=== PATIENT | female | born 1955 | race Caucasian/White ===

== ENCOUNTER 2020-02-10 00:25 | Emergency (ER) | payer OTHER, SELFPAY ==
--- NOTE | ~2020-02-10 | CT_ITS ---
EXAMINATION: CT abdomen pelvis w con DATE: 02/10/2020 01:59 INDICATION: Right flank pain. TECHNIQUE: Computed tomography (CT) of the abdomen and pelvis was performed with 100 mL Omnipaque 350 intravenous contrast. Automated exposure control and iterative reconstruction technique were employe d. The dose-length product was 840.59 mGy-cm. COMPARISON: CT abdomen and pelvis 01/15/2018 FINDINGS: The visualized portions of the lung bases demonstrate mild atelectasis. No pleural effusion . The heart size is normal. No pericardial effusion. The liver, gallbladder, spleen, pancreas, and ad renal glands are normal. There are cysts in the kidneys measuring up to 5 mm on the right. There are surgical changes in the stomach. There are changes of ventral hernia repair. The appendix is not visu alized. There is distended small bowel containing desiccated stool in left abdomen proximal and dista l to a bowel anastomosis. There is a moderate volume of stool in the colon. There are no pathological ly enlarged lymph nodes. There is no free intraperitoneal fluid. An intrathecal catheter is noted wit h subcutaneous pump in right lower quadrant. There is severe lumbar spondylosis. IMPRESSION: 1. Dilated small bowel in left abdomen, consistent with small bowel obstruction versus adynamic ileus . Reviewed, dictated and finalized at location A. IMPRESSION: 1. Dilated small bowel in left abdomen, consistent with small bowel obstruction versus adynamic ileus.
[2020-02-10 00:29] VITALS: BP 133/86; PULSE 86; RESP 18; TEMP 36.7; O2SAT 100
[2020-02-10 00:58] LABS: Basophils Absolute Auto 0.1 K/mm3 (0.0-0.1); Basophils Percent Auto 0.8 % (0.2-1.2); Eosinophils Absolute Auto 0.1 K/mm3 (0-0.3); Eosinophils Percent Auto 1.8 % (0-4.4); Hematocrit 38.5 % (37.0-47.0); Hemoglobin 12.5 g/dL (12.0-15.0); Immature Granulocyte Absolute 0.04 K/mm3 (0.00-0.031); Immature Granulocyte Percent A 0.5 % (0-0.5); Lymphocytes Percent Auto 39.3 % (18.3-44.2); Mean Corpuscular HGB Conc 32.5 g/dl (32-36); Mean Corpuscular Hemoglobin 31.5 pg (26-34); Mean Platelet Volume 9.3 fl (7.4-10.4); Monocytes Absolute Auto 0.6 K/mm3 (0.1-0.6); Monocytes Percent Auto 7.7 % (2.6-8.5); Neutrophils Absolute Auto 3.9 K/mm3 (1.3-6.7); Neutrophils Percent Auto 49.9 % (45.5-73.1); Platelet Count Result 247 k/mm3 (150-375); Red Blood Count 3.97 M/mm3 (4.2-5.4); Red Cell Distribution Width 13.4 % (11.5-14.5); White Blood Count 7.9 K/mm3 (4.5-10.0)
[2020-02-10 01:07] LABS: Add Urine Microscopic? YES; Appearance Urine Cloudy (Clear); Bilirubin Urine Negative (Negative); Blood Urine 2+ (Negative); Color Urine Yellow (Yellow); Glucose Urine UA Negative (Negative); Ketones Urine Negative (Negative); Leukocyte Esterase Ur 3+ LEU/UL (Negative); Nitrate Urine Positive (Negative); Protein Urine Negative (Negative); RBC Urine 21-50 /hpf (0-2); Specific Grav Ur 1.011 (1.001-1.035); Urobilinogen Urine Negative mg/dL (<2.0); WBC Clumps Urine Present /HPF; WBC Urine >75 /hpf
[2020-02-10 01:21] LABS: Alanine Aminotransferase 55 U/L (4-35); Albumin Level 4.5 g/dL (3.5-5.1); Alkaline Phosphatase 112 U/L (38-126); Aspartate Amino Transferase 50 U/L (14-36); Bilirubin,Total 0.2 mg/dL (0.2-1.3); Blood Urea Nitrogen 14 mg/dL (7-17); Carbon Dioxide 31 mmol/L (22-30); Chloride 97 mmol/L (98-107); Estimated CRCL calculation 95 ml/min; Estimated Glomerular Filt Rate > 60; Glucose 106 mg/dL (65-105); Lipase 36 U/L (23-300); Potassium 3.6 mmol/L (3.4-5.0); Sodium 137 mmol/L (137-145)
--- NOTE | 2020-02-10 01:26 | ED.ABDPAIN ---
HPI - Abdominal Pain General Chief Complaint: Abdominal Pain Stated Complaint: RUQ pain Time Seen by Provider: 02/10/20 00:35 History of Present Illness HPI narrative: Patient presents with 1 day of severe right upper quadrant right flank pain. She had vomiting at home. She has had no fever. She has not had pain like this before. She says she does not take is her kidney. She gives the pain is 7 out of 10. 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 She has not had any diarrhea. She has chronic constipation from her multiple narcotic pain medicines. She has failed back syndrome. MD elicited complaint: abdominal pain and flank pain Pertinent past history: constipation Onset (ago): day(s) Pain Consistency: constant Location: R flank Severity: severe Pain scale (0-10): 7 Quality: aching Radiation: R flank Exacerbating factors: other (Palpitation) Relieving factors: nothing Context: confirms other (None of these) Associated symptoms: nausea, vomiting and constipation Related Data Home Medications Medication Instructions Recorded Confirmed amitriptyline 100 mg tablet See Rx Instructions .ROUTE .COMPLEX 05/31/19 amitriptyline 100 mg tablet See Rx Instructions .ROUTE .COMPLEX 07/01/19 10/03/19 aspirin 81 mg chewable tablet 81 mg PO DAILY 07/01/19 10/03/19 dicyclomine 10 mg capsule See Rx Instructions .ROUTE .COMPLEX 07/01/19 10/03/19 ferrous sulfate 325 mg (65 mg See Rx Instructions .ROUTE .COMPLEX 07/01/19 10/03/19 iron) tablet levothyroxine 75 mcg tablet 75 mcg PO DAILY 07/01/19 10/03/19 melatonin 10 mg tablet See Rx Instructions .ROUTE 07/01/19 10/03/19 .COMPLEX tablet omeprazole 20 mg capsule,delayed See Rx Instructions .ROUTE .COMPLEX 07/01/19 10/03/19 release syringe with needle 3 mL 25 x 5/8 #1 each 07/01/19 10/03/19 nitrofurantoin 100 mg PO Q12H 07/04/19 10/03/19 monohydrate/macrocrystals 100 mg capsule Allergies Allergy/AdvReac Type Severity Reaction Status Date / Time prochlorperazine Allergy Severe Hyperactive--STATES Verified 02/10/20 00:46 CAUSES RESTLESSNESS, PANICKY FEELING Review of Systems Review of Systems: Narrative: CONSTITUTIONAL: Denies fever, chills, or sweats. EYES: Denies visual changes, redness, or discharge. ENT: Denies rhinorrhea, congestion, sore throat, or otalgia. CARDIOVASCULAR: Denies chest pain, palpitations, or edema. RESPIRATORY: Denies cough or dyspnea. GASTROINTESTINAL: She has abdominal pain, nausea, vomiting, but not diarrhea. GENITOURINARY: Denies dysuria or hematuria. SKIN: Denies rash or itching. MUSCULOSKELETAL: Denies back pain, joint pain, or myalgia. NEUROLOGIC: Denies headache, numbness, or weakness. PSYCHIATRIC: Denies anxiety or depression. : Intermittent vaginal bleeding All systems reviewed & are unremarkable except as noted in HPI and below PMFSH Past Medical History Medical History (Updated 02/10/20 @ 02:55 by Ester Gaona MD) Depression Failed back syndrome HLD (hyperlipidemia) Lymphedema UTI (urinary tract infection) Surgical History Surgical History (Updated 02/10/20 @ 03:02 by Ester Gaona MD) History of appendectomy History of gastric bypass Social History Social History Smoking status: Never smoker Alcohol intake: never Exam Narrative: Exam Narrative: GENERAL: Uncomfortable woman, in moderate distress. Chelosis, braces HEAD: Normocephalic, atraumatic. EYES: PERRLA and EOMI. ENT: Nares clear, no rhinorrhea or epistaxis. Mucous membranes moist. NECK: Supple. CHEST: Clear to auscultation. No respiratory distress. HEART: Regular rate and rhythm. No murmur heard. Normal peripheral pulses. ABDOMEN: Soft, nontender, nondistended, normal active bowel sounds. EXTREMITIES: Normal range of motion. Huge swollen legs. SKIN: Warm, dry, no rash. NEURO: No focal deficits. Alert and oriented x3. PSYCH:normal.
[2020-02-10] MEDS: MORPHINE SULFATE 4 MG/ML INJ IV PUSH (01:41)
[2020-02-10] MEDS: ONDANSETRON INJ 4 MG/2 ML VIAL IV PUSH ×2 (01:41→05:58)
[2020-02-10] MEDS: METOCLOPRAMIDE HCL INJ 10 MG/2 ML VIAL IV PUSH (02:22)
[2020-02-10 02:24] VITALS: BP 134/79; PULSE 80; RESP 15; O2SAT 97
--- NOTE | 2020-02-10 03:19 | PC.NURSE ---
RN attempted NG x2 using both Nares. Unsuccessful. PT tearful and asking if she needs to have the NG. RN informed her all the risks of a small bowel obstruction not being treated. ERP notified and talking to patient at this time.
--- NOTE | 2020-02-10 03:38 | PC.NURSE ---
Spoke w/ Renea for [facility] tri[facility] access. states pt has been accepted for transfer and will be in contact for patients bed.
--- NOTE | 2020-02-10 04:43 | PC.NURSE ---
called [facility] to transport patient. ETA [id number]
[2020-02-10 04:47] VITALS: BP 129/71; PULSE 86; RESP 20; TEMP 36.7; O2SAT 98
--- NOTE | 2020-02-10 04:55 | PC.NURSE ---
Pt has a bed assignment RM Number at [place] [id number]. Report at [phone]
[2020-02-10 06:30] VITALS: BP 153/91; PULSE 55; RESP 13; O2SAT 96
[2020-02-10 06:53] VITALS: BP 109/59; PULSE 74; RESP 15; O2SAT 99
--- NOTE | 2020-02-10 06:58 | PC.NURSE ---
called [facility] for ETA update. ETA atleast another hour.
--- NOTE | 2020-02-10 07:21 | PC.NURSE ---
This RN into pts room to introduce myself. Pt denies needing anything at this time. Informed pt that if she needs anything to call out.
== END 2020-02-10 07:53 | disposition short-term general hospital (02) ==
PROVIDERS: Emergency Provider Emergency Medicine; PCP Emergency Medicine
DX: N39.0 Urinary tract infection, site not specified (principal); K56.609 Unspecified intestinal obstruction, unspecified as to partial versus complete obstruction; Z98.84 Bariatric surgery status; Z79.82 Long term (current) use of aspirin; F32.9 Major depressive disorder, single episode, unspecified; E78.5 Hyperlipidemia, unspecified
CPT/HCPCS: 36415; 74177; 80053; 81001; 83690; 85025; 87077; 87086; 87088; 87186; 96365; 96375; 96376; 99285; J0131; J0696; J1170; J2270; J2405; J2765; Q9967

== ENCOUNTER 2020-02-18 16:53 | Emergency (ER) | payer OTHER, SELFPAY ==
[2020-02-18 16:55] VITALS: BP 132/73; PULSE 92; RESP 20; TEMP 37; O2SAT 97
[2020-02-18 17:07] VITALS: BP 106/89; PULSE 68; RESP 16; O2SAT 100
--- NOTE | 2020-02-18 17:47 | ED.GENADULT ---
HPI - General Adult General Chief complaint: Epistaxis Stated complaint: nosebleed Time Seen by Provider: 02/18/20 17:27 History of Present Illness HPI narrative: Patient presents with her for complications after a bowel obstruction last week. She came here to [facility] for her abdominal pain which turned out to be a bowel obstruction due to her gastric bypass surgery. There were multiple sites of obstruction and she was transferred to [facility]. She was treated surgically with lysis of adhesions. We could not pass an NG tube here and because nasal trauma with bleeding. She said they also had trouble passing a nasogastric tubes there but were able to get it in. She has had intermittent nosebleeds since. When she takes the Zofran for nausea, it causes a headache, which increases her blood pressure, which initiates the nosebleed. She cannot take Reglan because she is allergic to Compazine. Phenergan is in the same category. I told her I would find a nausea medicine for her. Her pain is tolerable at a 4 out of 10. She is only taking Tylenol at home because she is afraid of the constipation that the Percocets will cause. She has had only one bowel movement since her surgery. I recommended that she get the MiraLAX and take that 3 times a day until her stools are soft. Told her she could cut the Percocets in half or in quarters to get a little bit better pain management. She is so grateful that we were able to diagnose and manage the bowel obstruction. Onset (ago): week(s) Related Data Home Medications Medication Instructions Recorded Confirmed amitriptyline 100 mg tablet See Rx Instructions .ROUTE .COMPLEX 05/31/19 amitriptyline 100 mg tablet See Rx Instructions .ROUTE .COMPLEX 07/01/19 10/03/19 aspirin 81 mg chewable tablet 81 mg PO DAILY 07/01/19 10/03/19 dicyclomine 10 mg capsule See Rx Instructions .ROUTE .COMPLEX 07/01/19 10/03/19 ferrous sulfate 325 mg (65 mg See Rx Instructions .ROUTE .COMPLEX 07/01/19 10/03/19 iron) tablet levothyroxine 75 mcg tablet 75 mcg PO DAILY 07/01/19 10/03/19 melatonin 10 mg tablet See Rx Instructions .ROUTE 07/01/19 10/03/19 .COMPLEX tablet omeprazole 20 mg capsule,delayed See Rx Instructions .ROUTE .COMPLEX 07/01/19 10/03/19 release syringe with needle 3 mL 25 x 5/8 #1 each 07/01/19 10/03/19 nitrofurantoin 100 mg PO Q12H 07/04/19 10/03/19 monohydrate/macrocrystals 100 mg capsule Allergies Allergy/AdvReac Type Severity Reaction Status Date / Time prochlorperazine Allergy Severe Hyperactive--STATES Verified 02/10/20 00:46 CAUSES RESTLESSNESS, PANICKY FEELING Review of Systems Review of Systems: Narrative: CONSTITUTIONAL: Denies fever, chills, or sweats. EYES: Denies visual changes, redness, or discharge. ENT: Denies rhinorrhea, congestion, sore throat, or otalgia. She has had intermittent nosebleeds. CARDIOVASCULAR: Denies chest pain, palpitations, or edema. RESPIRATORY: Denies cough or dyspnea. GASTROINTESTINAL: She still has moderate abdominal pain, nausea, but not vomiting, or diarrhea. GENITOURINARY: Denies dysuria or hematuria. SKIN: Denies rash or itching. MUSCULOSKELETAL: Denies back pain, joint pain, or myalgia. NEUROLOGIC: Denies headache, numbness, or weakness. PSYCHIATRIC: Denies anxiety or depression. All systems reviewed & are unremarkable except as noted in HPI and below PMFSH Past Medical History Medical History (Updated 02/18/20 @ 17:51 by Ester Gaona MD) Depression Failed back syndrome HLD (hyperlipidemia) Lymphedema Small bowel obstruction UTI (urinary tract infection) Surgical History Surgical History History of appendectomy History of gastric bypass Social History Social History Smoking status: Never smoker Alcohol intake: never Exam Narrative: Exam Narrative: GENERAL: Well-appear
[2020-02-18] MEDS: MORPHINE SULFATE 10 MG/ML AMP 5 MG IM (17:48)
[2020-02-18] MEDS: hydrOXYzine HCL 25 MG TABLET PO (17:49)
[2020-02-18 17:55] VITALS: BP 106/84; PULSE 75; RESP 16; O2SAT 100
== END 2020-02-18 17:55 | disposition home or self-care (01) ==
PROVIDERS: Emergency Provider Emergency Medicine; PCP Emergency Medicine
DX: R04.0 Epistaxis (principal); R11.0 Nausea; R51 Headache; Z98.890 Other specified postprocedural states; F32.9 Major depressive disorder, single episode, unspecified; E78.5 Hyperlipidemia, unspecified; Z87.440 Personal history of urinary (tract) infections; Z98.84 Bariatric surgery status; Z79.82 Long term (current) use of aspirin
CPT/HCPCS: 96372; 99283; A9270; J2270

== ENCOUNTER 2020-06-06 10:43 | Outpatient (NON) | payer OTHER, SELFPAY ==
[2020-06-07 01:50] LABS: SARS-CoV-2 RNA PCR Positive
== END 2020-06-06 10:44 ==
PROVIDERS: PCP Emergency Medicine; Visit Provider Emergency Medicine
DX: U07.1 COVID-19 (principal)
CPT/HCPCS: 87635; C9803; U0003

== ENCOUNTER → 2020-12-01 16:16 | Outpatient (CLI) | payer OTHER, SELFPAY ==
--- NOTE | ~2020-12-01 | MM_ITS ---
EXAMINATION: MM screening ángel BI w lori HISTORY: Screening mammogram, family history of breast cancer in her sisters. TECHNIQUE: Craniocaudal and mediolateral oblique 3-D tomosynthesis images were obtained and synthetic 2-D images were generated. CAD analysis was submitted and interpreted. COMPARISON: 05/11/2019, 05/18/2018, 05/23/2017 BREAST PARENCHYMAL COMPOSITION: The breasts are heterogeneously dense, which may obscure small masses . FINDINGS: Scattered benign-appearing calcifications are present. There is no evidence of suspicious m ass, calcification, or architectural distortion to suggest malignancy in either breast. There has bee n no suspicious interval change. IMPRESSION: 1. No mammographic evidence of malignancy. 2. Recommend routine screening mammography in one year. BI-RADS Category 2: Benign finding(s). Reviewed, dictated and finalized at location A.
== END ==
PROVIDERS: PCP Emergency Medicine; Visit Provider Nurse Practitioner Obstetrics & Gynecology
DX: Z12.31 Encounter for screening mammogram for malignant neoplasm of breast (principal)
CPT/HCPCS: 77063; 77067

== ENCOUNTER → 2021-02-16 15:30 | Outpatient (CLI) | payer OTHER, SELFPAY ==
--- NOTE | ~2021-02-16 | MR_ITS ---
EXAMINATION: MR cervical spine wo con EXAM DATE: 02/16/2021 16:33 INDICATION: Cervical radiculopathy . TECHNIQUE: Multi-sequential, multiplanar MR images of the cervical spine were obtained without contra st. Axial T2, axial T2 MERGE sequence. Sagittal T1, T2, T2 fat saturation images also obtained. Com parison is made to prior examination from 03/16/2017. FINDINGS: There is fusion of the C5-6 vertebral bodies. Mild to moderate loss of the C4-5 disc heigh t and moderate at C6-7. There is 2 mm anterolisthesis C3 on C4 and C4 on C5. There is mild reversal o f the normal cervical lordosis which may be positional or spasm. The spinal cord signal intensity an d intrinsic morphology is normal. Cervicomedullary junction is normal in appearance. There are no rebecca picious marrow signal abnormalities. Paraspinal soft tissue is unremarkable. Level by level evaluation: C2-C3: Disc does not extend beyond the endplate margin. Uncovertebral joint arthropathy: None. Facet joint arthropathy: Mild to moderate left, mild right. Neural foraminal stenosis: No stenosis. Central canal stenosis: No stenosis. C3-C4: Disc does not extend beyond the endplate margin. Uncovertebral joint arthropathy: Mild bilateral. Facet joint arthropathy: Mild to moderate right, mild left. Neural foraminal stenosis: Mild right. Central canal stenosis: No stenosis. C4-C5: There is a mild diffuse disc bulge. Uncovertebral joint arthropathy: Mild bilateral. Facet joint arthropathy: Mild to moderate right, mild left. Neural foraminal stenosis: Mild right. Central canal stenosis: Minimal. C5-C6: Disc does not extend beyond the endplate margin. Uncovertebral joint arthropathy: None. Facet joint arthropathy: None. Neural foraminal stenosis: No stenosis. Central canal stenosis: No stenosis. C6-C7: This level is fused. Uncovertebral joint arthropathy: Mild bilateral. Facet joint arthropathy: Mild bilateral. Neural foraminal stenosis: No stenosis. Central canal stenosis: No stenosis. C7-T1: There is a minimal diffuse disc bulge. Uncovertebral joint arthropathy: Mild to moderate right, mild left. Facet joint arthropathy: Mild bilateral. Neural foraminal stenosis: Mild to moderate left, mild right. Central canal stenosis: Mild. IMPRESSION: 1. Mild to moderate cervical spondylosis, some progression compared to 2017. Reviewed, dictated and finalized at location B.
== END ==
PROVIDERS: PCP Emergency Medicine; Visit Provider Nurse Practitioner Family
DX: M47.23 Other spondylosis with radiculopathy, cervicothoracic region (principal); M48.03 Spinal stenosis, cervicothoracic region
CPT/HCPCS: 72141

== ENCOUNTER → 2021-07-30 09:52 | Outpatient (CLI) | payer OTHER, SELFPAY ==
--- NOTE | ~2021-07-30 | US_ITS ---
EXAMINATION: US abdomen limited DATE: 07/30/2021 10:21 INDICATION: Unspecified abdominal pain. TECHNIQUE: Multiple grayscale and Doppler ultrasound images of the abdomen were obtained. COMPARISON: CT abdomen and pelvis 02/10/2020 FINDINGS: The visualized portions of the head, body, and tail of the pancreas are normal. The liver i s normal without focal lesion. There is normal flow in main portal vein. The gallbladder is normal in size. No gallstones or gallbladder wall thickening. There is no sonographic Nguyen sign. The common duct is normal and measures 5 mm. IMPRESSION: 1. Normal right upper quadrant ultrasound. Reviewed, dictated and finalized at location A. 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
--- NOTE | ~2021-07-30 | XR_ITS ---
EXAMINATION: XR chest 2V DATE: 07/30/2021 10:21 INDICATION: Other chest pain. TECHNIQUE: Frontal and lateral views of the chest were obtained. COMPARISON: CT abdomen and pelvis 06/12/2020, chest 2 views 08/20/2015 FINDINGS: The chest demonstrates clear lungs without pneumonia, pleural effusion, or pneumothorax. Th e heart size is normal. There are changes of ventral hernia repair. IMPRESSION: 1. No acute cardiopulmonary disease. Reviewed, dictated and finalized at location A. 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
== END ==
PROVIDERS: PCP Emergency Medicine; Visit Provider Emergency Medicine
DX: R07.89 Other chest pain (principal); R10.9 Unspecified abdominal pain
CPT/HCPCS: 71046; 76705

== ENCOUNTER 2022-02-10 01:20 | Emergency (ER) | payer OTHER, SELFPAY ==
[2022-02-10] VITALS (70 sets, daily range): BP systolic 136–177; BP diastolic 55–92; PULSE 72–100; RESP 14–20; TEMP 36.6; O2SAT 85–100
--- NOTE | ~2022-02-10 | XR_ITS ---
EXAMINATION: XR abdomen NG/feed tube insert DATE: 02/10/2022 04:14 INDICATION: Nasogastric tube placement TECHNIQUE: A supine view of the abdomen and lower chest was obtained for evaluation of feeding tube placement. COMPARISON: CT dated 02/10/2022 FINDINGS: Nasogastric tube tip in the stomach. No dilated loops of bowel in the visualized abdomen. The pelvis is excluded from the [id number]-giya. Intrathecal pain pump catheter extends along the subcutaneous tis sues at the lateral right abdomen with distal tip projecting over the central canal of the lower thor acic spine. Lung bases are clear. Heart size is normal. IMPRESSION: 1. Nasogastric tube in the stomach. Reviewed, dictated and finalized at location A.
--- NOTE | ~2022-02-10 | XR_ITS ---
EXAMINATION: XR UGI water soluble w sbs DATE: 02/11/2022 15:15 INDICATION: Gastric bypass procedure. Small bowel obstruction. TECHNIQUE: Water-soluble contrast was administered through the patient's existing nasogastric tube. C onventional supine abdomen radiographs and fluoroscopic spot radiographs of the tuft is, stomach, and proximal small bowel were obtained. Additional overhead radiographs were obtained during the transit through the small bowel. Spot fluoroscopic images of the small bowel were obtained upon contrast re aching the cecum. Fluoroscopy exposure time was 1.9 minutes. A total of 30 fluoroscopic images and 8 overhead radiographs were obtained. COMPARISON: CT dated 02/10/2022 FINDINGS: Critical Care Nurse Specialist image demonstrates nasogastric tube with distal tip just below level of the diaphragm. Suture l yo in the epigastric region and distal aspects which on the left abdomen consistent with reported R oux-en-Y gastric bypass procedure. Additional postoperative change of prior ventral hernia mesh repai r. There is also a right intrathecal pain pump project over the right hemipelvis with catheter projec ting over the central canal at the upper lumbar and lower thoracic spine with distal tip at the level of the inferior endplate of T10. Initial fluoroscopic images following administration a small amount of water-soluble contrast demonst rated the tip of the nasogastric tube within the small residual gastric remnant. Some additional cont rast exited the proximal side-port which was located more proximally above the level of the diaphragm . To avoid potential for reflux and aspiration the table was tilted with the head of the bed elevated approximately 60 degrees and the contrast was administered with intermittent small boluses with fluo roscopic observation. There is a small sliding-type hiatal hernia. The mid to distal esophagus appear s patulous with abnormal contour in the region of the gastroesophageal junction. No significant stric ture or fixed obstruction. There is relatively rapid transit of contrast along the lateral limb of the gastric bypass. There is however leakage of contrast into the excluded portion of the stomach where it persisted without evide nt passage into the more distal duodenum. On the 15 minute image contrast 616 extending through a lar ge amount of small bowel throughout all 4 quadrants of the abdomen. There is an air-fluid level withi n a focally dilated segment of bowel at the site of the jejunojejunal anastomosis. No other dilated l oops of bowel are identified. Transit time from the stomach to proximal colon was between 60-90 minutes. Aside from expected focal dilation at the anastomosis the remainder of the small bowel demonstrates normal caliber and mucosal fold pattern. The region of the terminal ileum was obscured by multiple loops of contrast opacified b owel and the superimposed pain pump. There is still a moderate amount of stool scattered throughout t he colon. IMPRESSION: 1. Resolution of prior small bowel obstruction. 2. Postoperative change of prior Marco-en-Y gastric bypass procedure but with some passage of contrast into the excluded portion of the stomach. 3. Small sliding-type hiatal hernia suggested, patulous esophagus and abnormal contour at the interve vijay gastroesophageal junction. There does appear to be some asymmetric wall thickening at this locat ion on the prior CT and would recommend further evaluation with endoscopy to exclude malignancy. Reviewed, dictated and finalized at location A. IMPRESSION: 1. Resolution of prior small bowel obstruction. 2. Postoperative change of prior Marco-en-Y gastric bypass procedure but with so me passage of contrast into the excluded portion of the stomach. 3. Small sliding-type hiatal he
--- NOTE | ~2022-02-10 | CT_ITS ---
EXAMINATION: CT abdomen pelvis w con DATE: 02/10/2022 03:19 INDICATION: Abdominal pain, nausea and vomiting. TECHNIQUE: Computed tomography (CT) of the abdomen and pelvis was performed with 100 mL Omnipaque-300 intravenous contrast. Automated exposure control and iterative reconstruction technique were employe d. The dose-length product was 1397.73 mGy-cm. COMPARISON: None FINDINGS: Lung bases are clear. Heart size is normal. No pericardial or pleural effusion. Small sliding-type hi atal hernia. Small amount of fluid in the distal esophagus. Postoperative change of prior gastric byp ass procedure. The Marco limb is decompressed. There is prominent localized dilation of the small gaby l at the jejunojejunal anastomosis. There is a large amount of stool scattered throughout the colon e xtending to the cecum consistent with constipation. There are a few loops of mildly dilated small bow el in the right lower quadrant with associated pseudofeces proximal to a transition point to decompre ssed more distal small bowel which extends to the ileocecal valve. Findings would be consistent with an early or partial small bowel obstruction. Postoperative change of prior ventral hernia mesh repair . Mild intrahepatic biliary ductal dilation without dilation the normal caliber common bile duct. Cyst of a few tiny gallstones along the dependent wall of the normal gallbladder. Spleen, pancreas, bilate ral adrenal glands and kidneys are normal. Bladder is normal. The uterus is not identified and has rosibel rea been surgically resected. Bilateral adnexa are unremarkable. No abscess or free intraperitoneal gas or fluid. No pathologically enlarged abdominal or pelvic lymphadenopathy. Severe lumbar and moder ate lower thoracic spondylosis. Intrathecal pain pump reservoir in the subcutaneous right anterior pe lvic wall with catheter extending into the central canal by interspinous process approach at L2-L3 an d extending cephalad with distal tip at the level of T10. IMPRESSION: 1. Small bowel obstruction with transition point in the right lower quadrant which could be due to ad hesion. The focal dilation of the small bowel at the jejunojejunal anastomosis related to a gastric b ypass procedure results from a lnyn-zz-rxlo anastomosis as the more proximal Marco limb is decompresse d. 2. Large amount of stool throughout the entirety of the colon suggestive of constipation. 3. Small sliding-type hiatal hernia. 4. Multiple hepatic biliary ductal dilation with normal gallbladder and common bile duct but with sug gestion of a few tiny gallstones in the dependent gallbladder. Correlate with liver function tests. Reviewed, dictated and finalized at location A. IMPRESSION: 1. Small bowel obstruction with transition point in the right lower quadrant wh ich could be due to adhesion. The focal dilation of the small bowel at the jeju nojejunal anastomosis related to a gastric bypass procedure results from a side -to-side anastomosis as the more proximal Marco limb is decompressed. 2. Large amount of stool throughout the entirety of the colon suggestive of con stipation. 3. Small sliding-type hiatal hernia. 4. Multiple hepatic biliary ductal dilation with normal gallbladder and common bile duct but with suggestion of a few tiny gallstones in the dependent gallbla dder. Correlate with liver function tests.
--- NOTE | 2022-02-10 01:50 | ED.GENADULT ---
HPI - General Adult General Chief complaint: Nausea/Vomiting/Diarrhea <Crispin Mccray MD - Last Filed: 02/10/22 06:36> Stated complaint: n/v, mid back pain <Crispin Mccray MD - Last Filed: 02/10/22 06:36> Time Seen by Provider: 02/10/22 01:39 <Crispin Mccray MD - Last Filed: 02/10/22 06:36> History of Present Illness HPI narrative: Patient 66-year-old female who presents the emergency department with chief complaint of abdominal pain nausea and vomiting. Patient reports she has prior history of gastric bypass and also has had a bowel obstruction previously the patient states this evening she woke up from sleep with pain in the epigastric region radiating to her back patient states she had nausea and vomiting reports she has had a bowel movement and has passed gas since the symptoms started. Patient states it feels similar to whenever she had a bowel obstruction several years ago and required transfer to [place]. The patient also reports that she has a pain pump in her abdominal cavity that was last replaced in July of this year. <Crispin Mccray MD - Last Filed: 02/10/22 06:36> Related Data Home medications: Home Medications Medication Instructions Recorded Confirmed aspirin 81 mg chewable tablet 81 mg PO DAILY 07/01/19 12/03/21 (Aspirin Childrens) ferrous sulfate 325 mg (65 mg See Rx Instructions .Route .COMPLEX 07/01/19 12/03/21 iron) tablet amitriptyline 100 mg tablet mg 02/11/22 <Crispin Mccray MD - Last Filed: 02/10/22 06:36> Allergies/adverse reactions: Allergies Allergy/AdvReac Type Severity Reaction Status Date / Time prochlorperazine Allergy Severe Hyperactive--STATES Verified 02/10/22 01:38 CAUSES RESTLESSNESS, PANICKY FEELING <Crispin Mccray MD - Last Filed: 02/10/22 06:36> Review of Systems Review of Systems: A 10 system review of systems was completed on the patient and is negative except for what is stated in the HPI. Nursing and ancillary documentation was reviewed. <Crispin Mccray MD - Last Filed: 02/10/22 06:36> PMFSH Past Medical History Medical History: Medical History (Updated 02/10/22 @ 03:49 by Crispin Mccray MD) Depression Failed back syndrome HLD (hyperlipidemia) Lymphedema Small bowel obstruction UTI (urinary tract infection) <Crispin Mccray MD - Last Filed: 02/10/22 06:36> Surgical History Surgical History: Surgical History History of appendectomy History of gastric bypass <Crispin Mccray MD - Last Filed: 02/10/22 06:36> Family History Family History: Family History Mother Diabetes mellitus, Onset Age: 76 Hypertension, Onset Age: 76 Asthma, Onset Age: 76 Family history of cardiovascular disease, Onset Age: 76 Family history of arthritis, Onset Age: 76 Family history of malignant neoplasm, Onset Age: 76 Acute myocardial infarction Father Cerebrovascular accident Family history of arthritis, Onset Age: 84 <Crispin Mccray MD - Last Filed: 02/10/22 06:36> Social History Social History: Social History Smoking status: Never smoker Alcohol intake: never <Crispin Mccray MD - Last Filed: 02/10/22 06:36> Exam Narrative: GENERAL: Well-appearing, well-nourished, and in no acute distress. HEAD: Normocephalic, atraumatic. EYES: PERRLA and EOMI. ENT: Nares clear, no rhinorrhea or epistaxis. Mucous membranes moist. NECK: Supple. CHEST: Clear to auscultation. No respiratory distress. HEART: Regular rate and rhythm. No murmur heard. Normal peripheral pulses. ABDOMEN: Soft, mild tenderness to palpation in the epigastric region, palpable implantable device in the abdominal
[2022-02-10] MEDS: ONDANSETRON INJ 4 MG/2 ML VIAL IV PUSH ×2 (01:55→22:21)
[2022-02-10] MEDS: SODIUM CHLORIDE 0.9% IV 1,000 ML 999 ML IV CONT ×2 (01:55→05:35)
[2022-02-10] MEDS: MORPHINE SULFATE (*CRX) 4 MG/ML INJ IV PUSH ×2 (01:55→05:36)
[2022-02-10 02:00] LABS: Basophils Percent Auto 0.3 % (0.2-1.2); Eosinophils Absolute Auto 0.2 K/mm3 (0-0.3); Eosinophils Percent Auto 2.4 % (0-4.4); Hemoglobin 12.3 g/dL (12.0-15.0); Immature Granulocyte Absolute 0.06 K/mm3 (0.00-0.031); Immature Granulocyte Percent A 0.6 % (0-0.5); Lymphocytes Absolute Auto 2.24 K/mm3 (0.9-3.2); Lymphocytes Percent Auto 22.6 % (18.3-44.2); Mean Corpuscular HGB Conc 32.4 g/dl (32-36); Mean Corpuscular Hemoglobin 30.6 pg (26-34); Mean Corpuscular Volume 94.5 fl (80-100); Mean Platelet Volume 8.8 fl (7.4-10.4); Monocytes Absolute Auto 0.9 K/mm3 (0.1-0.6); Monocytes Percent Auto 9.3 % (2.6-8.5); Neutrophils Absolute Auto 6.4 K/mm3 (1.3-6.7); Neutrophils Percent Auto 64.8 % (45.5-73.1); Platelet Count Result 246 k/mm3 (150-375); Red Blood Count 4.02 M/mm3 (4.2-5.4); Red Cell Distribution Width 13.9 % (11.5-14.5); White Blood Count 9.9 K/mm3 (4.5-10.0)
[2022-02-10 02:04] LABS: Appearance Urine Clear (Clear); Bilirubin Urine Negative (Negative); Blood Urine 2+ (Negative); Color Urine Yellow (Yellow); Glucose Urine UA Negative (Negative); Ketones Urine Negative (Negative); Leukocyte Esterase Ur 2+ LEU/UL (Negative); Nitrate Urine Negative (Negative); Protein Urine Negative (Negative); Urobilinogen Urine 0.2 mg/dL (<2.0); pH Urine 6.5 (5.0-9.0)
[2022-02-10 02:06] LABS: Add Urine Microscopic? YES; Bacteria Urine Trace /hpf; Squamous Epithelial Cell Urine Few /hpf (Few)
[2022-02-10 02:52] LABS: Alanine Aminotransferase 33 U/L (6-35); Albumin Level 4.7 g/dL (3.5-5.1); Alkaline Phosphatase 128 U/L (38-126); Anion Gap 5 mmol/L (8-16); Aspartate Amino Transferase 35 U/L (14-36); Bilirubin,Total 0.3 mg/dL (0.2-1.3); Blood Urea Nitrogen 15 mg/dL (7-17); Calcium 9.1 mg/dL (8.4-10.2); Carbon Dioxide 33 mmol/L (22-30); Chloride 96 mmol/L (98-107); Estimated CRCL calculation 97 ml/min; Estimated Glomerular Filt Rate > 60; Glucose 118 mg/dL (65-110); Lipase 28 U/L (23-300); Potassium 3.9 mmol/L (3.4-5.0); Sodium 134 mmol/L (137-145)
[2022-02-10 04:47] LABS: SARS-CoV-2 RNA PCR Negative
--- NOTE | 2022-02-10 05:30 | PC.NURSE ---
ERP reviewed the X ray and states NG is in correct placement. NG hooked up to intermittent suction
--- NOTE | 2022-02-10 07:19 | PC.NURSE ---
Hand off received from MEGAN Florian. Updated plan of care. Awaiting bed from [place].
[2022-02-10] MEDS: SODIUM CHLORIDE 0.9% IV 1,000 ML 150 ML IV CONT (10:37)
[2022-02-10] MEDS: SODIUM CHLORIDE 0.9% IV 1,000 ML 150 ML (16:46)
[2022-02-10] MEDS: diazePAM INJ (*CRX) 10 MG/2 ML SYRINGE 2 MG IV PUSH (22:21)
[2022-02-10] MEDS: PANTOPRAZOLE SODIUM IV 40 MG VIAL IV PUSH (22:21)
--- NOTE | 2022-02-10 23:05 | PC.NURSE ---
Assumed care of pt from [facility]. Pt resting on bed at this time.
--- NOTE | 2022-02-10 23:50 | PC.NURSE ---
Pt c/o a headache. pt requesting medication, md notified.
[2022-02-10 23:58] LABS: Glucose Point of Care 114 mg/dl (65-105)
[2022-02-11] VITALS (7 sets, daily range): BP systolic 138–145; BP diastolic 75–87; PULSE 68–81; RESP 16–18; O2SAT 93–100
[2022-02-11] MEDS: fentaNYL CITRATE INJ (*CRX) 100 MCG/2 ML VIAL 50 MCG IV PUSH (00:01)
[2022-02-11] MEDS: DEXTROSE 10% 1,000 ML 50 ML IV CONT (00:13)
--- NOTE | 2022-02-11 02:15 | PC.NURSE ---
Pt complaining of some discomfort with urination. MD notified.
--- NOTE | 2022-02-11 02:16 | PC.NURSE ---
Pt still c/o a headache. made aware
--- NOTE | 2022-02-11 02:30 | PC.NURSE ---
[facility] called and asked for an update. Still has no bed at this time
[2022-02-11] MEDS: PHENAZOPYRIDINE HCL 100 MG TABLET 200 MG PO (02:37)
[2022-02-11] MEDS: HYDROmorphone HCL INJ (*CRX) 1 MG/ML SYR 0.5 MG IV PUSH (02:37)
--- NOTE | 2022-02-11 02:55 | PC.NURSE ---
Assuming care of pt.
--- NOTE | 2022-02-11 11:30 | PC.NURSE ---
[facility] Called for update and new patient vital signs at this time. [facility] reports there are no beds currently and that patient is still on a list.
[2022-02-11] MEDS: diphenhydrAMINE HCl INJ 50 MG/ML VIAL 25 MG IV PUSH (11:37)
[2022-02-11] MEDS: METOCLOPRAMIDE HCL INJ 10 MG/2 ML VIAL IV PUSH (11:38)
--- NOTE | 2022-02-11 16:00 | PC.NURSE ---
Patient's intermittent suction turned to off position at this time per EDP verbal order. PO challenge with clear liquids initiated at this time.
--- NOTE | 2022-02-11 23:29 | PC.NURSE ---
[facility] transfer centered called to get an update on the pt. Pt does not have a bed yet at [facility] but they are still looking for one for the pt.
[2022-02-12 00:01] VITALS: BP 148/87; O2SAT 93
[2022-02-12 08:29] VITALS: BP 172/96; O2SAT 100
[2022-02-12 11:12] VITALS: BP 137/84; PULSE 82; RESP 16; O2SAT 100
== END 2022-02-12 11:12 | disposition home or self-care (01) ==
PROVIDERS: Emergency Medicine; Emergency Provider General Practice; PCP Emergency Medicine
DX: K56.609 Unspecified intestinal obstruction, unspecified as to partial versus complete obstruction (principal); Z98.84 Bariatric surgery status; Z20.822 Contact with and (suspected) exposure to COVID-19; E78.5 Hyperlipidemia, unspecified; Z87.440 Personal history of urinary (tract) infections; K44.9 Diaphragmatic hernia without obstruction or gangrene
CPT/HCPCS: 36415; 74177; 74240; 74248; 80053; 81001; 82948; 83605; 83690; 85025; 96361; 96365; 96375; 96376; 99284; A9270; C9113; C9803; J0131; J1170; J1200; J2270; J2405; J2765; J3010; J3360; J7030; Q9967; U0003; U0005

== ENCOUNTER → 2022-03-17 13:15 | Outpatient (CLI) | payer OTHER, SELFPAY ==
--- NOTE | ~2022-03-17 | MM_ITS ---
EXAMINATION: MM screening ángel BI w lori HISTORY: Screening TECHNIQUE: Craniocaudal and mediolateral oblique 3-D tomosynthesis images were obtained and synthetic 2-D images were generated. CAD analysis was submitted and interpreted. COMPARISON: Comparison to multiple prior studies sequentially, with oldest reviewed study dated 04/24. BREAST PARENCHYMAL COMPOSITION: The breasts are heterogeneously dense, which may obscure small masses FINDINGS: There are benign-appearing breast calcifications, right greater than left. There is no evid ence of suspicious mass, calcification, or architectural distortion to suggest malignancy in either b reast. There has been no suspicious interval change. IMPRESSION: 1. No mammographic evidence of malignancy. 2. Recommend routine screening mammography in one year. BI-RADS Category 2: Benign finding(s). Reviewed, dictated and finalized at location A.
== END ==
PROVIDERS: PCP Emergency Medicine; Visit Provider Emergency Medicine
DX: Z12.31 Encounter for screening mammogram for malignant neoplasm of breast (principal)
CPT/HCPCS: 77063; 77067

== ENCOUNTER 2022-08-05 00:18 | Day surgery (SDC) | payer OTHER, SELFPAY ==
[2022-07-28 16:00] VITALS: BMI 35.9
--- NOTE | 2022-08-04 14:03 | WPDANESEPPF ---
Anes - Initial Pre Proc Eval Procedure: Operation Date: 08/05/22 11:30 Proposed Procedures p Esophagogastroduodenoscopy - Wilberto Auguste MD Date/Time: 08/04/22 14:03 Surgeon: Wilberto Auguste MD Pre Op Diagnosis: GERD Patient Data Age: 66 Gender: F Height: 1.7 m Weight: 104.25 kg Allergies Allergy/AdvReac Type Severity Reaction Status Date / Time prochlorperazine Allergy Severe Hyperactive--STATES Verified 08/05/22 10:21 CAUSES RESTLESSNESS, PANICKY FEELING Home Medications Medication Instructions Recorded Confirmed Type aspirin 81 mg chewable tablet 81 mg PO DAILY 07/01/19 07/28/22 History (Aspirin Childrens) ferrous sulfate 325 mg (65 mg See Rx Instructions .Route .COMPLEX 07/01/19 07/28/22 History iron) tablet syringe with needle 3 mL 25 x 5/8 #3 ea 07/06/20 07/21/22 Rx (BD Luer-Marlene Syringe) ondansetron 4 mg disintegrating 4 mg PO Q8H PRN nausea and 07/26/21 07/28/22 Rx tablet vomiting #21 tabs cholecalciferol (vitamin D3) 1,250 See Rx Instructions .Route 01/25/22 07/28/22 Rx mcg (50,000 unit) capsule .COMPLEX #12 caps sucralfate 1 gram tablet (Carafate) 1 g PO QID #120 tabs 03/15/22 07/28/22 Rx cyanocobalamin (vitamin B-12) See Rx Instructions .Route 03/29/22 07/28/22 Rx 1,000 mcg/mL injection solution .COMPLEX #3 mL fluticasone propionate 50 1 spray intranasal BID #16 grams 04/06/22 07/28/22 Rx mcg/actuation nasal spray,suspension (Flonase Allergy Relief) tolterodine 2 mg tablet See Rx Instructions .Route 06/29/22 07/28/22 Rx .COMPLEX #180 tabs Stool Softener 3 cap PO BID 07/28/22 07/28/22 History amitriptyline 100 mg tablet 200 mg PO HS 07/28/22 07/28/22 History baclofen 10 mg tablet 10 mg PO Q8H PRN Muscle Spasm 07/28/22 07/28/22 History dicyclomine 10 mg capsule 10 mg PO BID 07/28/22 07/28/22 History furosemide 20 mg tablet 20 mg PO BID 07/28/22 07/28/22 History losartan 25 mg tablet 25 mg PO DAILY 07/28/22 07/28/22 History fakxkpztcnma-xvfkxcmt-aczndgc-folic 1 tablet PO DAILY 07/28/22 07/28/22 History acid 400 mcg-vit K1 20 mcg tablet (One-A-Day Women's 50 Plus) naloxegol 25 mg tablet (Movantik) 25 mg PO DAILY 07/28/22 07/28/22 History nystatin 100,000 unit/gram topical 1 applic topical TID PRN Rash 07/28/22 07/28/22 History cream omeprazole 40 mg capsule,delayed 40 mg PO BID 07/28/22 07/28/22 History release simvastatin 40 mg tablet 40 mg PO HS 07/28/22 07/28/22 History venlafaxine 150 mg 300 mg PO DAILY 07/28/22 07/28/22 History capsule,extended release 24 hr morphine (PF) in 0.9 % sod chl 1,075.9 mcg dfe continuous sub-Q 08/05/22 08/05/22 History infusn (via wearable injectr) DAILY Patient hx anesthesia problems: none Family hx anesthesia problems: none Results Review: All pre-operative results and documents have been reviewed as part of the pre-operative evaluation. [facility] Past Medical History Medical History (Updated 08/04/22 @ 14:04 by Seb Salinas, ) Abnormal digestive system diagnostic imaging Depression Failed back syndrome HLD (hyperlipidemia) Hypertension IBS (irritable bowel syndrome) Lymphedema KAMRAN (obstructive sleep apnea) CPAP Small bowel obstruction UTI (urinary tract infection) Surgical History Surgical History (Updated 07/21/22 @ 12:54 by Stella Fraga, [employer]) History of appendectomy History of gastric bypass Family History Family History Mother Diabetes mellitus, Onset Age: 76 Hypertension, Onset Age: 76 Asthma, Onset Age: 76 Family history of cardiovascular disease, Onset Age: 76 Family history of arthritis, Onset Age: 76 Family history of malignant neoplasm, Onset Age: 76 Acute myocardial infarction Father Cerebrovascular accident Family history of arthritis, Onset Age: 84 Social History Social History Smoking status: Never smoke
[2022-08-05 10:12] VITALS: BP 134/71; PULSE 83; RESP 20; TEMP 36.3; O2SAT 99; BMI 36.5
--- NOTE | 2022-08-05 10:16 | PM.HPGS ---
History of Present Illness History of Present Illness Consent: Risks, benefits, and alternatives have been discussed and questions answered. Patient agrees to proceed with procedure. Chief complaint: GERD Narrative: More Lovett is a 66 year old female [facility] Past Medical History Medical History (Updated 08/04/22 @ 14:04 by Seb Salinas DO) Abnormal digestive system diagnostic imaging Depression Failed back syndrome HLD (hyperlipidemia) Hypertension IBS (irritable bowel syndrome) Lymphedema KAMRAN (obstructive sleep apnea) CPAP Small bowel obstruction UTI (urinary tract infection) Surgical History Surgical History (Updated 07/21/22 @ 12:54 by Stella Fraga, [employer]) History of appendectomy History of gastric bypass Family History Family History Mother Diabetes mellitus, Onset Age: 76 Hypertension, Onset Age: 76 Asthma, Onset Age: 76 Family history of cardiovascular disease, Onset Age: 76 Family history of arthritis, Onset Age: 76 Family history of malignant neoplasm, Onset Age: 76 Acute myocardial infarction Father Cerebrovascular accident Family history of arthritis, Onset Age: 84 Social History Social History Smoking status: Never smoker Alcohol intake: never Substance use: never Substance use type: does not use Living arrangements: with family Spiritual care concerns: No Meds Home Medications and Allergies Home Medications Medication Instructions Recorded Confirmed Type aspirin 81 mg chewable tablet 81 mg PO DAILY 07/01/19 07/28/22 History (Aspirin Childrens) ferrous sulfate 325 mg (65 mg See Rx Instructions .Route .COMPLEX 07/01/19 07/28/22 History iron) tablet syringe with needle 3 mL 25 x 5/8 #3 ea 07/06/20 07/21/22 Rx (BD Luer-Marlene Syringe) ondansetron 4 mg disintegrating 4 mg PO Q8H PRN nausea and 07/26/21 07/28/22 Rx tablet vomiting #21 tabs cholecalciferol (vitamin D3) 1,250 See Rx Instructions .Route 01/25/22 07/28/22 Rx mcg (50,000 unit) capsule .COMPLEX #12 caps sucralfate 1 gram tablet (Carafate) 1 g PO QID #120 tabs 03/15/22 07/28/22 Rx cyanocobalamin (vitamin B-12) See Rx Instructions .Route 03/29/22 07/28/22 Rx 1,000 mcg/mL injection solution .COMPLEX #3 mL fluticasone propionate 50 1 spray intranasal BID #16 grams 04/06/22 07/28/22 Rx mcg/actuation nasal spray,suspension (Flonase Allergy Relief) tolterodine 2 mg tablet See Rx Instructions .Route 06/29/22 07/28/22 Rx .COMPLEX #180 tabs Stool Softener 3 cap PO BID 07/28/22 07/28/22 History amitriptyline 100 mg tablet 200 mg PO HS 07/28/22 07/28/22 History baclofen 10 mg tablet 10 mg PO Q8H PRN Muscle Spasm 07/28/22 07/28/22 History dicyclomine 10 mg capsule 10 mg PO BID 07/28/22 07/28/22 History furosemide 20 mg tablet 20 mg PO BID 07/28/22 07/28/22 History losartan 25 mg tablet 25 mg PO DAILY 07/28/22 07/28/22 History rkcqwvfuiotb-nukyuezs-gnywbeq-folic 1 tablet PO DAILY 07/28/22 07/28/22 History acid 400 mcg-vit K1 20 mcg tablet (One-A-Day Women's 50 Plus) naloxegol 25 mg tablet (Movantik) 25 mg PO DAILY 07/28/22 07/28/22 History nystatin 100,000 unit/gram topical 1 applic topical TID PRN Rash 07/28/22 07/28/22 History cream omeprazole 40 mg capsule,delayed 40 mg PO BID 07/28/22 07/28/22 History release simvastatin 40 mg tablet 40 mg PO HS 07/28/22 07/28/22 History venlafaxine 150 mg 300 mg PO DAILY 07/28/22 07/28/22 History capsule,extended release 24 hr Allergies Allergy/AdvReac Type Severity Reaction Status Date / Time prochlorperazine Allergy Severe Hyperactive--STATES Verified 08/05/22 10:12 CAUSES RESTLESSNESS, PANICKY FEELING
[2022-08-05] MEDS: LACTATED RINGERS 1,000 ML 150 ML IV CONT (10:35)
[2022-08-05 10:56] VITALS: BP 115/63; PULSE 74; RESP 18; O2SAT 98
[2022-08-05 11:06] VITALS: BP 106/58; PULSE 68; RESP 20; O2SAT 98
[2022-08-05 11:16] VITALS: BP 143/75; PULSE 60; RESP 20; O2SAT 98
== END 2022-08-05 11:42 | disposition home or self-care (01) ==
PROVIDERS: PCP Emergency Medicine; Visit Provider Internal Medicine Gastroenterology
PROC: 0DJ08ZZ Inspection of Upper Intestinal Tract, Via Natural or Artificial Opening Endoscopic (ICD-10-PCS; CPT 43235; principal; 2022-08-05 11:30)
DX: K21.9 Gastro-esophageal reflux disease without esophagitis (principal); R93.3 Abnormal findings on diagnostic imaging of other parts of digestive tract; K31.89 Other diseases of stomach and duodenum; K22.10 Ulcer of esophagus without bleeding; E78.5 Hyperlipidemia, unspecified; G47.33 Obstructive sleep apnea (adult) (pediatric)
CPT/HCPCS: 43239; 87081; J2704; J7120

== ENCOUNTER 2022-08-21 05:23 | Observation (INO) | payer OTHER, SELFPAY ==
[2022-08-21] VITALS (8 sets, daily range): BP systolic 120–164; BP diastolic 55–82; PULSE 73–108; RESP 14–18; TEMP 36.7–37.1; O2SAT 94–100
--- NOTE | ~2022-08-21 | XR_ITS ---
EXAMINATION: XR abdomen/kub 1V DATE: 08/22/2022 11:05 INDICATION: Small bowel obstruction. TECHNIQUE: A supine view of the abdomen on 2 radiographs was obtained. COMPARISON: Small bowel series 02/11/2022, CT abdomen and pelvis 08/21/2022 FINDINGS: There are staple lines involving the stomach. There are changes of mesh ventral hernia repa ir. There is a moderate volume of stool in the colon. The colon is normal in caliber. There are dilat ed loops of small bowel. An intrathecal catheter is noted with pump. IMPRESSION: 1. Persistently dilated small bowel, consistent with small bowel obstruction. Reviewed, dictated and finalized at location A. MILL OPERATOR
--- NOTE | ~2022-08-21 | CT_ITS ---
EXAMINATION: CT abdomen pelvis w con DATE: 08/21/2022 07:54 INDICATION: Epigastric pain TECHNIQUE: Computed tomography (CT) of the abdomen and pelvis was performed with 100 cc Omnipaque 350 intravenous contrast. The dose-length product was 1366.21 mGy-cm. Automated exposure control and ite rative reconstruction technique were employed. COMPARISON: None. FINDINGS: There is bibasilar dependent atelectasis. Heart size normal. There is a hiatal hernia. No s ignificant pleural or pericardial effusion. There are surgical changes in the abdomen consistent with gastric bypass and ventral hernia repair. There are multiple dilated loops of small bowel with deep compressed colon, consistent with small bowel obstruction. No free air or free fluid. No significant vascular abnormality. No lymphadenopathy. The liver, spleen, pancreas, adrenal glands and left kidney are unremarkable. There is a subcentimete r hypodensity of the right kidney, most likely benign cysts. There are gallstones. There is severe enio mbar spondylosis. There is a spinal catheter overlying the lower thoracic spine within the canal. IMPRESSION: 1. Small bowel obstruction. 2: Cholelithiasis. Reviewed, dictated and finalized at location A. EATION ADVISER
[2022-08-21 06:31] LABS: Hematocrit 39.7 % (37.0-47.0); Hemoglobin 13.3 g/dL (12.0-15.0); Mean Corpuscular HGB Conc 33.5 g/dl (32-36); Mean Corpuscular Hemoglobin 30.6 pg (26-34); Mean Corpuscular Volume 91.5 fl (80-100); Mean Platelet Volume 8.9 fl (7.4-10.4); Platelet Count Result 241 k/mm3 (150-375); Red Blood Count 4.34 M/mm3 (4.2-5.4); Red Cell Distribution Width 13.3 % (11.5-14.5)
[2022-08-21 06:45] LABS: Chloride 97 mmol/L (98-107)
[2022-08-21 06:48] LABS: Alanine Aminotransferase 27 U/L (6-35); Albumin Level 4.4 g/dL (3.5-5.1); Alkaline Phosphatase 137 U/L (38-126); Anion Gap 9 mmol/L (8-16); Appearance Urine Slightly Cloudy (Clear); Aspartate Amino Transferase 32 U/L (14-36); Bilirubin Urine Negative (Negative); Bilirubin,Total 0.5 mg/dL (0.2-1.3); Blood Urea Nitrogen 9 mg/dL (7-17); Blood Urine 2+ (Negative); Carbon Dioxide 33 mmol/L (22-30); Color Urine Yellow (Yellow); Estimated CRCL calculation 117 ml/min; Estimated Glomerular Filt Rate > 60; Glucose 160 mg/dL (65-110); Glucose Urine UA Negative (Negative); Ketones Urine Trace mg/dL (Negative); Leukocyte Esterase Ur 1+ LEU/UL (Negative); Nitrate Urine Positive (Negative); Partial Thromboplastin Time 29.2 SECONDS (22.3-36.8); Potassium 3.2 mmol/L (3.4-5.0); Protein Urine 1+ mg/dL (Negative); Sodium 139 mmol/L (137-145); Urobilinogen Urine 0.2 mg/dL (<2.0)
[2022-08-21 06:54] LABS: Add Urine Microscopic? YES; Bacteria Urine 3+ /hpf; Mucus Urine Rare /lpf; RBC Urine >75 /hpf (0-2); Squamous Epithelial Cell Urine Occasional /hpf (Few); WBC Urine 31-50 /hpf
[2022-08-21 06:57] LABS: Band Neutrophils Percent 16 % (0-6); Monocytes Percent Manual 2 % (3-9); Neutrophils Percent Manual 80 % (46-73); Platelet Estimate Adequate (Adequate); Schistocytes None Seen (NORMAL); Total Cells Counted 100
--- NOTE | 2022-08-21 07:08 | ED.GENADULT ---
HPI - General Adult General Chief complaint: Abdominal Pain Stated complaint: N/V, abd pain Time Seen by Provider: 08/21/22 06:56 History of Present Illness HPI narrative: Patient is a 66-year-old female who presents ER with epigastric pain and nausea. Symptoms began early this morning around 4 AM. Began in the back and moves to the abdomen. No association with eating and drinking. Denies fevers or chills or sweats. No alleviating factors or aggravating factors. Patient does have a morphine pain pump implanted in her lower abdomen. She finds that the nausea is the most aggravating issue that she is experiencing. Denies urinary symptoms. Related Data Home Medications Medication Instructions Recorded Confirmed aspirin 81 mg chewable tablet 81 mg PO DAILY 07/01/19 08/21/22 (Aspirin Childrens) ferrous sulfate 325 mg (65 mg See Rx Instructions .Route .COMPLEX 07/01/19 08/21/22 iron) tablet Stool Softener 3 cap PO BID 07/28/22 08/21/22 amitriptyline 100 mg tablet 200 mg PO HS 07/28/22 08/21/22 baclofen 10 mg tablet 10 mg PO Q8H PRN Muscle Spasm 07/28/22 08/21/22 dicyclomine 10 mg capsule 10 mg PO BID 07/28/22 08/21/22 furosemide 20 mg tablet 20 mg PO BID 07/28/22 08/21/22 nkzdqmtoqqif-wcnvtrzw-ldsuksg-folic 1 tablet PO DAILY 07/28/22 08/21/22 acid 400 mcg-vit K1 20 mcg tablet (One-A-Day Women's 50 Plus) naloxegol 25 mg tablet (Movantik) 25 mg PO DAILY 07/28/22 08/21/22 nystatin 100,000 unit/gram topical 1 applic topical TID PRN Rash 07/28/22 08/21/22 cream omeprazole 40 mg capsule,delayed 40 mg PO BID 07/28/22 08/21/22 release simvastatin 40 mg tablet 40 mg PO HS 07/28/22 08/21/22 venlafaxine 150 mg 300 mg PO DAILY 07/28/22 08/21/22 capsule,extended release 24 hr morphine (PF) in 0.9 % sod chl 1,075.9 mcg dfe continuous sub-Q 08/05/22 08/21/22 infusn (via wearable injectr) DAILY fluticasone propionate 50 1 spray intranasal BID PRN 08/21/22 08/21/22 mcg/actuation nasal Congestion spray,suspension (Flonase Allergy Relief) tolterodine 2 mg tablet 2 mg PO BID 08/21/22 08/21/22 Allergies Allergy/AdvReac Type Severity Reaction Status Date / Time prochlorperazine Allergy Severe Hyperactive--STATES Verified 08/05/22 10:21 CAUSES RESTLESSNESS, PANICKY FEELING Review of Systems Review of Systems: All systems reviewed & are unremarkable except as noted in HPI and below Constitutional: Constitutional: Denies chills and Denies fever(s) ENT: Denies nasal congestion and Denies sore throat Cardiovascular: Cardiovascular: Denies chest pain, Denies rapid heart rate and Denies radiating jaw, neck or arm pain Respiratory: Respiratory: Denies cough and Denies dyspnea Gastrointestinal: Gastrointestinal: Reports abdominal pain, Denies constipation, Denies diarrhea, Reports nausea and Denies vomiting Genitourinary: Genitourinary: Denies hematuria, Denies nocturia, Denies dysuria and Denies flank pain PMFSH Past Medical History Medical History Abnormal digestive system diagnostic imaging Depression Failed back syndrome HLD (hyperlipidemia) Hypertension IBS (irritable bowel syndrome) Lymphedema KAMRAN (obstructive sleep apnea) CPAP Small bowel obstruction UTI (urinary tract infection) Surgical History Surgical History History of appendectomy History of gastric bypass Family History Family History Mother Family history of cardiovascular disease, Onset Age: 76 Diabetes mellitus, Onset Age: 76 Family history of malignant neoplasm, Onset Age: 76 Family history of arthritis, Onset Age: 76 Acute myocardial infarction Hypertension, Onset Age: 76 Asthma, Onset Age: 76 Father Family history of arthritis, Onset Age: 84 Cerebrovascular accident Chronic obstructive pulmonary disease Social History Social Hist
[2022-08-21] MEDS: ONDANSETRON INJ 4 MG/2 ML VIAL IV PUSH ×2 (07:32→11:39)
[2022-08-21 09:02] LABS: Influenza A QL RT-PCR Negative (Negative); Influenza B QL RT-PCR Negative (Negative); SARS-CoV-2 RNA PCR Negative
--- NOTE | 2022-08-21 11:06 | ADMGEN ---
This patient, More Lovett, was admitted to 3 Medical Room 349-0 @ 1100. Patient/family oriented to hospital policies and general routines including ID bracelet, bed and alarms, visiting hours, pain management, procedures, bathroom and other care routines, personal items, smoking policy, room service/diet, and visiting hours. Information on how to activate the Rapid Response Team has been discussed. Patient/Family are encouraged to report perceived risks to care and to ask questions if they do not understand what they are told or what they should do.
[2022-08-21] MEDS: SODIUM CHLORIDE 0.9% IV 1,000 ML 100 ML IV CONT (11:39)
--- NOTE | 2022-08-21 12:53 | PM.CNGS ---
Assessment and Plan Assessment and plan (1) Small bowel obstruction: Code(s): K56.609 - Unspecified intestinal obstruction, unspecified as to partial versus complete obstruction Status: Acute Assessment and Plan: Exam largely benign after analgesia, continue bowel rest for now, if exam worsens and/or develops nausea and vomiting will place NG for decompression, IV hydration (2) History of gastric bypass: Code(s): Z98.84 - Bariatric surgery status Status: Acute Assessment and Plan: reports surgery in the remote past, small bowel obstruction likely secondary to adhesions History of Present Illness Consult details Consult date: 08/21/22 Reason for consult: abdominal pain Requesting physician: Wilber Gama MD Narrative: The patient is a 66-year-old female with a history of previous gastric bypass presenting to the emergency department complaining of severe upper abdominal pain and nausea. The patient reports the pain started acutely 4:00 a.m. this morning and has progressively worsened. The patient reports that she had normal bowel function yesterday. The patient denies any fevers or chills. The patient not had emesis although has been very nauseous. Patient reports previous similar episodes that have resolved with bowel rest. Review of Systems Constitutional: Constitutional: Reports as per HPI, Reports anorexia, Denies chills, Reports fatigue, Denies fever(s), Reports lethargy, Denies malaise, Reports poor appetite, Reports weakness, Denies weight gain and Denies weight loss Eyes: Eyes: Reports no additional eye complaints ENT: Reports system reviewed and no additional complaints, except as documented Cardiovascular: Cardiovascular: Reports no additional cardiovascular complaints Respiratory: Respiratory: Reports no additional respiratory complaints Gastrointestinal: Gastrointestinal: Reports as per HPI, Reports abdominal pain, Reports bloating, Reports GI cramping and Reports nausea Genitourinary: Genitourinary: Reports no additional female genitourinary complaints Musculoskeletal: Musculoskeletal: Reports no additional musculoskeletal complaints Integumentary/Breasts: Skin/Breast: Reports system reviewed and no additional complaints, except as docu Neurologic: Reports system reviewed and no additional complaints, except as documented Psychiatric: Psychiatric: Reports no additional psychiatric complaints Endocrine: Endocrine: Reports no additional endocrine complaints Hematologic/Lymphatic: Hematologic/Lymphatic: Reports no additional hematologic/lymphatic complaints Allergic/Immunologic: Allergic/Immunologic: Reports no additional allergic/immunologic complaints [facility] Past Medical History Medical History Abnormal digestive system diagnostic imaging Depression Failed back syndrome HLD (hyperlipidemia) Hypertension IBS (irritable bowel syndrome) Lymphedema KAMRAN (obstructive sleep apnea) CPAP Small bowel obstruction UTI (urinary tract infection) Surgical History Surgical History History of appendectomy History of gastric bypass Family History Family History Mother Family history of cardiovascular disease, Onset Age: 76 Diabetes mellitus, Onset Age: 76 Family history of malignant neoplasm, Onset Age: 76 Family history of arthritis, Onset Age: 76 Acute myocardial infarction Hypertension, Onset Age: 76 Asthma, Onset Age: 76 Father Family history of arthritis, Onset Age: 84 Cerebrovascular accident Chronic obstructive pulmonary disease Social History Social History Smoking status: Never smoker Alcohol intake: never Substance use: never Substance use type: does not use Lack of Transportation: No Lack of Food: Never True Curr
--- NOTE | 2022-08-21 13:51 | PM.IMHP ---
H&P: HPI History of Present Illness Date/Time: 08/21/22 13:51 Chief Complaint: abdominal pain nausea vomiting Narrative: Patient is a 66-year-old female who presents ER with epigastric pain and nausea and vomiting started since this morning. She had a bowel movement earlier today. She has not had 1 since then. No flat us. Pain was severe. Denies any fever chills. Similar episode in the past. Has a morphine pain pump in her lower Abdominal wall. No urinary symptoms. CT abdomen reveal small-bowel obstruction. Admitted for further evaluation and management Review of Systems Review of Systems: - CONSTITUTIONAL: Denies weight loss, fever and chills. - HEENT: Denies changes in vision and hearing - RESPIRATORY: Denies SOB and cough. - CV: Denies palpitations and CP. - GI: reports abdominal pain, nausea, vomiting and denies diarrhea. - : Denies dysuria and urinary frequency. - MSK: Denies myalgia and joint pain. - SKIN: Denies rash and pruritus. - NEUROLOGICAL: Denies headache and syncope. - PSYCHIATRIC: Denies recent changes in mood. Denies anxiety and depression. [facility] Past Medical History Medical History Abnormal digestive system diagnostic imaging Depression Failed back syndrome HLD (hyperlipidemia) Hypertension IBS (irritable bowel syndrome) Lymphedema KAMRAN (obstructive sleep apnea) CPAP Small bowel obstruction UTI (urinary tract infection) Surgical History Surgical History History of appendectomy History of gastric bypass Family History Family History Mother Family history of cardiovascular disease, Onset Age: 76 Diabetes mellitus, Onset Age: 76 Family history of malignant neoplasm, Onset Age: 76 Family history of arthritis, Onset Age: 76 Acute myocardial infarction Hypertension, Onset Age: 76 Asthma, Onset Age: 76 Father Family history of arthritis, Onset Age: 84 Cerebrovascular accident Chronic obstructive pulmonary disease Social History Social History Smoking status: Never smoker Alcohol intake: never Substance use: never Substance use type: does not use Lack of Transportation: No Lack of Food: Never True Current Housing: I Have Housing Concerned About Future Housing: No Difficulty Paying Gas/Electric Bills: No Difficulty Paying for Meds: No Currently Unemployed: No Education: High School Diploma/GED Difficulty w/ Childcare or Family Care: No Living arrangements: with family Spiritual care concerns: No Meds Home Medications and Allergies Home Medications Medication Instructions Recorded Confirmed Type aspirin 81 mg chewable tablet 81 mg PO DAILY 07/01/19 08/21/22 History (Aspirin Childrens) ferrous sulfate 325 mg (65 mg See Rx Instructions .Route .COMPLEX 07/01/19 08/21/22 History iron) tablet ondansetron 4 mg disintegrating 4 mg PO Q8H PRN nausea and 07/26/21 08/21/22 Rx tablet vomiting #21 tabs cholecalciferol (vitamin D3) 1,250 See Rx Instructions .Route 01/25/22 08/21/22 Rx mcg (50,000 unit) capsule .COMPLEX #12 caps cyanocobalamin (vitamin B-12) See Rx Instructions .Route 03/29/22 08/21/22 Rx 1,000 mcg/mL injection solution .COMPLEX #3 mL Stool Softener 3 cap PO BID 07/28/22 08/21/22 History amitriptyline 100 mg tablet 200 mg PO HS 07/28/22 08/21/22 History baclofen 10 mg tablet 10 mg PO Q8H PRN Muscle Spasm 07/28/22 08/21/22 History dicyclomine 10 mg capsule 10 mg PO BID 07/28/22 08/21/22 History furosemide 20 mg tablet 20 mg PO BID 07/28/22 08/21/22 History lxlugacuvhfh-jgeexcdm-kowfybj-folic 1 tablet PO DAILY 07/28/22 08/21/22 History acid 400 mcg-vit K1 20 mcg tablet (One-A-Day Women's 50 Plus) naloxegol 25 mg tablet (Movantik) 25 mg PO DAILY 07/28/22 08/21/22 History nystati
[2022-08-21] MEDS: POTASSIUM CHLORIDE INJ 40 MEQ in SODIUM CHLORIDE 0.9% IV 500 ML 130 MEQ IVPB (14:43)
[2022-08-22] MEDS: SODIUM CHLORIDE 0.9% IV 1,000 ML 100 ML IV CONT ×2 (01:51→16:57)
[2022-08-22 05:41] LABS: Basophils Percent Auto 0.4 % (0.2-1.2); Eosinophils Absolute Auto 0.2 K/mm3 (0-0.3); Eosinophils Percent Auto 2.2 % (0-4.4); Hematocrit 36.6 % (37.0-47.0); Hemoglobin 11.7 g/dL (12.0-15.0); Immature Granulocyte Absolute 0.03 K/mm3 (0.00-0.031); Immature Granulocyte Percent A 0.4 % (0-0.5); Lymphocytes Absolute Auto 1.74 K/mm3 (0.9-3.2); Mean Corpuscular Hemoglobin 30.7 pg (26-34); Mean Corpuscular Volume 96.1 fl (80-100); Mean Platelet Volume 8.8 fl (7.4-10.4); Monocytes Absolute Auto 0.6 K/mm3 (0.1-0.6); Monocytes Percent Auto 9.3 % (2.6-8.5); Neutrophils Absolute Auto 4.1 K/mm3 (1.3-6.7); Neutrophils Percent Auto 61.7 % (45.5-73.1); Platelet Count Result 206 k/mm3 (150-375); Red Blood Count 3.81 M/mm3 (4.2-5.4); Red Cell Distribution Width 13.6 % (11.5-14.5); White Blood Count 6.7 K/mm3 (4.5-10.0)
[2022-08-22 05:50] LABS: Alanine Aminotransferase 22 U/L (6-35); Albumin Level 3.7 g/dL (3.5-5.1); Alkaline Phosphatase 102 U/L (38-126); Anion Gap 2 mmol/L (8-16); Aspartate Amino Transferase 27 U/L (14-36); Bilirubin,Total 0.5 mg/dL (0.2-1.3); Blood Urea Nitrogen 7 mg/dL (7-17); Calcium 8.2 mg/dL (8.4-10.2); Carbon Dioxide 30 mmol/L (22-30); Chloride 104 mmol/L (98-107); Estimated CRCL calculation 117 ml/min; Estimated Glomerular Filt Rate > 60; Glucose 96 mg/dL (65-110); Magnesium 2.3 mg/dL (1.6-2.3); Potassium 3.8 mmol/L (3.4-5.0); Sodium 136 mmol/L (137-145)
[2022-08-22 06:00] VITALS: BP 136/82; PULSE 70; RESP 16; TEMP 36.7; O2SAT 97
--- NOTE | 2022-08-22 11:15 | PM.IMPN ---
Progress Note: A&P Assessment and Plan (1) Small bowel obstruction: Code(s): K56.609 - Unspecified intestinal obstruction, unspecified as to partial versus complete obstruction Status: Acute Assessment and Plan: CT of the abdomen shows SBO KUB shows stool burden General surgery on board Diet advanced to clear liquids Suppository for large stool burden (2) History of gastric bypass: Code(s): Z98.84 - Bariatric surgery status Status: Acute Assessment and Plan: Probably the cause of the recurrent SBOs (3) Chronic back pain: Code(s): M54.9 - Dorsalgia, unspecified; G89.29 - Other chronic pain Status: Acute Assessment and Plan: Pain management per pain pump pain controlled (4) Major depressive disorder, recurrent, unspecified: Code(s): F33.9 - Major depressive disorder, recurrent, unspecified Status: Acute Assessment and Plan: Continue amitriptyline Mood appropriate (5) Central sleep apnea: Code(s): G47.31 - Primary central sleep apnea Status: Acute Assessment and Plan: Continue home therapy as indicated (6) HLD (hyperlipidemia): Qualifiers: Hyperlipidemia type: mixed hyperlipidemia Qualified Code(s): E78.2 - Mixed hyperlipidemia Code(s): E78.5 - Hyperlipidemia, unspecified Status: Acute Assessment and Plan: Continue home medications Lipid panel if indicated (7) Urinary tract infection: Code(s): N39.0 - Urinary tract infection, site not specified Status: Acute Assessment and Plan: Urine culture still pending Continue ceftriaxone for now Trend urine output Adjust therapy as indicated Time Spent With Patient Time: 58 minutes Collaborated with general surgery, reviewed and interpreted KUB, initiated bowel therapy Time with patient: Greater than 35 minutes Subjective Date/time seen: 08/22/22 1115 Interval history: 08/22/22 1115 Patient is doing ok. She stated that she is feeling a lot better. KUB shows persistent bowel obstruction however, it seems to be more related to constipation. Diet has been advanced to clears. Currently she denies any current problems. Urine is still pending. Suppository has been ordered. Continue current treatment for now. She did state that she is passing gas, she denies any pain, nausea, vomiting, diarrhea. She denies having a BM. 08/21/22? 13:51 Patient is a 66-year-old female who presents ER with epigastric pain and nausea and vomiting started since this morning.? She had a bowel movement earlier today.? She has not had 1 since then.? No flat us.? Pain was severe.? Denies any fever chills.? Similar episode in the past.? Has a morphine pain pump in her lower ? Abdominal wall.? No urinary symptoms.? CT abdomen reveal small-bowel obstruction.? Admitted for further evaluation and management Review of Systems Review of Systems: All systems reviewed & are unremarkable except as noted in HPI and below Exam Narrative: General: well-nourished, well-appearing 66-year-old female, sitting up in bed, comfortable, NARD Neuro: awake, alert and oriented x4, speech clear, no focal neuro deficits noted HEENMT: normocephalic, atraumatic, EOMI, sclerae anicteric, moist oral mucosa Respiratory: Clear to auscultation bilaterally without crackles, rhonchi or wheezes, nonlabored breathing Cardio: regular rate, regular rhythm with S1-S2 Abdomen: nondistended, normoactive bowel sounds, soft, nontender to palpation Extremities: no edema, erythema, or tenderness to palpation, DP pulses 2+ bilaterally Skin: no rashes or lesions, warm and dry Psych: appropriate mood and affect, judgment and insight intact Objective Data Vital Signs Vital Signs: Vital Signs - 24 hr 08/21/22 14:00 08/21/22 20:00 08/21/22 22:00 Temperature 98.7 F 98.0 F
--- NOTE | 2022-08-22 12:26 | PM.PNGS ---
Progress Note: A&P Assessment and Plan (1) Small bowel obstruction: Code(s): K56.609 - Unspecified intestinal obstruction, unspecified as to partial versus complete obstruction Status: Acute Assessment and Plan: exam improved, will start clears, seems constipated and agree c suppository Subjective Subjective Date/Time Seen: 08/22/22 12:26 feels better today, pain largely resolved, +flatus Review of Systems Review of Systems: All systems reviewed & are unremarkable except as noted in HPI and below Exam Const: General: cooperative, comfortable and no acute distress Resp: Auscultation: clear to auscultation bilaterally Cardio: Rate: regular rate Rhythm: regular rhythm GI: Inspection: normal to inspection and non-distended GI Palp: No abdominal tenderness, Yes Soft to palpation, No Tenderness to palpation present (GI), No Guarding due to palpation present (GI) and No Rigid due to palpation Objective Data Vital Signs Vital Signs: Vital Signs - 24 hr 08/21/22 14:00 08/21/22 20:00 08/21/22 22:00 Temperature 37.1 C 36.7 C Pulse Rate 73 73 77 Respiratory Rate 18 18 18 Blood Pressure 123/55 L 120/70 Pulse Oximetry 96 96 96 Oxygen Delivery Room Air 08/22/22 06:00 Temperature 36.7 C Pulse Rate 70 Respiratory Rate 16 Blood Pressure 136/82 Pulse Oximetry 97 Oxygen Delivery Intake/Output Intake/Output: Intake & Output 08/19/22 08/20/22 08/21/22 08/22/22 23:59 23:59 23:59 23:59 Intake Total 1100 250 Output Total 900 1500 Balance 200 -1250 Meds/Results Medications: Active Medications Generic Name Dose Route Start Last Admin Trade Name Freq PRN Reason Stop Dose Admin Sodium Chloride 1,000 mls @ 100 mls/hr 08/21/22 09:20 08/22/22 01:51 Normal Saline Iv IV CONT 100 mls/hr .Q10H KENDRA Administration Ceftriaxone Sodium/Dextrose 1 gm in 50 mls @ 100 mls/hr 08/22/22 09:00 08/22/22 10:11 Rocephin 1 Gm/D5w 50 Ml IVPB Infused Q24H KENDRA Infusion Morphine Sulfate 4 mg 08/21/22 09:16 Morphine Sulfate (*Crx) 4 Mg/Ml Inj IV PUSH Q2H PRN Pain Rated 7-10 Ondansetron HCl 4 mg 08/21/22 09:16 08/21/22 11:39 Ondansetron Inj 4 Mg/2 Ml Vial IV PUSH 4 mg Q4H PRN Administration Nausea Radiology Results: ITS Impressions Abdomen/Pelvis CT 08/21/22 08:06 IMPRESSION: 1. Small bowel obstruction. 2: Cholelithiasis. Abdomen X-Ray 08/22/22 11:08 IMPRESSION: 1. Persistently dilated small bowel, consistent with small bowel obstruction. Labs Labs: Laboratory Results - last 24 hr 08/22/22 08/22/22 05:20 05:20 WBC 6.7 RBC 3.81 L Hgb 11.7 L Hct 36.6 L MCV 96.1 D MCH 30.7 MCHC 32.0 RDW 13.6 Plt Count 206 MPV 8.8 Immature Gran % (Auto) 0.4 Neut % (Auto) 61.7 Lymph % (Auto) 26.0 [place] % (Auto) 9.3 H Eos % (Auto) 2.2 Baso % (Auto) 0.4 Lymph # (Auto) 1.74 [place] # (Auto) 0.6 Eos # (Auto) 0.2 Baso # (Auto) 0.0 Abs Immat Gran (auto) 0.03 Absolute Neuts (auto) 4.1 Absolute Nucleated RBC 0.0 Nucleated RBC % 0.0 Sodium 136 L Potassium 3.8 Chloride 104 Carbon Dioxide 30 Anion Gap 2 L BUN 7 Creatinine 0.50 L Estim Creat Clear Calc 117 Estimated GFR > 60 Glucose 96 Calcium 8.2 L Magnesium 2.3 Total Bilirubin 0.5 AST 27 ALT 22 Alkaline Phosphatase 102 Total Protein 7.0 Albumin 3.7
[2022-08-22] MEDS: BISACODYL 10 MG SUPPOSITORY RECTAL (12:49)
[2022-08-22 14:00] VITALS: BP 118/65; PULSE 90; RESP 18; TEMP 36.1; O2SAT 99
[2022-08-22 20:00] VITALS: PULSE 86; RESP 18; O2SAT 98
[2022-08-22 22:00] VITALS: BP 136/76; PULSE 86; RESP 18; TEMP 36.7; O2SAT 98
[2022-08-23] MEDS: SODIUM CHLORIDE 0.9% IV 1,000 ML 100 ML IV CONT (02:51)
[2022-08-23 05:50] LABS: Basophils Percent Auto 0.5 % (0.2-1.2); Eosinophils Absolute Auto 0.2 K/mm3 (0-0.3); Eosinophils Percent Auto 3.1 % (0-4.4); Hematocrit 36.9 % (37.0-47.0); Immature Granulocyte Absolute 0.03 K/mm3 (0.00-0.031); Immature Granulocyte Percent A 0.5 % (0-0.5); Lymphocytes Absolute Auto 1.99 K/mm3 (0.9-3.2); Lymphocytes Percent Auto 30.8 % (18.3-44.2); Mean Corpuscular HGB Conc 32.5 g/dl (32-36); Mean Corpuscular Hemoglobin 30.2 pg (26-34); Mean Corpuscular Volume 92.7 fl (80-100); Mean Platelet Volume 8.7 fl (7.4-10.4); Monocytes Absolute Auto 0.7 K/mm3 (0.1-0.6); Monocytes Percent Auto 10.8 % (2.6-8.5); Neutrophils Absolute Auto 3.5 K/mm3 (1.3-6.7); Neutrophils Percent Auto 54.3 % (45.5-73.1); Platelet Count Result 214 k/mm3 (150-375); Red Blood Count 3.98 M/mm3 (4.2-5.4); Red Cell Distribution Width 13.2 % (11.5-14.5); White Blood Count 6.5 K/mm3 (4.5-10.0)
[2022-08-23 06:00] VITALS: BP 153/80; PULSE 77; RESP 16; TEMP 36.7; O2SAT 100
[2022-08-23 06:03] LABS: Alanine Aminotransferase 24 U/L (6-35); Albumin Level 3.6 g/dL (3.5-5.1); Alkaline Phosphatase 98 U/L (38-126); Anion Gap 4 mmol/L (8-16); Aspartate Amino Transferase 29 U/L (14-36); Bilirubin,Total 0.4 mg/dL (0.2-1.3); Blood Urea Nitrogen 4 mg/dL (7-17); Calcium 8.5 mg/dL (8.4-10.2); Carbon Dioxide 28 mmol/L (22-30); Chloride 109 mmol/L (98-107); Estimated CRCL calculation 117 ml/min; Estimated Glomerular Filt Rate > 60; Glucose 96 mg/dL (65-110); Potassium 3.3 mmol/L (3.4-5.0); Sodium 141 mmol/L (137-145)
[2022-08-23] MEDS: POTASSIUM CHLORIDE 20 MEQ TABLET 40 MEQ PO (06:41)
[2022-08-23] MEDS: ACETAMINOPHEN 325 MG TABLET 650 MG PO (06:48)
[2022-08-23] MEDS: BACLOFEN 10 MG TABLET PO (06:48)
--- NOTE | 2022-08-23 07:30 | P.DS_ITS ---
DS: Admitting Diagnosis Discharge Date 08/23/22729 Admitting Diagnosis UTI, SBO, Fecal imapction DS: Discharge Diagnosis Discharge Diagnosis (1) Small bowel obstruction: Code(s): K56.609 - Unspecified intestinal obstruction, unspecified as to partial versus complete obstruction Status: Acute Assessment and Plan: * CT of the abdomen shows SBO * KUB shows stool burden * General surgery on board * Diet advanced to clear liquids * Suppository for large stool burden (2) History of gastric bypass: Code(s): Z98.84 - Bariatric surgery status Status: Acute Assessment and Plan: * Probably the cause of the recurrent SBOs (3) Chronic back pain: Code(s): M54.9 - Dorsalgia, unspecified; G89.29 - Other chronic pain Status: Acute Assessment and Plan: * Pain management per pain pump * pain controlled (4) Major depressive disorder, recurrent, unspecified: Code(s): F33.9 - Major depressive disorder, recurrent, unspecified Status: Acute Assessment and Plan: * Continue amitriptyline * Mood appropriate (5) Central sleep apnea: Code(s): G47.31 - Primary central sleep apnea Status: Acute Assessment and Plan: * Continue home therapy as indicated (6) HLD (hyperlipidemia): Qualifiers: Hyperlipidemia type: mixed hyperlipidemia Qualified Code(s): E78.2 - Mixed hyperlipidemia Code(s): E78.5 - Hyperlipidemia, unspecified Status: Acute Assessment and Plan: * Continue home medications * Lipid panel if indicated (7) Urinary tract infection: Code(s): N39.0 - Urinary tract infection, site not specified Status: Acute Assessment and Plan: * Urine culture grew Ecoli * Change ceftriaxone to cefdinir * Trend urine output * Adjust therapy as indicated (8) Fecal impaction: Code(s): K56.41 - Fecal impaction Status: Acute Assessment and Plan: * KUB indicates moderate stool * suppository given with some success * appears to be a chronic problem * continue home medications * most likely secondary to pain medications and iron * start patient on low-fiber diet DS: Summary Hospital Course Hospital Course: patient is 66-year-old female with past medical history of depression, chronic pain, iron deficiency anemia, constipation who presented to the ED with complaints of epigastric pain, nausea, vomiting. CT of the abdomen pelvis was performed and revealed a small-bowel obstruction. Patient was NPO and General surgery was consulted. KUB was performed and showed stool burden in line with a small-bowel obstruction however patient was not having any more nausea, vomiting, abdominal pain and felt great. Patient did have an infectious looking UA. Urine culture did grow E coli. Patient has been started on IV ceftriaxone which is converted to cefdinir. Patient is doing well and was hydrated with IV fluids. Currently patient is feeling great and would like to go home. Patient is able to tolerate a low-fiber diet. Educated patient about constipation which she is on a lot of constipation medications however educated her about possibly trying a low-fiber diet. Currently patient is stable for discharge for labs and vital signs. She denies any chest p
--- NOTE | 2022-08-23 07:30 | PM.DS ---
DS: Admitting Diagnosis Discharge Date 08/23/22729 Admitting Diagnosis UTI, SBO, Fecal imapction DS: Discharge Diagnosis Discharge Diagnosis (1) Small bowel obstruction: Code(s): K56.609 - Unspecified intestinal obstruction, unspecified as to partial versus complete obstruction Status: Acute Assessment and Plan: CT of the abdomen shows SBO KUB shows stool burden General surgery on board Diet advanced to clear liquids Suppository for large stool burden (2) History of gastric bypass: Code(s): Z98.84 - Bariatric surgery status Status: Acute Assessment and Plan: Probably the cause of the recurrent SBOs (3) Chronic back pain: Code(s): M54.9 - Dorsalgia, unspecified; G89.29 - Other chronic pain Status: Acute Assessment and Plan: Pain management per pain pump pain controlled (4) Major depressive disorder, recurrent, unspecified: Code(s): F33.9 - Major depressive disorder, recurrent, unspecified Status: Acute Assessment and Plan: Continue amitriptyline Mood appropriate (5) Central sleep apnea: Code(s): G47.31 - Primary central sleep apnea Status: Acute Assessment and Plan: Continue home therapy as indicated (6) HLD (hyperlipidemia): Qualifiers: Hyperlipidemia type: mixed hyperlipidemia Qualified Code(s): E78.2 - Mixed hyperlipidemia Code(s): E78.5 - Hyperlipidemia, unspecified Status: Acute Assessment and Plan: Continue home medications Lipid panel if indicated (7) Urinary tract infection: Code(s): N39.0 - Urinary tract infection, site not specified Status: Acute Assessment and Plan: Urine culture grew Ecoli Change ceftriaxone to cefdinir Trend urine output Adjust therapy as indicated (8) Fecal impaction: Code(s): K56.41 - Fecal impaction Status: Acute Assessment and Plan: KUB indicates moderate stool suppository given with some success appears to be a chronic problem continue home medications most likely secondary to pain medications and iron start patient on low-fiber diet DS: Summary Hospital Course Hospital Course: patient is 66-year-old female with past medical history of depression, chronic pain, iron deficiency anemia, constipation who presented to the ED with complaints of epigastric pain, nausea, vomiting. CT of the abdomen pelvis was performed and revealed a small-bowel obstruction. Patient was NPO and General surgery was consulted. KUB was performed and showed stool burden in line with a small-bowel obstruction however patient was not having any more nausea, vomiting, abdominal pain and felt great. Patient did have an infectious looking UA. Urine culture did grow E coli. Patient has been started on IV ceftriaxone which is converted to cefdinir. Patient is doing well and was hydrated with IV fluids. Currently patient is feeling great and would like to go home. Patient is able to tolerate a low-fiber diet. Educated patient about constipation which she is on a lot of constipation medications however educated her about possibly trying a low-fiber diet. Currently patient is stable for discharge for labs and vital signs. She denies any chest pain, shortness a breath, nausea, vomiting, diarrhea or constipation. Status at Discharge Functional status at discharge: independent ambulation Overall status at discharge: patient is progressing back to baseline Time Spent with Patient Time attestation: Total time spent providing and/or coordinating discharge services: 49 minutes Time spent: Greater than 30 minutes Specific discharge activities: Diagnostic testing, chart review, developing a treatment plan, education, care coordination documentation, physical exam, result review Exam Narrative: General: well-n
[2022-08-23] MEDS: FERROUS SULFATE 324 MG TABLET PO (08:52)
[2022-08-23] MEDS: ASPIRIN 81 MG CHEWABLE TABLET PO (08:52)
[2022-08-23] MEDS: LOSARTAN POTASSIUM 25 MG TABLET PO (08:52)
[2022-08-23] MEDS: TOLTERODINE TARTRATE 2 MG TABLET PO (08:52)
[2022-08-23] MEDS: VENLAFAXINE HCL XR 75 MG CAP.ER.24H 300 MG PO (08:53)
[2022-08-23] MEDS: FUROSEMIDE 20 MG TABLET PO (08:57)
--- NOTE | 2022-08-23 11:32 | PM.PNGS ---
Progress Note: A&P Assessment and Plan (1) Small intestine obstruction: Code(s): K56.609 - Unspecified intestinal obstruction, unspecified as to partial versus complete obstruction Status: Acute Assessment and Plan: better, exam benign, polly clears, +bowel fxn, will ADAT Subjective Subjective Date/Time Seen: 08/23/22 11:32 feels much better, no pain, wants to try solid food Review of Systems Review of Systems: All systems reviewed & are unremarkable except as noted in HPI and below Exam Const: General: cooperative, comfortable and no acute distress Resp: Auscultation: clear to auscultation bilaterally Cardio: Rate: regular rate Rhythm: regular rhythm GI: Inspection: normal to inspection and non-distended GI Palp: No abdominal tenderness, Yes Soft to palpation, No Tenderness to palpation present (GI), No Guarding due to palpation present (GI) and No Rigid due to palpation Objective Data Vital Signs Vital Signs: Vital Signs - 24 hr 08/22/22 14:00 08/22/22 22:00 08/22/22 20:00 Temperature 36.1 C L 36.7 C Pulse Rate 90 86 86 Respiratory Rate 18 18 18 Blood Pressure 118/65 136/76 Pulse Oximetry 99 98 98 Oxygen Delivery Room Air 08/23/22 06:00 Temperature 36.7 C Pulse Rate 77 Respiratory Rate 16 Blood Pressure 153/80 H Pulse Oximetry 100 Oxygen Delivery Intake/Output Intake/Output: Intake & Output 08/20/22 08/21/22 08/22/22 08/23/22 23:59 23:59 23:59 23:59 Intake Total 1100 1850 1360 Output Total 900 2500 1550 Balance 200 -650 -190 Meds/Results Medications: Active Medications Generic Name Dose Route Start Last Admin Trade Name Freq PRN Reason Stop Dose Admin Acetaminophen 650 mg 08/23/22 06:18 08/23/22 06:48 Acetaminophen 325 Mg Tablet PO 650 mg Q4H PRN Administration Mild Pain (1-3) or Fever Amitriptyline HCl 200 mg 08/23/22 21:00 Amitriptyline Hcl 25 Mg Tablet PO HS KENDRA Aspirin 81 mg 08/23/22 09:00 08/23/22 08:52 Aspirin 81 Mg Chewable Tablet PO 81 mg DAILY KENDRA Administration Baclofen 10 mg 08/23/22 06:15 08/23/22 06:48 Baclofen 10 Mg Tablet PO 10 mg Q8H PRN Administration Muscle Spasm Ferrous Sulfate 324 mg 08/23/22 08:00 08/23/22 08:52 Ferrous Sulfate 324 Mg Tablet PO 324 mg BIDWM KENDRA Administration Fluticasone Propionate 1 spray 08/23/22 06:15 Fluticasone Propionate 0.05% Na Spr 16 Gm Btl (*Bkc) NASAL BID PRN Congestion Furosemide 20 mg 08/23/22 09:00 08/23/22 08:57 Furosemide 20 Mg Tablet PO 20 mg BID KENDRA Administration Sodium Chloride 1,000 mls @ 100 mls/hr 08/21/22 09:20 08/23/22 02:51 Normal Saline Iv IV CONT 100 mls/hr .Q10H KENDRA Administration Ceftriaxone Sodium/Dextrose 1 gm in 50 mls @ 100 mls/hr 08/22/22 09:00 08/23/22 09:57 Rocephin 1 Gm/D5w 50 Ml IVPB 100 mls/hr Q24H KENDRA Administration Losartan Potassium 25 mg 08/23/22 09:00 08/23/22 08:52 Losartan Potassium 25 Mg Tablet PO 25 mg DAILY [facility] Administration Miconazole Nitrate 1 applic 08/23/22 09:00 Miconazole Nitrate 2% Cream 30 Gm Tube TOPICAL BID PRN Rash Morphine Sulfate 4 mg 08/21/22 09:16 Morphine Sulfate (*Crx) 4 Mg/Ml Inj IV PUSH Q2H PRN Pain Rated 7-10 Ondansetron HCl 4 mg 08/21/22 09:16 08/21/22 11:39 Ondansetron Inj 4 Mg/2 Ml Vial IV PUSH 4 mg Q4H PRN Administration Nausea Simvastatin 40 mg 08/23/22 21:00 Simvastatin 20 Mg Tablet PO HS [facility] Tolterodine Tartrate 2 mg 08/23/22 09:00 08/23/22 08:52 Tolterodine Tartrate 2 Mg Tablet PO 2 mg BID [facility] Administration Venlafaxine HCl 300 mg 08/23/22 09:00 08/23/22 08:53 Venlafaxine Hcl Xr 75 Mg Cap.Er.24h PO 300 mg DAILY KENDRA Administration Radiology Results: ITS Impressions Abdomen/Pelvis CT 08/21/22 08:06 IMPRESSION: 1. Small bowel obstruction. 2: Cholelithiasis. Abdomen X-Ray 08/22/22 11:08 IMPRESSION:
[2022-08-23 14:00] VITALS: BP 119/61; PULSE 89; RESP 20; TEMP 36.5; O2SAT 99
== END 2022-08-23 15:33 | disposition home or self-care (01) ==
LOC: ANHED 06:56 → ANH3MED 10:30
PROVIDERS: Emergency Medicine; Nurse Practitioner; Admitting Provider Internal Medicine; Emergency Provider Emergency Medicine; PCP Emergency Medicine; Visit Provider Internal Medicine
DX: K56.609 Unspecified intestinal obstruction, unspecified as to partial versus complete obstruction (principal); Z98.84 Bariatric surgery status; K80.20 Calculus of gallbladder without cholecystitis without obstruction; M96.1 Postlaminectomy syndrome, not elsewhere classified; K56.41 Fecal impaction; R10.13 Epigastric pain; R11.0 Nausea; F33.9 Major depressive disorder, recurrent, unspecified; I10 Essential (primary) hypertension; E78.5 Hyperlipidemia, unspecified; Z20.822 Contact with and (suspected) exposure to COVID-19; K58.9 Irritable bowel syndrome, unspecified; I89.0 Lymphedema, not elsewhere classified; N39.0 Urinary tract infection, site not specified; B96.20 Unspecified Escherichia coli [E. coli] as the cause of diseases classified elsewhere; D72.829 Elevated white blood cell count, unspecified; G47.31 Primary central sleep apnea; Z99.89 Dependence on other enabling machines and devices; Z79.82 Long term (current) use of aspirin; Z79.51 Long term (current) use of inhaled steroids; Z79.899 Other long term (current) drug therapy; Z82.49 Family history of ischemic heart disease and other diseases of the circulatory system
CPT/HCPCS: 36415; 74018; 74177; 80053; 81001; 83735; 85025; 85730; 87077; 87086; 87186; 87636; 96361; 96365; 96367; 96375; 96376; 99285; A9270; G0378; J0131; J0696; J2405; J3480; J7030; J7040; Q9967

== ENCOUNTER → 2022-10-27 13:30 | Outpatient (CLI) | payer OTHER, SELFPAY ==
--- NOTE | ~2022-10-27 | XR_ITS ---
XR shoulder RT min 2V DATE: 10/27/2022 13:59 INDICATION: Right shoulder pain TECHNIQUE: 5 views COMPARISON: November 04, 2010 right shoulder FINDINGS: There is severe right glenohumeral osteoarthritis with prominent humeral head spurring, sev ere joint space narrowing No fracture or dislocation, periosteal reaction or bone destruction or abnormal soft tissue calcifica tion.. IMPRESSION: Severe right glenohumeral osteoarthritis Reviewed, dictated and finalized at location A.
== END ==
PROVIDERS: PCP Emergency Medicine; Visit Provider Nurse Practitioner Family
DX: M19.011 Primary osteoarthritis, right shoulder (principal); M25.511 Pain in right shoulder
CPT/HCPCS: 73030

== ENCOUNTER → 2022-10-31 15:34 | Outpatient (CLI) | payer OTHER, SELFPAY ==
--- NOTE | ~2022-10-31 | MR_ITS ---
EXAMINATION: MR cervical spine wo con DATE: 10/31/2022 16:36 INDICATION: Cervical radiculopathy. TECHNIQUE: Magnetic resonance imaging (MRI) of the cervical spine was performed without intravenous c ontrast. COMPARISON: Cervical spine MRI 02/16/2021 FINDINGS: There is kyphosis of cervical spine. There is mild chronic anterior wedging of C4 vertebral body. There is 2 mm anterolisthesis of C3 on C4. There is mildly decreased disc height at C3-C4, mod erately decreased disc height at C4-C5, and severely decreased disc height at C6-C7 with endplate rem odeling. There is interbody fusion at C5-C6. The spinal cord signal intensity is normal. The followin g disc levels are specifically discussed: C2-C3: The disc does not extend beyond the endplate margin. There is no uncovertebral joint osteoarth ritis. There is severe left facet joint osteoarthritis. There is no neural foraminal stenosis. There is no central canal stenosis. C3-C4: The disc does not extend beyond the endplate margin. There is mild right uncovertebral joint o steoarthritis. There is severe right and moderate left facet joint osteoarthritis. There is mild righ t neural foraminal stenosis. There is no central canal stenosis. C4-C5: There is a central protrusion. There is moderate bilateral uncovertebral joint osteoarthritis. There is severe right and moderate left facet joint osteoarthritis. There is mild bilateral neural f oraminal stenosis. There is mild central canal stenosis. C5-C6: There is no uncovertebral joint hypertrophy. There is no facet joint osteoarthritis. There is no neural foraminal stenosis. There is no central canal stenosis. C6-C7: The disc is bulging. There is severe bilateral uncovertebral joint osteoarthritis. There is mi ld bilateral facet joint osteoarthritis. There is mild bilateral neural foraminal stenosis. There is no central canal stenosis. C7-T1: The disc does not extend beyond the endplate margin. There is no uncovertebral joint osteoarth ritis. There is severe bilateral facet joint osteoarthritis. There is mild bilateral neural foraminal stenosis. There is a perineural cyst in left neural foramen. There is no central canal stenosis. IMPRESSION: 1. Severe cervical spondylosis, stable from 02/16/2021. 2. Anterior fusion at C5-C6. Reviewed, dictated and finalized at location A.
== END ==
PROVIDERS: PCP Emergency Medicine; Visit Provider Nurse Practitioner Family
DX: M47.22 Other spondylosis with radiculopathy, cervical region (principal); M25.511 Pain in right shoulder
CPT/HCPCS: 72141

== ENCOUNTER 2022-12-12 10:11 | Inpatient (IN) | payer OTHER, SELFPAY ==
[2022-12-12] VITALS (24 sets, daily range): BP systolic 125–160; BP diastolic 53–84; PULSE 80–98; RESP 13–27; TEMP 36.2–36.7; O2SAT 93–100; BMI 37.8
--- NOTE | ~2022-12-12 | XR_ITS ---
EXAMINATION: XR abdomen obstructive series DATE: 12/13/2022 08:52 INDICATION: Small bowel obstruction TECHNIQUE: Frontal supine and upright views of the abdomen were obtained. COMPARISON: 12/12/2022 FINDINGS: Small amount of gas scattered throughout multiple loops of nondilated bowel. No dilated loops of gas- filled bowel identified. No free intraperitoneal gas. Nasogastric tube distal tip at the level of the thoracic outlet near a suture line related to a prior partial gastrectomy and gastric bypass procedu re. There is a small sliding-type hiatal hernia evident on the prior CT with proximal side-port of th e nasogastric tube likely at the level of the gastroesophageal junction. Postoperative change of prior ventral hernia mesh repair. Intrathecal pain pump projects of the right hemipelvis with catheter extending cephalad projecting over the central canal the lower thoracic spi ne with distal tip at the level of the inferior endplate of T10. Visualized lung bases are clear. Hea rt size is normal. IMPRESSION: 1. No free intraperitoneal gas or dilated gas-filled loops of bowel to suggest obstruction. 2. Small sliding-type hiatal hernia with nasogastric tube within the intrathoracic portion of the sto mach and distal tip at the level of the thoracic outlet. Reviewed, dictated and finalized at location A. IMPRESSION: 1. No free intraperitoneal gas or dilated gas-filled loops of bowel to suggest obstruction. 2. Small sliding-type hiatal hernia with nasogastric tube within the intrathora cic portion of the stomach and distal tip at the level of the thoracic outlet.
--- NOTE | ~2022-12-12 | CT_ITS ---
EXAMINATION: CT abdomen pelvis w con DATE: 12/12/2022 11:19 INDICATION: Nausea and vomiting. History of small bowel obstruction. Epigastric and right upper quadr ant pain. TECHNIQUE: Computed tomography (CT) of the abdomen and pelvis was performed with 100 cc Omnipaque 350 intravenous contrast. The dose-length product was 1399.92 mGy-cm. Automated exposure control and ite rative reconstruction technique were employed. COMPARISON: CT dated 08/21/2022 FINDINGS: There are changes of gastric bypass surgery and ventral abdominal wall hernia repair. There are dilated small bowel loops with decompressed distal small bowel and colon, compatible with obstru ction. No definite transition site is delayed identified. No free air or free fluid. There is a small sliding hiatal hernia with fluid in the distal esophagus, consistent with reflux. Severe lumbar spon dylosis. The gallbladder contains stones. The liver, spleen, pancreas, adrenal glands and left kidney are unre markable. There is a subcentimeter hypodensity of the right kidney, too small to characterize, althou gh likely benign. IMPRESSION: 1. Small bowel obstruction. Reviewed, dictated and finalized at location B. IMPRESSION: 1. Small bowel obstruction.
--- NOTE | ~2022-12-12 | XR_ITS ---
XR abdomen NG/feed tube insert INDICATION: Evaluate NG tube position. TECHNIQUE: Limited KUB perform for evaluating NG tube . COMPARISON: 08/22/2022 FINDINGS: NG tube coiled in what appears to be a hiatal hernia with the tip near the level of the sridevi phragm. Visualized bowel gas pattern is unremarkable. IMPRESSION: 1: NG tube coiled in a small hiatal hernia with the tip near the diaphragm. Reviewed, dictated and finalized at location B.
--- NOTE | ~2022-12-12 | XR_ITS ---
EXAMINATION: XR abdomen NG/feed tube rechec DATE: 12/12/2022 14:11 INDICATION: Nasogastric tube adjustment. TECHNIQUE: A single view of the abdomen was obtained. COMPARISON: CT abdomen pelvis 12/12/2022, abdomen radiograph at 12:36 PM FINDINGS: The lower abdomen and right lateral aspect of the abdomen are excluded. There are surgical clips from gastric bypass procedure and ventral hernia repair. The nasogastric tube tip is in the gas tric pouch at the level of the diaphragm. There is buckling of the tube in the lower chest. IMPRESSION: 1. Nasogastric tube in the gastric pouch of the gastric bypass procedure at the level of the diaphrag m. Buckling of the tube in the lower chest. Reviewed, dictated and finalized at location A. IMPRESSION: 1. Nasogastric tube in the gastric pouch of the gastric bypass procedure at the level of the diaphragm. Buckling of the tube in the lower chest.
--- NOTE | 2022-12-12 10:38 | ED.ABDPAIN ---
HPI - Abdominal Pain General Chief Complaint: Abdominal Pain <LILY Card Last Filed: 12/12/22 13:55> Stated Complaint: abd pain, n/v <LILY Card Last Filed: 12/12/22 13:55> Time Seen by Provider: 12/12/22 10:18 <LILY Card Last Filed: 12/12/22 13:55> Source: patient <LILY Card Last Filed: 12/12/22 13:55> Mode of arrival: ambulatory <LILY Card Last Filed: 12/12/22 13:55> Limitations: no limitations <LILY Card Last Filed: 12/12/22 13:55> History of Present Illness HPI narrative: Patient is a 66 y/o female who presents to the ED with c/o epigastric abdominal pain. Patient reports she developed pain last night, which has been constant and persistent since then. Pain radiates through to back. She also developed nausea and vomiting last night, unable to keep noted food or drink. She tried taking Reglan last night, but was unable to keep this down either. Patient reports history of similar pain related to a small bowel obstruction. She has had normal bowel movements yesterday and today. No diarrhea, melena, rectal bleeding. No fevers. No abdominal bloating. No urinary symptoms. Denies chest pain or difficulty breathing. <LILY Card Last Filed: 12/12/22 13:55> Related Data Home Medications: Home Medications Medication Instructions Recorded Confirmed aspirin 81 mg chewable tablet 81 mg PO HS 07/01/19 12/12/22 (Aspirin Childrens) ferrous sulfate 325 mg (65 mg See Rx Instructions .Route .COMPLEX 07/01/19 12/12/22 iron) tablet Stool Softener 3 cap PO BID 07/28/22 12/12/22 amitriptyline 100 mg tablet 200 mg PO HS 07/28/22 12/12/22 dicyclomine 10 mg capsule 10 mg PO BID 07/28/22 12/12/22 furosemide 20 mg tablet 20 mg PO BID 07/28/22 12/12/22 utnjaiijrivn-iwxkvfqo-rmgfcfi-folic 1 tablet PO DAILY 07/28/22 12/12/22 acid 400 mcg-vit K1 20 mcg tablet (One-A-Day Women's 50 Plus) omeprazole 40 mg capsule,delayed 40 mg PO BID 07/28/22 12/12/22 release simvastatin 40 mg tablet 40 mg PO HS 07/28/22 12/12/22 morphine (PF) in 0.9 % sod chl 1,075.9 mcg dfe continuous sub-Q 08/05/22 12/12/22 infusn (via wearable injectr) DAILY tolterodine 2 mg tablet 2 mg PO BID 08/21/22 12/12/22 polyethylene glycol 3350 17 17 g PO QHS 11/09/22 12/12/22 gram/dose oral powder (Miralax) baclofen 10 mg tablet 10 mg PO Q4H PRN Spasms 12/12/22 12/12/22 cholecalciferol (vitamin D3) 1,250 50,000 unit PO WEEKLY 12/12/22 12/12/22 mcg (50,000 unit) capsule losartan 25 mg tablet 25 mg PO DAILY 12/12/22 12/12/22 <LILY Card Last Filed: 12/12/22 13:55> Allergies/Adverse Reactions: Allergies Allergy/AdvReac Type Severity Reaction Status Date / Time prochlorperazine Allergy Severe Hyperactive--STATES Verified 12/12/22 14:54 CAUSES RESTLESSNESS, PANICKY FEELING <LILY Card Last Filed: 12/12/22 13:55> Review of Systems Review of Systems: CONSTITUTIONAL: Denies fever, chills, or sweats. CARDIOVASCULAR: Denies chest pain. RESPIRATORY: Denies dyspnea. GASTROINTESTINAL: See HPI. GENITOURINARY: Denies dysuria or hematuria. SKIN: Denies rash or itching. MUSCULOSKELETAL: See HPI. <LILY Card Last Filed: 12/12/22 13:55> All systems reviewed & are unremarkable except as noted in HPI and below <LILY Card Last Filed: 12/12/22 13:55> [facility] Past Medical History Medical History: Medical History Anemia Anxiety Degenerative disc disease Depression Failed back syndrome Gastroesophageal reflux disease Hyperlipidemia Hypertension Hypothyroidism Iron deficiency anemia Irritable bowel syndrome Lymphedema Obstructive sleep apnea on CPAP Presence of implanted infusion pump Small bowel obstruction <Bethanie Sol
[2022-12-12] MEDS: MORPHINE SULFATE (*CRX) 4 MG/ML INJ IV PUSH ×2 (10:46→12:04)
[2022-12-12] MEDS: PANTOPRAZOLE SODIUM IV 40 MG VIAL IV PUSH (10:46)
[2022-12-12] MEDS: SODIUM CHLORIDE 0.9% IV 1,000 ML 999 ML IV CONT ×2 (10:46→12:04)
[2022-12-12] MEDS: ONDANSETRON INJ 4 MG/2 ML VIAL IV PUSH (10:47)
[2022-12-12 10:49] LABS: Basophils Percent Auto 0.1 % (0.2-1.2); Eosinophils Percent Auto 0.3 % (0-4.4); Hematocrit 39.6 % (37.0-47.0); Hemoglobin 13.3 g/dL (12.0-15.0); Immature Granulocyte Absolute 0.08 K/mm3 (0.00-0.031); Immature Granulocyte Percent A 0.6 % (0-0.5); Lymphocytes Absolute Auto 1.24 K/mm3 (0.9-3.2); Mean Corpuscular HGB Conc 33.6 g/dl (32-36); Mean Corpuscular Hemoglobin 30.6 pg (26-34); Mean Platelet Volume 9.3 fl (7.4-10.4); Monocytes Absolute Auto 0.4 K/mm3 (0.1-0.6); Monocytes Percent Auto 2.7 % (2.6-8.5); Neutrophils Percent Auto 87.3 % (45.5-73.1); Platelet Count Result 266 k/mm3 (150-375); Red Blood Count 4.35 M/mm3 (4.2-5.4); Red Cell Distribution Width 13.3 % (11.5-14.5); White Blood Count 13.7 K/mm3 (4.5-10.0)
--- NOTE | 2022-12-12 10:52 | ECG_ITS ---
Measurements Intervals [place] Rate: 91 P: 56 OK: 191 QRS: -7 QRSD: 115 T: 31 QT: 318 QTc: 392 Interpretive Statements SINUS RHYTHM LEFT ATRIAL ENLARGEMENT DELAYED PRECORDIAL R/S TRANSITION LEFT VENTRICULAR HYPERTROPHY WITH ST-T CHANGES BORDERLINE T WAVE ABNORMALITY- INFERIOR LEADS BORDERLINE ECG NO PREVIOUS ECG AVAILABLE FOR COMPARISON Electronically Signed On 12-12-2022 11:34:23 CDT by Ralph Sharpe D.O.
[2022-12-12 10:58] LABS: Appearance Urine Clear (Clear); Bilirubin Urine Negative (Negative); Blood Urine Trace (Negative); Color Urine Yellow (Yellow); Glucose Urine UA Negative (Negative); Ketones Urine Negative (Negative); Leukocyte Esterase Ur 2+ LEU/UL (Negative); Need Manual Microscopic Need Manual; Nitrate Urine Negative (Negative); Non Pathogenic Casts 0-2; Protein Urine Negative (Negative); WBC Urine 0-5 /hpf
[2022-12-12 10:59] LABS: Alanine Aminotransferase 36 U/L (6-35); Albumin Level 4.7 g/dL (3.5-5.1); Alkaline Phosphatase 148 U/L (38-126); Anion Gap 9 mmol/L (8-16); Aspartate Amino Transferase 39 U/L (14-36); Bilirubin,Total 0.6 mg/dL (0.2-1.3); Blood Urea Nitrogen 16 mg/dL (7-17); Calcium 9.6 mg/dL (8.4-10.2); Carbon Dioxide 32 mmol/L (22-30); Chloride 94 mmol/L (98-107); Estimated CRCL calculation 104 ml/min; Estimated Glomerular Filt Rate > 60; Glucose 162 mg/dL (65-110); Lipase 39 U/L (23-300); Potassium 3.2 mmol/L (3.4-5.0); Sodium 135 mmol/L (137-145)
[2022-12-12 11:01] LABS: Add Urine Microscopic? YES
[2022-12-12 11:10] LABS: RBC Urine 0-2 /hpf (0-2)
[2022-12-12 11:11] LABS: Bacteria Urine 1+ /hpf; Squamous Epithelial Cell Urine Rare /hpf (Few)
[2022-12-12 11:53] LABS: Troponin I < 0.012 ng/mL (0.000-0.034)
[2022-12-12] MEDS: KCL 20 MEQ/SW 100 ML 100 ML 50 MEQ IVPB (12:04)
[2022-12-12 13:10] LABS: Lactic Acid Reflex 0.6 mmol/L (0.7-2.0)
--- NOTE | 2022-12-12 14:35 | PM.IMHP ---
H&P: HPI History of Present Illness Date/Time: 12/12/22 15:15 Chief Complaint: Abdominal pain. Narrative: This is a 66-year-old female with history of multiple abdominal surgeries and small bowel obstructions, chronic pain syndrome, anemia, hypertension, hyperlipidemia, GERD, and depression who presented to the emergency department via private vehicle from home for evaluation of abdominal pain. Last evening she reports a gradual onset of nausea, abdominal distension, and cramping several hours after eating dinner. She vomited a majority of the night, initially food particles but then eventually just stomach acid. She had metoclopramide at home which she did take but was unable to hold that down unfortunately. She had a small, pencil like stool this morning but she has not passed any more stool or flatus since that time. The symptoms are similar to prior bowel obstructions. She denies fever, chills, sweats, chest pain, shortness a breath, hematemesis, melena, and hematochezia. CT showed a small-bowel obstruction, NG tube has been inserted, and she has been admitted to the floor for closer monitoring and surgery consultation. Review of Systems Review of Systems: Twelve systems were reviewed and are negative except for as per HPI. FORMERLY [facility], [facility] Past Medical History Medical History (Updated 12/12/22 @ 22:28 by Caterina Vargas PA-C) Anemia Anxiety Degenerative disc disease Depression Failed back syndrome Gastroesophageal reflux disease Hyperlipidemia Hypertension Iron deficiency anemia Irritable bowel syndrome Lymphedema Obstructive sleep apnea on CPAP Presence of implanted infusion pump Small bowel obstruction Surgical History Surgical History History of abdominoplasty History of ankle surgery History of appendectomy (1995) History of arthroscopy of both knees History of arthroscopy of right shoulder History of bilateral cataract extraction History of bladder repair surgery (06/2016) Cystoscopy with mid urethral sling. History of cervical discectomy (2004) History of exploratory laparotomy adhesiolysis for small bowel obstruction 2020 History of gastric bypass (1999) History of hysterectomy (1995) History of lumbar surgery History of stapedectomy History of stress incontinence procedure using tension free vaginal tape (06/2007) History of tubal ligation (1982) History of vein stripping History of ventral hernia repair (01/2007) Laparoscopic repair of lower abdominal wall rectus diastasis with Composix EX mesh. Family History Family History Mother Family history of cardiovascular disease, Onset Age: 76 Diabetes mellitus, Onset Age: 76 Family history of malignant neoplasm, Onset Age: 76 Family history of arthritis, Onset Age: 76 Acute myocardial infarction Hypertension, Onset Age: 76 Asthma, Onset Age: 76 Father Family history of arthritis, Onset Age: 84 Cerebrovascular accident Chronic obstructive pulmonary disease Social History Social History Social History: Surrogate medical decision maker: Kamaljit Lovett, spouse. Code status: Full code. Smoking status: Never smoker Alcohol intake: never Substance use: never Substance use type: does not use Lack of Transportation: No Lack of Food: Never True Current Housing: I Have Housing Concerned About Future Housing: No Difficulty Paying Gas/Electric Bills: No Difficulty Paying for Meds: No Currently Unemployed: No Education: Associate Degree Difficulty w/ Childcare or Family Care: No Additional living arrangements comments: Lives with spouse in [place]. Additional occupation/education comments: Disabled. Spiritual care concerns: No Meds Home Medications and Allergies Home Medications Medication Instructions Recorded Confirmed Type aspi
--- NOTE | 2022-12-12 14:39 | ADMGEN ---
This patient, More Lovett, was admitted to Medical Room 252-01. Patient/family oriented to hospital policies and general routines including ID bracelet, bed and alarms, visiting hours, pain management, procedures, bathroom and other care routines, personal items, smoking policy, room service/diet, and visiting hours. Information on how to activate the Rapid Response Team has been discussed. Patient/Family are encouraged to report perceived risks to care and to ask questions if they do not understand what they are told or what they should do.
--- NOTE | 2022-12-12 14:44 | PM.CNGS ---
Assessment and Plan Assessment and plan (1) Small bowel obstruction: Code(s): K56.609 - Unspecified intestinal obstruction, unspecified as to partial versus complete obstruction Status: Acute Assessment and Plan: CT reviewed and discussed in detail with the patient. There is evidence of a small-bowel obstruction. She has a history of multiple small-bowel obstructions with one requiring surgery in 2019. She has an extensive history of abdominal surgeries and this is likely related to intra-abdominal adhesions. No peritoneal signs on exam. We would recommend to continue conservative management with bowel rest, NG tube decompression, IV fluids, and analgesics as needed. Will get an obstructive series tomorrow morning. Consider water-soluble small bowel follow-through to further evaluate if no improvement with conservative treatment. (2) History of gastric bypass: Onset Date: 1999 Code(s): Z98.84 - Bariatric surgery status Status: Acute Assessment and Plan: Remote history of gastric bypass. (3) H/O ventral hernia repair: Code(s): Z98.890 - Other specified postprocedural states; Z87.19 - Personal history of other diseases of the digestive system Status: Acute (4) Presence of implanted infusion pump: Code(s): Z95.828 - Presence of other vascular implants and grafts Status: Chronic Assessment and Plan: RLQ pain pump for chronic back pain Plan I have discussed the patient's case and plan of care with Dr. Gaytan. Thank you for allowing us to see the patient in consultation and we will continue to follow along with you. History of Present Illness Consult details Consult date: 12/12/22 Reason for consult: other (Small bowel obstruction) Requesting physician: Bethanie White PA-C Narrative: This is a 66-year-old woman with a history of multiple abdominal surgeries and previous small-bowel obstructions, who presented to the emergency department today with complaints of abdominal pain and vomiting. She reports a history of at least 3 previous small-bowel obstructions with the most recent being in July of 2022. They have all been treated conservatively other than 1 episode in 2019 when she underwent an exploratory laparotomy with adhesiolysis at [place]. She reports having an onset of central abdominal pain yesterday. This progressively worsened and began to feel like her previous bowel obstructions. She developed nausea with multiple episodes of vomiting. She then presented to the ER today for further evaluation. CT scan of abdomen and pelvis showed a small bowel obstruction with no definitive transition point identified. NG tube was placed in the ER. The patient is admitted to the hospitalist service. Our service is consulted for the small-bowel obstruction. She is seen in the ER. She denies flatus today, but did have a small thin bowel movement early this morning. She reports also having a normal size bowel movement yesterday. She reports associated bloating and has not had any vomiting since being in the ER. She does have a pain pump in the RLQ of her abdomen for chronic back pain. Review of Systems Review of Systems: All systems reviewed & are unremarkable except as noted in HPI and below Constitutional: Constitutional: Reports no additional constitutional complaints, Denies chills, Denies fatigue and Denies fever(s) Eyes: Eyes: Reports no additional eye complaints ENT: Reports system reviewed and no additional complaints, except as documented and Denies dizziness Cardiovascular: Cardiovascular: Reports no additional cardiovascular complaints, Denies chest pain and Denies leg edema Respiratory: Respiratory: Reports no additional respiratory complaints, Denies cough and Denies dyspnea Gastrointestinal: Gastrointestinal: Reports as per HPI, Reports no additional gastrointestinal complaints, Reports abdominal pain, Reports bloating, Denies change in stool c
[2022-12-13 03:06] VITALS: BP 146/68; PULSE 84; RESP 20; TEMP 36.5; O2SAT 92
[2022-12-13 05:46] LABS: Hematocrit 35.7 % (37.0-47.0); Hemoglobin 11.7 g/dL (12.0-15.0); Mean Corpuscular HGB Conc 32.8 g/dl (32-36); Mean Corpuscular Hemoglobin 30.8 pg (26-34); Mean Corpuscular Volume 93.9 fl (80-100); Mean Platelet Volume 8.6 fl (7.4-10.4); Platelet Count Result 210 k/mm3 (150-375); Red Cell Distribution Width 13.4 % (11.5-14.5); White Blood Count 7.5 K/mm3 (4.5-10.0)
[2022-12-13 06:27] LABS: Anion Gap 3 mmol/L (8-16); Blood Urea Nitrogen 11 mg/dL (7-17); Carbon Dioxide 30 mmol/L (22-30); Chloride 104 mmol/L (98-107); Estimated CRCL calculation 122 ml/min; Estimated Glomerular Filt Rate > 60; Glucose 107 mg/dL (65-110); Magnesium 2.5 mg/dL (1.6-2.3); Potassium 4.1 mmol/L (3.4-5.0); Sodium 137 mmol/L (137-145)
--- NOTE | 2022-12-13 08:04 | PM.IMPN ---
Progress Note: A&P Assessment and Plan (1) Small bowel obstruction: Code(s): K56.609 - Unspecified intestinal obstruction, unspecified as to partial versus complete obstruction Status: Acute Assessment and Plan: She has had multiple abdominal surgeries and history of small-bowel obstructions, 1 requiring surgery in 2020 at [place] for which it sounds like she underwent extensive adhesiolysis. General surgery consulted and appreciate recommendations. Continue conservative management- bowel rest, IV fluids, NG tube decompression. Analgesics available as needed. Clamping trial 12/13 per surgery. (2) Electrolyte abnormality: Code(s): E87.8 - Other disorders of electrolyte and fluid balance, not elsewhere classified Status: Acute Assessment and Plan: Sodium and potassium mildly low. Continue IV fluids and saline lock if able to take PO. Gentle hydration given history of diastolic dysfunction. 12/13 Sodium 137 and Potassium 4.1- resolved. (3) Asymptomatic bacteriuria: Code(s): R82.71 - Bacteriuria Status: Acute Assessment and Plan: UA with 2+ leukocytes and 1+ bacteria. Urine culture pending. Patient afebrile, without leukocytosis and no c/o dysuria, urgency, hesitancy, hematuria, suprapubic or CVA tenderness on exam. Hold antibiotics (4) Hypertension: Qualifiers: Hypertension type: primary hypertension Qualified Code(s): I10 - Essential (primary) hypertension Code(s): I10 - Essential (primary) hypertension Status: Chronic Assessment and Plan: Blood pressures were reviewed. BP 125/53-145/70. PRN IV hydralazine. Resume home medications when able to take PO. Stable. (5) Obstructive sleep apnea on CPAP: Code(s): G47.33 - Obstructive sleep apnea (adult) (pediatric); Z99.89 - Dependence on other enabling machines and devices Status: Chronic Assessment and Plan: Compliant with CPAP. continue autotitrate CPAP while inpatient. Plan CODE STATUS: FULL CODE Discharge disposition: from home. No discharge needs identified at this time. Diet: NPO. Time Spent With Patient Time with patient: 15 - 25 minutes Subjective Date/time seen: 12/13/22 08:04 Interval history: Patient found lying in bed with family at bedside. She reports her abdomen is less distended. She is passing gas and had 1 bowel movement today. NG tube clamping trial today per surgery. Review of Systems Review of Systems: All systems reviewed & are unremarkable except as noted in HPI and below Exam Narrative: General: Non-toxic appearing female lying in bed in no distress. HEENT: Normocephalic. PERRL, EOMI. NG tube in the right naris clamped. Mucous membranes moist. Neck: Supple. Respiratory: Lungs are clear to auscultation bilaterally. RR regular and unlabored. Speaking in full sentences. Cardiovascular: Regular rate and rhythm with S1-S2. No murmurs. Gastrointestinal: Abdomen soft, nontender to palpation, round. Multiple abdominal scars noted. Pain pump in the right lower quadrant without pain, erythema or edema. No guarding or rebound tenderness. No suprapubic tenderness. Skin: Warm and dry. Superficial varicosities of the lower extremities. Extremities: No cyanosis or clubbing. She has chronic bilateral lower extremity lymphedema. Radial and dorsalis pedis pulses +2 bilaterally. Neurological: Alert and oriented x3. Cranial nerves 2-12 are grossly intact. No gross focal deficits to casual conversation. Psychiatric: Pleasant and cooperative with normal mood and affect. Objective Data Vital Signs Vital Signs: Vital Signs - 24 hr 12/12/22 10:12 12/12/22 12:07 12/12/22 10:27 Temperature 97.1 F L Pulse Rate 95 97 Respiratory Rate 18 16 Blood Pressure 150/74 H 152/71 H Pulse Oximetry 96 96 95 Oxygen Delivery Room Air 12/12/22 10:31 12/12/22 10:48 12/12/22 11:00 Temper
[2022-12-13 08:36] LABS: Alanine Aminotransferase 30 U/L (6-35); Albumin Level 3.9 g/dL (3.5-5.1); Alkaline Phosphatase 112 U/L (38-126); Aspartate Amino Transferase 35 U/L (14-36); Bilirubin,Total 0.6 mg/dL (0.2-1.3)
[2022-12-13] MEDS: LACTATED RINGERS 1,000 ML 65 ML IV CONT (09:06)
--- NOTE | 2022-12-13 11:42 | PM.PNGS ---
Progress Note: A&P Assessment and Plan (1) Small bowel obstruction: Code(s): K56.609 - Unspecified intestinal obstruction, unspecified as to partial versus complete obstruction Status: Acute Assessment and Plan: Clinically improving, abdominal exam benign. Obstructive series this am with a normal bowel gas pattern. Will clamp NG tube and may remove if she tolerates a clamping trial. Add dulcolax supp. (2) History of gastric bypass: Onset Date: 1999 Code(s): Z98.84 - Bariatric surgery status Status: Acute (3) Presence of implanted infusion pump: Code(s): Z95.828 - Presence of other vascular implants and grafts Status: Chronic Plan I have discussed the patient's case and plan of care with Dr. Gaytan. Subjective Subjective Date/Time Seen: 12/13/22 09:42 Patient reports: no new complaints, feels better, pain is less, no flatus and no bowel movement Interval history: Patient feeling much better today. Denies any nausea or abdominal pain. Minimal out of her NG. Feeling less bloated. Still no flatus or BM. Only compliant is a headache from the NG tube. Exam Const: General: comfortable and no acute distress Orientation/consciousness: patient oriented x3 GI: Inspection: other (mildly distended, much softer) GI Palp: Yes Soft to palpation, No Tenderness to palpation present (GI), No Guarding due to palpation present (GI) and No Rebound tenderness present Percussion: Yes normal to percussion Auscultation: normal bowel sounds Objective Data Vital Signs Vital Signs: Vital Signs - 24 hr 12/12/22 12:07 12/12/22 11:45 12/12/22 12:01 Temperature Pulse Rate 97 96 Respiratory Rate 16 15 Blood Pressure 152/71 H Pulse Oximetry 96 94 Oxygen Delivery 12/12/22 12:02 12/12/22 12:23 12/12/22 12:39 Temperature Pulse Rate 97 96 96 Respiratory Rate 18 18 15 Blood Pressure 152/71 H Pulse Oximetry 95 94 Oxygen Delivery 12/12/22 12:45 12/12/22 13:00 12/12/22 13:01 Temperature Pulse Rate 98 97 97 Respiratory Rate 22 H 24 H 27 H Blood Pressure 160/82 H Pulse Oximetry 94 Oxygen Delivery 12/12/22 13:02 12/12/22 13:15 12/12/22 13:40 Temperature Pulse Rate 97 98 Respiratory Rate 18 20 Blood Pressure Pulse Oximetry 93 95 Oxygen Delivery 12/12/22 13:45 12/12/22 14:00 12/12/22 14:30 Temperature Pulse Rate 97 96 97 Respiratory Rate 13 18 14 Blood Pressure 150/84 H 156/84 H Pulse Oximetry 100 99 Oxygen Delivery 12/12/22 14:58 12/12/22 21:25 12/12/22 20:00 Temperature 98.0 F 97.9 F Pulse Rate 97 80 Respiratory Rate 18 20 Blood Pressure 144/84 H 125/53 L Pulse Oximetry 96 96 Oxygen Delivery Room Air 12/13/22 03:06 12/13/22 08:00 Temperature 97.7 F Pulse Rate 84 Respiratory Rate 20 Blood Pressure 146/68 H Pulse Oximetry 92 Oxygen Delivery Room Air Intake/Output Intake/Output: Intake & Output 12/10/22 12/11/22 12/12/22 12/13/22 23:59 23:59 23:59 23:59 Intake Total 2300 100 Output Total 250 100 Balance 2050 0 Meds/Results Medications: Active Medications Generic Name Dose Route Start Last Admin Trade Name Freq PRN Reason Stop Dose Admin Fluticasone Propionate 1 spray 12/12/22 22:28 Fluticasone Propionate 0.05% Na Spr 16 Gm Btl (*Bkc) NASAL BID PRN allergy symptoms Hydralazine HCl 10 mg 12/13/22 07:56 Hydralazine Hcl 20 Mg/Ml Vial IV PUSH Q6HR PRN Blood Pressure - High Acetaminophen 1,000 mg in 100 mls @ 400 mls/hr 12/12/22 22:16 12/13/22 05:30 Ofirmev 1,000 Mg Ivpb IVPB 12/13/22 22:15 Infused Q6H PRN Infusion Pain or Fever Lactated Ringer's 1,000 mls @ 65 mls/hr 12/13/22 08:00 12/13/22 09:06 Lr - Lactated Ringers Iv IV CONT 65 mls/hr .[id number] KENDRA Administration Radiology Results: ITS Impressions Abdomen/Pelvis CT 12/12/22 11:29 IMPRESSION: 1. Small bowel obstruction. Abdomen X-Ray
[2022-12-13] MEDS: BISACODYL 10 MG SUPPOSITORY RECTAL (12:11)
[2022-12-13 14:02] VITALS: BP 145/70; PULSE 91; RESP 18; TEMP 36.4; O2SAT 99
[2022-12-13 20:44] VITALS: BP 127/72; PULSE 76; RESP 16; TEMP 37; O2SAT 98
[2022-12-14 05:08] VITALS: BP 147/71; PULSE 80; RESP 18; TEMP 36.7; O2SAT 97
[2022-12-14 05:54] LABS: Basophils Percent Auto 0.4 % (0.2-1.2); Eosinophils Absolute Auto 0.2 K/mm3 (0-0.3); Eosinophils Percent Auto 3.4 % (0-4.4); Hematocrit 37.9 % (37.0-47.0); Hemoglobin 12.1 g/dL (12.0-15.0); Immature Granulocyte Absolute 0.03 K/mm3 (0.00-0.031); Immature Granulocyte Percent A 0.4 % (0-0.5); Lymphocytes Absolute Auto 1.99 K/mm3 (0.9-3.2); Lymphocytes Percent Auto 28.4 % (18.3-44.2); Mean Corpuscular HGB Conc 31.9 g/dl (32-36); Mean Corpuscular Hemoglobin 30.3 pg (26-34); Mean Corpuscular Volume 94.8 fl (80-100); Mean Platelet Volume 8.7 fl (7.4-10.4); Monocytes Absolute Auto 0.6 K/mm3 (0.1-0.6); Monocytes Percent Auto 9.1 % (2.6-8.5); Neutrophils Absolute Auto 4.1 K/mm3 (1.3-6.7); Neutrophils Percent Auto 58.3 % (45.5-73.1); Platelet Count Result 234 k/mm3 (150-375); Red Cell Distribution Width 13.3 % (11.5-14.5)
[2022-12-14] MEDS: LACTATED RINGERS 1,000 ML 65 ML IV CONT (06:08)
[2022-12-14 06:17] LABS: Alanine Aminotransferase 31 U/L (6-35); Albumin Level 4.4 g/dL (3.5-5.1); Alkaline Phosphatase 108 U/L (38-126); Anion Gap 6 mmol/L (8-16); Aspartate Amino Transferase 35 U/L (14-36); Bilirubin,Total 0.6 mg/dL (0.2-1.3); Blood Urea Nitrogen 6 mg/dL (7-17); Calcium 8.8 mg/dL (8.4-10.2); Carbon Dioxide 31 mmol/L (22-30); Chloride 101 mmol/L (98-107); Estimated CRCL calculation 121 ml/min; Estimated Glomerular Filt Rate > 60; Glucose 107 mg/dL (65-110); Magnesium 2.2 mg/dL (1.6-2.3); Potassium 3.3 mmol/L (3.4-5.0); Sodium 138 mmol/L (137-145)
[2022-12-14] MEDS: VENLAFAXINE HCL XR 75 MG CAP.ER.24H 300 MG PO (08:50)
[2022-12-14] MEDS: POTASSIUM CHLORIDE 20 MEQ TABLET PO (08:50)
[2022-12-14] MEDS: LOSARTAN POTASSIUM 25 MG TABLET PO (08:50)
[2022-12-14] MEDS: FUROSEMIDE 20 MG TABLET PO (08:50)
--- NOTE | 2022-12-14 09:42 | PM.PNGS ---
Progress Note: A&P Assessment and Plan (1) Small bowel obstruction: Code(s): K56.609 - Unspecified intestinal obstruction, unspecified as to partial versus complete obstruction Status: Acute Assessment and Plan: resolved, exam benign, +bowel fxn, polly diet, ok to dc home from surgical standpoint Subjective Subjective Date/Time Seen: 12/14/22 09:42 Interval history: feels good, multiple bowel movts, polly diet Review of Systems Review of Systems: All systems reviewed & are unremarkable except as noted in HPI and below Exam Const: General: cooperative, comfortable and no acute distress Resp: Auscultation: clear to auscultation bilaterally Cardio: Rate: regular rate Rhythm: regular rhythm GI: Inspection: normal to inspection and non-distended GI Palp: No abdominal tenderness, Yes Soft to palpation, No Tenderness to palpation present (GI) and No Guarding due to palpation present (GI) Objective Data Vital Signs Vital Signs: Vital Signs - 24 hr 12/13/22 14:02 12/13/22 20:44 12/13/22 20:00 Temperature 36.4 C L 37.0 C Pulse Rate 91 76 Respiratory Rate 18 16 Blood Pressure 145/70 H 127/72 Pulse Oximetry 99 98 Oxygen Delivery Room Air 12/14/22 05:08 Temperature 36.7 C Pulse Rate 80 Respiratory Rate 18 Blood Pressure 147/71 H Pulse Oximetry 97 Oxygen Delivery Intake/Output Intake/Output: Intake & Output 12/11/22 12/12/22 12/13/22 12/14/22 23:59 23:59 23:59 23:59 Intake Total 2300 1600 1300 Output Total 250 100 Balance 2050 1500 1300 Meds/Results Medications: Active Medications Generic Name Dose Route Start Last Admin Trade Name Freq PRN Reason Stop Dose Admin Aspirin 81 mg 12/14/22 21:00 Aspirin 81 Mg Chewable Tablet PO HS KENDRA Fluticasone Propionate 1 spray 12/12/22 22:28 Fluticasone Propionate 0.05% Na Spr 16 Gm Btl (*Bkc) NASAL BID PRN allergy symptoms Furosemide 20 mg 12/14/22 09:00 12/14/22 08:50 Furosemide 20 Mg Tablet PO 20 mg DAILY KENDRA Administration Hydralazine HCl 10 mg 12/13/22 07:56 Hydralazine Hcl 20 Mg/Ml Vial IV PUSH Q6HR PRN Blood Pressure - High Lactated Ringer's 1,000 mls @ 65 mls/hr 12/13/22 08:00 12/14/22 06:08 Lr - Lactated Ringers Iv IV CONT 65 mls/hr .[id number] KENDRA Administration Losartan Potassium 25 mg 12/14/22 09:00 12/14/22 08:50 Losartan Potassium 25 Mg Tablet PO 25 mg DAILY KENDRA Administration Simvastatin 40 mg 12/14/22 21:00 Simvastatin 20 Mg Tablet PO HS KENDRA Venlafaxine HCl 300 mg 12/14/22 09:00 12/14/22 08:50 Venlafaxine Hcl Xr 75 Mg Cap.Er.24h PO 300 mg DAILY KENDRA Administration Radiology Results: ITS Impressions Abdomen/Pelvis CT 12/12/22 11:29 IMPRESSION: 1. Small bowel obstruction. Abdomen X-Ray 12/13/22 09:18 IMPRESSION: 1. No free intraperitoneal gas or dilated gas-filled loops of bowel to suggest obstruction. 2. Small sliding-type hiatal hernia with nasogastric tube within the intrathoracic portion of the stomach and distal tip at the level of the thoracic outlet. Labs Labs: Laboratory Results - last 24 hr 12/14/22 05:34 WBC 7.0 RBC 4.00 L Hgb 12.1 Hct 37.9 MCV 94.8 MCH 30.3 MCHC 31.9 L RDW 13.3 Plt Count 234 MPV 8.7 Immature Gran % (Auto) 0.4 Neut % (Auto) 58.3 Lymph % (Auto) 28.4 [place] % (Auto) 9.1 H Eos % (Auto) 3.4 Baso % (Auto) 0.4 Lymph # (Auto) 1.99 [place] # (Auto) 0.6 Eos # (Auto) 0.2 Baso # (Auto) 0.0 Abs Immat Gran (auto) 0.03 Absolute Neuts (auto) 4.1 Absolute Nucleated RBC 0.0 Nucleated RBC % 0.0 Sodium 138 Potassium 3.3 L Chloride 101 Carbon Dioxide 31 H Anion Gap 6 L BUN 6 L D Creatinine 0.50 L Estim Creat Clear Calc 121 Estimated GFR > 60 Glucose 107 Calcium 8.8 Magnesium 2.2 Total Bilirubin 0.6 AST 35 ALT 31 Alkaline Phosphatase 108 Total Protein 8.0 Albumin 4.4
--- NOTE | 2022-12-14 11:57 | PM.DS ---
DS: Admitting Diagnosis Discharge Date 12/14/2022 Admitting Diagnosis SBO DS: Discharge Diagnosis Discharge Diagnosis (1) Small bowel obstruction: Code(s): K56.609 - Unspecified intestinal obstruction, unspecified as to partial versus complete obstruction Status: Acute Assessment and Plan: She has had multiple abdominal surgeries and history of small-bowel obstructions, 1 requiring surgery in 2019 at [facility] for which it sounds like she underwent extensive adhesiolysis. patient was seen in consultation by General surgery during admission. NG tube was placed and conservative management provided including bowel rest and IV fluids. KUB showed resolution of obstruction, NG tube was removed and patient has been able to tolerate regular diet (2) Electrolyte abnormality: Code(s): E87.8 - Other disorders of electrolyte and fluid balance, not elsewhere classified Status: Acute Assessment and Plan: Sodium and potassium mildly low. Patient was rehydrated with IV fluids. Sodium levels normalized. Potassium slightly low likely did NPO diet and was supplemented. Anticipate resolution at the patient is tolerating regular diet (3) Asymptomatic bacteriuria: Code(s): R82.71 - Bacteriuria Status: Acute Assessment and Plan: UA with 2+ leukocytes and 1+ bacteria. Patient afebrile, without leukocytosis, asymptomatic. Urine culture negative. No indication for treatment with antibiotics (4) Hypertension: Qualifiers: Hypertension type: primary hypertension Qualified Code(s): I10 - Essential (primary) hypertension Code(s): I10 - Essential (primary) hypertension Status: Chronic Assessment and Plan: Blood pressures remained stable. Antihypertensives were held while NPO and have been resumed (5) Obstructive sleep apnea on CPAP: Code(s): G47.33 - Obstructive sleep apnea (adult) (pediatric); Z99.89 - Dependence on other enabling machines and devices Status: Chronic Assessment and Plan: Compliant with CPAP DS: Summary Hospital Course Hospital Course: Date of admission: 12/12/2022 Date of discharge: 12/14/2022 More Lovett is a 66 year old female with a history of anemia, hypertension, KAMRAN on CPAP, chronic pain with implanted pain pump, multiple abdominal surgeries, and small-bowel obstruction who presented to the emergency department on 12/12/2022 with complaints of abdominal pain ongoing for 1 day with associated nausea and vomiting. On presentation to the ED, her vital signs were stable, she was afebrile, WBC 13.7, potassium 3.2, additional laboratory workup unremarkable, CT of the abdomen/pelvis showed small bowel obstruction. NG tube was placed and patient was admitted to the hospitalist service for further evaluation management was seen in consultation by General surgery. Obstruction resolved with conservative management. Patient has been able to tolerate a regular diet which she will continue. Patient was feeling improved, back to baseline state of health and was determined to no longer require inpatient care. She was discharged in hemodynamically stable condition on 12/14/22. Time Spent with Patient Time attestation: Total time spent providing and/or coordinating discharge services: 40 minute Time spent: Greater than 30 minutes Exam Narrative: General: A well-nourished, well-appearing 66-year-old female, sitting up in bed, comfortable, NARD Neuro: awake, alert and oriented x4, speech clear, no focal neuro deficits noted HEENMT: normocephalic, atraumatic, EOMI, sclerae anicteric Respiratory: clear to auscultation bilaterally, nonlabored breathing Cardio: regular rate, regular rhythm with S1-S2 Abdomen: nondistended, normoactive bowel sounds, soft, nontender to palpation Extremities: no edema, erythema, or tenderness to palpation Skin: no rashes or lesions, warm and dry Psych: appropriate mood and aff
== END 2022-12-14 12:50 | disposition home or self-care (01) | DRG 390 ==
LOC: ANHED 13:53 → ANH2MED 14:28
PROVIDERS: Emergency Medicine; Nurse Practitioner Family; Admitting Provider Student in an Organized Health Care Education/Training Program; Emergency Provider Physician Assistant; PCP Emergency Medicine; Visit Provider Physician Assistant
DX: K56.609 Unspecified intestinal obstruction, unspecified as to partial versus complete obstruction (principal); I10 Essential (primary) hypertension; E87.6 Hypokalemia; E78.5 Hyperlipidemia, unspecified; E03.9 Hypothyroidism, unspecified; D50.9 Iron deficiency anemia, unspecified; I89.0 Lymphedema, not elsewhere classified; K58.9 Irritable bowel syndrome, unspecified; K21.9 Gastro-esophageal reflux disease without esophagitis; R82.71 Bacteriuria; G47.33 Obstructive sleep apnea (adult) (pediatric); G89.4 Chronic pain syndrome; F32.A Depression, unspecified; F41.9 Anxiety disorder, unspecified; Z96.89 Presence of other specified functional implants; Z79.82 Long term (current) use of aspirin; Z98.84 Bariatric surgery status
CPT/HCPCS: 36415; 74019; 74177; 80048; 80053; 80076; 81001; 83605; 83690; 83735; 84484; 85025; 85027; 87086; 87088; 93005; 96361; 96365; 96366; 96375; 96376; 99285; A9270; C9113; G0378; J0131; J2270; J2405; J3480; J7030; J7120; Q9967

== ENCOUNTER 2023-04-18 23:44 | Emergency (ER) | payer OTHER, SELFPAY ==
--- NOTE | ~2023-04-18 | XR_ITS ---
EXAMINATION: XR chest 1V portable DATE: 04/19/2023 03:24 INDICATION: Fever. TECHNIQUE: A single frontal view of the chest was obtained. COMPARISON: Chest 2 views 07/30/2021 FINDINGS: There is no pneumonia, pleural effusion, or pneumothorax. The heart size is normal. IMPRESSION: 1. No acute cardiopulmonary disease. Reviewed, dictated and finalized at location E.
[2023-04-18 23:50] VITALS: BP 157/83; PULSE 110; RESP 26; TEMP 36.8; O2SAT 98
[2023-04-19 02:02] LABS: Basophils Percent Auto 0.4 % (0.2-1.2); Eosinophils Percent Auto 0.1 % (0-4.4); Hematocrit 40.1 % (37.0-47.0); Hemoglobin 13.4 g/dL (12.0-15.0); Immature Granulocyte Absolute 0.03 K/mm3 (0.00-0.031); Immature Granulocyte Percent A 0.4 % (0-0.5); Lymphocytes Absolute Auto 1.19 K/mm3 (0.9-3.2); Lymphocytes Percent Auto 16.3 % (18.3-44.2); Mean Corpuscular HGB Conc 33.4 g/dl (32-36); Mean Corpuscular Hemoglobin 30.8 pg (26-34); Mean Corpuscular Volume 92.2 fl (80-100); Mean Platelet Volume 9.8 fl (7.4-10.4); Monocytes Absolute Auto 0.5 K/mm3 (0.1-0.6); Monocytes Percent Auto 7.4 % (2.6-8.5); Neutrophils Absolute Auto 5.5 K/mm3 (1.3-6.7); Neutrophils Percent Auto 75.4 % (45.5-73.1); Platelet Count Result 282 k/mm3 (150-375); Red Blood Count 4.35 M/mm3 (4.2-5.4); Red Cell Distribution Width 13.4 % (11.5-14.5); White Blood Count 7.3 K/mm3 (4.5-10.0)
[2023-04-19 02:11] LABS: Alanine Aminotransferase 25 U/L (6-35); Albumin Level 4.7 g/dL (3.5-5.1); Alkaline Phosphatase 117 U/L (38-126); Anion Gap 10 mmol/L (8-16); Aspartate Amino Transferase 40 U/L (14-36); Bilirubin,Total 0.7 mg/dL (0.2-1.3); Blood Urea Nitrogen 7 mg/dL (7-17); Calcium 9.3 mg/dL (8.4-10.2); Carbon Dioxide 25 mmol/L (22-30); Chloride 108 mmol/L (98-107); Creatine Kinase 77 U/L (30-135); Estimated CRCL calculation 114 ml/min; Estimated Glomerular Filt Rate > 60; Glucose 135 mg/dL (65-110); Potassium 3.4 mmol/L (3.4-5.0); Sodium 143 mmol/L (137-145)
[2023-04-19] MEDS: LORazepam INJ (*CRX) 2 MG/ML VIAL 1 MG IV PUSH ×2 (03:10→03:52)
[2023-04-19] MEDS: SODIUM CHLORIDE 0.9% IV 1,000 ML 999 ML IV CONT (03:10)
[2023-04-19] MEDS: ACETAMINOPHEN 500 MG TABLET 1000 MG PO (03:10)
[2023-04-19 03:44] LABS: Appearance Urine Turbid (Clear); Bacteria Urine 4+ /hpf; Bilirubin Urine Negative (Negative); Blood Urine 2+ (Negative); Color Urine Dark Yellow (Yellow); Glucose Urine UA Negative (Negative); Ketones Urine 1+ mg/dL (Negative); Leukocyte Esterase Ur 3+ LEU/UL (Negative); Mucus Urine Present /lpf; Nitrate Urine Negative (Negative); Protein Urine 2+ mg/dL (Negative); RBC Urine 51-100 /hpf (0-2); Specific Grav Ur 1.024 (1.001-1.035); Squamous Epithelial Cell Urine Many /hpf (Few); WBC Clumps Urine Present /HPF; WBC Urine >100 /hpf
[2023-04-19 04:05] LABS: Add Urine Microscopic? YES
[2023-04-19 04:09] LABS: Influenza A QL RT-PCR Negative (Negative); Influenza B QL RT-PCR Negative (Negative); SARS-CoV-2 RNA PCR Negative (Negative)
[2023-04-19] MEDS: MORPHINE SULFATE (*CRX) 4 MG/ML INJ IV PUSH (04:14)
[2023-04-19] MEDS: diphenhydrAMINE HCl INJ 50 MG/ML VIAL 25 MG IV PUSH (04:14)
[2023-04-19 04:35] VITALS: BP 136/100; PULSE 96; RESP 19; O2SAT 100
--- NOTE | 2023-04-19 05:03 | ED.GENADULT ---
HPI - General Adult General Chief complaint: Extremity Problem,Nontraumatic Stated complaint: Strange smell, leg spasms Time Seen by Provider: 04/19/23 02:48 History of Present Illness HPI narrative: Patient 67-year-old female who presents the emergency department with chief complaint of legs keep moving. Patient reports that earlier today she noticed that she had a fever of 102 patient states that she has felt bad all day and just not felt her usual self. Patient reports that she has no abdominal pain but reports that her legs continuously move the patient does have prior history of restless leg and reports that they recently changed her medications. Related Data Home Medications Medication Instructions Recorded Confirmed aspirin 81 mg chewable tablet 81 mg PO HS 07/01/19 03/29/23 (Aspirin Childrens) ferrous sulfate 325 mg (65 mg See Rx Instructions .Route .COMPLEX 07/01/19 03/29/23 iron) tablet dicyclomine 10 mg capsule 10 mg PO BID 07/28/22 03/29/23 fthmmtddpekw-kqrcvmzz-hycqjfd-folic 1 tablet PO DAILY 07/28/22 03/29/23 acid 400 mcg-vit K1 20 mcg tablet (One-A-Day Women's 50 Plus) polyethylene glycol 3350 17 17 g PO QHS 11/09/22 03/29/23 gram/dose oral powder (Miralax) cholecalciferol (vitamin D3) 1,250 50,000 unit PO WEEKLY 12/12/22 03/29/23 mcg (50,000 unit) capsule bupivacaine 132 mg/mL 660 mg intra-subacromial space ONCE 03/29/23 03/29/23 intra-subacromial injection solution sucralfate 1 gram tablet PO 03/29/23 03/29/23 Allergies Allergy/AdvReac Type Severity Reaction Status Date / Time prochlorperazine Allergy Severe Hyperactive--STATES Verified 04/19/23 04:38 CAUSES RESTLESSNESS, PANICKY FEELING Review of Systems Review of Systems: A 10 system review of systems was completed on the patient and is negative except for what is stated in the HPI. Nursing and ancillary documentation was reviewed. [facility] Past Medical History Medical History Anemia Anxiety Arthritis of right glenohumeral joint Degenerative disc disease Depression Failed back syndrome Gastroesophageal reflux disease Hyperlipidemia Hypertension Iron deficiency anemia Irritable bowel syndrome Lymphedema Obstructive sleep apnea on CPAP Presence of implanted infusion pump Small bowel obstruction Surgical History Surgical History History of abdominoplasty History of ankle surgery History of appendectomy (1995) History of arthroscopy of both knees History of arthroscopy of right shoulder Eliezer - SLAP repair History of bilateral cataract extraction History of bladder repair surgery (06/2016) Cystoscopy with mid urethral sling. History of cervical discectomy (2004) History of exploratory laparotomy adhesiolysis for small bowel obstruction 2020 History of gastric bypass (1999) History of hysterectomy (1995) History of lumbar surgery History of stapedectomy History of stress incontinence procedure using tension free vaginal tape (06/2007) History of tubal ligation (1982) History of vein stripping History of ventral hernia repair (01/2007) Laparoscopic repair of lower abdominal wall rectus diastasis with Composix EX mesh. Family History Family History Mother Family history of cardiovascular disease, Onset Age: 76 Diabetes mellitus, Onset Age: 76 Family history of malignant neoplasm, Onset Age: 76 Family history of arthritis, Onset Age: 76 Acute myocardial infarction Hypertension, Onset Age: 76 Asthma, Onset Age: 78 Father Family history of arthritis, Onset Age: 84 Cerebrovascular accident Chronic obstructive pulmonary disease Social History Social History Social History: Surrogate medical decision maker: Kamaljit Lovett, spouse
[2023-04-19] MEDS: diazePAM INJ (*CRX) 10 MG/2 ML SYRINGE 5 MG IV PUSH (05:43)
[2023-04-19] MEDS: rOPINIRole HCL 1 MG TABLET 2 MG PO (06:40)
[2023-04-19 06:52] VITALS: BP 122/77; PULSE 72; RESP 16; O2SAT 98
== END 2023-04-19 06:53 | disposition home or self-care (01) ==
PROVIDERS: Physician Assistant; Emergency Provider Emergency Medicine; PCP Emergency Medicine
DX: G25.81 Restless legs syndrome (principal); N39.0 Urinary tract infection, site not specified; Z20.822 Contact with and (suspected) exposure to COVID-19; E78.5 Hyperlipidemia, unspecified; I10 Essential (primary) hypertension; I89.0 Lymphedema, not elsewhere classified; D50.9 Iron deficiency anemia, unspecified; K58.9 Irritable bowel syndrome, unspecified; K21.9 Gastro-esophageal reflux disease without esophagitis; G47.33 Obstructive sleep apnea (adult) (pediatric); Z98.42 Cataract extraction status, left eye; Z98.41 Cataract extraction status, right eye; Z98.84 Bariatric surgery status; Z90.710 Acquired absence of both cervix and uterus; Z79.82 Long term (current) use of aspirin
CPT/HCPCS: 36415; 71045; 80053; 81001; 82550; 83735; 85025; 87077; 87086; 87186; 87636; 96361; 96365; 96375; 96376; 99284; A9270; J0696; J1200; J2060; J2270; J3360; J7030

== ENCOUNTER → 2023-04-27 11:31 | Outpatient (CLI) | payer OTHER, SELFPAY ==
--- NOTE | ~2023-04-27 | CT_ITS ---
EXAMINATION: CT shoulder RT wo con DATE: 04/27/2023 11:52 INDICATION: Primary osteoarthritis of right shoulder. Preop. TECHNIQUE: Computed tomography (CT) of the right shoulder was performed without intravenous contrast. Automated exposure control and iterative reconstruction technique were employed. The dose-length pro duct was 380.77 mGy-cm. COMPARISON: None FINDINGS: Bone alignment is normal. No fracture. There is severe osteoarthritis of acromioclavicular joint. There is advanced glenohumeral joint osteoarthritis including bone volume loss of the glenoid. There is a loose body in the glenohumeral joint posteriorly. There is asymmetric fatty atrophy of th e rotator cuff muscle bellies. IMPRESSION: 1. Advanced glenohumeral joint osteoarthritis with loose body. 2. Severe acromioclavicular joint osteoarthritis. Reviewed, dictated and finalized at location E.
== END ==
PROVIDERS: PCP Emergency Medicine; Referring Provider Nurse Practitioner Family
DX: M19.011 Primary osteoarthritis, right shoulder (principal)
CPT/HCPCS: 73200

== ENCOUNTER 2023-11-10 16:05 | Outpatient (CLI) | payer OTHER, SELFPAY ==
--- NOTE | ~2023-11-10 | MM_ITS ---
EXAMINATION: MM screening ángel BI w lori HISTORY: Screening mammogram TECHNIQUE: Craniocaudal and mediolateral oblique 3-D tomosynthesis images were obtained and synthetic 2-D images were generated. CAD analysis was submitted and interpreted. COMPARISON: 03/17/2022, 12/01/2020 bilateral screening mammogram examinations is BREAST PARENCHYMAL COMPOSITION: The breasts are heterogeneously dense, which may obscure small masses . FINDINGS: Multiple scattered bilateral benign calcifications are again noted. There is no evidence of suspicious mass, calcification, or architectural distortion to suggest malignancy in either breast. There has been no suspicious interval change. IMPRESSION: 1. Benign calcifications. No mammographic evidence of malignancy. 2. Recommend routine screening mammography in one year. BI-RADS Category 2: Benign finding(s). Reviewed, dictated and finalized at location A.
== END 2023-11-10 16:06 ==
LOC: MICIMG 16:05
PROVIDERS: PCP Emergency Medicine; Visit Provider Emergency Medicine
DX: Z12.31 Encounter for screening mammogram for malignant neoplasm of breast (principal); R92.8 Other abnormal and inconclusive findings on diagnostic imaging of breast
CPT/HCPCS: 77063; 77067

== ENCOUNTER 2024-05-07 09:56 | Outpatient (CLI) | payer OTHER, SELFPAY ==
[2024-05-14 11:48] VITALS: BMI 33.3
--- NOTE | 2024-05-14 11:48 | WPDSLEEPSTUD ---
Sleep Study Date of Study: 05/07/24 Ordering Provider: Milena Bustos MD Interpreting Physician: Radha Giles DO Sleep Study Type: Split Polysomnogram Height: 1.65 m Weight: 90.718 kg Body Mass Index: 33.3 Neck Circumference (inches): 14 [place]: 2 Reason for Sleep Study Difficulty falling asleep and maintaining sleep. Previously diagnosed with KAMRAN and is on CPAP. Sleep History The patient is a 68-year-old female with previously diagnosed sleep apnea on CPAP that had a sleep study ordered by her facility manager due to worsening sleep. The patient denies awakening from sleep short of breath. She denies awakening at night with heartburn, belching or cough. She rarely snores and is occasionally loud enough that others complain. She frequently has trouble sleeping when she has a cold. She denies waking up gasping for air throughout the night. She occasionally has breathing problems at night observed by herself or others. She frequently sweats excessively at night. She denies having heart palpitations or irregular heartbeats during the night. She occasionally falls asleep during the day but never while driving. She denies sleep paralysis, cataplexy and hypnagogic / hypnopompic hallucinations. She denies having trouble at school or work due to sleepiness. She denies feeling afraid of going to sleep. She rarely has nightmares. She occasionally remembers her dreams. She constantly has thoughts racing through her mind. She occasionally feels sad or depressed. She constantly has anxiety. She frequently has muscular tension. She constantly notices parts of her body jerk. She denies kicking during the night. She rarely has crawling and aching feelings in her legs but occasionally has leg pain during the night. She rarely grinds her teeth during sleep and never awakens with morning jaw pain. She is rarely bothered by pain during the day and rarely awakened by pain during the night. She frequently wakes up feeling stiff in the morning. She frequently wakes up with sore or achy muscles. She constantly wakes up with pain in the neck, spine or other joints. She goes to bed at midnight on weekdays and between midnight to 1:00 a.m. on the weekends. It takes her at least 1 hour to fall asleep. She wakes up twice at most during the night for unknown reasons and she is unable to fall back asleep if that happens. She wakes up at 3:00 a.m. on both weekdays and weekends. She typically gets 4 hours of sleep per night. She currently lives with her . She denies consuming any caffeinated beverages within 2 hours of bedtime. She denies engaging in physical exercise before bedtime. She will watch television before falling asleep. She will take naps in the early afternoon but they are not refreshing. She has 1 glass of a caffeinated beverage before 1:00 p.m.. She denies tobacco, alcohol and recreational drug use. [facility] Past Medical History Medical History Acute UTI Anemia Anxiety Arthritis of right glenohumeral joint Breast calcification, left Chronic pain syndrome Chronic right-sided low back pain without sciatica Constipation, chronic Cough Degenerative disc disease Depression Diastolic dysfunction Dyslipidemia Edema Epigastric abdominal pain Failed back syndrome Gastro-esophageal reflux disease without esophagitis Gastroesophageal reflux disease Hereditary and idiopathic neuropathy, unspecified Hypercholesterolemia Hyperlipidemia Hypersomnia Hypertension Hypotension, chronic Hypotensive episode Hypothyroidism (acquired) Incontinence in female Iron deficiency anemia Irritable bowel syndrome Jerking gait Large breasts Left breast lump Left lower quadrant pain Left upper quadrant pain Lymphedema Major depressive disorder, single episode, unspecified Microcytic anemia Obstructive sleep apnea Obstructive sleep apnea on CPAP Other chronic pain Past pointing P
== END 2024-05-08 07:45 | disposition home or self-care (01) ==
PROVIDERS: PCP Emergency Medicine; Visit Provider Internal Medicine Critical Care Medicine
DX: G47.39 Other sleep apnea (principal)
CPT/HCPCS: 95811

== ENCOUNTER 2024-06-17 12:43 | Outpatient (CLI) | payer OTHER, SELFPAY ==
--- NOTE | 2024-06-17 12:46 | ECHO_ITS ---
Patient Info Name: More Lovett Age: 68 years : 1955 Gender: Female Ht: 67 in Wt: 201 lbs BSA: 2.11 m2 HR: 88 bpm BP: 146 / 91 mmHg Heart Rhythm: Sinus Rhythm Technical Quality: Good Exam Date: 06/17/2024 1:02 PM Exam Location: Echo Lab Patient Status: Outpatient Admit Date: 06/17/2024 Staff Ordering Physician: Milena Bustos MD Seismic Survey Assistant: Concetta Blount RDCS Attending Provider: Milena Bustos MD Referring Physician: Juli SEAMAN; Exam Type: CA echo doppler color flow Study Info Indications R06.09 - Other forms of dyspnea Complete two-dimensional, color flow and Doppler transthoracic echocardiogram is performed. Strain analysis performed. Summary 1. Complete two-dimensional, color flow and Doppler transthoracic echocardiogram is performed. 2. Left ventricular chamber dimension is normal. 3. Left ventricular systolic function is normal, estimated at 60-65%. 4. The left ventricular diastolic function is grade II diastolic dysfunction. 5. E/e' 9 is minimally elevated. 6. Global longitudinal strain is normal at -19.3%. 7. Left atrial chamber dimension is mildly enlarged. 8. There is mild mitral valve regurgitation. 9. There is mild tricuspid valve regurgitation. 10. No pulmonary hypertension, estimated pulmonary arterial systolic pressure is 30 mmHg. Left Ventricle E/e' 9 is minimally elevated. Global longitudinal strain is normal at -19.3%. Left ventricular chamber dimension is normal. Left ventricular systolic function is normal, estimated at 60-65%. The left ventricular diastolic function is grade II diastolic dysfunction. Right Ventricle Right ventricular systolic function is normal and with normal TAPSE 2.2 cm. Right ventricular chamber dimension is normal. Left Atria Left atrial chamber dimension is mildly enlarged. Right Atria Right atrial chamber dimension is normal. Aortic Valve The aortic valve is trileaflet. There is no aortic valve stenosis. There is no aortic valve regurgitation. Pulmonic Valve There is no pulmonic regurgitation. Mitral Valve There is no mitral valve stenosis. There is mild mitral valve regurgitation. Tricuspid Valve There is mild tricuspid valve regurgitation. No pulmonary hypertension, estimated pulmonary arterial systolic pressure is 30 mmHg. Pericardium/Pleural There is no pericardial effusion. Inferior Vena Cava Normal inferior vena cava with >50% collapse upon inspiration consistent with normal right atrial pressure, 5 mmHg. Aorta The aortic root size at the sinus of Valsalva is normal. Left Ventricular Outflow Tract Name Value Normal LVOT 2D LVOT Diameter 2.0 cm LVOT Doppler LVOT Peak Gradient 6 mmHg LVOT Mean Gradient 3 mmHg LVOT VTI 25 cm LVOT VTI/AV VTI Ratio 0.8 LVOT Stroke Volume 78 ml LVOT CO 5.6 l/min LVOT CI 2.6 l/min/m2 Pulmonic Valve Name Value Normal RVOT Doppler RVOT Peak Gradient 2 mmHg PV Doppler PV Peak Gradient 5 mmHg Mitral Valve Name Value Normal MV Doppler MV Decel Meigs 404 cm/s2 MV PHT 68 ms MV Area (PHT) 3.2 cm2 4.0-5.0 MV Diastolic Function MV E Peak Velocity 94 cm/s MV A Peak Velocity 93 cm/s MV E/A 1.0 MV Decel Time 233 ms MV Annular TDI MV E/e' (Septal) 10.3 <=8.0 MV E/e' (Lateral) 8.2 <=8.0 MV E/e' (Average) 9.3 Tricuspid Valve Name Value Normal TV Regurgitation Doppler TR Peak Velocity 248 cm/s TR Peak Gradient 21 mmHg Estimated PAP/RSVP RA Pressure 5 mmHg <=5 PA Systolic Pressure 30 mmHg <36 RV Systolic Pressure 30 mmHg <36 Aorta Name Value Normal Ascending Aorta Ao Root Diameter (MM) 2.2 cm Ao Root Diam Index (MM) 1.0 cm/m2 Aortic Valve Name Value Normal AV Doppler AV Peak Velocity 139 cm/s AV Peak Gradient 8 mmHg AV Mean Gradient 4 mmHg AV VTI 30 cm AV Area (Cont Eq VTI) 2.6 cm2 >=3.0 AV Area (Cont Eq Justin) 2.7 cm2 AV Regurgitation 2D LVOT Area 3.1 cm2 Ventricles Name Value Normal LV Dimensions 2D/MM IVS Diastolic Thickness (2D) 1.0 cm 0.6-1.0 LVID Diastole (2D) 4.8 cm 3.8-5.2 LVIW Diastolic Thickness (2D) 0.9 cm 0.6-0.9 LVID Systole (2D) 2.8 cm 2.2-3.5 LVOT Diameter 2.0 cm LV Mass (2D Cubed) 155.55 g 67.00-162.00 LV Mass Index (2D Cubed) 74 g/m2 43-95 Relative Wall Thickness (2D) 0.37 LV Fractional Shortening/Ejection Fraction 2D/MM LV Fractional Shortening (2D) 42 % 27-45 LV EF (2D Teicholz) 73 % 54-74 LV Diastolic Volume (4C MOD) 72 ml LV EF (4C MOD) 60 % LV Diastolic Volume (2C MOD) 74 ml LV EF (2C MOD) 64 % LV Diastolic Volume (BP MOD) 74 ml 46-106 LV Diastolic Volume Index (BP MOD) 35 ml/m2 29-61 LV Systolic Volume (BP MOD) 27 ml 14-42 LV Systolic Volume Index (BP MOD) 13 ml/m2 8-24 LV EF (BP MOD) 63 % 54-74 LV Diastolic Length (4C) 7.9 cm LV Systolic Length (4C) 6.4 cm LV Stroke Volume (4C MOD) 43 ml Atria Name Value Normal LA Dimensions LA Dimension (MM) 3.7 cm 2.7-3.8 LA Volume (4C A-L) 58 ml LA Volume (BP A-L) 54 ml RA Dimensions RA Area (4C) 15.2 cm2 <=18.0 EchoPAC Name Value Normal MARIA TERESA AA peak sys SL (AWMA) 23.8 % AAS peak sys SL (AWMA) 19.8 % AI peak sys SL (AWMA) 27.1 % AL peak sys SL (AWMA) 14.8 % AP peak sys SL (AWMA) 15.5 % peak sys SL (AWMA) 25.7 % AVC (AWMA) 404 ms BA peak sys SL (AWMA) 22.9 % BAS peak sys SL (AWMA) 15.3 % BI peak sys SL (AWMA) 18.6 % BL peak sys SL (AWMA) 21.6 % BP peak sys SL (AWMA) 13.7 % BS peak sys SL (AWMA) 11.1 % G peak SL(A2C) (AWMA) 22.1 % G peak SL(A4C) (AWMA) 19.0 % G peak SL(APLAX) (AWMA) 16.8 % G peak SL(Avg) (AWMA) 19.3 % MA peak sys SL (AWMA) 18.8 % MAS peak sys SL (AWMA) 19.7 % AK peak sys SL (AWMA) 20.3 % ML peak sys SL (AWMA) 20.7 % MP peak sys SL (AWMA) 20.8 % MS peak sys SL ([facility]) 18.3 % Report Signatures
== END 2024-06-17 12:44 | disposition home or self-care (01) ==
PROVIDERS: PCP Emergency Medicine; Visit Provider Internal Medicine Critical Care Medicine
DX: I08.1 Rheumatic disorders of both mitral and tricuspid valves (principal); R06.09 Other forms of dyspnea; R60.0 Localized edema; G47.31 Primary central sleep apnea
CPT/HCPCS: 93306

== ENCOUNTER 2024-08-21 10:16 | Outpatient (CLI) | payer OTHER, SELFPAY ==
--- NOTE | ~2024-08-21 | MR_ITS ---
EXAMINATION: MR cervical spine wo/w con DATE: 08/21/2024 11:33 INDICATION: Neck pain. TECHNIQUE: Magnetic resonance imaging (MRI) of the cervical spine was performed without and with 18 m L MultiHance intravenous contrast. COMPARISON: Cervical spine MRI 10/31/2022 FINDINGS: There is kyphosis of cervical spine. There is 2 mm anterolisthesis of C3 on C4. There is mi ld chronic anterior wedging of C7 vertebral body. There is mildly decreased disc height at C3-C4 and moderately decreased disc height at C4-C5. There is severely decreased disc height at C5-C6 with inte rbody fusion. There is severely decreased disc height at C6-C7. The spinal cord signal intensity is n ormal. The following disc levels are specifically discussed: C2-C3: The disc does not extend beyond the endplate margin. There is no uncovertebral joint osteoarth ritis. There is mild right facet joint osteoarthritis. There is ankylosis of left facet joint with mo derate hypertrophy. There is mild left neural foraminal stenosis. There is no central canal stenosis. C3-C4: The disc does not extend beyond the endplate margin. There is mild bilateral uncovertebral cori nt osteoarthritis. There is severe bilateral facet joint osteoarthritis. There is no neural foraminal stenosis. There is no central canal stenosis. C4-C5: The disc is bulging. There is moderate bilateral uncovertebral joint osteoarthritis. There is severe right and mild left facet joint osteoarthritis. There is mild bilateral neural foraminal steno sis. There is mild central canal stenosis. C5-C6: There is moderate bilateral uncovertebral joint hypertrophy. There is no facet joint osteoarth ritis. There is no neural foraminal stenosis. There is no central canal stenosis. C6-C7: The disc is bulging. Severe bilateral There is severe bilateral uncovertebral joint osteoarthr itis. There is mild bilateral facet joint osteoarthritis. There is mild neural foraminal stenosis. Th ere is no central canal stenosis. C7-T1: The disc does not extend beyond the endplate margin. There is severe bilateral uncovertebral j oint osteoarthritis. There is mild bilateral facet joint osteoarthritis. There is no neural foraminal stenosis. There is no central canal stenosis. IMPRESSION: 1. Severe cervical spondylosis, stable from 10/31/2022. 2. Anterior fusion at C5-C6. Reviewed, dictated and finalized at location A. [facility]
== END 2024-08-21 10:17 | disposition home or self-care (01) ==
LOC: MICIMG 10:17
PROVIDERS: PCP Emergency Medicine; Visit Provider Nurse Practitioner Family
DX: M47.812 Spondylosis without myelopathy or radiculopathy, cervical region (principal); Z98.1 Arthrodesis status
CPT/HCPCS: 72156; A9577

== ENCOUNTER 2024-11-25 12:44 | Outpatient (CLI) | payer OTHER, SELFPAY ==
--- NOTE | 2024-11-25 13:00 | ECG_ITS ---
Test Date: 2024-11-25 13:15:14 Measurements Intervals [place] Rate: 73 P: 38 DE: 153 QRS: -8 QRSD: 100 T: 15 QT: 368 QTc: 406 Interpretive Statements SINUS RHYTHM MODERATE VOLTAGE CRITERIA FOR LVH, CONSIDER NORMAL VARIANT [MEETS CRITERIA IN ONE OF: R(aVL), S(V1), R(V5), R(V5/V6)+S(V1)] POOR R-WAVE PROGRESSION, CANNOT EXCLUDE PREVIOUS ANTERIOR INFARCTION ABNORMAL ECG No previous ECG available for comparison Electronically Signed On 11-25-2024 15:48:30 CDT by Kenneth Gabriel M.D.
--- OUTSIDE RECORDS SUMMARY | 2024-11-25 13:13 | XMS_ITS | Encounter Summary ---
Author Organization [facility] Address [address] [place] [address] Care Team Providers Care Criminal Investigator Name Role Phone Unavailable Primary Care Provider Unavailabl e Encounter Details Date Type Department Care Team (Late st Contact Info) Description 04/26/2021 Lab Requisition 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 Derm[facility] Lab Received: 04/26/2021 06:28 AM Pathologist: Varsha Reid MD Specimens: A) - Skin, right lower leg B) - Skin, left helix 12:44 PM CDT DERMATOPATHOLOGY LABORATORY Final Diagnosis Specimen A. SKIN, right lower leg: BASAL CELL CARCINOMA, NODULAR TYPE (C44.712) Specimen B. 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 Path # [id number]. B: BCCA vs SCCA vs other. Path # [id number]. 12:44 PM CDT DERMATOPATHOLOGY LABORATORY Gross Description Specimen A: Received is one formalin filled container labeled with the patient's name and designated right lower leg. The specimen consists of a shave biopsy measuring [id number]. Jar 0. Specimen B: Received is one formalin filled container labeled with the patient's name and designated left helix. The specimen consists of a shave biopsy measuring [id number]. Jar 0. 12:44 PM CDT DERMATOPATHOLOGY LABORATORY Microscopic Description Specimen A. SKIN, right lower leg: Within the dermis there are aggregates of basaloid cells with a high nuclear to cytoplasmic ratio and peripheral palisading. Specimen B. SKIN, left helix: There is epidermal hyperplasia overlying dilated blood vessels and fibroplasia. 12:44 PM CDT DERMATOPATHOLOGY LABORATORY Disclaimer An external and internal positive and negative controls are appropriate for the histochemical, immunohistochemical and immunofluorescence stain(s) in this case (if any), except where stated explicitly. The performance characteristics of the stain(s) cited in this report were developed and its performance characteristic determined by the Dermatopathology Laboratory at [facility], directed by Dr. Mariluz Shea. These tests need not be, and therefore are not, approved by the [place] Food and Drug Administration. The tests are used for clinical purposes. Billing Codes Specimen Charges Stain Charges 12785 85683 1 1 12:44 PM CDT DERMATOPATHOLOGY LABORATORY Embedded Images 12:44 PM CDT DERMATOPATHOLOGY LABORATORY Pathology/Cytology TISSUE SPECIMEN FROM SKIN / Unknown 04/22/2021 3:33 AM CDT 04/26/2021 6:28 AM CDT Miscellaneous samples (specimen) TISSUE SPECIMEN FROM SKIN / Unknown 04/22/2021 3:33 AM CDT 04/26/2021 6:28 AM CDT Luis M De La Paz MD LAB - PATHOLOGY/CYTOLOGY ORDER SAMI Final Result DERMATOPATHOLOGY LABORATORY [facility] - Department of Dermatology [facility] Medicine [address] [place] [address], [address] [phone] documented in this encounter Visit Diagnoses Not on filedocumented in this encounter
--- OUTSIDE RECORDS SUMMARY | 2024-11-25 13:13 | XMS_ITS | Encounter Summary ---
Author Organization [facility] Address [address] [place] [address] Care Team Providers Care Human Performance Technologist Name Role Phone Unavailable Primary Care Provider Unavailabl e Encounter Details Date Type Department Care Team (Late st Contact Info) Description 04/25/2023 Lab Requisition [facility] - DermPath Lab [address] [place] [id number] Luis M De La Paz MD [address] [address] Social History Tobacco Use Types Packs/Day Years Used Date Smoking Tobacco: Never Assessed Comments Unknown Sex and Gender Information Value Date Recorded Sex Assigned at Not on file 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 Gender Identity Not on file Sexual Orientation Not on file documented as of this encounter Plan of Treatment Not on file documented as of this encounter Procedures Procedure Name Priority Date/Time Associated Diagnosis Comments DERMATOPATHOLOGY Routine 04/24/2023 12:0 0 AM CDT documented in this encounter Results * DERMATOPATHOLOGY (04/24/2023 12:00 AM CDT) Case Report Dermatopathology Report Case: [id number] Authorizing Provider: Luis M De La Paz MD Collected: 04/24/2023 12:00 AM Ordering Location: [facility] DermPath Lab Received: 04/26/2023 06:15 AM Pathologist: Lea Shea MD Specimen: Skin, right bicep 10:33 AM CDT DERMATOPATHOLOGY LABORATORY Final Diagnosis Specimen A. SKIN, right bicep: BASAL CELL CARCINOMA, SUPERFICIAL MULTIFOCAL (C44.612) 10:33 AM CDT DERMATOPATHOLOGY LABORATORY Clinical History BCC vs SCC vs AK Path# [id number] 10:33 AM CDT DERMATOPATHOLOGY LABORATORY Gross Description Specimen A: Received is one formalin filled container labeled with the patient's name and designated right bicep. The specimen consists of a shave biopsy measuring 7x5x1 mm. Jar 0. 10:33 AM T DERMATOPATHOLOGY LABORATORY Microscopic Description Specimen A. SKIN, right bicep: Attached to the undersurface of the epidermis, there are small aggregates of basaloid cells with a high nuclear to cytoplasmic ratio and peripheral palisading. 10:33 AM CDT DERMATOPATHOLOGY LABORATORY Disclaimer An external and internal positive and negative controls are appropriate for the histochemical, immunohistochemical and immunofluorescence stain(s) in this case (if any), except where stated explicitly. The performance characteristics of the stain(s) cited in this report were developed and its performance characteristic determined by the Dermatopathology Laboratory at [facility], directed by Dr. Mariluz Shea. These tests need not be, and therefore are not, approved by the [place] Food and Drug Administration. The tests are used for clinical purposes. Billing Codes Specimen Charges Stain Charges 28669 1 10:33 AM CDT DERMATOPATHOLOGY LABORATORY Embedded Images 10:33 AM CDT DERMATOPATHOLOGY LABORATORY Pathology/Cytolog y TISSUE SPECIMEN FROM SKIN / Unknown 04/24/2023 04/26/2023 6:15 AM CDT us Luis M De La Paz MD LAB - PATHOLOGY/CYTOLOGY ORDER SAMI Final Result DERMATOPATHOLOGY LABORATORY [facility] - Department of Dermatology [address], [address] [phone] documented in this encounter Visit Diagnoses Not on filedocumented in this encounter
--- OUTSIDE RECORDS SUMMARY | 2024-11-25 13:13 | XMS_ITS | Clinical Summary ---
Author Organization [facility] Address [address] [place] [address] Care Team Providers Care Coater Operator Name Role Phone Unavailable Primary Care Provider Unavailabl e Social History Tobacco Use Types Packs/Day Years Used Date Smoking Tobacco: Never Assessed Comments Unknown Sex and Gender Information Value Date Recorded Sex Assigned at Not on file Legal Sex Female 4:40 PM CDT Gender Identity Not on file Sexual Orientation Not on file Plan of Treatment Health Maintenance Due Date Last Done Comments Colorectal Cancer Screening Colonoscopy (10 Years) 1955 Hepatitis C 12/27/1975 DTaP, Tdap and Td Vaccines ( 1 - Tdap) 1976 Mammogram Screening 1997 Pneumococcal Vaccine: 50+ Ye ars (1 of 1 - PCV) 12/27/2007 Zoster Vaccines (1 of 2) 12/27/2007 Dexa Scan (General) 2022 COVID-19 Vaccine ( - 2023-2 5 season) 2024 RSV Immunization or 60+ Years (1 - 1-dose 75+ series) 2032 Meningococcal B Vaccine Aged Out No l onger eligible based on patient's age to complete this topic Meningococcal Vaccine Aged Out No viet new eligible based on patient's age to complete this topic RSV Immunizations Under 20 Months Aged Out No longer eligible based on patient's age to complete this topic
--- OUTSIDE RECORDS SUMMARY | 2024-11-25 13:13 | XMS_ITS | Continuity of Care Document ---
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 Phone Pito Maya MD Unavailable Unavailable Allergies, Adverse Reactions, Alerts Substance Reaction Status Criticality PROCHLORPERAZINE MALEATE Active No Information PROCHLORPERAZINE EDISYLATE Active N o Information prochlorperazine Active No Informat ion Medications Medication Instructions Dosage Effective Dates (start - stop) Status Comments simvastatin 40 mg tablet - Activ e ropinirole 2 mg tablet - Active aspirin 81 mg tablet,delayed release - Active cyanocobalamin (vit B-12) 1,000 mcg/mL injection solution - Active venlafaxine ER 150 mg capsule,extended release 24 hr - Active Vitamin D3 125 mcg (5,000 unit) tablet - Active baclofen 10 mg tablet - Active sucralfate 1 gram tablet - Activ e losartan 25 mg tablet - Active omeprazole 20 mg capsule,delayed release - Active tolterodine 2 mg tablet - Active morphine 30 mg/30 mL (1 mg/mL) intravenous 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 - Active Women's One Daily 18 mg iron-400 mcg-500 mg Ca tablet - Active Stool Softener 50 mg capsule - Active Movantik 25 mg tablet - Active magnesium 200 mg tablet - Active Lasix 20 mg tablet - Active Procedures Procedure Date X-ray exam shoulder complete, minimum 2 views BMI Documented Above Normal Limit F/U Pl an Doc Office/outpatient visit,est, mod 2023 Office/outpatient visit,est, low 2023 Global/Postop followup visit X-ray exam shoulder complete, minimum 2 views Global/Postop followup visit Advance Directives Directive Yes / No Effective Date File Name No Information Encounters Encounter Description Practice Location Reason(s) For Visit Diagnoses Date Provider Providers Copied on Encounter Office/outpat ient visit,est, [facility], [address] [address], [place], [place], [id number], tel:[phone] [facility] right shoulder (chief complaint) Presence of right artificial shoulder joint Francesco Sheldon. [address] [facility] [address], [place], [place], [id number] , [place]. tel: [phone] Referring Provider: Pito Campbell, [address] [place] [address], [place], [address] . tel:[phone] Office/outpat ient visit,est, low [facility], [address] [address], [place], [place], [id number], [place] tel:[phone] [facility] Rt Shoulder (chief complaint) Presence of right artificial shoulder joint Francesco Sheldon. [address] [place] [address], [place], [place], [id number] , [place]. tel:[phone] Referring Provider: Pito Campbell, [address] [address], [place], [address] . tel:[phone] [facility], [address] [place] [address], [place], [place], [id number], [place] tel:[phone] [facility] Rt shoulder (chief complaint) Presence of right artificial shoulder joint Francesco Sheldon. [address] [place] [address], [id number] , [place]. tel:[phone] Referring Provider: Pito Campbell, [address] [address], [place], [address] . tel:[phone] [facility], [address] [place] [address] [place], [address] [place] [address], tel:[phone] [facility] Right shoulder (chief complaint) Presence of right artificial shoulder joint Francesco Pito. [address] [facility], [place], [place], [address] [place] [address] , . tel:[phone] Referring Provider: Pito Campbell, [address] [facility] [address] [facility], [place], [place], [address] [place] [address] . tel:[phone] [facility], [address], [place], [place], [address] [place] [address], tel:[phone] [facility] Rt. Shoulder Pain (chief complaint) Primary osteoarthrit is, right shoulder Francesco Sheldon. [address] [facility] [address], [place], [place], [address] [place] [address] , . tel:[phone] Referring Provider: Pito Campbell, [address] [facility] [address] [facility], [place], [place], [address] [place] [address] . tel:[phone] Family History Family Member Type Diagnosis Age At Onset Sister Problem (finding) Diabetes Sister Problem (finding) Depression Father Problem (finding) Depression Father Problem (finding) Heart Disease Father Problem (finding) Stroke Mother Problem (finding) Depression Father Problem (finding) Osteoarthritis Father Problem (finding) Hypertension Mother Problem (finding) Hypertension Mother Problem (finding) Cancer, unknown Mother Problem (finding) Heart Disease Mother Problem (finding) Diabetes Immunizations Vaccine Date Status Comments influenza, injectable, quadr ivalent, (3 years or older) administered Source: Other Provid er influenza, injectable, quadr ivalent, (3 years or older) administered Source: Other Provid er Payers Payer name Insurance type Covered constitution party ID Maral talbot(s) [facility] [id number] Social History Type Description Quantity Date Captured Comments Alcohol Use Details Unknown Caffeine Use Details Unknown Tobacco Use Status Current non-smoker Smoking Status Never smoker Non-Smoking Tobacco Use Details : No Details Available : No Details Available Sex Female Vital Signs Date / Time: Height Weight BMI Pulse Rate Blood Pressure Temperature Respiratory Rate Body Surface Area Head Circumference Head Circ. Percentile Wt./Chris. Percentile BMI percentile Pulse Ox Inhaled Ox 1:59 PM 67.00 in 97.069 kg (214.00 lbs) 33.5 2 kg/m kber (2) Chief Complaint And Reason For Visit From encounter dated '05/15/2024 14:00'. right shoulder (chief complaint). Description: More comes in the office today for her right shoulder. Reason For Referral Reason For Referral No Information Plan Of Treatment Date Type Action Status Referral Ordered: X-ray exam shoulder complete, minimum 2 views RT ordered Referral Ordered: CT scan Upper Extrem W/o Contrast RT shoulder ordered History Of Present Illness Encounter Date Complaint History Of Prese nt Illness right shoulder More comes in the office today for her right shoulder. Rt Shoulder Pt comes in toda y for follow up of her Rt shoulder TSA. Rt shoulder Pt comes in toda y for follow up Rt reverse total shoulder Right shoulder Patient comes in today for follow up of her right reverse total shoulder arthroplasty Rt. Shoulder Pain Patient comes in today for right shoulder pain Functional Status Date Functional Assessmen t No Information Instructions Date Instruction Additional Infor mation No Information Assessments Type Assessment Date assessment Presence of right artificial tonny ulder joint Patient Care Teams Name Effective Dates (start - stop) Status Members No Information
--- OUTSIDE RECORDS SUMMARY | 2024-11-25 13:13 | XMS_ITS | Clinical Summary ---
Author Organization 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,non-owned Affiliates and Associated Physician Practices is amultiple site organization consisting of ambulatory clinics and hospital sitesin [place], [place], [place] and [place]. This disclosure is being madepursuant to the Care Everywhere program and may not contain all information available regarding this patient. 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 Gender Identity Not on file Sexual Orientation Not on file Plan of Treatment Health Maintenance Due Date Last Done Comments BONE DENSITY TESTING 1957 COLOGUARD (AGES 45-75) - COL ON CA SCREENING 1957 COLON MONITORING 1957 COLONOSCOPY - COLON CA SCREENING 1957 CT COLONOGRAPHY - COLON CA SCREENING 1957 Colorectal Cancer Screening 1957 FIT - COLON CA SCREENING 1957 FLEX SIG - COLON CA SCREENING 1957 LIPID TESTING 1957 MAMMOGRAM 1957 MEDICARE AWV 12 MONTHS 1957 HEPATITIS C SCREENING 12/22/1975 DTAP/TDAP/TD VACCINES (1 - Tdap) 1976 PNEUMOCOCCAL VACCINE 50+ (1 of 1 - PCV) 12/27/2007 ZOSTER VACCINE (1 of 2) 12/27/2007 COVID-19 VACCINE ( - 2023-2 5 season) 2024 DEPRESSION SCREENING 07/24/2024 INFLUENZA VACCINE (Season Ended) 2025 Respiratory Syncytial Virus (RSV) Vaccine Pt: or over 60 yrs (1 - 1-dose 75+ series) 2032 HEPATITIS B VACCINE Aged Out No longe r eligible based on patient's age to complete this topic HIB VACCINE Aged Out No longer eligi ble based on patient's age to complete this topic HPV VACCINE Aged Out No longer eligi ble based on patient's age to complete this topic MENINGOCOCCAL (Group B) VACC INE SHARED DECISION-MAKING Aged Out No longer eligibl e based on patient's age to complete this topic MENINGOCOCCAL GROUPS A/C/Y/W VACCINE Aged Out No longer eligible b ased on patient's age to complete this topic Insurance MEDICARE [facility] MEDICARE
--- OUTSIDE RECORDS SUMMARY | 2024-11-25 13:14 | XMS_ITS | Data Portability ---
Author Organization [facility] [place] Address [address] [place] [place] [address] Assessment Encounter Date Assessment Date Assessment LastModified by Organization Details LastModified Time 10/16/2020 10/16/2020 Annual gynecological exam performed. Patient will come back in a year unless there are new symptoms. Not available 09/02/2020 15:31:16 Plan of Treatment Reminders Order Date Submit Date Provider Last Modified By Organization Details Last Modified Time Details Appointments None recorded. Lab None recorded. Referral None recorded. Procedures None recorded. Surgeries None recorded. Imaging US, pelvis [address], [address], [address], [place], [address], 14:45:19 US, transvagina l 2020 021 [facility], [address], [address], [place], [address], 16:30:48 MAMMO, screening, bilateral 2020 021 [facility], [address], [address], [place], [address], 10:18:43 US, pelvis, complete 2020 021 [facility], [address], [place], [address], 05:01:15 Medication Orders None recorded. Patient TargetsNo targets recorded. Patient InstructionsNo instructions recorded. Reason for Referral None Reported. Results Created Date Observation Date Name Description Value Unit Range Abnormal Flag Note LastModifiedBy Organization Detail LastModifiedTime 11/13/1911/19/2020 US, pelvi s No observ [facility]ion [facility] ed[facility] [place] [address], [place], [address], 11/19/2020 17:03:08 11/13/1911/19/2020 US, trans vagin al No observ ation record ed. [facility] [place] [address], [place], [address], 11/19/2020 16:30:48 11/13/19 US, pelvi s No observ ation record ed. minnie Chapa [address], [place], [address], 11/12/2020 17:48:27 12/03/1912/01/2020 MAMMO , scree vijay, bilat eral No observ ation record ed. [facility] [address], [place], [address], 12/08/2020 19:42:27 Result Notes None recorded. Problems Name Problem SNOMED Code Status Onset Date Resolution Date Notes Provider Name and Address Organization Details Recorded Time Screenin g for malignan t neoplasm of cervix Completed 201010/15/2020 Screenin g for malignan t neoplasm s of the cervix;R ecorded Elsewher e: No Locat ion: [facility] S ource: EHR [employer] fahad: N Practi ce ID: 0001 Presley lable Time: 11:15:00 AM Chica gamboa [facility] 17:43:52 Screenin g for malignan t neoplasm of rectum Completed 201810/15/2020 Encounte r for screenin g for malignan t neoplasm of rectum;R ecorded Elsewher e: No [facility] fahad: N Practi ce ID: 0001 Presley lable Time: 10:30:00 AM Chica gamboa [facility] 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 fahad: N Practi ce ID: 0001 Presley lable Time: 01:15:00 PM Chica gamboa [facility] 17:43:56 Speciali zed medical examinat ion Completed 201210/15/2020 Gynecolo gical Examinat ion;Jerardo rded Elsewher e: No Locat ion: [facility] S ource: [facility] fahad: N Practi ce ID: 0001 Presley lable Time: 01:30:00 PM Chica gamboa [facility] 17:44:01 Evaluati on finding [id number] Completed 201610/15/2020 Oth abn and inconclu sive findings on dx imaging of breast;R ecorded Elsewher e: No Locat ion: [facility] S ource: [employer] fahad: N Practi ce ID: 0001 Presley lable Time: 03:07:54 PM Chica gamboa [facility] 17:43:44 Urinary tract infectio us disease [id number] Completed 201810/15/2020 UTI;Jerardo rded Elsewher e: No Locat ion: [facility] S ource: [facility] fahad: N Practi ce ID: 0001 Presley lable Time: 10:30:00 AM Chica gamboa [facility] 17:44:[address] Concept Completed 201510/15/2020 Encntr for general adult medical exam w/o abnormal findings ;Recorde d Elsewher e: No Locat ion: [facility] gabby [facility] S ource: EHR [employer] fahad: N Practi ce ID: 0001 Presley lable Time: 03:00:00 PM Chica Thuan gamboa, [facility] 17:43:58 Evaluati on finding Completed 201910/15/2020 Hematuri a, unspecif ied;Jerardo rded Elsewher e: No Locat ion: [facility] S ource: [employer] fahad: N Practi ce ID: 0001 Presley lable Time: 01:15:00 PM Chica gamboa, [facility] 17:43:45 Gastroes ophageal reflux disease [id number] Completed 201010/15/2020 GERD;Rec orded Elsewher e: No [facility] S ource: [employer] fahad: Y Practi ce ID: 0001 Presley lable Time: 01:07:04 PM Chica Thuan gamboa, [facility] 17:43:46 Varicose veins of lower extremit y [id number] Completed 201010/15/2020 Varicose Veins, Lower Extremit y;Record ed Elsewher e: No Locat ion: [facility] S ource: E[employer] fahad: Y Practi ce ID: 0001 Presley lable Time: 01:07:04 PM Chica gamboa, [facility] 17:44:03 Microsco pic hematuri a [id number] Completed 201510/15/2020 Other microsco pic hematuri a;Record ed Elsewher e: No Locat ion: [facility] S ource: [employer] fahad: N Practi ce ID: 0001 Presley lable Time: 03:00:00 PM Chica gamboa [facility] 17:43:49 Menopaus al symptom [id number] Completed 201010/15/2020 Menopaus al or female climacte hebert states;R ecorded Elsewher e: No Locat ion: [facility] S ource: EHR [employer] fahad: N Practi ce ID: 0001 Presley lable Time: 11:15:00 AM Chica gamboa [facility] 17:43:[address] Concept Completed 201810/15/2020 Encounte r for general adult medical exam w abnormal findings ;Practic e ID: 0001 Chica gamboa [facility] 17:43:50 Problem Notes None recorded. Procedures Surgical History Date Name Laterality Status Provider Name and Address Organization Details Recorded Time 10/16/19 21 Date of Last Pap Smear completed Chica Doran [facility] 10/15/2020 17:45:59 procedure on back completed [facility] 09/02/2020 15:36:01 procedure on ear completed [facility] 09/02/2020 15:36:08 procedure on knee completed [facility] 09/02/2020 15:36:14 Colonoscopy [facility] 09/02/2020 15:36:25 lumpectomy of breast completed [facility] 09/02/2020 15:36:31 Unlisted procedure shoulder completed [facility] 09/02/2020 15:36:44 Total Hysterectomy completed [facility] 09/02/2020 15:36:55 Dilation and Curettage completed [facility] 09/02/2020 15:37:02 Appendectomy completed Adriane Brownlee [facility] 09/02/2020 15:37:08 Gastric Bypass completed Adriane [facility] 09/02/2020 15:37:17 repair of stress incontinence by suprapubic sling completed Adriane Brownlee [facility] 09/02/2020 15:37:28 Imaging Results Imaging Date Name Status LastModified by Organization Details LastModified Time 11/19/2020 US, pelvis completed minnie Nathan [address], [place], [address], 11/19/2020 17:03:08 11/19/2020 US, transvaginal completed minnie pierre [address], [place], [address], 11/19/2020 16:30:48 11/12/2020 US, pelvis completed minnie Sammi [address], [place], [address], 11/12/2020 17:48:27 12/01/2020 MAMMO, screening, bilateral completed minnie [facility] [address], [place], [address], 12/08/2020 19:42:27 Procedure Notes None recorded. Medical Equipment None Reported. Allergies Allergen ID Allergen Name Allergen Category Reaction Reaction Severity Criticality Documentation Date Start Date Code Code System Note Provider Name and Address Organization Details Recorded Time 77376 prochlorp erazine medicatio n Not available Not available Not available 07/10/2020 8704 RxNorm Chica gamboa [facility] 17:45:16 Medications Name Sig Start Date Stop Date Status Note LastModified by Organization Details LastModified Time multivita min tablet take 1 tablet by oral route every day with food 08/27 completed Prescrib ed Elsewher e: No Locat ion: [facility] odify By: luke burnsunter DateTime : 08/01/19 19 10:30:00 AM Not Available Not Available Not Available Flomax 0.4 mg capsule take 1 capsule by oral route every day 1/2 hour followin g the same meal each day 01/06 completed Prescrib ed Elsewher e: Yes Loca tion: [facility] odify By: matt Pierre ncounter DateTime : 04/13/20 11 11:15:00 AM Not Available Not Available Not Available Estrace 2 mg tablet take 1 tablet (2MG) by oral route every day 06/17 completed Prescrib ed Elsewher e: No Locat ion: [facility] odify By: jd Hodge nter DateTime : 07/02/20 12 09:58:43 AM Not Available Not Available Not Available atorvasta tin 10 mg tablet take 1 tablet by oral route every day 10/16 completed Prescrib ed Elsewher e: Yes Loca tion: [facility] odify By: luke Pierre ncounter DateTime : 08/01/19 19 10:30:00 AM Not Available Not Available Not Available amitripty line 50 mg tablet take 1 tablet by oral route every day at bedtime active Prescrib ed Elsewher e: Yes Loca tion: [facility] odify By: luke Pierre ncounter DateTime : 08/01/19 19 10:30:00 AM Not Available Not Available Not Available Nexium 20 mg capsule,d elayed release take 1 capsule by oral route every day 08/01 completed Prescrib ed Elsewher e: Yes Loca tion: [facility] odify By: luke Pierre ncounter DateTime : 04/13/20 11 11:15:00 AM Not Available Not Available Not Available venlafaxi ne 100 mg tablet take 1 tablet by oral route 2 times every day with food 11/12 completed Prescrib ed Elsewher e: Yes Loca tion: [facility] odify By: luke Pierre ncounter DateTime : 08/01/19 19 10:30:00 AM Not Available Not Available Not Available chlordiaz epoxide 5 mg capsule take 1 capsule (5MG) by ORAL route 3 times every day 04/13 completed Prescrib ed Elsewher e: No Locat ion: [facility] odify By: tash hernandez DateTime : 02/27/20 11 01:07:04 PM Not Available Not Available Not Available Metrogel Vaginal 0.75 % (37.5 mg/5 gram) insert 1 applicat orful (37.5MG) by vaginal route every day at bedtime 08/01 completed Prescrib ed Elsewher e: No Locat ion: [facility] odify By: luke hernandez DateTime : 06/17/20 13 01:30:00 PM Not Available Not Available Not Available omeprazol e 10 mg capsule,d elayed release take 2 capsule by oral route every day before a meal active Prescrib ed Elsewher e: Yes Loca tion: [facility] odify By: luke hernandez DateTime : 08/01/19 19 10:30:00 AM Not Available Not Available Not Available temazepam 15 mg capsule Take 1 capsule every day by oral route. active Not Available Not Available No t Available furosemid e 80 mg tablet take 1 tablet by oral route every day 10/16 completed Prescrib ed Elsewher e: Yes Loca tion: [facility] odify By: luke hernandez DateTime : 08/01/19 19 10:30:00 AM Not Available Not Available Not Available dicyclomi ne 20 mg tablet take 1 tablet by oral route 4 times every day active Prescrib ed Elsewher e: Yes Loca tion: [facility] odify By: luke hernandez DateTime : 08/01/19 19 10:30:00 AM Not Available Not Available Not Available Synthroid 25 mcg tablet take 1 tablet by oral route every day 04/13 completed Prescrib ed Elsewher e: No Locat ion: [facility] odify By: tash hernandez DateTime : 02/18/20 16 08:56:31 AM Not Available Not Available Not Available diazepam 2 mg tablet take 1 tablet by ORAL route 3 times every day 08/01 completed Prescrib ed Elsewher e: Yes Loca tion: [facility] odify By: luke hernandez DateTime : 02/27/20 11 01:07:04 PM Not Available Not Available Not Available Cipro 500 mg tablet take 1 tablet (500MG) by oral route every 12 hours 08/01 completed Prescrib ed Elsewher e: No Locat ion: [facility] odify By: luke hernandez DateTime : 06/17/20 13 01:30:00 PM Not Available Not Available Not Available Synthroid 75 mcg tablet take 1 tablet by oral route every day 12/19 completed Prescrib ed Elsewher e: No Locat ion: [facility] odify By: wanda mendoza DateTime : 11/07/19 19 01:54:54 PM Not Available Not Available Not Available Synthroid 50 mcg tablet take 1 tablet by oral route every day 08/01 completed Prescrib ed Elsewher e: No [facility] odify By: luke hernandez DateTime : 04/13/20 16 04:46:25 PM Not Available Not Available Not Available Baby Aspirin 81 mg chewable tablet chew 1 tablet (81MG) by ORAL route every day 2010 active Prescrib ed Elsewher e: No [facility] odify By: minnie hernandez DateTime : 02/27/20 11 01:07:04 PM Not Available Not Available Not Available zolpidem 5 mg tablet take 2 tablet by oral route every day at bedtime 10/16 completed Prescrib ed Elsewher e: Yes Loca tion: [facility] odify By: luke hernandez DateTime : 08/01/19 19 10:30:00 AM Not Available Not Available Not Available furosemid e 20 mg tablet Take 1 tablet every day by oral route. active Not Available Not Available No t Available OxyContin 10 mg tablet,ex tended release take 1 tablet by ORAL route every 12 hours 06/17 completed Prescrib ed Elsewher e: Yes Loca tion: [facility] odify By: elidia mendoza DateTime : 02/27/20 11 01:07:04 PM Not Available Not Available Not Available Vitamin D2 1,250 mcg (50,000 unit) capsule take 1 capsule by oral route every week 08/01 completed Prescrib ed Elsewher e: No Locat ion: [facility] odify By: luke hernandez DateTime : 02/16/20 16 02:30:57 PM Not Available Not Available Not Available Zocor 5 mg tablet take 1 tablet by oral route every day in the evening 08/01 completed Prescrib ed Elsewher e: Yes Loca tion: [facility] odify By: luke burnsuntmaria eugenia DateTime : 04/13/20 11 11:15:00 AM Not Available Not Available Not Available Estrace 1 mg tablet take 1 tablet (1MG) by oral route every day 06/17 completed Prescrib ed Elsewher e: No Locat ion: [facility] odify By: jd Hodge ntmaria eugenia DateTime : 04/13/20 11 11:15:00 AM Not Available Not Available Not Available metoclopr amide 10 mg tablet take 1 tablet by oral route 4 times every day 30 minutes before meals and at bedtime active Prescrib ed Elsewher e: Yes Loca tion: [facility] odify By: luke hernandez DateTime : 08/01/19 19 10:30:00 AM Not Available Not Available Not Available Bactrim DS 800 mg-160 mg tablet take 1 tablet by oral route every 12 hours 08/27 completed Prescrib ed Elsewher e: No Locat ion: [facility] odify By: luke hernandez DateTime : 08/01/19 19 10:30:00 AM Not Available Not Available Not Available Stool Softener 50 mg capsule take 1 capsule by oral route every day at bedtime as needed active Prescrib ed Elsewher e: Yes Loca tion: [facility] odify By: luke hernandez DateTime : 08/01/19 10:30:00 AM Not Available Not Available Not Available Lexapro 5 mg tablet take 1 tablet by ORAL route every day 08/01 completed Prescrib ed Elsewher e: Yes Loca tion: [facility] odify By: luke burnsuntmaria eugenia DateTime : 02/27/20 11 01:07:04 PM Not Available Not Available Not Available fentanyl 12 mcg/hr transderm al patch apply 1 patch by Transder mal route every 72 hours 04/13 completed Prescrib ed Elsewher e: Yes Loca tion: [facility] odify By: tash hernandez DateTime : 02/27/20 11 01:07:04 PM Not Available Not Available Not Available melatonin active Not Available Not Nae ilable Not Available ferrous sulfate active Not Available Not Available Not Available simvastat in active Not Available Not Available Not Available trazodone 11/12 completed Not Available Not Available Not Available Vitamin D3 active Not Available Not Available Not Available fentanyl- bupivacai ne-NaCl (PF) 2mcg/mL-0 .0625 % injection pump reservr 11/12 completed Prescrib ed Elsewher e: Yes Loca tion: [facility] odify By: luke hernandez DateTime : 08/01/19 10:30:00 AM Not Available Not Available Not Available GlycoTrol 500 mcg-400 mcg-10 mg-400 mg capsule 08/01 completed Prescrib ed Elsewher e: Yes Loca tion: [facility] odify By: luke hernandez DateTime : 02/27/20 11 01:07:04 PM Not Available Not Available Not Available Ryzolt 100 mg tablet,ex tended release take 2 tablet by ORAL route every day 08/01 completed Prescrib ed Elsewher e: Yes Loca tion: [facility] odify By: luke hernandez DateTime : 02/27/20 11 01:07:04 PM Not Available Not Available Not Available High Potency Iron 27 mg iron tablet 10/16 completed Prescrib ed Elsewher e: Yes Loca tion: [facility] odify By: luke Pierre ncounter DateTime : 08/01/19 10:30:00 AM Not Available Not Available Not Available baclofen 5 mg tablet take 1 tablet by oral route 3 times every day active Prescrib ed Elsew e: Yes Loca tion: [facility] odify By: luke Pierre ncounter DateTime : 08/01/19 10:30:00 AM Not Available Not Available Not Available Vitals Date Recorded Body height Body mass index (BMI) Body weight Systolic blood pressure Diastolic blood pressure Provider Name and Address Organization Details Last Updated DateTime 10/16/2020 162.56 cm 34.2 kg/m2 90028.88 g 117 mm[Hg] 76 mm[Hg] Chica Thuan [facility] 15:45:17 Date Recorded Body height Body mass index (BMI) Body weight Systolic blood pressure Diastolic blood pressure Provider Name and Address Organization Details Last Updated DateTime 11/12/2020 162.56 cm 34.5 kg/m2 30118.07 g 115 mm[Hg] 76 mm[Hg] Jaymiegissell Cowanuma [facility] 13:07:56 Social History None recorded. Functional Status None recorded. Mental Status None recorded. Family History Relationship Description Onset Age of this Age Resolved Age Notes LastModified by Organization Details LastModified Time Unspecified Relation Diabetes mellitus [email or web address] Not available 2020 15:34:37 Father Diabetes mellitus [email or web address] Not available 2020 15:34:37 Father Hypertensive disorder [email or web address] Not available 2020 15:34:57 Father Acute stroke Not availa ble 09/02/2020 15:35:08 Father Heart disease [email or web address] Not available 2020 15:35:25 Mother Diabetes mellitus [email or web address] Not available 2020 15:34:37 Mother Hypertensive disorder [email or web address] Not available 2020 15:34:57 Mother Heart disease [email or web address] Not available 2020 15:35:25 Mother Asthma [email or web address] Not available 15:35:33 Mother Pulmonary embolism [email or web address] Not available 2020 15:35:42 Mother Malignant neoplasm of lung [email or web address] Not available 2020 15:35:50 Sister Diabetes mellitus [email or web address] Not available 2020 15:34:37 Medical History No medical history recorded. Gynecological History Statement/Question Response Date of Last Mammogram Date of LMP On BCP's at Conception? N STIs/STDs N Date of Last Pap Smear 10/15/2020 Sexual Problems? N Current Control Method Menopause LMP Definite Obstetrics History GPAL:G 2 P 2 0 0 2 Type Value Full Term 2 Living 2 Total 2 Past Encounters Encounter ID Performer Location Encounter Start Date Encounter Closed Date Diagnosis/Indication Diagnosis SNOMED-CT Code Diagnosis ICD10 Code Diagnosis Note [id number] Mamie Topete [facility] [address] [address] 10/16/2020 15:32:41 10/16/2020 16:26:22 Gynecologic examination 62695775 Z01.419 Take Calcium with Vitamin D 12-1500mg daily. Do monthly self breast exams. It is advised to get annual flu shot in the fall and she could obtain at [facility] or [facility] clinic. If you haven't received the Tdap vaccine in the last 10 years you should obtain one as well. Have mammogram yearly, bone density every 2-3 years and colonoscop y every 5-10 years depending on findings and history. Engage in daily exercise of low impact aerobic exercise 45-60 minutes 4-5 times weekly. Avoid tobacco and illicit drugs as well as using moderation with alcohol intake less than 1-2 8 oz beverages daily. This lifestyle behavior pattern will lead to less health conditions and longer life span. If BMI greater than 25 weight watchers or dietary consult advised. Questions have been answered. Patient appears to understand instructio ns, but if you have any further questions call or respond to this email Pap/hpv-no t sent [facility] ip status-mar ried >40yrs Pap/hpv Hx-wnl (2019 pap/hpv wnl) Dexa-PCP manged Colonoscop y-PCP managed Mammogram- Ordered due next month PCP Last Visit-Jr babcock in the y ear. Postmenopa usal bleeding [id number] N95.0 Had emergency surgery for twisted bowel early in the year. When in hospital she had a significan t amt of blood after catheter was put in. Was told it was not from her bladder or catheter itself & that she should be checked out by her LEASING AGENT. She is stilling have pink to bright red spotting on panty liner randomly. Some vaginal pain especially after sitting for a period of time. On exam could ayad babcock feel wires likely related to a bladder/pr olapse surgery?? she had over 10yrs; she is atrophic but unable to see any significan t areas that would cause that much bleeding. For now, we agreed to update TVUS; (partial hyst for endometrio sis); then, if we think it's more related to bladder surgery etc will refer to UROGYN TEAM Oral babcock. She agrees. Will schedule. Screening mammography [id number] Z12.31 [id number] Waylon Osman MD [place] [address] [address] 11/12/2020 12:24:36 11/12/2020 13:13:12 Postmenopausal bleeding 89916535 N95.0 [id number] Mamie Topete [facility] [address] [address] 11/12/2020 12:24:59 11/12/2020 13:40:21 Postmenopausal bleeding 71320974 N95.0 TVUS reviewed today. No likely causes of PMB found on US; or her recent exam except question if bladder/va ginal mesh that was prominentchristopher y felt could be irritating her skin in this area and causing the infrequent , random pink streaks she finds on her candice-pad for incontinen ce on occasion. 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 She agrees. Understand s the importance of having these other issues evaluated and will call to schedule her yearly urogyn appt/pcp appt earlier than her next appts. No further questions. Time spent in visit is a total of 15 mins with at least 50% of visit consisting of counseling and review of plan of care. Additional precaution aubrey measures were taken to minimize potential exposure to the Covid-19 virus during this patient s visit, including available hand it programmer upon arrive, temperatur e check and being asked a series of screening questions. All staff wore face coverings during this encounter, as well as provided additional cleaning and sanitizing of all surfaces, including counter-to ps, pens, chairs, door handles, light switches, etc, prior to and following the patient s visit. Health Concerns Section Related Observation LastModified by Organization Detai ls LastModified Time None Recorded Concern Status LastModified by Organization Details LastModified Time None Recorded Advance Directives Directive None Recorded Payers Encounter Date Sequence Insurance Name Policy Number Policy Fuchs Covered Member ID Fuchs Member ID Guarantor Name 10/16/2020 1 [employer] [facility] (MEDICARE REPLACEMENT HMO) [id number] More Lovett [id number] More Lovett 11/12/2020 1 [employer] [place] [employer] [facility] (MEDICARE REPLACEMENT HMO) [id number] More Lovett [id number] More Lovett 11/12/2020 1 [employer] [place] [employer] [facility] (MEDICARE REPLACEMENT HMO) [id number] More Lovett [id number] More Lovett Notes Date Note Type Note Provider Name and Address Organization Details Recorded Time 10/16/2020 text/html 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 Post-MenopausalRe ported bypatient.Menopau sanchez Symptoms:no menopausal symptoms; normal vaginal lubrication Vaginal Bleeding:post menopausal bleeding Urinary Symptoms:no hematuria; no incontinence; no nocturia; no urinary frequency Vulva:no genital lesion; no vulvar atrophy Vagina:normal vaginal discharge; no vaginal atrophy Breast:no breast lump; no nipple discharge; no breast pain Sexual Complaints:no sexual complaints Psychological Symptoms:no depression; no anxiety Preventive Measures:encourag e regular mammograms starting age 40; encourage self breast examination; encourage regular exercise; encourage no tobacco use; needs to schedule mammogram; history of recent colonoscopy GEN Man- [address], [place], [address], [facility] 10/16/2020 16:23:57 11/12/2020 text/html Here for [facility] Follow up for ???PMB???. JOHNNY Man [address], [place], [address], [place] [facility] 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 Status 09/02/19 21 1 CLOSED Fetus Data First Name Last Name Admitted to NICU Weight (g) Sex Living Outcome Pediatric Complications Fetus ID Race Codes Race Delivery Type Full Term 7823 Vaginal Delivery Isra Calculation Initial Isra Date Initial Exam Date Initial Exam Provider Initial Ultrasound Date Last Menstrual Period Date Ultra Sound Weeks Gestation 0 Eighteen To Twenty Week Isra Update Ultra Sound Date Fundal Height At Umbil Quickening Date Ultra Sound Latest Weeks Gestation Final Isra Confirmed By Final Isra Confirmed Date Final Isra Date Ultra Sound Latest Days Gestation 0 0 Menstrual History Last Menstrual Date Menses Monthly On Bcp Conception Prior Menses Frequency Hcg Plus Date Menarche Onset Age Delivery Information Delivery Date Delivery Type Labor Anesthesia Weeks Gestation Incision Type Labor Labor Length Hrs Delivered By Post Complications Tubal Sterilization Discharge Date Comments 7 Discharge Information Feeding Method Contraceptive Method Maternal HG B and HCT Levels Ob Episode Information Episode Created Date Number of Fetuses Patient Bloodtype Patient rh Status Prepregnancy Weight lbs Domestic Partner Domestic Partner Phone Father Name Senior Javascript Developer Status 09/02/19 21 1 CLOSED Fetus Data First Name Last Name Admitted to NICU Weight (g) Sex Living Outcome Pediatric Complications Fetus ID Race Codes Race Delivery Type Full Term 7822 Vaginal Delivery Isra Calculation Initial Isra Date Initial Exam Date Initial Exam Provider Initial Ultrasound Date Last Menstrual Period Date Ultra Sound Weeks Gestation 0 Eighteen To Twenty Week Isra Update Ultra Sound Date Fundal Height At Umbil Quickening Date Ultra Sound Latest Weeks Gestation Final Isra Confirmed By Final Isra Confirmed Date Final Isra Date Ultra Sound Latest Days Gestation 0 0 Menstrual History Last Menstrual Date Menses Monthly On Bcp Conception Prior Menses Frequency Hcg Plus Date Menarche Onset Age Delivery Information Delivery Date Delivery Type Labor Anesthesia Weeks Gestation Incision Type Labor Labor Length Hrs Delivered By Post Complications Tubal Sterilization Discharge Date Comments 9 Discharge Information Feeding Method Contraceptive Method Maternal HG B and HCT Levels
--- OUTSIDE RECORDS SUMMARY | 2024-11-25 13:14 | XMS_ITS | Referral Summary ---
Author Organization [facility] [address] Address [address] [place] [address] Care Team Providers Care Gas Station Service Attendant Name Role Phone Unknown, Notinfile Primary Care Provider Unavail able Kenneth Camara MD Unavailable Pito Maya MD Unavailable Allergies Active Allergy Reactions Criticality Noted Date Comments Prochlorperazine Anxiety,Other (See comments) Low 0 10/20/2017 Medications ferrous sulfate 325 mg (65 mg of elemental iron) tabletIndicati ons:Iron Deficiency Anemia Take 1 tablet (325 mg total) by mouth 2 (two) times a day Activ e multivitamin tabletIndicati ons:Vitamin Deficiency Prevention,sto p 5 days surgery Take 1 tablet by mouth daily Active venlafaxine 150 mg tablet extended release 24hr 24 hr tabletIndicati ons:Anxiety with Depression Take 2 tablets (300 mg total) by mouth 2 (two) times a day Activ e docusate sodium (COLACE) 100 mg capsuleIndicat ions:constipat ion Take 3 capsules (300 mg total) by mouth 2 (two) times a day Active cyanocobalamin , vitamin B-12, 1,000 mcg/mL kitIndications :Prevention of Vitamin B12 Deficiency Inject 1,000 mcg as directed every 30 (thirty) days Active cholecalcifero l (VITAMIN D-3) 48629 unit capsuleIndicat ions:Vitamin D Deficiency Take 1 capsule (50,000 Units total) by mouth once a week On Monday Active pump set miscIndication s:chronic pain 1 Bag continuously Intrathecal pump-Fentanyl 225 mcg/ml, 42.06 mcg/day1.75 mcg/hr Bupivacaine 4.5 mg/ml 0.8412 mg/day 0.035/mg/hr Morphine 4.5 mg/ml 0.8412 mg/ml , 0.035 mg/hr .reserve 20 ml Bolus Maxium 1.21 mcg allowed 4 per Active simvastatin (ZOCOR) 40 mg tablet Take 1 tablet (40 mg total) by mouth nightly 01/22/20 20 Active dicyclomine (BENTYL) 10 mg capsule Take 1 capsule (10 mg total) by mouth 2 (two) times a day 07/19/20 21 Active omeprazole (PriLOSEC) 20 mg capsule Take 2 capsules (40 mg total) by mouth 2 (two) times a day 08/19/19 22 Active furosemide (LASIX) 20 mg tablet Take 1 tablet (20 mg total) by mouth daily Active metoclopramide (REGLAN) 10 mg tablet Take 1 tablet (10 mg total) by mouth as needed Active rOPINIRole (REQUIP) 2 mg tablet Take 1 tablet (2 mg total) by mouth 3 (three) times a day Activ e sucralfate (CARAFATE) 1 gram tablet Take 1 tablet (1 g total) by mouth 4 (four) times a day Active tolterodine (DETROL) 2 mg tablet Take 1 tablet (2 mg total) by mouth 2 (two) times a day Active losartan (COZAAR) 25 mg tablet Take 1 tablet (25 mg total) by mouth daily Active naloxegoL (MOVANTIK) 25 mg tablet Take 1 tablet (25 mg total) by mouth daily Active magnesium gluconate 200 mg tabletIndicati ons:hypomagnes emia Take 2 tablets (400 mg total) by mouth nightly Active UNABLE TO FIND Take 1 each by mouth daily Med Name: Prevagen Active oxyCODONE-acet aminophen (PERCOCET) 5-325 mg per tabletIndicati ons:Pain Take 1-2 tablets every 4 hours as needed for pain 40 tablet 05/16/20 23 Active Additional Information Patient not taking.Reported on 02/29/2024 aspirin 81 mg enteric coated tabletIndicati ons:Deep Vein Thrombosis Prevention Take 1 tablet (81 mg total) by mouth 2 (two) times a day After need for blood clot prevention complete per Dr. Maya, return to your normal dose of 81 mg daily. 10/25/20 23 Active baclofen (LIORESAL) 10 mg tablet Take 1 tablet (10 mg total) by mouth every 8 (eight) hours as needed 06/14/20 Active diazePAM (VALIUM) 2 mg tablet Take 1 tablet (2 mg total) by mouth 2 (two) times a day 06/08/20 Active morphine 1 mg/mL Active Mitigo, PF, 25 mg/mL injection 0 06/07/20 23 Active temazepam (RESTORIL) 15 mg capsule Active omeprazole (PriLOSEC) 40 mg capsule Take 1 capsule (40 mg total) by mouth 2 (two) times a day 07/03/20 Active rOPINIRole (REQUIP) 1 mg tablet Take 1 tablet (1 mg total) by mouth 2 (two) times a day 06/17/20 Active mv,Ca,min-foli c acid-vit K1 (Women's 50 Plus Advanced) 400-20 mcg tablet Active eszopiclone (LUNESTA) 2 mg tablet Take 1 tablet (2 mg total) by mouth nightly at bedtime 01/03/20 24 Active eszopiclone (LUNESTA) 1 mg tablet Take 1 tablet (1 mg total) by mouth nightly at bedtime 12/21/19 24 Active BD Luer-Marlene Syringe 3 mL 25 x 5/8 syringe INJECT 1 MILLILITER OF B12 MONTHLY 11/20/19 24 Active cyanocobalamin (Vitamin B-12) 1,000 mcg/mL injection INJECT 1ML INTRAMUSCULARLY ONCE A MONTH 01/26/20 24 Active gabapentin (NEURONTIN) 300 mg capsuleIndicat ions:Restless legs syndrome Take 1 capsule (300 mg total) by mouth every morning AND 2 capsules (600 mg total) nightly. 270 capsule 3 02/29/20 24 025 Active Active Problems Problem Noted Date Diagnosed Date Osteoarthritis of right shoulder 04/21/2023 Postlaminectomy syndrome, lumbar 08/11/2021 History of bariatric surgery 10/01/2020 Bowel obstruction 02/27/2020 Internal hernia 02/10/2020 Urinary tract infectious disease 07/31/2018 Overview (08/08/2023): UTI;Recorded Elsewhere: No Location: [facility] Source: EHR Chronic: N Practice ID: [id number] Billable Time: 10:30:00 AM Presence of intrathecal pump 03/08/2018 Overview (03/08/2018): Added automatically from request for surgery [id number] Microscopic hematuria 01/07/2016 Overview (08/08/2023): Other microscopic hematuria;Recorded Elsewhere: No Location: [facility] Source: EHR Chronic: N Practice ID: [id number] Billable Time: 03:00:00 PM Menopausal symptom 04/13/2011 Overview (08/08/2023): Menopausal or female climacteric states;Recorded Elsewhere: No Location: [facility] Source: EHR Chronic: N Practice ID: [id number] Billable Time: 11:15:00 AM Gastroesophageal reflux disease 02/26/2011 Overview (08/08/2023): GERD;Recorded Elsewhere: No Location: [facility] Source: EHR Chronic: Y Practice ID: [id number] Billable Time: 01:07:04 PM Varicose veins of lower extremity 02/26/2011 Overview (08/08/2023): Varicose Veins, Lower Extremity;Recorded Elsewhere: No Location: [facility] Source: EHR Chronic: Y Practice ID: [id number] Billable Time: 01:07:04 PM Immunizations Immunization Administration Dates Next Due Influenza, Quadrivalent, Split, Intramuscular Influenza, Quadrivalent, Spl it, Preservative Free, Intramuscular 03/23/2021,03/17/2020 Social History Tobacco Use Types Packs/Day Years Used Date Smoking Tobacco: Never Smokeless Tobacco: Never Alcohol Use Standard Drinks/Week Comments No 0 (1 standard drink = 0.6 oz pur e alcohol) AUDIT-C Answer Date Recorded Q1: How often do you have a drink containing alcohol? Never 05/16/2023 Q2: How many drinks containi ng alcohol do you have on a typical day when you are drinking? Patient does not drink Q3: How often do you have si x or more drinks on one occasion? Never 05/16/2023 Personal Safety Answer Date Recorded Have you ever been in or are you currently in a harmful physical or emotional relationship or is someone making you feel afraid or unsafe? Denies 05/16/2023 Comments No Sex and Gender Information Value Date Recorded Sex Assigned at Not on file Legal Sex Female 12:43 PM CDT Gender Identity Female 10/01/2020 11:28 AM GAME FARM HELPER Sexual Orientation Straight 10/01/2020 11 :28 AM GAME FARM HELPER Last Filed Vital Signs Vital Sign Reading Time Taken Comments Blood Pressure 102/70 08/08/2023 2:56 PM GAME FARM HELPER Pulse 85 08/08/2023 2:56 PM GAME FARM HELPER Temperature 37 C (98.6 F) 05/17/2023 8:16 AM CDT Respiratory Rate 18 05/17/2023 8:16 AM CDT Oxygen Saturation 97% 08/08/2023 2:56 PM GAME FARM HELPER Inhaled Oxygen Concentration - - Weight 94.3 kg (208 lb) 08/08/2023 2:56 PM GAME FARM HELPER Height 162.6 cm (5' 4 ) 08/08/2023 2:56 PM GAME FARM HELPER Body Mass Index 35.7 08/08/2023 2:56 PM GAME FARM HELPER Plan of Treatment Not on file Medical Devices Implanted Type Area Content Director Device Identifier Shelf Expiration Date Model / Serial / Lot Medtronic Inc Synchromed Ii .78in Sherrill Filter Mesh Pouch Programmable 8637-20 - [id number] - [id number] Implanted:Qty: 1 on 10/28/2021 by Dion Cohen MD at [facility] N/A: Abdomen Medtronic Inc 11/18/2022 8637-20 / [id number] / Medtronic Inc Sutureless Connector Revision Catheter Kit Intrathecal Pump 8578 - [id number] Implanted:Qty: 1 on 10/28/2021 by Dion Cohen MD at [facility] N/A: Abdomen Medtronic Inc 12/24/2022 8578 / / [id number] Depuy [employer] Glenosphere Reverse Shoulder Inhance +4x36mm [id number] - [id number] Implanted:Qty: 1 on 05/16/2023 by Pito Maya MD at [facility] Right: Shoulder [employer] [id number] 05/23/2027 [id number] / / [id number] Depuy Orthopaed[employer] Stem Resurfacing Shoulder Stem Inhance 32mm Short Small [id number] - [id number] Implanted:Qty: 1 on 05/16/2023 by Pito Maya MD at [facility] Right: Shoulder [employer] [id number] 08/23/2027 [id number] / / [id number] [employer] Shell Humeral Reverse Shoulder Small Inhance +0x32mm [id number] - [id number] Implanted:Qty: 1 on 05/16/2023 by Pito Maya MD at [facility] Right: Shoulder [employer] [id number] 12/22/2027 [id number] / / [id number] [employer] Liner Shoulder Reverse Inhance +0x36mm E Poly [id number] - [id number] Implanted:Qty: 1 on 05/16/2023 by Pito Maya MD at [facility] Right: Shoulder [employer] [id number] 10/21/2026 [id number] / / [id number] [employer] Baseplate Humeral Porous Modular Small Inhance 24mm [id number] - [id number] Implanted:Qty: 1 on 05/16/2023 by Pito Maya MD at [facility] Right: Shoulder [employer] [id number] 02/21/2028 [id number] / / [id number] Dep[employer] Scrw Glenoid Central Inhance 6.0x30mm [id number] - [id number] Implanted:Qty: 1 on 05/16/2023 by Pito Maya MD at [facility] Right: Shoulder [employer] [id number] 12/22/2027 [id number] / / [id number] Dep[employer] Scrw Glenoid Locking Inhance 40mm [id number] - [id number] Implanted:Qty: 1 on 05/16/2023 by Pito Maya MD at [facility] Right: Shoulder [employer] [id number] 12/21/2026 [id number] / / [id number] [employer] Scrw Glenoid Locking Inhance 20mm [id number] - [id number] Implanted:Qty: 1 on 05/16/2023 by Pito Maya MD at [facility] Right: Shoulder [employer] [id number] 03/23/2027 [id number] / / [id number] [employer] Scrw Glenoid Locking Inhance 20mm [id number] - [id number] Implanted:Qty: 1 on 05/16/2023 by Pito Maya MD at [facility] Right: Shoulder [employer] [id number] 05/23/2027 [id number] / / [id number] Explanted Type Area Content Director Device Identifier Shelf Expiration Date Model / Serial / Lot Sutureless Pump Connector Revision Implanted:Qty: 1 on 04/06/2018 by Vadim Herrera MD at [facility] Explanted:Qty: 1 on 10/28/2021 by Dion Cohen MD at [facility] N/A: Abdomen Medtronic 06/02/2019 8578 / / [id number] Medtronic Inc Synchromed Ii .78in Sherrill Filter Mesh Pouch Programmable 8637-20 - [id number] - [id number] Explanted:Qty: 1 on 10/28/2021 by Dion Cohen MD at [facility] N/A: Abdomen Medtronic Inc 8637-20 / [id number] / Procedures Procedure Name Priority Date/Time Associated Diagnosis Comments SCREENING MAMMOGRAM Routine 06/12/2017 8 :26 PM GAME FARM HELPER from Last 3 Months or Most Recently Relevant to Health Maintenance Results * Screening Mammogram (06/12/2017 8:26 PM GAME FARM HELPER) Anatomical Region Laterality Modality Breast N/A Mammography 06/12/2017 8:26 PM GAME FARM HELPER Narrative 06/12/2017 8:57 PM GAME FARM HELPER JOSSELYN CORNELIUS M.D. YAS REIS M.D. FINAL REPORT The radiology attending physician has personally reviewed this study, and has reviewed and/or edited this written report and agrees with it. ACC# Date Time Exam [id number] Jun 12, 2017 14:26:00 [facility] [address] [facility], inc CAD, unilat L Technologist(s): Brigid Brady; ; EXAMINATION: LEFT UNILATERAL DIGITAL DIAGNOSTIC MAMMOGRAM INCLUDING CAD HISTORY: 61-year-old woman presents for additional imaging. Unilateral left diagnostic mammogram performed at [facility] on 05/23/2017 demonstrated coarse heterogeneous calcifications, for which biopsy was recommended. COMPARISON: Outside screening mammograms dated 05/16/2017, 01/07/2016, 08/23/2014, and 04/27/2011, and left breast unilateral digital diagnostic mammogram dated 05/23/2017. TECHNIQUE: Full field digital mammographic views of the LEFT breast were performed, including computer aided detection (CAD). BREAST PARENCHYMAL COMPOSITION: The breasts are heterogenously dense, which may obscure small masses. MAMMOGRAM FINDINGS: There is a 3 mm group of coarse heterogeneous calcifications associated with a shrinking mass in the outer left breast. The mass measures 3 mm on the present exam, compared with 7 mm on exam of 08/23/2014, with associated calcifications developing since exam of 01/07/2016. The findings are compatible with a benign degenerating fibroadenoma. Other benign type calcifications are present in the left breast. IMPRESSION: Coarse heterogeneous calcifications in the outer left breast with an associated shrinking mass, compatible with a benign degenerating fibroadenoma. OVERALL FINAL ASSESSMENT: BI-RADS Category 2: Benign. Annual screening mammography is recommended. Electronically signed by: Josselyn Cornelius M.D. Requested By: Loreto Soto MD, PHD Dictated By: YAS REIS M.D. on Jun 12 2017 2:47P This document has been electronically signed by: JOSSELYN CORNELIUS M.D. on Jun 12 2017 2:55P [id number] CORNELIUS M.D. YAS REIS M.D. FINAL REPORT The radiology attending physician has personally reviewed this study, and has reviewed and/or edited this written report and agrees with it. Attending: LORETO SOTO Requesting: Loreto Soto Requesting Fax: Attending Fax: Attending ID: [id number] Requesting ID: [id number] Report To 1 ID: [id number] Report To 1 Name: , Report To 1 FAX: NextGen Order #: Procedure Note Miscellaneous, Not In File - 06/12/2017 JOSSELYN CORNELIUS M.D. YAS REIS M.D. FINAL REPORT The radiology attending physician has personally reviewed this study, and has reviewed and/or edited this written report and agrees with it. ACC# Date Time Exam [id number] Jun 12, 2017 14:26:00 [facility] [address] [facility] [employer], inc CAD, unilat L Technologist(s): Brigid Brady; ; EXAMINATION: LEFT UNILATERAL DIGITAL DIAGNOSTIC MAMMOGRAM INCLUDING CAD HISTORY: 61-year-old woman presents for additional imaging. Unilateral left diagnostic mammogram performed at [facility] on 05/23/2017 demonstrated coarse heterogeneous calcifications, for which biopsy was recommended. COMPARISON: Outside screening mammograms dated 05/16/2017, 01/07/2016, 08/23/2014, and 04/27/2011, and left breast unilateral digital diagnostic mammogram dated 05/23/2017. TECHNIQUE: Full field digital mammographic views of the LEFT breast were performed, including computer aided detection (CAD). BREAST PARENCHYMAL COMPOSITION: The breasts are heterogenously dense, which may obscure small masses. MAMMOGRAM FINDINGS: There is a 3 mm group of coarse heterogeneous calcifications associated with a shrinking mass in the outer left breast. The mass measures 3 mm on the present exam, compared with 7 mm on exam of 08/23/2014, with associated calcifications developing since exam of 01/07/2016. The findings are compatible with a benign degenerating fibroadenoma. Other benign type calcifications are present in the left breast. IMPRESSION: Coarse heterogeneous calcifications in the outer left breast with an associated shrinking mass, compatible with a benign degenerating fibroadenoma. OVERALL FINAL ASSESSMENT: BI-RADS Category 2: Benign. Annual screening mammography is recommended. Electronically signed by: Josselyn Cornelius M.D. Requested By: Loreto Soto MD, PHD Dictated By: YAS REIS M.D. on Jun 12 2017 2:47P This document has been electronically signed by: JOSSELYN CORNELIUS M.D. on Jun 12 2017 2:55P [id number] CORNELIUS M.D. YAS REIS M.D. FINAL REPORT The radiology attending physician has personally reviewed this study, and has reviewed and/or edited this written report and agrees with it. Attending: LORETO SOTO Requesting: Loreto Soto Requesting Fax: Attending Fax: Attending ID: [id number] Requesting ID: [id number] Report To 1 ID: [id number] Report To 1 Name: , Report To 1 FAX: NextGen Order #: Loreto Soto MD PhD IMG MAMMO PROCEDURES Final Result from Last 3 Months or Most Recently Relevant to Health Maintenance Insurance [facility] Advance Directives For more information, please contact: [phone] * Full Code (Latest Code Status on File) Date Activated Date Inactivated Comments 05/16/2023 6:23 PM 05/17/2023 5:07 PM * Full Code Date Activated Date Inactivated Comments 02/10/2020 9:13 AM 02/13/2020 5:25 PM Care Teams Gas Station Service Attendant Relationship Specialty Start Date End Date Unknown, Notinfile PCP - General 02/10/22 Kenneth Camara MD [address] [place] [address] 02/10/22 Pito Maya MD [address] [facility] [address] [place] [address] Consulting Physician Orthopedic Surgery 05/17/23
--- OUTSIDE RECORDS SUMMARY | 2024-11-25 13:14 | XMS_ITS | Clinical Summary ---
Author Organization [facility] [address] Address [address] [place] [address] Care Team Providers Care Lieutenant Fire Fighter Name Role Phone Unknown, Notinfile Primary Care Provider Unavail able Kenneth Camara MD Unavailable Pito Maya MD Unavailable [phone] Allergies Active Allergy Reactions Criticality Noted Date [...] (thirty) days Active cholecalcifero l (VITAMIN D-3) 41473 unit capsuleIndicat ions:Vitamin D Deficiency Take 1 [...] 07/31/2018 Overview (08/08/2023): UTI;Recorded Elsewhere: No Location: [facility] Source: EHR Chronic: N Practice ID: [id number] Billable Time: 10:30:00 AM Presence of intrathecal pump 03/08/2018 Overview (03/08/2018): Added automatically from request for surgery [id number] Microscopic hematuria 01/07/2016 Overview (08/08/2023): Other microscopic hematuria;Recorded Elsewhere: No Location: [facility] Source: EHR Chronic: N Practice ID: [id number] Billable Time: 03:00:00 PM Menopausal symptom 04/13/2011 Overview (08/08/2023): Menopausal or female climacteric states;Recorded Elsewhere: No Location: [facility] Source: EHR Chronic: N Practice ID: [id number] Billable Time: 11:15:00 AM Gastroesophageal reflux disease 02/26/2011 Overview (08/08/2023): GERD;Recorded Elsewhere: No Location: [facility] Source: EHR Chronic: Y Practice ID: 0001 Billable Time: 01:07:04 PM Varicose veins of lower extremity 02/26/2011 Overview (08/08/2023): Varicose Veins, Lower Extremity;Recorded Elsewhere: No Location: [facility] Source: EHR Chronic: Y Practice ID: 0001 Billable Time: 01:07:04 PM Immunizations Immunization Administration Dates Next Due Influenza, Quadrivalent, Split, Intramuscular Influenza, Quadrivalent, Spl it, Preservative Free, Intramuscular 03/23/2021,03/17/2020 Surgical History Surgery Date Site/Laterality Comments GASTRIC BYPASS SPINE SURGERY x 2; Bone Graft BLADDER SUSPENSION KNEE ARTHROSCOPY Bilateral SHOULDER ARTHROSCOPY Right SLAP repair x 2 HYSTERECTOMY APPENDECTOMY INTRATHECAL PUMP IMPLANTATION Medical History Medical History Date Comments PONV (postoperative nausea and vomiting) GERD (gastroesophageal reflux disease) Anemia Arthritis Chronic back pain DDD (degenerative disc disease), cervical Sleep apnea Cancer (HCC) skin Left Arm, r ight chin Primary osteoarthritis of right shoulder Family History Medical History Relation Name Comments Heart disease Father Lung cancer Mother Relation Name Status Comments Father Mother Social History Tobacco Use Types Packs/Day Years [...] CDT Gender Identity Female 10/01/2020 11:28 AM PIPEMAN Sexual Orientation Straight 10/01/2020 11 :28 AM PIPEMAN Obstetrics History Last Filed Vital Signs Vital Sign Reading Time Taken Comments Blood Pressure 102/70 08/08/2023 2:56 PM PIPEMAN Pulse 85 08/08/2023 2:56 PM PIPEMAN Temperature 37 C (98.6 F) 05/17/2023 8:16 AM CDT Respiratory Rate 18 05/17/2023 8:16 AM CDT Oxygen Saturation 97% 08/08/2023 2:56 PM PIPEMAN Inhaled Oxygen Concentration - - Weight 94.3 kg (208 lb) 08/08/2023 2:56 PM PIPEMAN Height 162.6 cm (5' 4 ) 08/08/2023 2:56 PM PIPEMAN Body Mass Index 35.7 08/08/2023 2:56 PM PIPEMAN Plan of Treatment Health Maintenance Due Date Last Done Comments Colon Cancer Screening-Colonoscopy 1955 Depression Screening 1955 Hepatitis C Screening 1955 Osteoporosis Screening-Bone Density Scan 1955 DTaP/Tdap/Td Vaccine (1 - Tdap) 1968 Hepatitis B Screening 12/27/1975 Pneumococcal vaccine 65+ (1 of 1 - PCV) 12/27/2007 Zoster Vaccine (1 of 2) 12/27/2007 Breast Cancer Screening-Mammogram 12/02/2021 021, 06/12/2017 Well Visit 65+ 2022 Covid-19 Vaccine (4 - 2023-2 5 season) 2024 06/25/2021, 11/12/2020, 10/22/2020 Influenza Vaccine (#1) 2024 , 03/23/2021, 03/17/2020, Additional history exists Fall Risk Assessment 05/17/2024 05/17/2023 Medical Devices Implanted Type Area Paint Pourer Device Identifier Shelf Expiration Date Model / Serial / Lot Medtronic Inc Synchromed Ii .78in Tyro Filter Mesh Pouch Programmable 8637-20 - [id number] - [id number] Implanted:Qty: 1 on 10/28/2021 by Dion Cohen MD at [facility] N/A: Abdomen Medtronic Inc 11/18/2022 8637-20 / [id number] / Medtronic Inc Sutureless Connector Revision Catheter Kit Intrathecal Pump 8578 - [id number] Implanted:Qty: 1 on 10/28/2021 by Dion Cohen MD at [facility] N/A: Abdomen Medtronic Inc 12/24/2022 8578 / / [id number] Depuy Synthes Sales Inc Glenosphere Reverse Shoulder Inhance +4x36mm [id number] - [id number] Implanted:Qty: 1 on 05/16/2023 by Pito Maya MD at [facility] Right: Shoulder Depuy [employer] Inc [id number] 05/23/2027 [id number] / / [id number] Depuy Orthopaedics Inc Stem Resurfacing Shoulder Stem Inhance 32mm Short Small [id number] - [id number] Implanted:Qty: 1 on 05/16/2023 by Pito Maya MD at [facility] Right: Shoulder Depuy Orthopaedics Inc [id number] 08/23/2027 [id number] / / [id number] Depuy Synthe[employer] Inc Shell Humeral Reverse Shoulder Small Inhance +0x32mm [id number] - [id number] Implanted:Qty: 1 on 05/16/2023 by Pito Maya MD at [facility] Right: Shoulder Depuy [employer] [id number] 12/22/2027 [id number] / / [id number] Depuy [employer] Liner Shoulder Reverse Inhance +0x36mm E Poly [id number] - [id number] Implanted:Qty: 1 on 05/16/2023 by Pito Maya MD at [facility] Right: Shoulder Depuy [employer] [id number] 10/21/2026 [id number] / / [id number] Depuy Synthe[employer] Baseplate Humeral Porous Modular Small Inhance 24mm [id number] - [id number] Implanted:Qty: 1 on 05/16/2023 by Pito Maya MD at [facility] Right: Shoulder Depuy [employer] [id number] 02/21/2028 [id number] / / [id number] Depuy S[employer] Inc Scrw Glenoid Central Inhance 6.0x30mm [id number] - [id number] Implanted:Qty: 1 on 05/16/2023 by Pito Maya MD at [facility] Right: Shoulder Depuy [employer] [id number] 12/22/2027 [id number] / / [id number] Depuy [employer] Scrw Glenoid Locking Inhance 40mm [id number] - [id number] Implanted:Qty: 1 on 05/16/2023 by Pito Maya MD at [facility] Right: Shoulder Depuy [employer] [id number] 12/21/2026 [id number] / / [id number] Depuy [employer] Scrw Glenoid Locking Inhance 20mm [id number] - [id number] Implanted:Qty: 1 on 05/16/2023 by Pito Maya MD at [facility] Right: Shoulder Depuy [employer] [id number] 03/23/2027 [id number] / / [id number] Depuy [employer] Scrw Glenoid Locking Inhance 20mm [id number] - [id number] Implanted:Qty: 1 on 05/16/2023 by Pito Maya MD at [facility] Right: Shoulder Depuy [employer] [id number] 05/23/2027 [id number] / / [id number] Explanted Type Area Paint Pourer Device Identifier Shelf Expiration Date Model / Serial / Lot Sutureless Pump Connector Revision Implanted:Qty: 1 on 04/06/2018 by Vadim Herrera MD at [facility] Explanted:Qty: 1 on 10/28/2021 by Dion Cohen MD at [facility] N/A: Abdomen Medtronic 06/02/2019 8578 / / [id number] Medtronic Inc Synchromed Ii .78in Tyro Filter Mesh Pouch Programmable 8637-20 - [id number] - [id number] Explanted:Qty: 1 on 10/28/2021 by Dion Cohen MD at [facility] N/A: Abdomen Medtronic Inc 8637-20 / [id number] / Procedures Procedure Name Priority Date/Time Associated Diagnosis Comments SCREENING MAMMOGRAM Routine 06/12/2017 8 :26 PM PIPEMAN from Last 3 Months or Most Recently Relevant to Health Maintenance Results * Screening Mammogram (06/12/2017 8:26 PM PIPEMAN) Anatomical Region Laterality Modality Breast N/A Mammography 06/12/2017 8:26 PM PIPEMAN Narrative 06/12/2017 8:57 PM PIPEMAN JOSSELYN CORNELIUS M.D. YAS REIS M.D. FINAL REPORT The radiology attending physician has personally reviewed this study, and has reviewed and/or edited this written report and agrees with it. ACC# Date Time Exam [id number] Jun 12, 2017 14:26:00 [facility] [id number] [employer] CAD, unilat L Technologist(s): Brigid Brady; ; EXAMINATION: LEFT UNILATERAL DIGITAL DIAGNOSTIC MAMMOGRAM INCLUDING CAD HISTORY: 61-year-old woman presents for additional imaging. Unilateral left diagnostic mammogram performed at [facility] on 05/23/2017 demonstrated coarse heterogeneous calcifications, [...] CORNELIUS M.D. on Jun 12 2017 2:55P [id number] MELVIN M.D. FINAL REPORT The radiology attending physician has personally reviewed this study, and has reviewed and/or edited this written report and agrees with it. Attending: LORETO SOTO Requesting: Loreto Soto Requesting Fax: Attending Fax: Attending ID: [id number] Requesting ID: [id number] Report To 1 ID: [id number] Report To 1 Name: , Report To 1 FAX: NextGen Order #: Procedure Note Miscellaneous, Not In File - 06/12/2017 Bandar STEIN M.D. FINAL REPORT The radiology attending physician has personally reviewed this study, and has reviewed and/or edited this written report and agrees with it. ACC# Date Time Exam [id number] Jun 12, 2017 14:26:00 [facility] [address] [employer] CAD, unilat L Technologist(s): Brigid Brady; ; EXAMINATION: LEFT UNILATERAL DIGITAL DIAGNOSTIC MAMMOGRAM INCLUDING CAD HISTORY: 61-year-old woman presents for additional imaging. Unilateral left diagnostic mammogram performed at [facility] on 05/23/2017 demonstrated coarse heterogeneous calcifications, [...] CORNELIUS M.D. on Jun 12 2017 2:55P [id number] MELVIN M.D. FINAL REPORT The radiology attending physician has personally reviewed this study, and has reviewed and/or edited this written report and agrees with it. Attending: LORETO SOTO Requesting: Loreto Soto Requesting Fax: Attending Fax: Attending ID: [id number] Requesting ID: [id number] Report To 1 ID: [id number] Report To 1 Name: , Report To 1 FAX: NextGen Order #: Loreto Soto MD PhD IMG MAMMO PROCEDURES Final Result from Last 3 Months or Most Recently Relevant to Health Maintenance Insurance Member Subscriber Plan / Payer (Ef fective 2017-Present) Name:More Cotter Relation to Subscriber:Self Name:More Cotter Payer ID:[id number] (NAIC) Type:MEDICARE RISK OTHER Address: [place] [id number] Advance Directives For more information, please contact: [phone] * Full Code (Latest Code Status on File) Date Activated Date Inactivated Comments 05/16/2023 6:23 PM 05/17/2023 5:07 PM * Full Code Date Activated Date Inactivated Comments 02/10/2020 9:13 AM 02/13/2020 5:25 PM Care Teams Lieutenant Fire Fighter Relationship Specialty Start Date End Date Unknown, Notinfile PCP - General 02/10/22 Kenneth Camara MD [address] [place] [address] 02/10/22 Pito Maya MD [address] [facility] [address] [address] Consulting Physician Orthopedic Surgery 05/17/23
[2024-11-25 13:33] LABS: Hematocrit 39.2 % (37.0-47.0); Hemoglobin 12.4 g/dL (12.0-15.0)
[2024-11-25 14:10] LABS: Anion Gap 5 mmol/L (4-12); Blood Urea Nitrogen 10 mg/dL (7-17); Calcium 8.8 mg/dL (8.4-10.2); Carbon Dioxide 35 mmol/L (22-30); Chloride 101 mmol/L (98-107); Estimated Glomerular Filt Rate > 60; Glucose 97 mg/dL (65-110); Potassium 3.6 mmol/L (3.4-5.0); Sodium 141 mmol/L (137-145)
== END 2024-11-25 12:45 | disposition home or self-care (01) ==
LOC: ANHSURGERY 12:53
PROVIDERS: Anesthesiology; PCP Emergency Medicine; Visit Provider Podiatrist Foot & Ankle Surgery
DX: D64.9 Anemia, unspecified (principal); I10 Essential (primary) hypertension; Z79.899 Other long term (current) drug therapy; Z01.818 Encounter for other preprocedural examination
CPT/HCPCS: 36415; 80048; 85014; 85018; 93005

== ENCOUNTER 2024-11-29 00:06 | Day surgery (SDC) | payer OTHER, SELFPAY ==
[2024-11-21 15:30] VITALS: BMI 34.2
--- NOTE | 2024-11-21 15:44 | PC.NURSE ---
Report to the Outpatient Waiting Room, entrance under the green pavilion located off [facility], at time ___7:00AM____ on date ___11/29/24____. Planned Procedure Time: ___9:00AM .? Time changes happen often and if your time is changed the preop area will call you the afternoon before. - You and your visitor will be asked to self-screen and do not enter if you have any COVID symptoms. Please call surgeon if you need to reschedule. - A mask is optional within the hospital at this time. Patients may have clear liquids (water, carbonated beverages, clear teas, apple juice) until 3 hours prior to surgery (6:00AM) with a maximum of 20 ounces. - No food from midnight until time of surgery and no smoking, or chewing tobacco (or any form of nicotine). No chewing gum, candy or mints. Take only the following medications with a SIP of water on the morning of surgery: ____VENLAFAXINE. MAY TAKE ZOFRAN NEEDED. DO NOT STOP ANY OF YOUR OTHER PRESCRIPTION MEDICATIONS PRIOR TO SURGERY EXCEPT THE FOLLOWING Hold all vitamins and supplements for 3 days per anesthesiologist.-LAST DOSE 11/25/24. Medications to discontinue per physician ___HOLD ASPIRIN 7 DAYS PRE-OP PER DR LANDA Date to take last dose 11/21/24. Please no make-up, nail bahamian, hairspray, perfume, deodorant, or body powder the day of surgery.? No jewelry (including any body piercings) or valuables the day of surgery, leave them at home.? Please take a shower or bath the night before, or the morning of, surgery with an antibacterial soap.? Wear comfortable, loose fitting clothing.? - Jewelry must be removed prior to entering the operating room.? Rings and piercings that are not removed may be cut off. - The hospital will not accept responsibility for valuables.? - Please leave all valuables, including medications, at home the day of surgery. If you are going home after surgery, a licensed dump truck driver off highway must drive you home.? - NO public transportation without another adult if you receive anesthesia. - We recommend that an adult stay with you for 24 hours following discharge. - We also recommend that you do not drive, make important decision, drink alcoholic beverages, or take any drugs that were not prescribed by your health care provider for at least 24 hours after your discharge time. Follow any additional instructions given to you from your surgeon. Telephone instructions given to ___PATIENT and asked if any additional questions and then verbalized understanding. Patient advised to call surgeon office or pre surgery nurse liaison [phone] if any additional questions.
[2024-11-29] VITALS (11 sets, daily range): BP systolic 122–152; BP diastolic 55–88; PULSE 68–88; RESP 14–18; TEMP 36.4–37.5; O2SAT 94–100; BMI 31.3
--- NOTE | ~2024-11-29 | XR_ITS ---
EXAMINATION: XR surgery orthopedic DATE: 11/29/2024 10:32 INDICATION: Left foot arthrodesis TECHNIQUE: 2 fluoroscopic images of the left forefoot were obtained during procedure performed by Dr. Nguyen. Radiologist was not present for the imaging or procedure. The amount of fluoroscopy time u sed during this procedure was 0.2 minutes. Total DAP was 0.678 cGycm^2. COMPARISON: None. FINDINGS: Instrumented first metatarsophalangeal arthrodesis in near-anatomic alignment with variable pitch com pression screw and dorsal plate and screw fixation. There is lateral angulation at the second distal interphalangeal joint. No acute fractures. IMPRESSION: 1. Expected appearance post instrumented first metatarsophalangeal arthrodesis. See procedure note fo r further detail. Reviewed, dictated and finalized at location B. IMPRESSION: 1. Expected appearance post instrumented first metatarsophalangeal arthrodesis. See procedure note for further detail.
--- OUTSIDE RECORDS SUMMARY | 2024-11-29 00:09 | XMS_ITS | Clinical Summary ---
Author Organization [facility] Address [address] [place] [address] Care Team Providers Care Fiscal Manager Name Role Phone Unavailable Primary Care Provider Unavailabl e Source Comments [facility],non-owned Affiliates and Associated Physician Practices is amultiple site organization consisting of ambulatory clinics and hospital sitesin [place], [place], [place] and [place]. This disclosure is being madepursuant to the Care Everywhere program and may not contain all information available regarding this patient. Last updated 18.[facility] Paperless Post Social History Tobacco Use Types Packs/Day Years Used Date Smoking Tobacco: Never Assessed Comments Unknown Sex and Gender Information Value Date Recorded Sex Assigned at Not on file Legal Sex Female 6:03 AM PER DIEM PHYSICAL THERAPIST ASSISTANT Gender Identity Not on file Sexual Orientation [...] age to complete this topic Insurance MEDICARE [facility] MEDICARE
--- OUTSIDE RECORDS SUMMARY | 2024-11-29 00:09 | XMS_ITS | Encounter Summary ---
Author Organization [facility] Address [address] [place] [address] Care Team Providers Care Nut Dehydrator Operator Name Role Phone Unavailable Primary Care Provider Unavailabl e Encounter Details Date Type Department Care Team (Late st Contact Info) Description 04/26/2021 Lab Requisition [facility] D[facility] Lab [address] [place] [address] Luis M De La Paz MD [address] [place] [address] Social History Tobacco Use Types Packs/Day Years Used Date Smoking Tobacco: Never Assessed Comments Unknown Sex and Gender Information Value Date Recorded Sex Assigned at Not on file Legal Sex Female 6:03 AM HAND HIDE STRETCHER Gender Identity Not on file Sexual Orientation Not on file documented as of this encounter Plan of Treatment Not on file documented as of this encounter Procedures Procedure Name Priority Date/Time Associated Diagnosis Comments DERMATOPATHOLOGY Routine 04/22/2021 3:33 AM CDT documented in this encounter Results * DERMATOPATHOLOGY (04/22/2021 3:33 AM CDT) Case Report Dermatopathology Report Case: [id number] Authorizing Provider: Luis M De La Paz MD Collected: 04/22/2021 03:33 AM Ordering Location: [facility] Received: 04/26/2021 06:28 AM Pathologist: [...] BCCA vs SCCA vs other. Path # [id number]. B: BCCA vs SCCA vs other. Path # [id number]. 12:44 PM CDT DERMATOPATHOLOGY LABORATORY Gross Description Specimen A: Received is one formalin filled container labeled with the patient's name and designated right lower leg. The specimen consists of a shave biopsy measuring 21i6m7tu. Jar 0. Specimen B: Received is one formalin filled container labeled with the patient's name and designated left helix. The specimen consists of a shave biopsy measuring 2w3u7cz. Jar 0. 12:44 PM CDT DERMATOPATHOLOGY LABORATORY [...] characteristic determined by the Dermatopathology Laboratory at [facility], directed by Dr. Mariluz Shea. These tests need not be, and therefore are not, approved by the [place] Food and Drug Administration. The tests are used for clinical purposes. Billing Codes Specimen Charges Stain Charges 44417 69233 1 1 12:44 PM CDT DERMATOPATHOLOGY LABORATORY [...] DERMATOPATHOLOGY LABORATORY [facility] - Department of Dermatology [facility] [address] [place] [address], [address] [phone] documented in this encounter Visit Diagnoses Not on filedocumented in this encounter
--- OUTSIDE RECORDS SUMMARY | 2024-11-29 00:09 | XMS_ITS | Referral Summary ---
Author Organization [facility] [address] Address [address] [place] [address] Care Team Providers Care Projection Camera Operator Name Role Phone Unknown, Notinfile Primary Care [...] (thirty) days Active cholecalcifero l (VITAMIN D-3) 42978 unit capsuleIndicat ions:Vitamin D Deficiency Take 1 [...] 07/31/2018 Overview (08/08/2023): UTI;Recorded Elsewhere: No Location: [facility] Source: EHR Chronic: N Practice ID: 0001 Billable Time: 10:30:00 AM Presence of intrathecal pump 03/08/2018 Overview (03/08/2018): Added automatically from request for surgery [id number] Microscopic hematuria 01/07/2016 Overview (08/08/2023): Other microscopic hematuria;Recorded Elsewhere: No Location: [facility] Source: EHR Chronic: N Practice ID: 0001 Billable Time: 03:00:00 PM Menopausal symptom 04/13/2011 Overview (08/08/2023): Menopausal or female climacteric states;Recorded Elsewhere: No Location: [facility] Source: EHR Chronic: N Practice ID: 0001 Billable Time: 11:15:00 AM Gastroesophageal reflux disease 02/26/2011 Overview (08/08/2023): GERD;Recorded Elsewhere: No Location: [facility] Source: EHR Chronic: Y Practice ID: 0001 Billable Time: 01:07:04 PM Varicose veins of lower extremity 02/26/2011 Overview (08/08/2023): Varicose Veins, Lower Extremity;Recorded Elsewhere: No Location: [facility] Source: EHR Chronic: Y Practice ID: 0001 [...] CDT Gender Identity Female 10/01/2020 11:28 AM PICTURE FRAMER Sexual Orientation Straight 10/01/2020 11 :28 AM PICTURE FRAMER Last Filed Vital Signs Vital Sign Reading Time Taken Comments Blood Pressure 102/70 08/08/2023 2:56 PM PICTURE FRAMER Pulse 85 08/08/2023 2:56 PM PICTURE FRAMER Temperature 37 C (98.6 F) 05/17/2023 8:16 AM CDT Respiratory Rate 18 05/17/2023 8:16 AM CDT Oxygen Saturation 97% 08/08/2023 2:56 PM PICTURE FRAMER Inhaled Oxygen Concentration - - Weight 94.3 kg (208 lb) 08/08/2023 2:56 PM PICTURE FRAMER Height 162.6 cm (5' 4 ) 08/08/2023 2:56 PM PICTURE FRAMER Body Mass Index 35.7 08/08/2023 2:56 PM PICTURE FRAMER Plan of Treatment Not on file Medical Devices Implanted Type Area Gastroenterology Technician Device Identifier Shelf Expiration Date Model / Serial / Lot Medtronic Inc Synchromed Ii .78in [place] Filter Mesh Pouch Programmable 8637-20 - [id number] - [id number] Implanted:Qty: 1 on 10/28/2021 by Dion Cohen MD at [facility] N/A: Abdomen Medtronic Inc 11/18/2022 8637-20 / [id number] / Medtronic Inc Sutureless Connector Revision Catheter Kit Intrathecal Pump 8578 - [id number] Implanted:Qty: 1 on 10/28/2021 by Dion Cohen MD at [facility] N/A: Abdomen Medtronic Inc 12/24/2022 8578 / / [id number] Depuy [employer] Glenosphere Reverse Shoulder Inhance +4x36mm [id number] - [id number] Implanted:Qty: 1 on 05/16/2023 by Pito Maya MD at [facility] Right: Shoulder Depuy [employer] [id number] 05/23/2027 [id number] / / [id number] Depuy Orthopaed[employer] Inc Stem Resurfacing Shoulder Stem Inhance 32mm Short Small [id number] - [id number] Implanted:Qty: 1 on 05/16/2023 by Pito Maya MD at [facility] Right: Shoulder Depuy Orthopaed[employer] Inc [id number] 08/23/2027 [id number] / / [id number] Depuy [employer] Shell Humeral Reverse Shoulder Small Inhance +0x32mm [id number] - [id number] Implanted:Qty: 1 on 05/16/2023 by Pito Maya MD at [facility] Right: Shoulder Depuy [employer] [id number] 12/22/2027 [id number] / / [id number] Depuy [employer] Liner Shoulder Reverse Inhance +0x36mm E Poly [id number] - [id number] Implanted:Qty: 1 on 05/16/2023 by Pito Maya MD at [facility] Right: Shoulder Depuy [employer] [id number] 10/21/2026 [id number] / / [id number] Depuy [employer] Baseplate Humeral Porous Modular Small Inhance 24mm [id number] - [id number] Implanted:Qty: 1 on 05/16/2023 by Pito Maya MD at [facility] Right: Shoulder Depuy [employer] [id number] 02/21/2028 [id number] / / [id number] Depuy [employer] Scrw Glenoid Central Inhance 6.0x30mm [id number] - [id number] Implanted:Qty: 1 on 05/16/2023 by Pito Maya MD at [facility] Right: Shoulder Depuy [employer] [id number] 12/22/2027 [id number] / / [id number] Depuy [employer] Scrw Glenoid Locking Inhance 40mm [id number] - [id number] Implanted:Qty: 1 on 05/16/2023 by Pito Maya MD at [facility] Right: Shoulder Depuy [employer] [id number] 12/21/2026 [id number] / / [id number] Depuy [employer] Scrw Glenoid Locking Inhance 20mm [id number] - [id number] Implanted:Qty: 1 on 05/16/2023 by Pito Maya MD at [facility] Right: Shoulder Depuy [employer] [id number] 03/23/2027 [id number] / / [id number] Depuy [employer] Scrw Glenoid Locking Inhance 20mm [id number] - [id number] Implanted:Qty: 1 on 05/16/2023 by Pito Maya MD at [facility] Right: Shoulder Depuy [employer] [id number] 05/23/2027 [id number] / / [id number] Explanted Type Area Gastroenterology Technician Device Identifier Shelf Expiration Date Model / Serial / Lot Sutureless Pump Connector Revision Implanted:Qty: 1 on 04/06/2018 by Vadim Herrera MD at [facility] Explanted:Qty: 1 on 10/28/2021 by Dion Cohen MD at [facility] N/A: Abdomen Medtronic 06/02/2019 8578 / / [id number] Medtronic Inc Synchromed Ii .78in [place] Filter Mesh Pouch Programmable 8637-20 - [id number] - [id number] Explanted:Qty: 1 on 10/28/2021 by Dion Cohen MD at [facility] N/A: Abdomen Medtronic Inc 8637-20 / [id number] / Procedures Procedure Name Priority Date/Time Associated Diagnosis Comments SCREENING MAMMOGRAM Routine 06/12/2017 8 :26 PM PICTURE FRAMER from Last 3 Months or Most Recently Relevant to Health Maintenance Results * Screening Mammogram (06/12/2017 8:26 PM PICTURE FRAMER) Anatomical Region Laterality Modality Breast N/A Mammography 06/12/2017 8:26 PM PICTURE FRAMER Narrative 06/12/2017 8:57 PM PICTURE FRAMER JOSSELYN CORNELIUS M.D. YAS REIS M.D. FINAL REPORT The radiology attending physician has personally reviewed this study, and has reviewed and/or edited this written report and agrees with it. ACC# Date Time Exam [id number] Jun 12, 2017 14:26:00 [facility] [address] [facility] [employer] inc CAD, unilat L Technologist(s): Brigid Brady; ; EXAMINATION: LEFT UNILATERAL DIGITAL DIAGNOSTIC MAMMOGRAM INCLUDING CAD HISTORY: 61-year-old woman presents for additional imaging. Unilateral left diagnostic mammogram performed at [facility] on 05/23/2017 demonstrated coarse heterogeneous calcifications, for [...] CORNELIUS M.D. on Jun 12 2017 2:55P [id number] CORNELIUS M.D. YAS REIS M.D. FINAL REPORT The radiology attending physician has personally reviewed this study, and has reviewed and/or edited this written report and agrees with it. Attending: LORETO SOTO Requesting: Loreto Soto Requesting Fax: Attending Fax: Attending ID: [id number] Requesting ID: [id number] Report To 1 ID: [id number] Report To 1 Name: , Report To 1 FAX: NextGen Order #: Procedure Note Miscellaneous, Not In File - 06/12/2017 JOSSELYN CORNELIUS M.D. YAS REIS M.D. FINAL REPORT The radiology attending physician has personally reviewed this study, and has reviewed and/or edited this written report and agrees with it. ACC# Date Time Exam [id number] Jun 12, 2017 14:26:00 [facility] [address] [facility] [employer] CAD, unilat L Technologist(s): Brigid Brady; ; EXAMINATION: LEFT UNILATERAL DIGITAL DIAGNOSTIC MAMMOGRAM INCLUDING CAD HISTORY: 61-year-old woman presents for additional imaging. Unilateral left diagnostic mammogram performed at [facility] on 05/23/2017 demonstrated coarse heterogeneous calcifications, for [...] CORNELIUS M.D. on Jun 12 2017 2:55P [id number] CORNELIUS M.D. YAS REIS M.D. FINAL REPORT The radiology attending physician has personally reviewed this study, and has reviewed and/or edited this written report and agrees with it. Attending: LORETO SOTO Requesting: Loreto Soto Requesting Fax: Attending Fax: Attending ID: [id number] Requesting ID: [id number] Report To 1 ID: [id number] Report To 1 Name: , Report To 1 FAX: NextGen Order #: Loreto Soto MD PhD IMG MAMMO PROCEDURES Final Result from Last 3 Months or Most Recently Relevant to Health Maintenance Insurance [facility] Advance Directives For more information, please contact: [phone] * Full Code (Latest Code Status on File) Date Activated Date Inactivated Comments 05/16/2023 6:23 PM 05/17/2023 5:07 PM * Full Code Date Activated Date Inactivated Comments 02/10/2020 9:13 AM 02/13/2020 5:25 PM Care Teams Projection Camera Operator Relationship Specialty Start Date End Date Unknown, Notinfile PCP - General 02/10/22 Kenneth Camara MD [address] [place] [address] 02/10/22 Pito Maya MD [address] [facility] [address] [place] [address] Consulting Physician Orthopedic Surgery 05/17/23
--- OUTSIDE RECORDS SUMMARY | 2024-11-29 00:09 | XMS_ITS | Clinical Summary ---
Author Organization [facility] Address [address] [place] [address] Care Team Providers Care Director [employer] Name Role Phone Unavailable Primary Care Provider [...]
--- OUTSIDE RECORDS SUMMARY | 2024-11-29 00:09 | XMS_ITS | Encounter Summary ---
Author Organization [facility] Address [address] [facility] [place] [address] Care Team Providers Care Mobile Device Developer Name Role Phone Unavailable Primary Care Provider Unavailabl e Encounter Details Date Type Department Care Team (Late st Contact Info) Description 04/25/2023 Lab Requisition [facility] [address] [place] [id number] Luis M De La Paz MD [address] [place] [address] Social History Tobacco Use Types Packs/Day Years Used Date Smoking Tobacco: Never Assessed Comments Unknown Sex and Gender Information Value Date Recorded Sex Assigned at Not on file Legal Sex Female 6:03 AM RECORDS COORDINATOR Gender Identity Not on file Sexual Orientation Not on file documented as of this encounter Plan of Treatment Not on file documented as of this encounter Procedures Procedure Name Priority Date/Time Associated Diagnosis Comments DERMATOPATHOLOGY Routine 04/24/2023 12:0 0 AM CDT documented in this encounter Results * DERMATOPATHOLOGY (04/24/2023 12:00 AM CDT) Case Report Dermatopathology Report Case: [id number] Authorizing Provider: Luis M De La Paz MD Collected: 04/24/2023 12:00 AM Ordering Location: [facility] Received: 04/26/2023 06:15 AM Pathologist: Lea Shea MD Specimen: Skin, right bicep 10:33 AM CDT DERMATOPATHOLOGY LABORATORY Final Diagnosis Specimen A. SKIN, right bicep: BASAL CELL CARCINOMA, SUPERFICIAL MULTIFOCAL (C44.612) 10:33 AM CDT DERMATOPATHOLOGY LABORATORY Clinical History BCC vs SCC vs AK Path# [id number] 10:33 AM CDT DERMATOPATHOLOGY LABORATORY Gross Description [...] characteristic determined by the Dermatopathology Laboratory at [facility], directed by Dr. Mariluz Shea. These tests need not be, and therefore are not, approved by the [place] Food and Drug Administration. The tests are used for clinical purposes. Billing Codes Specimen Charges Stain Charges 46080 1 10:33 AM CDT DERMATOPATHOLOGY LABORATORY Embedded Images 10:33 AM CDT DERMATOPATHOLOGY LABORATORY Pathology/Cytolog y TISSUE SPECIMEN FROM SKIN / Unknown 04/24/2023 04/26/2023 6:15 AM CDT us Luis M De La Paz MD LAB - PATHOLOGY/CYTOLOGY ORDER SAMI Final Result DERMATOPATHOLOGY LABORATORY [facility] - Department of Dermatology [address], [address] [phone] documented in this encounter Visit Diagnoses Not on filedocumented in this encounter
--- OUTSIDE RECORDS SUMMARY | 2024-11-29 00:09 | XMS_ITS | Continuity of Care Document ---
Author Organization [facility] Address [address] [place] [address] Phone Care Team Providers Care Mowing Machine Operator Name Role Phone Pito Maya MD [...] morphine 30 mg/30 mL (1 mg/mL) intravenous NAVIGATING OFFICER syringe - Active Women's One Daily 18 [...] Providers Copied on Encounter Office/outpat ient visit,est, [facility], [address] [address], [place], [place], [id number], tel:[phone] [facility] right shoulder (chief complaint) Presence of right artificial shoulder joint Francesco Sheldon. [address] [facility] [address], [place], [place], [id number] , [place]. tel: [phone] Referring Provider: Pito Campbell, [address] [place] [address], [place], [address] . tel:[phone] Office/outpat ient visit,est, low [facility], [address] [address], [place], [place], [id number], [place] tel:[phone] [facility] Rt Shoulder (chief complaint) Presence of right artificial shoulder joint Francesco Sheldon. [address] [place] [address], [place], [place], [id number] , [place]. tel:[phone] Referring Provider: Pito Campbell, [address] [address], [place], [address] . tel:[phone] [facility], [address] [place] [address], [place], [place], [id number], [place] tel:[phone] [facility] Rt shoulder (chief complaint) Presence of right artificial shoulder joint Francesco Sheldon. [address] [place] [address], [id number] , [place]. tel:[phone] Referring Provider: Pito Campbell, [address] [address], [place], [address] . tel:[phone] [facility], [address] [place] [address] [place], [address] [place] [address], tel:[phone] [facility] Right shoulder (chief complaint) Presence of right artificial shoulder joint Francesco Pito. [address] [facility], [place], [place], [address] [place] [address] , . tel:[phone] Referring Provider: Pito Campbell, [address] [facility] [address] [facility], [place], [place], [address] [place] [address] . tel:[phone] [facility], [address] [facility], [place], [place], [address] [place] [address], tel:[phone] [facility] Rt. Shoulder Pain (chief complaint) Primary osteoarthrit is, right shoulder Francesco Sheldon. [address] [facility] [place] [address], [place], [place], [address] [place] [address] , . tel:[phone] Referring Provider: Pito Campbell, [address] [facility] [address] [facility], [place], [place], [address] [place] [address] . tel:[phone] Family History Family Member Type Diagnosis Age [...] type Covered constitution party ID Maral talbot(s) [facility] [id number] Social History Type Description Quantity Date Captured [...]
--- OUTSIDE RECORDS SUMMARY | 2024-11-29 00:09 | XMS_ITS | Clinical Summary ---
Author Organization [facility] [address] Address [address] [place] [address] Care Team Providers Care Order Caller Name Role Phone Unknown, Notinfile Primary Care [...] (thirty) days Active cholecalcifero l (VITAMIN D-3) 19688 unit capsuleIndicat ions:Vitamin D Deficiency Take 1 [...] 07/31/2018 Overview (08/08/2023): UTI;Recorded Elsewhere: No Location: [facility] Source: EHR Chronic: N Practice ID: [id number] Billable Time: 10:30:00 AM Presence of intrathecal pump 03/08/2018 Overview (03/08/2018): Added automatically from request for surgery [id number] Microscopic hematuria 01/07/2016 Overview (08/08/2023): Other microscopic hematuria;Recorded Elsewhere: No Location: [facility] Source: EHR Chronic: N Practice ID: [id number] Billable Time: 03:00:00 PM Menopausal symptom 04/13/2011 Overview (08/08/2023): Menopausal or female climacteric states;Recorded Elsewhere: No Location: [facility] Source: EHR Chronic: N Practice ID: [id number] Billable Time: 11:15:00 AM Gastroesophageal reflux disease 02/26/2011 Overview (08/08/2023): GERD;Recorded Elsewhere: No Location: [facility] Source: EHR Chronic: Y Practice ID: [id number] Billable Time: 01:07:04 PM Varicose veins of lower extremity 02/26/2011 Overview (08/08/2023): Varicose Veins, Lower Extremity;Recorded Elsewhere: No Location: [facility] Source: EHR Chronic: Y Practice ID: [id number] [...] CDT Gender Identity Female 10/01/2020 11:28 AM SERVER SUPPORT TECHNICIAN Sexual Orientation Straight 10/01/2020 11 :28 AM SERVER SUPPORT TECHNICIAN Obstetrics History Last Filed Vital Signs Vital Sign Reading Time Taken Comments Blood Pressure 102/70 08/08/2023 2:56 PM SERVER SUPPORT TECHNICIAN Pulse 85 08/08/2023 2:56 PM SERVER SUPPORT TECHNICIAN Temperature 37 C (98.6 F) 05/17/2023 8:16 AM CDT Respiratory Rate 18 05/17/2023 8:16 AM CDT Oxygen Saturation 97% 08/08/2023 2:56 PM SERVER SUPPORT TECHNICIAN Inhaled Oxygen Concentration - - Weight 94.3 kg (208 lb) 08/08/2023 2:56 PM SERVER SUPPORT TECHNICIAN Height 162.6 cm (5' 4 ) 08/08/2023 2:56 PM SERVER SUPPORT TECHNICIAN Body Mass Index 35.7 08/08/2023 2:56 PM SERVER SUPPORT TECHNICIAN Plan of Treatment Health Maintenance Due Date [...] 2023-2 5 season) 2024 06/25/2021, 11/12/2020, 10/22/2020 Fall Risk Assessment 05/17/2024 05/17/2023 Influenza Vaccine (Season Ended) 2025 03/24/2023, 03/23/2021, 03/17/2020, Additional history exists Medical Devices Implanted Type Area Site Coordinator Device Identifier Shelf Expiration Date Model / Serial / Lot Med[employer]onic Inc Synchromed Ii .78in [place] Filter Mesh Pouch Programmable 8637-20 - [id number] - [id number] Implanted:Qty: 1 on 10/28/2021 by Dion Cohen MD at [facility] N/A: Abdomen Med[employer] Inc 11/18/2022 8637-20 / [id number] / Med[employer]onic Inc Sutureless Connector Revision Catheter Kit Intrathecal Pump 8578 - [id number] Implanted:Qty: 1 on 10/28/2021 by Dion Cohen MD at [facility] N/A: Abdomen Med[employer] Inc 12/24/2022 8578 / / [id number] Depuy [employer] Glenosphere Reverse Shoulder Inhance +4x36mm [id number] - [id number] Implanted:Qty: 1 on 05/16/2023 by Pito Maya MD at [facility] Right: Shoulder [employer]uy [employer] [id number] 05/23/2027 [id number] / / [id number] Depuy Orthopaed[employer] Stem Resurfacing Shoulder Stem Inhance 32mm Short Small [id number] - [id number] Implanted:Qty: 1 on 05/16/2023 by Pito Maya MD at [facility] Right: Shoulder Depuy Orthopa[employer] Inc [id number] 08/23/2027 [id number] / / [id number] [employer] Shell Humeral Reverse Shoulder Small Inhance +0x32mm [id number] - [id number] Implanted:Qty: 1 on 05/16/2023 by Pito Maya MD at [facility] Right: Shoulder [employer]uy [employer] [id number] 12/22/2027 [id number] / / [id number] [employer] Liner Shoulder Reverse Inhance +0x36mm E Poly [id number] - [id number] Implanted:Qty: 1 on 05/16/2023 by Pito Maya MD at [facility] Right: Shoulder [employer] [id number] 10/21/2026 [id number] / / [id number] Dep[employer] Baseplate Humeral Porous Modular Small Inhance 24mm [id number] - [id number] Implanted:Qty: 1 on 05/16/2023 by Pito Maya MD at [facility] Right: Shoulder [employer] [id number] 02/21/2028 [id number] / / [id number] Depuy [employer] Scrw Glenoid Central Inhance 6.0x30mm [id number] - [id number] Implanted:Qty: 1 on 05/16/2023 by Pito Maya MD at [facility] Right: Shoulder [employer] [id number] 12/22/2027 [id number] / / [id number] [employer] Scrw Glenoid Locking Inhance 40mm [id number] - [id number] Implanted:Qty: 1 on 05/16/2023 by Pito Maya MD at [facility] Right: Shoulder [employer]uy [employer] [id number] 12/21/2026 [id number] / / [id number] [employer] Scrw Glenoid Locking Inhance 20mm [id number] - [id number] Implanted:Qty: 1 on 05/16/2023 by Pito Maya MD at [facility] Right: Shoulder [employer]uy [employer] [id number] 03/23/2027 [id number] / / [id number] Dep[employer] Scrw Glenoid Locking Inhance 20mm [id number] - [id number] Implanted:Qty: 1 on 05/16/2023 by Pito Maya MD at [facility] Right: Shoulder [employer]uy [employer] [id number] 05/23/2027 [id number] / / [id number] Explanted Type Area Site Coordinator Device Identifier Shelf Expiration Date Model / Serial / Lot Sutureless Pump Connector Revision Implanted:Qty: 1 on 04/06/2018 by Vadim Herrera MD at [facility] Explanted:Qty: 1 on 10/28/2021 by Dion Cohen MD at [facility] N/A: Abdomen Medtronic 06/02/2019 8578 / / [id number] Med[employer] Inc Synchromed Ii .78in [place] Filter Mesh Pouch Programmable 8637-20 - [id number] - [id number] Explanted:Qty: 1 on 10/28/2021 by Dion Cohen MD at [facility] N/A: Abdomen Med[employer] Inc 8637-20 / [id number] / Procedures Procedure Name Priority Date/Time Associated Diagnosis Comments SCREENING MAMMOGRAM Routine 06/12/2017 8 :26 PM SERVER SUPPORT TECHNICIAN from Last 3 Months or Most Recently Relevant to Health Maintenance Results * Screening Mammogram (06/12/2017 8:26 PM SERVER SUPPORT TECHNICIAN) Anatomical Region Laterality Modality Breast N/A Mammography 06/12/2017 8:26 PM SERVER SUPPORT TECHNICIAN Narrative 06/12/2017 8:57 PM SERVER SUPPORT TECHNICIAN JOSSELYN CORNELIUS M.D. YAS REIS M.D. FINAL REPORT The radiology attending physician has personally reviewed this study, and has reviewed and/or edited this written report and agrees with it. ACC# Date Time Exam [id number] Jun 12, 2017 14:26:00 [facility] [address] mmCHANNEL Mamm, inc CAD, unilat L Technologist(s): Brigid Brady; ; EXAMINATION: LEFT UNILATERAL DIGITAL DIAGNOSTIC MAMMOGRAM INCLUDING CAD HISTORY: 61-year-old woman presents for additional imaging. Unilateral left diagnostic mammogram performed at [facility] on 05/23/2017 demonstrated coarse heterogeneous calcifications, [...] CORNELIUS M.D. on Jun 12 2017 2:55P [id number] MELVIN M.D. FINAL REPORT The radiology attending physician has personally reviewed this study, and has reviewed and/or edited this written report and agrees with it. Attending: LORETO SOTO Requesting: Loreto Soto Requesting Fax: Attending Fax: Attending ID: [id number] Requesting ID: [id number] Report To 1 ID: [id number] Report To 1 Name: , Report To 1 FAX: NextGen Order #: Procedure Note Miscellaneous, Not In File - 06/12/2017 Bandar STEIN M.D. FINAL REPORT The radiology attending physician has personally reviewed this study, and has reviewed and/or edited this written report and agrees with it. ACC# Date Time Exam [id number] Jun 12, 2017 14:26:00 [facility] [id number] Diag Mamm, inc CAD, unilat L Technologist(s): Brigid Brady; ; EXAMINATION: LEFT UNILATERAL DIGITAL DIAGNOSTIC MAMMOGRAM INCLUDING CAD HISTORY: 61-year-old woman presents for additional imaging. Unilateral left diagnostic mammogram performed at [facility] on 05/23/2017 demonstrated coarse heterogeneous calcifications, [...] CORNELIUS M.D. on Jun 12 2017 2:55P [id number] MELVIN M.D. FINAL REPORT The radiology attending physician has personally reviewed this study, and has reviewed and/or edited this written report and agrees with it. Attending: LORETO SOTO Requesting: Loreto Soto Requesting Fax: Attending Fax: Attending ID: [id number] Requesting ID: [id number] Report To 1 ID: [id number] Report To 1 Name: , Report To 1 FAX: NextGen Order #: Loreto Soto MD PhD IMG MAMMO PROCEDURES Final Result from Last 3 Months or Most Recently Relevant to Health Maintenance Insurance Member Subscriber Plan / Payer (Ef fective 2017-Present) Name:More Cotter Relation to Subscriber:Self Name:More Cotter Payer ID:[id number] (NAIC) Type:MEDICARE RISK OTHER Address: [place] [id number] Advance Directives For more information, please contact: [phone] * Full Code (Latest Code Status on File) Date Activated Date Inactivated Comments 05/16/2023 6:23 PM 05/17/2023 5:07 PM * Full Code Date Activated Date Inactivated Comments 02/10/2020 9:13 AM 02/13/2020 5:25 PM Care Teams Order Caller Relationship Specialty Start Date End Date Unknown, Notinfile PCP - General 02/10/22 Kenneth Camara MD [address] [place] [address] 02/10/22 Pito Maya MD [address] [facility] [address] [address] Consulting Physician Orthopedic Surgery 05/17/23
--- OUTSIDE RECORDS SUMMARY | 2024-11-29 00:09 | XMS_ITS | Data Portability ---
Author Organization [facility] [place] Address [address] [place] [address] Assessment Encounter Date Assessment Date Assessment LastModified [...] None recorded. Imaging US, pelvis [address], [address], [address], [place], [address], 14:45:19 US, transvagina l 2020 021 [facility], [address], [address], [place], [address], 16:30:48 MAMMO, screening, bilateral 2020 021 [facility], [address], Adonis [facility], [place], [address], 10:18:43 US, pelvis, complete 2020 021 [facility], [address], [place], [address], 05:01:15 Medication Orders None recorded. Patient TargetsNo targets recorded. Patient InstructionsNo instructions recorded. Reason for Referral None Reported. Results Created Date Observation Date Name Description Value Unit Range Abnormal Flag Note LastModifiedBy Organization Detail LastModifiedTime 11/13/1911/19/2020 US, pelvi s No observ ation record ed. [facility] [place] [address], [place], [address], 11/19/2020 17:03:08 11/13/1911/19/2020 US, trans vagin al No observ ation record ed. [facility] [place] [address], [place], [address], 11/19/2020 16:30:48 11/13/19 US, pelvi s No observ ation record ed. minnie Chapa [address], [place], [address], 11/12/2020 17:48:27 12/03/1912/01/2020 MAMMO , scree vijay, bilat eral No observ ation record ed. [place] [address], [place], [address], 12/08/2020 19:42:27 Result Notes None recorded. Problems Name Problem SNOMED Code Status Onset Date Resolution Date Notes Provider Name and Address Organization Details Recorded Time Screenin g for malignan t neoplasm of cervix Completed 201010/15/2020 Screenin g for malignan t neoplasm s of the cervix;R ecorded Elsewher e: No Locat ion: [facility] S ource: EHR [place] fahad: N Practi ce ID: 0001 Presley lable Time: 11:15:00 AM Chica gamboa [facility] 17:43:52 Screenin g for malignan t neoplasm of rectum Completed 201810/15/2020 Encounte r for screenin g for malignan t neoplasm of rectum;R ecorded Elsewher e: No [facility]: EHR [facility] fahad: N Practi ce ID: 0001 Presley lable Time: 10:30:00 AM Chica gamboa [facility] 17:43:[address] Concept Completed 201910/15/2020 Encntr for radiology rn exam (general ) (routine ) w/o abn findings ;Recorde d Elsewher e: No Locat ion: [facility] S ource: [facility] fahad: N Practi ce ID: 0001 Presley lable Time: 01:15:00 PM Chica gamboa [facility] 17:43:56 Speciali zed medical examinat ion Completed 201210/15/2020 Gynecolo gical Examinat ion;Jerardo rded Elsewher e: No Locat ion: [facility] S ource: [facility] fahad: N Practi ce ID: 0001 Presley lable Time: 01:30:00 PM Chica gamboa [facility] 17:44:01 Evaluati on finding [id number] Completed 201610/15/2020 Oth abn and inconclu sive findings on dx imaging of breast;R ecorded Elsewher e: No Locat ion: [facility] S ource: [facility] [place] fahad: N Practi ce ID: 0001 Presley lable Time: 03:07:54 PM Chica gamboa [facility] 17:43:44 Urinary tract infectio us disease [id number] Completed 201810/15/2020 UTI;Jerardo rded Elsewher e: No Locat ion: [facility] S ource: [facility] fahad: N Practi ce ID: 0001 Presley lable Time: 10:30:00 AM Chica gamboa [facility] 17:44:[address] Concept Completed 201510/15/2020 Encntr for general adult medical exam w/o abnormal findings ;Recorde d Elsewher e: No Locat ion: [facility] S ource: [facility] [place] fahad: N Practi ce ID: 0001 Presley lable Time: 03:00:00 PM Chica Thuan gamboa, [facility] 17:43:58 Evaluati on finding Completed 201910/15/2020 Hematuri a, unspecif ied;Jerardo rded Elsewher e: No Locat ion: [facility] S ource: [facility] [place] fahad: N Practi ce ID: 0001 Presley lable Time: 01:15:00 PM Chica gamboa, [facility] 17:43:45 Gastroes ophageal reflux disease [id number] Completed 201010/15/2020 GERD;Rec orded Elsewher e: No [facility]at ion[facility] S ource: [facility] [place] fahad: Y Practi ce ID: 0001 Presley lable Time: 01:07:04 PM Chica Thuan gamboa, [facility] 17:43:46 Varicose veins of lower extremit y [id number] Completed 201010/15/2020 Varicose Veins, Lower Extremit y;Record ed Elsewher e: No Locat ion: [facility] S ource: [facility] [place] fahad: Y Practi ce ID: 0001 Presley lable Time: 01:07:04 PM Chica gamboa, [facility] 17:44:03 Microsco pic hematuri a [id number] Completed 201510/15/2020 Other microsco pic hematuri a;Record ed Elsewher e: No Locat ion: [facility] S ource: [facility] [place] fahad: N Practi ce ID: 0001 Presley lable Time: 03:00:00 PM Chica gamboa [facility] 17:43:49 Menopaus al symptom [id number] Completed 201010/15/2020 Menopaus al or female climacte hebert states;R ecorded Elsewher e: No Locat ion: Dylan [facility] S ource: E[facility] [place] fahad: N Practi ce ID: 0001 Presley lable Time: 11:15:00 AM Chica gamboa [facility] 17:43:[address] Concept Completed 201810/15/2020 Encounte r for general adult medical exam w abnormal findings ;Practic e ID: 0001 Chica gamboa [facility] 17:43:50 Problem Notes None recorded. Procedures Surgical History Date Name Laterality Status Provider Name and Address Organization Details Recorded Time 10/16/19 21 Date of Last Pap Smear completed Chica Doran [facility] 10/15/2020 17:45:59 procedure on back completed [facility] 09/02/2020 15:36:01 procedure on ear completed [facility] 09/02/2020 15:36:08 procedure on knee completed [facility] 09/02/2020 15:36:14 Colonoscopy completed [facility] 09/02/2020 15:36:25 lumpectomy of breast completed [facility] 09/02/2020 15:36:31 Unlisted procedure shoulder completed [facility] 09/02/2020 15:36:44 Total Hysterectomy completed [facility] 09/02/2020 15:36:55 Dilation and Curettage completed [facility] 09/02/2020 15:37:02 Appendectomy completed Adriane Brownlee [facility] 09/02/2020 15:37:08 Gastric Bypass completed Adraine [facility] 09/02/2020 15:37:17 repair of stress incontinence by suprapubic sling completed Adriane Brownlee [facility] 09/02/2020 15:37:28 Imaging Results Imaging Date Name Status LastModified by Organization Details LastModified Time 11/19/2020 US, pelvis completed minnie Nathan [address], [place], [address], 11/19/2020 17:03:08 11/19/2020 US, transvaginal completed minnie pierre [address], [place], [address], 11/19/2020 16:30:48 11/12/2020 US, pelvis completed minnie Sammi [address], [place], [address], 11/12/2020 17:48:27 12/01/2020 MAMMO, screening, bilateral completed minnie [facility] [address], [place], [address], 12/08/2020 19:42:27 Procedure Notes None recorded. Medical Equipment None Reported. Allergies Allergen ID Allergen Name Allergen Category Reaction Reaction Severity Criticality Documentation Date Start Date Code Code System Note Provider Name and Address Organization Details Recorded Time 54001 prochlorp erazine medicatio n Not available Not available Not available 07/10/2020 8704 RxNorm Chica gamboa [facility] 17:45:16 Medications Name Sig Start Date Stop Date Status Note LastModified by Organization Details LastModified Time multivita min tablet take 1 tablet by oral route every day with food 08/27 completed Prescrib ed Elsewher e: No Locat ion: Dylan pierre [facility] odify By: luke burnsunter DateTime : 08/01/19 19 10:30:00 AM Not Available Not Available Not Available Flomax 0.4 mg capsule take 1 capsule by oral route every day 1/2 hour followin g the same meal each day 01/06 completed Prescrib ed Elsewher e: Yes Loca tion: Dylan pierre [facility] odify By: matt Pierre ncounter DateTime : 04/13/20 11 11:15:00 AM Not Available Not Available Not Available Estrace 2 mg tablet take 1 tablet (2MG) by oral route every day 06/17 completed Prescrib ed Elsewher e: No Locat ion: Dylan pierre [facility] odify By: jd Hodge nter DateTime : 07/02/20 12 09:58:43 AM Not Available Not Available Not Available atorvasta tin 10 mg tablet take 1 tablet by oral route every day 10/16 completed Prescrib ed Elsewher e: Yes Loca tion: Dylan pierre [facility] odify By: luke Pierre ncounter DateTime : 08/01/19 19 10:30:00 AM Not Available Not Available Not Available amitripty line 50 mg tablet take 1 tablet by oral route every day at bedtime active Prescrib ed Elsewher e: Yes Loca tion: Dylan pierre [facility] odify By: luke Pierre ncounter DateTime : 08/01/19 19 10:30:00 AM Not Available Not Available Not Available Nexium 20 mg capsule,d elayed release take 1 capsule by oral route every day 08/01 completed Prescrib ed Elsewher e: Yes Loca tion: Dylan pierre [facility] odify By: luke Pierre ncounter DateTime : 04/13/20 11 11:15:00 AM Not Available Not Available Not Available venlafaxi ne 100 mg tablet take 1 tablet by oral route 2 times every day with food 11/12 completed Prescrib ed Elsewher e: Yes Loca tion: Dylan pierre [facility] odify By: luke Pierre ncounter DateTime : 08/01/19 19 10:30:00 AM Not Available Not Available Not Available chlordiaz epoxide 5 mg capsule take 1 capsule (5MG) by ORAL route 3 times every day 04/13 completed Prescrib ed Elsewher e: No Locat ion: Dylan pierre [facility] odify By: tash hernandez DateTime : 02/27/20 11 01:07:04 PM Not Available Not Available Not Available Metrogel Vaginal 0.75 % (37.5 mg/5 gram) insert 1 applicat orful (37.5MG) by vaginal route every day at bedtime 08/01 completed Prescrib ed Elsewher e: No Locat ion: Dylan pierre [facility] odify By: luke hernandez DateTime : 06/17/20 13 01:30:00 PM Not Available Not Available Not Available omeprazol e 10 mg capsule,d elayed release take 2 capsule by oral route every day before a meal active Prescrib ed Elsewher e: Yes Loca tion: Dylan pierre [facility] odify By: luke hernandez DateTime : 08/01/19 19 10:30:00 AM Not Available Not Available Not Available temazepam 15 mg capsule Take 1 capsule every day by oral route. active Not Available Not Available No t Available furosemid e 80 mg tablet take 1 tablet by oral route every day 10/16 completed Prescrib ed Elsewher e: Yes Loca tion: Dylan pierre [facility] odify By: luke hernandez DateTime : 08/01/19 19 10:30:00 AM Not Available Not Available Not Available dicyclomi ne 20 mg tablet take 1 tablet by oral route 4 times every day active Prescrib ed Elsewher e: Yes Loca tion: Dylan pierre [facility] odify By: luke hernandez DateTime : 08/01/19 19 10:30:00 AM Not Available Not Available Not Available Synthroid 25 mcg tablet take 1 tablet by oral route every day 04/13 completed Prescrib ed Elsewher e: No Locat ion: Dylan pierre [facility] odify By: tash hernandez DateTime : 02/18/20 16 08:56:31 AM Not Available Not Available Not Available diazepam 2 mg tablet take 1 tablet by ORAL route 3 times every day 08/01 completed Prescrib ed Elsewher e: Yes Loca tion: Dylan pierre [facility] odify By: luke hernandez DateTime : 02/27/20 11 01:07:04 PM Not Available Not Available Not Available Cipro 500 mg tablet take 1 tablet (500MG) by oral route every 12 hours 08/01 completed Prescrib ed Elsewher e: No Locat ion: Dylan pierre [facility] odify By: luke hernandez DateTime : 06/17/20 13 01:30:00 PM Not Available Not Available Not Available Synthroid 75 mcg tablet take 1 tablet by oral route every day 12/19 completed Prescrib ed Elsewher e: No Locat ion: Dylan pierre [facility] odify By: wanda mendoza DateTime : 11/07/19 19 01:54:54 PM Not Available Not Available Not Available Synthroid 50 mcg tablet take 1 tablet by oral route every day 08/01 completed Prescrib ed Elsewher e: No [facility] odify By: luke hernandez DateTime : 04/13/20 16 04:46:25 PM Not Available Not Available Not Available Baby Aspirin 81 mg chewable tablet chew 1 tablet (81MG) by ORAL route every day 2010 active Prescrib ed Elsewher e: No [facility] odify By: minnie hernandez DateTime : 02/27/20 11 01:07:04 PM Not Available Not Available Not Available zolpidem 5 mg tablet take 2 tablet by oral route every day at bedtime 10/16 completed Prescrib ed Elsewher e: Yes Loca tion: Dylan pierre [facility] odify By: luke hernandze DateTime : 08/01/19 19 10:30:00 AM Not Available Not Available Not Available furosemid e 20 mg tablet Take 1 tablet every day by oral route. active Not Available Not Available No t Available OxyContin 10 mg tablet,ex tended release take 1 tablet by ORAL route every 12 hours 06/17 completed Prescrib ed Elsewher e: Yes Loca tion: Dylan pierre [facility] odify By: elidia mendoza DateTime : 02/27/20 11 01:07:04 PM Not Available Not Available Not Available Vitamin D2 1,250 mcg (50,000 unit) capsule take 1 capsule by oral route every week 08/01 completed Prescrib ed Elsewher e: No Locat ion: Dylan pierre [facility] odify By: luke hernandez DateTime : 02/16/20 16 02:30:57 PM Not Available Not Available Not Available Zocor 5 mg tablet take 1 tablet by oral route every day in the evening 08/01 completed Prescrib ed Elsewher e: Yes Loca tion: Dylan pierre [facility] odify By: luke burnsuntmaria eugenia DateTime : 04/13/20 11 11:15:00 AM Not Available Not Available Not Available Estrace 1 mg tablet take 1 tablet (1MG) by oral route every day 06/17 completed Prescrib ed Elsewher e: No Locat ion: Dylan pierre [facility] odify By: jd Hodge ntmaria eugenia DateTime : 04/13/20 11 11:15:00 AM Not Available Not Available Not Available metoclopr amide 10 mg tablet take 1 tablet by oral route 4 times every day 30 minutes before meals and at bedtime active Prescrib ed Elsewher e: Yes Loca tion: Dylan pierre [facility] odify By: luke hernandez DateTime : 08/01/19 19 10:30:00 AM Not Available Not Available Not Available Bactrim DS 800 mg-160 mg tablet take 1 tablet by oral route every 12 hours 08/27 completed Prescrib ed Elsewher e: No Locat ion: Dylan pierre [facility] odify By: luke hernandez DateTime : 08/01/19 19 10:30:00 AM Not Available Not Available Not Available Stool Softener 50 mg capsule take 1 capsule by oral route every day at bedtime as needed active Prescrib ed Elsewher e: Yes Loca tion: Dylan pierre [facility] odify By: luke hernandez DateTime : 08/01/19 10:30:00 AM Not Available Not Available Not Available Lexapro 5 mg tablet take 1 tablet by ORAL route every day 08/01 completed Prescrib ed Elsewher e: Yes Loca tion: Dylan pierre [facility] odify By: luke burnsuntmaria eugenia DateTime : 02/27/20 11 01:07:04 PM Not Available Not Available Not Available fentanyl 12 mcg/hr transderm al patch apply 1 patch by Transder mal route every 72 hours 04/13 completed Prescrib ed Elsewher e: Yes Loca tion: Dylan [facility] odify By: tash hernandez DateTime : [...] Elsewher e: Yes Loca tion: Dylan pierre [facility] odify By: luke hernandez DateTime : 08/01/19 10:30:00 AM Not Available Not Available Not Available GlycoTrol 500 mcg-400 mcg-10 mg-400 mg capsule 08/01 completed Prescrib ed Elsewher e: Yes Loca tion: Dylan pierre [facility] odify By: luke hernandez DateTime : 02/27/20 11 01:07:04 PM Not Available Not Available Not Available Ryzolt 100 mg tablet,ex tended release take 2 tablet by ORAL route every day 08/01 completed Prescrib ed Elsewher e: Yes Loca tion: Dylan [facility] odify By: luke hernandez DateTime : 02/27/20 11 01:07:04 PM Not Available Not Available Not Available High Potency Iron 27 mg iron tablet 10/16 completed Prescrib ed Elsewher e: Yes Loca tion: [facility] odify By: luke Pierre ncounter DateTime : 08/01/19 10:30:00 AM Not Available Not Available Not Available baclofen 5 mg tablet take 1 tablet by oral route 3 times every day active Prescrib ed Elsew e: Yes Loca tion: [facility] odify By: luke Pierre ncounter DateTime : 08/01/19 10:30:00 AM Not Available Not Available Not Available Vitals Date Recorded Body height Body mass index (BMI) Body weight Systolic blood pressure Diastolic blood pressure Provider Name and Address Organization Details Last Updated DateTime 10/16/2020 162.56 cm 34.2 kg/m2 11826.88 g 117 mm[Hg] 76 mm[Hg] Chica Thuan [facility] 15:45:17 Date Recorded Body height Body mass index (BMI) Body weight Systolic blood pressure Diastolic blood pressure Provider Name and Address Organization Details Last Updated DateTime 11/12/2020 162.56 cm 34.5 kg/m2 68272.07 g 115 mm[Hg] 76 mm[Hg] Jaymiegissell Cowanuma [facility] 13:07:56 Social History None recorded. [...] SNOMED-CT Code Diagnosis ICD10 Code Diagnosis Note [id number] Mamie Topete [facility] [address] [address] 10/16/2020 15:32:41 10/16/2020 16:26:22 Gynecologic examination 68086093 Z01.419 Take Calcium with Vitamin D 12-1500mg daily. Do monthly self breast exams. It is advised to get annual flu shot in the fall and she could obtain at [facility] or [facility] clinic. If you haven't received the Tdap [...] respond to this email Pap/hpv-no t sent [facility] ip status-mar ried >40yrs Pap/hpv Hx-wnl (2019 pap/hpv wnl) Dexa-PCP manged Colonoscop y-PCP managed Mammogram- Ordered due next month PCP Last Visit-Jr babcock in the y ear. Postmenopa usal bleeding [id number] N95.0 Had emergency surgery for twisted bowel early in the year. When in hospital she had a significan t amt of blood after catheter was put in. Was told it was not from her bladder or catheter itself & that she should be checked out by her PETROLEUM ANALYST. She is stilling have pink to bright [...] babcock. She agrees. Will schedule. Screening mammography [id number] Z12.31 [id number] Waylon Osman MD [place] [address] [address] 11/12/2020 12:24:36 11/12/2020 13:13:12 Postmenopausal bleeding 21034028 N95.0 [id number] Mamie Topete [facility] [address] [address] 11/12/2020 12:24:59 11/12/2020 13:40:21 Postmenopausal bleeding 45813869 N95.0 TVUS reviewed today. No likely causes [...] as it is either bladder or other non-radiology rn related concern that is causing this based [...] this patient s visit, including available hand virtual office assistant upon arrive, temperatur e check and being [...] Fuchs Member ID Guarantor Name 10/16/2020 1 gopogo [facility] (MEDICARE REPLACEMENT HMO) [id number] More Lovett [id number] More Lovett 11/12/2020 1 gopogo [facility] (MEDICARE REPLACEMENT HMO) [id number] More Lovett [id number] More Lovett 11/12/2020 1 gopogo [facility] (MEDICARE REPLACEMENT HMO) [id number] More Lovett [id number] More Lovett Notes Date Note Type Note Provider Name and Address Organization Details Recorded Time 10/16/2020 text/html 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 10/16/2020 16:23:57 11/12/2020 text/html Here for TVUS Follow up for ???PMB???. JOHNNY Man [address], [place], [address], [place] [facility] 11/12/2020 13:38:40 OBGyn Episode Ob Episode Information Episode Created Date Number of Fetuses Patient Bloodtype Patient rh Status Prepregnancy Weight lbs Domestic Partner Domestic Partner Phone Father Name Corporate Manager Status 09/02/19 21 1 CLOSED Fetus Data [...] Domestic Partner Domestic Partner Phone Father Name Corporate Manager Status 09/02/19 21 1 CLOSED Fetus Data [...]
--- NOTE | 2024-11-29 07:13 | WPDHPUPDATE1 ---
History and Physical Update Update Date/Time: 11/29/24 07:13 History and Physical has been reviewed, including an updated exam of the patient. There are NO changes in the patient's condition. Risks, benefits, and alternatives have been discussed and questions answered. Patient agrees to proceed with procedure.
[2024-11-29] MEDS: LACTATED RINGERS 1,000 ML 30 ML IV CONT (08:00)
[2024-11-29] MEDS: LIDOCAINE 2% LOCAL INJ 20 ML VIAL 10 ML INFILTRATE (08:19)
--- NOTE | 2024-11-29 09:28 | P.PNAN_ITS ---
Anes - Initial Pre Proc Eval Procedure: Operation Date: 11/29/24 09:00 Proposed Procedures p Arthrodesis of First Metatarsophalangeal Joint Left Foot - Wilian Nguyen Jr., DPM Date/Time: 11/29/24 09:28 Surgeon: Wilian Nguyen Jr., DPM Pre Op Diagnosis: bunion left foot Patient Data Age: 68 Gender: F Height: 1.78 m Weight: 99 kg Last Vital Signs Temp 99.5 F 11/29/24 09:00 Pulse 85 11/29/24 09:00 Resp 14 11/29/24 09:00 BP 152/88 H 11/29/24 09:00 Pulse Ox 100 11/29/24 09:00 O2 Del Method Room Air 11/29/24 09:00 Allergies Allergy/AdvReac Type Severity Reaction Status Date / Time prochlorperazine AdvReac Severe Hyperactive--STATES Verified 11/21/24 15:01 CAUSES RESTLESSNESS, PANICKY FEELING ropinirole AdvReac Intermediate compulsive Verified 11/21/24 15:01 shopping Home Medications ?Medication ?Instructions ?Recorded ?Confirmed ?Type ferrous sulfate 325 mg (65 mg 325 mg PO BID 07/01/19 11/21/24 History iron) tablet ondansetron 4 mg disintegrating 4 mg PO Q8H PRN nausea and 07/26/21 11/21/24 Rx tablet vomiting #21 tabs xyvezuwnumng-cqxksbyh-hpjofni-folic 1 tablet PO DAILY 07/28/22 11/21/24 History acid 400 mcg-vit K1 20 mcg tablet (One-A-Day Women's 50 Plus) fluticasone propionate 50 1 spray intranasal BID PRN allergy 11/09/22 11/21/24 Rx mcg/actuation nasal symptoms #16 grams spray,suspension (Flonase Allergy Relief) polyethylene glycol 3350 17 17 g PO QHS 11/09/22 11/21/24 History gram/dose oral powder (Miralax) syringe with needle 3 mL 25 x 5/8 #3 ea 08/14/23 11/21/24 Rx (BD Luer-Marlene Syringe) dicyclomine 10 mg capsule 10 mg PO BID 90 days #180 caps 01/15/24 11/21/24 Rx cyanocobalamin (vitamin B-12) See Rx Instructions .Route 04/18/24 11/21/24 Rx 1,000 mcg/mL injection solution .COMPLEX #3 mL simvastatin 40 mg tablet See Rx Instructions .Route 06/05/24 11/21/24 Rx .COMPLEX #90 tabs furosemide 20 mg tablet See Rx Instructions .Route 09/02/24 11/21/24 Rx .COMPLEX #90 tabs tolterodine 2 mg tablet See Rx Instructions .Route 09/02/24 11/21/24 Rx .COMPLEX #180 tabs losartan 25 mg tablet See Rx Instructions .Route 09/03/24 11/21/24 Rx .COMPLEX #90 tabs cholecalciferol (vitamin D3) 1,250 See Rx Instructions .Route 10/30/24 11/21/24 Rx mcg (50,000 unit) capsule .COMPLEX #12 caps MORPHINE/BUPIVACAINE See Rx Instructions .Route .COMPLEX 11/21/24 11/21/24 History PREVAGEN 1 cap PO HS 11/21/24 11/21/24 History aspirin 81 mg tablet,delayed 81 mg PO DAILY 11/21/24 11/21/24 History release (Adult Aspirin Regimen) docusate sodium 100 mg capsule 300 mg PO BID 11/21/24 11/21/24 History gabapentin 300 mg capsule 300 mg PO HS 11/21/24 11/21/24 History magnesium 250 mg tablet 250 mg PO HS 11/21/24 11/21/24 History lubyrenibrjn-Kp-tmep-minerals 1 tablet PO DAILY 11/21/24 11/21/24 History omeprazole 20 mg capsule,delayed 20 mg PO BID 11/21/24 11/21/24 History release oxycodone-acetaminophen 5 mg-325 1 tablet PO Q6H PRN pain 11/21/24 11/21/24 History mg tablet rivaroxaban 10 mg tablet (Xarelto) 10 mg PO Q24H 11/21/24 11/21/24 History venlafaxine 150 mg 150 mg PO DAILY 11/21/24 11/21/24 History capsule,extended release 24 hr vit A 7,160 unit-vit C 113 mg-vit 1 tablet PO BID 11/21/24 11/21/24 History E 100 waxu-snqo-ogcihw tablet zolpidem 5 mg tablet 5 mg PO QHS PRN insomnia #30 tabs 11/26/24 Rx baclofen 10 mg tablet See Rx Instructions .Route 11/27/24 Rx .COMPLEX #270 tabs Patient hx anesthesia problems: none Family hx anesthesia problems: none Results Review: All pre-operative results and documents have been reviewed as part of the pre- operative evaluation. [facility] Past Medical History Medical History Abnormal digestive system diagnostic imaging Urge incontinence of urine Small intestine obstruction Fecal impaction Small bowel obstruction Abnormal urinalysis Electrolyte abnormality Asymptomatic bacteriuria Hx of small bowel obstruction Obstructive sleep apnea Presence of intrathecal pump Edema Diastolic dysfunction Acute UTI Vitamin D deficiency, unspecified Urinary frequency Skin lesion of left arm Right upper quadrant abdominal pain Rectal bleed Primary insomnia Past pointing Other chronic pain Microcytic anemia Major depressive disorder, single episode, unspecified Left upper quadrant pain Left lower quadrant pain Left breast lump Large breasts Jerking gait Incontinence in female Hypothyroidism (acquired) Hypotensive episode Hypotension, chronic Hypersomnia Hypercholesterolemia Hereditary and idiopathic neuropathy, unspecified Gastro-esophageal reflux disease without esophagitis Epigastric abdominal pain Dyslipidemia Cough Constipation, chronic Chronic right-sided low back pain without sciatica Chronic pain syndrome Breast calcification, left Restless leg syndrome Arthritis of right glenohumeral joint Presence of implanted infusion pump Degenerative disc disease Iron deficiency anemia Gastroesophageal reflux disease Anxiety Irritable bowel syndrome Obstructive sleep apnea on CPAP Hyperlipidemia Anemia Urinary tract infection Hypertension Candidiasis, intertrigo Dysuria Small bowel obstruction Lymphedema UTI (urinary tract infection) Failed back syndrome Depression Dysuria Surgical History Surgical History H/O ventral hernia repair History of gastric bypass History of right shoulder replacement History of exploratory laparotomy adhesiolysis for small bowel obstruction 2020 History of bilateral cataract extraction History of arthroscopy of right shoulder Eliezer - SLAP repair History of arthroscopy of both knees History of ankle surgery History of abdominoplasty History of cervical discectomy (2004) History of tubal ligation (1982) History of hysterectomy (1995) History of vein stripping History of stapedectomy History of lumbar surgery History of bladder repair surgery (06/2016) Cystoscopy with mid urethral sling. History of stress incontinence procedure using tension free vaginal tape (06/2007) History of ventral hernia repair (01/2007) Laparoscopic repair of lower abdominal wall rectus diastasis with Composix EX mesh. History of appendectomy (1995) History of gastric bypass (1999) Family History Family History Mother Family history of cardiovascular disease, Onset Age: 76 Diabetes mellitus, Onset Age: 76 Family history of malignant neoplasm, Onset Age: 76 Family history of arthritis, Onset Age: 76 Acute myocardial infarction Hypertension, Onset Age: 76 Asthma, Onset Age: 76 Father Family history of arthritis, Onset Age: 84 Cerebrovascular accident Chronic obstructive pulmonary disease Social History Social History Social History: Surrogate medical decision maker: Kamaljit Lovett, spouse. Code status: Full code. Smoking status: Never smoker Alcohol intake: never Substance use: never Substance use type: does not use Current Housing: Decline to Answer Concerned About Future Housing: Decline to Answer Difficulty Paying Gas/Electric Bills: Decline to Answer Difficulty Paying for Meds: Decline to Answer Currently Unemployed: Decline to Answer Education: Decline to Answer Difficulty w/ Childcare or Family Care: Decline to Answer Living arrangements: with family Additional living arrangements comments: Lives with spouse in [place]. Additional occupation/education comments: Disabled. Spiritual care concerns: No Anes - Eval Final PreProcedure Day of Procedure 11/29/24 09:28 Patient weight: obese Lungs: normal air movement Airway: Mallampati scale class II Neurological: alert and oriented Last oral intake: >/= 8 hours ASA classification: III Emergent: no Anesthetic plan: proceed Anesthesia type and monitoring: general LMA and standard monitoring Results Review: All pre-operative results and documents have been reviewed as part of the pre- operative evaluation. HTN, hyperlipidemia, KAMRAN on CPAP. Informed Consent: The patient's anesthetic plan and its attendant risks and benefits were discussed with the patient/family/POA. Questions were solicited and answers provided to the satisfaction of the patient/family/POA.
[2024-11-29] MEDS: ceFAZolin 2 GM/D5W 50 ML 2 GM/50 ML BAG IVPB (09:32)
--- NOTE | 2024-11-29 10:59 | P.OP_ITS ---
Procedure Note - Detailed Date of Procedure 11/29/24 Pre-op Diagnosis Arthritic bunion left foot Post-op Diagnosis Same Procedure Performed Arthrodesis of the 1st metatarsal phalangeal joint left foot Surgeon Wilian Nguyen Jr., DPM Anesthesia General and Local Indications Painful bunion deformity left foot Description of Procedure PROCEDURE IN DETAIL: Under mild sedation, the patient was brought into the operating room, placed on the operating table in supine position. A pneumatic ankle tourniquet was placed about the patient's ipsilateral ankle. Following general anesthesia and a [place] with 20ccs of 2% Lidocaine plain and 0.5% Marcaine plain, the foot was then scrubbed, prepped, and draped in the usual aseptic manner. An Esmarch bandage was then used to exsanguinate the patient's foot and the pneumatic ankle tourniquet was then inflated. Surgery began in the following manner: Attention was directed to the dorsal medial aspect of the 1st metatarsophalangeal joint where there was a moderate subcutaneous prominence was noted. The incision was made starting along the central shaft of the 1st metatarsal and extending just proximal to the interphalangeal joint of the hallux. The incision was continued deep down through the subcutaneous tissues using sharp and blunt dissection. All bleeders were cauterized as necessary. At this point, the dissection was continued down to the level of the periosteum and capsular structures overlying the 1st metatarsophalangeal joint. A full length periosteum and capsular incision was made just medial to the extensor hallucis longus tendon. The periosteum and capsular structures were freed from the base of the proximal phalanx as well as the distal 1st metatarsal. At this point, the 1st metatarsophalangeal joint was identified. There was loss of articular cartilage to the head of the 1st metatarsal as well as the base of the proximal phalanx worse centrally and medially. There was significant broadening and hypertrophy of the 1st metatarsophalangeal joint. Utilizing a sagittal bone saw, the hypertrophied 1st metatarsal was resected dorsally, medially, and laterally. A power bur was used to make sure that there were no rough edges and also to further debride the hypertrophic 1st metatarsal. Next, a rongeur was used to resect the hypertrophic base of the proximal phalanx. At this point, the reamer system for the Arthrex Maxforce plate system was used to denude the d egenerative cartilage from the head of the 1st metatarsal as well as the base of the proximal phalanx. The cartilage and subchondral bone were fully debrided utilizing the reamer system until healthy bleeding bone was noted. Next, a 2-0 drill bit was used to further fenestrate the head of the 1st metatarsal as well as the base of the proximal phalanx in order to allow fusion across the 1st metatarsophalangeal joint. Next, a guide wire for a 3.5 headless Arthrex compression screw was driven from the medial aspect of the base of the proximal phalanx into the head of the 1st metatarsal in order to serve as temporary fixation, next the cannulated screw was driven and provided excellent compression. Next A large steel plate was used to make sure that the hallux was in a rectus position both in the sagittal plane as well as the frontal plane. Excellent position of the hallux was noted. Next, an Arthrex Maxforce plate was placed atop the 1st metatarsophalangeal joint held in position with [place] wires. Utilizing standard principles and techniques, the distal drill holes were drilled and three 3.0 mm fully-threaded locking screws were driven from dorsal to plantar holding the distal aspect of the plate intact. At this point, the Maxforce compression system was utilized from dorsal distal to proximal plantar across the 1st metatarsophalangeal joint with excellent compression no darin. Next, a 3.0mm locking screw was used to further compress the joint along the oblong dynamic compression screw slot. Next, the remaining 2 proximal drill holes were drilled from dorsal to plantar across and two 3.0 mm locking screws were driven from dorsal to plantar. The wound site was then flushed with copious amounts of sterile saline. Fluoroscopy was used to make sure that the plate was appropriately aligned and oriented and also to make sure that the screws were of appropriate length and orientation. Excellent position of the 1st metatarsophalangeal joint was visualized in all planes. Next, the periosteum and capsular structures were reapproximated with 3-0 Vicryl. Next, the subcutaneous structures were reapproximated with 4-0 Vicryl. Next, the skin was reapproximated and coapted utilizing 4-0 Monocryl in running subcuticular suture fashion technique. Upon completion of the procedure, the incision was dressed with Steri-Strips, Adaptic, 4x4s, Kerlix, and Coban. The pneumatic ankle tourniquet was then deflated and a prompt hyperemic response was noted to all digits of the foot. A posterior splint was then applied to the affected lower extremity. It is important to note that Dr. Nguyen was present throughout the procedure. The patient did very well with the procedure and the anesthesia. The patient was transferred to the recovery room with vital signs stable and vascular status intact to all toes of the foot. Following a period of postoperative monitoring, the patient will be discharged home on the following written and oral postoperative instructions: 1. Keep the dressing clean, dry, and intact. 2. The patient to be strictly nonweightbearing with a knee scooter or crutches. 3. The patient should ice and elevate the foot when at rest. 4. The patient should contact Dr. Nguyen for all postop care and if any problems should arise. 5. Prescriptions were written for Percocet 5/325, dispensed 40 to be taken 1 p.o. q.4-6 hours as needed for severe pain. Furthermore, the patient should also take Xarelto 10 mg to be taken 1 p.o. daily starting 24 hours after surgery to prevent DVT for 14 days followed by one 325 mg aspirin until walking is re-initiated. Implants 1. Arthrex Maxforce 1st MPJ plate with five 3.0 locking screws and one 3.0 non locking Kreulock screws 2. Arthrex 3.5mm Headless cannulated screws Estimated Blood Loss 1 Drains No Packing No Pathology None sent Complications No immediate complications Condition Stable Disposition Same day
--- NOTE | 2024-11-29 10:59 | WPDHPUPDATE1 ---
History and Physical Update Update Date/Time: 11/29/24 10:59 History and Physical has been reviewed, including an updated exam of the patient. There are NO changes in the patient's condition. Risks, benefits, and alternatives have been discussed and questions answered. Patient agrees to proceed with procedure.
[2024-11-29] MEDS: oxyCODONE HCL (*CRX) 5 MG TAB IR PO (12:30)
== END 2024-11-29 13:17 | disposition home or self-care (01) ==
PROVIDERS: PCP Emergency Medicine; Visit Provider Podiatrist Foot & Ankle Surgery
PROC: (CPT 28750; principal; 2024-11-29 09:00)
DX: M21.612 Bunion of left foot (principal); K21.9 Gastro-esophageal reflux disease without esophagitis; G25.81 Restless legs syndrome; M19.011 Primary osteoarthritis, right shoulder; D50.9 Iron deficiency anemia, unspecified; F41.9 Anxiety disorder, unspecified; K58.9 Irritable bowel syndrome, unspecified; D64.9 Anemia, unspecified; F32.A Depression, unspecified; E78.00 Pure hypercholesterolemia, unspecified; N39.41 Urge incontinence; G47.33 Obstructive sleep apnea (adult) (pediatric); I11.0 Hypertensive heart disease with heart failure; I50.30 Unspecified diastolic (congestive) heart failure; E55.9 Vitamin D deficiency, unspecified; F32.9 Major depressive disorder, single episode, unspecified; E03.9 Hypothyroidism, unspecified; G47.10 Hypersomnia, unspecified; K59.09 Other constipation; R35.0 Frequency of micturition; F51.01 Primary insomnia; I95.89 Other hypotension; G60.9 Hereditary and idiopathic neuropathy, unspecified; M54.50 Low back pain, unspecified; G89.4 Chronic pain syndrome; E66.9 Obesity, unspecified; Z68.31 Body mass index [BMI] 31.0-31.9, adult; Z79.899 Other long term (current) drug therapy; Z79.82 Long term (current) use of aspirin; Z79.891 Long term (current) use of opiate analgesic; Z79.01 Long term (current) use of anticoagulants; Z79.1 Long term (current) use of non-steroidal anti-inflammatories (NSAID); Z99.89 Dependence on other enabling machines and devices; Z98.1 Arthrodesis status; Z98.51 Tubal ligation status; Z98.84 Bariatric surgery status; Z97.8 Presence of other specified devices; Z98.890 Other specified postprocedural states; Z85.828 Personal history of other malignant neoplasm of skin; Z87.19 Personal history of other diseases of the digestive system; Z80.9 Family history of malignant neoplasm, unspecified; Z82.49 Family history of ischemic heart disease and other diseases of the circulatory system
CPT/HCPCS: 28750; 99199; A9270; C1713; C1769; J0690; J1100; J2003; J2250; J2405; J2704; J3010; J7120

== ENCOUNTER 2024-12-23 13:30 | Outpatient (CLI) | payer OTHER, SELFPAY ==
--- NOTE | ~2024-12-23 | DEXA_ITS ---
Bone Density Report Name: ANITHA COTTER Age: 68 Sex: Female Ethnicity: White Date of : 1955 Indication: osteopenia; hysterectomy; Referring Provider: ASHLEY OJEDA Study: Bone densitometry was performed. Exam Date: December 23, 2024 Accession number: [id number] Bone Density: Region BMD T-score Z-score Classification AP Spine(L1-L4) 1.033 -0.1 1.8 Normal Femoral Neck (Left) 0.578 -2.4 -0.8 Osteopenia Total Hip (Left) 0.681 -2.1 -0.8 Osteopenia Femoral Neck (Right) 0.666 -1.7 0.0 Osteopenia Total Hip (Right) 0.761 -1.5 -0.2 Osteopenia Total Hip Mean 0.721 -1.8 -0.5 Osteopenia World Health Organization criteria for BMD impression classify patients as: Normal (T-score at or above -1.0), Osteopenia (T-score between -1.0 and -2.5), or Osteoporosis (T-score at or below -2.5). 10-year Fracture Risk(1): Major Osteoporotic Fracture 12% Hip Fracture 2.2% Reported Risk Factors: [place] (), Neck BMD=0.578, BMI=36.0 (1) FRAX(R) Version 3.08. Fracture probability calculated for an untreated patient. Fracture probability may be lower if the patient has received treatment. Previous Exams: -- Region Exam Age BMD T-score BMD Change BMD Change Date g/cm2 vs Baseline vs Previous -- AP Spine (L1-L4) 12/23/2024 68 1.033 -0.1 -14.9%# -2.3%# 02/02/2016 60 1.058 0.1 -12.9%* -12.2%# 04/27/2011 55 1.204 1.4 -0.8%# -0.8%# 02/08/2010 54 1.214 1.5 Total Hip(Left) 12/23/2024 68 0.681 -2.1 -21.1%# -8.9%# 02/02/2016 60 0.747 -1.6 -13.4%* -14.3%# 04/27/2011 55 0.872 -0.6 1.1%# 1.1%# 02/08/2010 54 0.863 -0.6 Total Hip(Right) 12/23/2024 68 0.761 -1.5 -14.6%# -1.5%# 02/02/2016 60 0.773 -1.4 -13.3%* -11.8%# 04/27/2011 55 0.876 -0.5 -1.7%# -1.7%# 02/08/2010 54 0.892 -0.4 -- *Denotes significance at 95% confidence level, LSC for AP Spine = 0.022 g/cm2, LSC for Total Hip = 0.027 g/cm2 # Denotes dissimilar scan types or analysis methods Clinical Information Provided by Patient: Has used the following medications: Vitamin D Has the following medical conditions: Hysterectomy Patient maximum height was 67.5 Menopause Age: 37 No regular weight bearing exercise Drinks caffeinated beverages Onset of menses at age 13 Number of children 2 Impression: The patient has low bone mass, based on the Left Femoral Neck T-score. The patient has an estimated ten-year risk of hip fracture of 2.2% and an estimated ten-year risk of major fracture of 12%, based on the WHO FRAX algorithm. Unable to evaluate interval change due to the use of different scan modes. Discussion: BONE DENSITY IS LOW AT ONE OR MORE SKELETAL SITES. This patient's lowest T-score is low at one or more skeletal sites. It meets the World Health Organization's (WHO) criteria for ?low bone mass? (T-score between -1.0 and -2.5). The patient's 10-year risk of fracture as calculated by FRAX is less than the threshold where pharmacological therapy is recommended by the National Osteoporosis Foundation (NOF). However, all treatment decisions require clinical judgment and consideration of individual patient factors, including patient preferences, comorbidities, previous drug use, risk factors not captured in the FRAX model (e.g., frailty, falls, vitamin D deficiency, increased bone turnover, interval significant decline in bone density) and possible under or overestimation of fracture risk by FRAX. The patient should follow a healthful lifestyle (good nutrition with adequate calcium and vitamin D, and appropriate weight-bearing exercise). Follow-Up: Consider repeating this study in 2 to 3 years to reassess this patient's status, or sooner if there is some new clinical indication. Reported by: SONIDO on 12/23/2024 1:59:00 PM. Reviewed, dictated and finalized at location A.
== END 2024-12-23 13:31 | disposition home or self-care (01) ==
LOC: MICIMG 13:30
PROVIDERS: PCP Emergency Medicine; Visit Provider Emergency Medicine
DX: M85.89 Other specified disorders of bone density and structure, multiple sites (principal); Z78.0 Asymptomatic menopausal state; E55.9 Vitamin D deficiency, unspecified
CPT/HCPCS: 77080

== ENCOUNTER 2025-05-14 08:16 | Emergency (ER) | payer OTHER, SELFPAY ==
--- NOTE | ~2025-05-14 | CT_ITS ---
EXAMINATION: CT cervical spine wo con COMPARISON: None HISTORY: Fall TECHNIQUE: Axial images were obtained through the spine without IV contrast. Coronal, sagittal reconstruction images were obtained from the axial views. CT scan performed using dose optimization techniques including the following automated exposure control; adjustment of mA and/or kV; use of iterative reconstruction technique. Automatic exposure control was used to reduce radiation dose. Permanent radiation dose record is archived to PACS. FINDINGS: Grade 1 anterolisthesis C2 on C3 and C3 on C4 and C4 on C5 and C7 on T1, no fracture. Severe loss of disc height at C4-5 C5-6 and C6-7 with partial fusion of C5-6 with moderate to severe canal and foraminal stenosis, outpatient MRI is recommended Soft tissues unremarkable. Impression: No acute abnormality. Reviewed, dictated and finalized at location P. Impression: No acute abnormality.
--- NOTE | ~2025-05-14 | CT_ITS ---
EXAMINATION: CT brain wo [place], 05/14/2025 8:45 CDT HISTORY: Fall COMPARISON: No comparisons available. Technique: Axial images obtained of the brain without contrast. One or more of the following dose reduction techniques were used: automated exposure control, adjustment of the mA and/or kV according to patient size, use of iterative reconstruction technique. Findings: No acute infarct or parenchymal hemorrhage. No abnormal mass or mass effect. No midline shift. No extra-axial fluid collections. No hydrocephalus. Mastoid air cells unremarkable. Sinuses and orbits unremarkable. No acute fracture. No significant facial or scalp soft tissue swelling evident. No radiopaque foreign body is seen. Impression: 1.No acute intracranial abnormality. Reviewed, dictated and finalized at location P. Impression: 1.No acute intracranial abnormality.
[2025-05-14 08:22] VITALS: BP 155/85; PULSE 89; RESP 16; TEMP 36.5; O2SAT 99
--- OUTSIDE RECORDS SUMMARY | 2025-05-14 08:29 | XMS_ITS | Clinical Summary ---
Author Organization [facility] [address] Address [address] [place] [address] Care Team Providers Care Patient Day Coordinator Name Role Phone Kenneth Camara MD Unavailable Pito Maya MD Unavailable Kenneth Camara MD Primary Care Provide r Allergies Active Allergy Reactions Criticality Noted Date [...] (thirty) days Active cholecalcifero l (VITAMIN D-3) 84969 unit capsuleIndicat ions:Vitamin D Deficiency Take 1 [...] your normal dose of 81 mg daily. 05/17/20 Active baclofen (LIORESAL) 10 mg tablet Take 1 tablet (10 mg total) by mouth every 8 (eight) hours as needed 06/14/20 Active diazePAM (VALIUM) 2 mg tablet Take 1 tablet (2 mg total) by mouth 2 (two) times a day 06/08/20 Active morphine 1 mg/mL Active Mitigo, PF, 25 mg/mL injection 0 06/07/20 Active temazepam (RESTORIL) 15 mg capsule Active [...] total) nightly. 270 capsule 3 02/29/20 24 Active Active Problems Problem Noted Date Diagnosed Date Osteoarthritis of right shoulder 04/21/2023 Postlaminectomy syndrome, lumbar 08/11/2021 History of bariatric surgery 10/01/2020 Bowel obstruction 02/27/2020 Internal hernia 02/10/2020 Urinary tract infectious disease 07/31/2018 Overview (08/08/2023): UTI;Recorded Elsewhere: No Location: [facility] Source: EHR Chronic: N Practice ID: [id number] Billable Time: 10:30:00 AM Presence of intrathecal pump 03/08/2018 Overview (03/08/2018): Added automatically from request for surgery [id number] Microscopic hematuria 01/07/2016 Overview (08/08/2023): Other microscopic hematuria;Recorded Elsewhere: No Location: [facility] Source: EHR Chronic: N Practice ID: [id number] Billable Time: 03:00:00 PM Menopausal symptom 04/13/2011 Overview (08/08/2023): Menopausal or female climacteric states;Recorded Elsewhere: No Location: [facility] Source: EHR Chronic: N Practice ID: [id number] Billable Time: 11:15:00 AM Gastroesophageal reflux disease 02/26/2011 Overview (08/08/2023): GERD;Recorded Elsewhere: No Location: [facility] Source: EHR Chronic: Y Practice ID: [id number] Billable Time: 01:07:04 PM Varicose veins of lower extremity 02/26/2011 Overview (08/08/2023): Varicose Veins, Lower Extremity;Recorded Elsewhere: No Location: [facility] Source: EHR Chronic: Y Practice ID: [id number] [...] CDT Gender Identity Female 10/01/2020 11:28 AM SHOE LAY OUT PLANNER Sexual Orientation Straight 10/01/2020 11 :28 AM SHOE LAY OUT PLANNER Obstetrics History Last Filed Vital Signs Vital Sign Reading Time Taken Comments Blood Pressure 102/70 08/08/2023 2:56 PM SHOE LAY OUT PLANNER Pulse 85 08/08/2023 2:56 PM SHOE LAY OUT PLANNER Temperature 37 C (98.6 F) 05/17/2023 8:16 AM CDT Respiratory Rate 18 05/17/2023 8:16 AM CDT Oxygen Saturation 97% 08/08/2023 2:56 PM SHOE LAY OUT PLANNER Inhaled Oxygen Concentration - - Weight 94.3 kg (208 lb) 08/08/2023 2:56 PM SHOE LAY OUT PLANNER Height 162.6 cm (5' 4) 08/08/2023 2:56 PM SHOE LAY OUT PLANNER Body Mass Index 35.7 08/08/2023 2:56 PM SHOE LAY OUT PLANNER Plan of Treatment Health Maintenance Due Date Last Done Comments Colon Cancer Screening-Colonoscopy 1955 Depression Screening 1957 Hepatitis C Screening 1957 Osteoporosis Screening-Bone Density Scan 1957 DTaP/Tdap/Td Vaccine (1 - Tdap) 1968 Hepatitis B Screening 12/27/1975 Pneumococcal vaccine 65+ (1 of 1 - PCV) 12/27/2007 Zoster Vaccine (1 of 2) 12/27/2007 Breast Cancer Screening-Mammogram 12/02/2021 021, 06/12/2017 Well Visit 65+ 2022 Fall Risk Assessment 05/17/2024 05/17/2023 Covid-19 Vaccine (2024- 6 season) 2025 06/25/2021, 11/12/2020, 10/22/2020 Influenza Vaccine (#1) 2025 , 03/23/2021, 03/17/2020, Additional history exists Medical Devices Implanted Type Area Assistant Spa Manager Device Identifier Shelf Expiration Date Model / Serial / Lot Medtronic Inc Synchromed Ii .78in [place] Filter Mesh Pouch Programmable 8637-20 - [id number] - [id number] Implanted:Qty: 1 on 10/28/2021 by Dion Cohen MD at [facility] N/A: Abdomen Medtronic Inc 11/18/2022 8637-20 / [id number] / Medtronic Inc Sutureless Connector Revision Catheter Kit Intrathecal Pump 8578 - [id number] Implanted:Qty: 1 on 10/28/2021 by Dion Cohen MD at [facility] N/A: Abdomen Medtronic Inc 12/24/2022 8578 / / [id number] Depuy Synthes [employer] Inc Glenosphere Reverse Shoulder Inhance +4x36mm [id number] - [id number] Implanted:Qty: 1 on 05/16/2023 by Pito Maya MD at [facility] Right: Shoulder Depuy Synthes Sales Inc [id number] 05/23/2027 [id number] / / [id number] Depuy Orthopaedics Inc Stem Resurfacing Shoulder Stem Inhance 32mm Short Small [id number] - [id number] Implanted:Qty: 1 on 05/16/2023 by Pito Maya MD at [facility] Right: Shoulder Depuy Orthopaedics Inc [id number] 08/23/2027 [id number] / / [id number] Depuy [employer]ynthe[employer] Shell Humeral Reverse Shoulder Small Inhance +0x32mm [id number] - [id number] Implanted:Qty: 1 on 05/16/2023 by Pito Maya MD at [facility] Right: Shoulder Depuy [employer]ynthe[employer] Inc [id number] 12/22/2027 [id number] / / [id number] Depuy [employer] Liner Shoulder Reverse Inhance +0x36mm E Poly [id number] - [id number] Implanted:Qty: 1 on 05/16/2023 by Pito Maya MD at [facility] Right: Shoulder Depuy [employer] Inc [id number] 10/21/2026 [id number] / / [id number] Depuy [employer] Baseplate Humeral Porous Modular Small Inhance 24mm [id number] - [id number] Implanted:Qty: 1 on 05/16/2023 by Pito Maya MD at [facility] Right: Shoulder Depuy Synthe[employer] Inc [id number] 02/21/2028 [id number] / / [id number] Depuy S[employer] Inc Scrw Glenoid Central Inhance 6.0x30mm [id number] - [id number] Implanted:Qty: 1 on 05/16/2023 by Pito Maya MD at [facility] Right: Shoulder Depuy [employer] [id number] 12/22/2027 [id number] / / [id number] Depuy [employer] Scrw Glenoid Locking Inhance 40mm [id number] - [id number] Implanted:Qty: 1 on 05/16/2023 by Pito Maya MD at [facility] Right: Shoulder Depuy [employer] Inc [id number] 12/21/2026 [id number] / / [id number] Depuy [employer] Scrw Glenoid Locking Inhance 20mm [id number] - [id number] Implanted:Qty: 1 on 05/16/2023 by Pito Maya MD at [facility] Right: Shoulder Depuy [employer] Inc [id number] 03/23/2027 [id number] / / [id number] Depuy [employer] Scrw Glenoid Locking Inhance 20mm [id number] - [id number] Implanted:Qty: 1 on 05/16/2023 by Pito Maya MD at [facility] Right: Shoulder Depuy Synthes [employer] Inc [id number] 05/23/2027 [id number] / / [id number] Explanted Type Area Assistant Spa Manager Device Identifier Shelf Expiration Date Model / Serial / Lot Sutureless Pump Connector Revision Implanted:Qty: 1 on 04/06/2018 by Vadim Herrera MD at [facility] Explanted:Qty: 1 on 10/28/2021 by Dion Cohen MD at [facility] N/A: Abdomen Medtronic 06/02/2019 8578 / / [id number] Medtronic Inc Synchromed Ii .78in [place] Filter Mesh Pouch Programmable 8637-20 - [id number] - [id number] Explanted:Qty: 1 on 10/28/2021 by Dion Cohen MD at [facility] N/A: Abdomen Medtronic Inc 8637-20 / [id number] / Procedures Procedure Name Priority Date/Time Associated Diagnosis Comments SCREENING MAMMOGRAM Routine 06/12/2017 8 :26 PM SHOE LAY OUT PLANNER from Last 3 Months or Most Recently Relevant to Health Maintenance Results * Screening Mammogram (06/12/2017 8:26 PM SHOE LAY OUT PLANNER) Anatomical Region Laterality Modality Breast N/A Mammography 06/12/2017 8:26 PM SHOE LAY OUT PLANNER Narrative 06/12/2017 8:57 PM SHOE LAY OUT PLANNER JOSSELYN CORNELIUS M.D. YAS REIS M.D. FINAL REPORT The radiology attending physician has personally reviewed this study, and has reviewed and/or edited this written report and agrees with it. ACC# Date Time Exam [id number] Jun 12, 2017 14:26:00 [facility] [address] [facility] CAD, unilat L Technologist(s): Brigid Brady; ; EXAMINATION: LEFT UNILATERAL DIGITAL DIAGNOSTIC MAMMOGRAM INCLUDING CAD HISTORY: 61-year-old woman presents for additional imaging. Unilateral left diagnostic mammogram performed at [facility] on 05/23/2017 demonstrated coarse heterogeneous calcifications, [...] By: Loreto Soto MD, PHD Dictated By: AYS REIS M.D. on Jun 12 2017 2:47P This document has been electronically signed by: JOSSELYN CORNELIUS M.D. on Jun 12 2017 2:55P [id number] MELVIN M.D. FINAL REPORT The radiology attending physician has personally reviewed this study, and has reviewed and/or edited this written report and agrees with it. Attending: LORETO SOTO Requesting: Loreto Soto Requesting Fax: Attending Fax: Attending ID: [id number] Requesting ID: [id number] Report To 1 ID: [id number] Report To 1 Name: , Report To 1 FAX: NextGen Order #: Procedure Note Miscellaneous, Not In File - 06/12/2017 Bandar STEIN M.D. FINAL REPORT The radiology attending physician has personally reviewed this study, and has reviewed and/or edited this written report and agrees with it. ACC# Date Time Exam [id number] Jun 12, 2017 14:26:00 [facility] [address] [facility] CAD, unilat L Technologist(s): Brigid Brady; ; EXAMINATION: LEFT UNILATERAL DIGITAL DIAGNOSTIC MAMMOGRAM INCLUDING CAD HISTORY: 61-year-old woman presents for additional imaging. Unilateral left diagnostic mammogram performed at [facility] on 05/23/2017 demonstrated coarse heterogeneous calcifications, [...] CORNELIUS M.D. on Jun 12 2017 2:55P [id number] MELVIN M.D. FINAL REPORT The radiology attending physician has personally reviewed this study, and has reviewed and/or edited this written report and agrees with it. Attending: LORETO SOTO Requesting: Loreto Soto Requesting Fax: Attending Fax: Attending ID: [id number] Requesting ID: [id number] Report To 1 ID: [id number] Report To 1 Name: , Report To 1 FAX: NextGen Order #: Loreto Soto MD PhD IMG MAMMO PROCEDURES Final Result from Last 3 Months or Most Recently Relevant to Health Maintenance Insurance Advance Directives For more information, please contact: [phone] * Full Code (Latest Code Status on File) Date Activated Date Inactivated Comments 05/16/2023 6:23 PM 05/17/2023 5:07 PM * Full Code Date Activated Date Inactivated Comments 02/10/2020 9:13 AM 02/13/2020 5:25 PM Care Teams Patient Day Coordinator Relationship Specialty Start Date End Date Kenneth Camara MD [address] [place] [address] PCP - General Emergency Medicine 02/10/25 Kenneth Camara MD [address] [place] [address] 02/10/22 Pito Maya MD [address] [address] Consulting Physician Orthopedic Surgery 05/17/23
--- OUTSIDE RECORDS SUMMARY | 2025-05-14 08:29 | XMS_ITS | Clinical Summary ---
Author Organization [facility] [employer] Address [address] [place] [address] Care Team Providers Care Property Management Bookkeeper Name Role Phone Kenneth Camara MD Primary Care Provider [phone] Source Comments [facility] [employer]non-owned Affiliates and Associated Physician Practices is amultiple site organization consisting of ambulatory clinics and hospital sitesin [place], [place], [place] and [place]. This disclosure is being madepursuant to the Care Everywhere program and may not contain all information available regarding this patient. Last updated 18.[facility] [employer] Allergies Active Allergy Reactions Criticality Noted Date Comments Prochlorperazine Psychiatric Medium 10/20/2017 Anxiety Medications * Be aware that medications may not be up to date on this document. Alwaysverify current medications with the patient. amitriptyline (Elavil) 50 MG tablet take 1 tablet by oral route every day at bedtime Active baclofen (Lioresal) 10 MG tablet 02/13/20 25 Active Cholecalcifero l (vitamin D3) 1.25 MG (97010 UT) capsule Take 1 (one) capsule by mouth every 7 days (once a week) Active cyanocobalamin (Vitamin B-12) injection INJECT 1ML INTRAMUSCULARLY ONCE A MONTH Active dicyclomine (Bentyl) 10 MG capsule TAKE 1 CAPSULE BY MOUTH TWICE A DAY FOR 90 DAYS 12/03/19 25 Active docusate sodium (Colace) 50 MG capsule take 1 capsule by oral route every day at bedtime as needed Active ferrous sulfate 325 (65 FE) MG tablet Take 1 (one) tablet by mouth 2 times daily Active furosemide (Lasix) 20 MG tablet Take 1 tablet every day by oral route. Active gabapentin (Neurontin) 300 MG capsule TAKE 1 CAPSULE (300 MG TOTAL) BY MOUTH EVERY MORNING AND 2 CAPSULES (600 MG TOTAL) NIGHTLY. Active losartan (Cozaar) 25 MG tablet Take 1 (one) tablet by mouth once daily Activ e MAGNESIUM PO Take 400 mg by mouth at bedtime Active metoclopramide (Reglan) 10 MG tablet take 1 tablet by oral route 4 times every day 30 minutes before meals and at bedtime Active Multiple Vitamins-Apparel Manufacture Instructor als (Multivitamin Womens 50+ Adv) TABS Active omeprazole (PriLOSEC) 10 MG capsule take 2 capsule by oral route every day before a meal Active temazepam (Restoril) 15 MG capsule Take 1 capsule every day by oral route. Active Zepbound 2.5 MG/0.5ML injection INJECT 2.5 MG (0.5 ML) SUBCUTANEOUSLY WEEKLY FOR 4 WEEKS 02/01/20 25 Active tolterodine (Detrol) 2 MG tablet Take 1 (one) tablet by mouth every 12 hours Active venlafaxine XR 24hr (Effexor XR) 150 MG capsule Take 2 (two) capsules by mouth once daily 01/23/20 25 Active zolpidem (Ambien) 5 MG tablet TAKE 1 TABLET BY MOUTH EVERY DAY AT BEDTIME NEEDED FOR INSOMNIA 01/24/20 25 Active Encounters Date Type Department Care Team Description 03/10/2025 Results Follow-Up [facility] - Vascular Surgery [address] [place] [phone] Joao Sesay RN Results 03/07/2025 10:26 AM CDT - 03/07/2025 11:59 PM CDT Hospital Encounter [facility] [place] [address] [place] [address] Kiko Groves MD Discharge Disposition: Home or Self Care 03/07/2025 Travel 02/13/2025 9:30 AM CDT Office Visit [facility] - Vascular Surgery [address] [place] [phone] Kiko Groves MD Lymphedema (Primary Dx); Leg swelling 02/13/2025 Travel from Last 3 Months Social History Tobacco Use Types Packs/Day Years Used Date Smoking Tobacco: Never Assessed Tobacco Cessation:Counseling Given: No Comments No Sex and Gender Information Value Date Recorded Sex Assigned at Not on file Legal Sex Female 6:03 AM PRODUCTION UNDERWRITER Gender Identity Not on file Sexual Orientation Not on file Last Filed Vital Signs Vital Sign Reading Time Taken Comments Blood Pressure 150/81 02/13/2025 9:05 AM CDT Pulse 86 02/13/2025 9:05 AM CDT Temperature 36.1 C (97 F) 02/13/2025 9:02 AM CDT Respiratory Rate - - Oxygen Saturation 98% 02/13/2025 9:02 AM CDT Inhaled Oxygen Concentration - - Weight 107.5 kg (237 lb) 02/13/2025 9:02 AM CDT Height 170.2 cm (5' 7) 02/13/2025 9:02 AM CDT Body Mass Index 37.12 02/13/2025 9:02 AM CDT Plan of Treatment Upcoming Encounters Date Type Department Care Team (Late st Contact Info) Description 07/03/2025 10:00 AM PRODUCTION UNDERWRITER Office Visit [facility] - Vascular Surgery [address] [facility] [place] [address] Kiko Groves MD [address] [address] Health Maintenance Due Date Last Done Comments BONE DENSITY TESTING 1955 COLOGUARD (AGES 45-75) - COLON CA SCREENING 1957 COLON MONITORING 1957 COLONOSCOPY - COLON CA SCREENING 1957 CT COLONOGRAPHY - COLON CA SCREENING 1955 Colorectal Cancer Screening 1957 FIT - COLON CA SCREENING 1957 FLEX SIG - COLON CA SCREENING 1957 LIPID TESTING 1957 MEDICARE AWV 12 MONTHS 1957 HEPATITIS C SCREENING 12/22/1975 DTAP/TDAP/TD VACCINES (1 - Tdap) 1976 PNEUMOCOCCAL VACCINE 50+ (1 of 1 - PCV) 12/27/2007 ZOSTER VACCINE (1 of 2) 12/27/2007 MAMMOGRAM 06/12/2019 06/12/2017 DEPRESSION SCREENING 07/24/2024 SCREENING FOR DIABETES 02/13/2025 COVID-19 VACCINE ( season) 2025 INFLUENZA VACCINE (#1) 2025 4, 03/23/2021, 03/17/2020, Additional history exists Respiratory Syncytial Virus (RSV) Vaccine Pt: or [...] to complete this topic MENINGOCOCCAL (Group B) VACCINE SHARED DECISION-MAKING Aged Out No longer eligible based on patient's age to complete this topic MENINGOCOCCAL GROUPS A/C/Y/W VACCINE Aged Out No longer eligible based on patient's age to complete this topic Procedures Procedure Name Priority Date/Time Associated Diagnosis Comments VAS BILATERAL VENOUS REFLUX Routine 03/07/2025 11:23 AM CDT Lymphedema Leg swelling from Last 3 Months Results * VAS Bilateral Venous Reflux (03/07/2025 11:23 AM CDT) Anatomical Region Laterality Modality Upper Extremity, Lower Extremity Intravascular Ultrasound 03/07/2025 10:4 9 AM CDT Narrative Procedure Note Kenneth Franklin MD - 03/07/2025 Kiko Groves MD VASCULAR LAB ORDERABLES Edite d Result - Final from Last 3 Months Insurance MEDICARE [employer] MEDICARE Care Teams Property Management Bookkeeper Relationship Specialty Start Date End Date Kenneth Camara MD [facility] [address] [place] [address] PCP - General Internal Medicine 02/13/25
--- OUTSIDE RECORDS SUMMARY | 2025-05-14 08:29 | XMS_ITS | Encounter Summary ---
Author Organization [facility] Address [address] [place] [address] Care Team Providers Care Concrete Panel Installer Name Role Phone Kenneth Camara MD Primary Care Provider [phone] Encounter Details Date Type Department Care Team (Late Contact Info) Description 04/26/2021 Lab Requisition [facility] [address] [place] [phone] Luis M De La Paz MD [address] [facility] [place] [address] Social History Tobacco Use Types Packs/Day Years Used Date Smoking Tobacco: Never Assessed Comments Unknown Sex and Gender Information Value Date Recorded Sex Assigned at Not on file Legal Sex Female 6:03 AM POWER PRESS OPERATOR Gender Identity Not on file Sexual Orientation Not on file documented as of this encounter Plan of Treatment Upcoming Encounters Date Type Department Care Team (Late Contact Info) Description 07/03/2025 10:00 AM POWER PRESS OPERATOR Office Visit [facility] - Vascular Surgery [address] [place] [phone] Kiko Groves MD [address] [facility] [address] [place] [address] documented as of this encounter Procedures Procedure Name Priority Date/Time Associated Diagnosis Comments DERMATOPATHOLOGY Routine 04/22/2021 3:33 AM CDT documented in this encounter Results * DERMATOPATHOLOGY (04/22/2021 3:33 AM CDT) Case Report Dermatopathology Report Case: [id number] Authorizing Provider: Luis M De La Paz MD Collected: 04/22/2021 03:33 AM Ordering Location: [facility] Derm[facility] Lab Received: 04/26/2021 06:28 AM Pathologist: Varsha Reid MD Specimens: A) - Skin, right lower leg B) - Skin, left helix 12:44 PM CDT DERMATOPATHOLOGY LABORATORY Final Diagnosis Specimen A. SKIN, right lower leg: BASAL CELL CARCINOMA, NODULAR TYPE (C44.712) Specimen B. 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 Path # [id number]. B: BCCA vs SCCA vs other. Path # [id number]. 12:44 PM CDT DERMATOPATHOLOGY LABORATORY Gross Description Specimen A: Received is one formalin filled container labeled with the patient's name and designated right lower leg. The specimen consists of a shave biopsy measuring 04p2o6hi. Jar 0. Specimen B: Received is one formalin filled container labeled with the patient's name and designated left helix. The specimen consists of a shave biopsy measuring 4d8b6cv. Jar 0. 12:44 PM CDT DERMATOPATHOLOGY LABORATORY [...] characteristic determined by the Dermatopathology Laboratory at [facility], directed by Dr. Mariluz Shea. These tests need not be, and therefore are not, approved by the [place] Food and Drug Administration. The tests are used for clinical purposes. Billing Codes Specimen Charges Stain Charges 54452 11707 1 1 1 12:44 PM CDT DERMATOPATHOLOGY LABORATORY Embedded Images 12:44 PM CDT DERMATOPATHOLOGY LABORATORY Pathology/Cytology TISSUE SPECIMEN FROM SKIN / Unknown 04/22/2021 3:33 AM CDT 04/26/2021 6:28 AM CDT Miscellaneous samples (specimen) TISSUE SPECIMEN FROM SKIN / Unknown 04/22/2021 3:33 AM CDT 04/26/2021 6:28 AM CDT Luis M De La Paz MD LAB - PATHOLOGY/CYTOLOGY ORDER SAMI Final Result DERMATOPATHOLOGY LABORATORY [facility] - Department of Dermatology [facility] Specialized Medicine [address] [place] [address], [address] [phone] documented in this encounter Visit Diagnoses Not on filedocumented in this encounter Care Teams Concrete Panel Installer Relationship Specialty Start Date End Date Kenneth Camara MD [address] [place] [address] [address] [place] [address] PCP - General Internal Medicine 02/13/25 documented as of this encounter
--- OUTSIDE RECORDS SUMMARY | 2025-05-14 08:29 | XMS_ITS | Clinical Summary ---
Author Organization [facility] Address [address] [place] [address] Care Team Providers Care Global Engineering Manager Name Role Phone Unavailable Primary Care [...] COVID-19 Vaccine ( - 2023-2 5 season) 2025 Influenza Adult (#1) 2025 RSV Immunization or 60+ Years (1 - 1-dose 75+ series) 2032 Hepatitis A Vaccines Aged Out No long er eligible based on patient's age to complete this topic Meningococcal B Vaccine Aged Out No l onger eligible based on patient's age to complete this topic Meningococcal Vaccine Aged Out No viet new eligible based on patient's age to complete this topic RSV Immunizations Under 20 Months Aged Out No longer eligible based on patient's age to complete this topic
--- OUTSIDE RECORDS SUMMARY | 2025-05-14 08:29 | XMS_ITS | Encounter Summary ---
Author Organization [facility] Address [address] [place] [address] Care Team Providers Care Physical Laboratory Assistant Name Role Phone Kenneth Camara MD Primary Care Provider [phone] Encounter Details Date Type Department Care Team (Late Contact Info) Description 04/25/2023 Lab Requisition [facility] - Derm[facility] Lab [address] [facility] [place] [id number] Luis M De La Paz MD [address] [facility] [place] [address] Social History Tobacco Use Types Packs/Day Years Used Date Smoking Tobacco: Never Assessed Comments Unknown Sex and Gender Information Value Date Recorded Sex Assigned at Not on file Legal Sex Female 6:03 AM PEDIATRICIAN MANAGING PARTNER Gender Identity Not on file Sexual Orientation Not on file documented as of this encounter Plan of Treatment Upcoming Encounters Date Type Department Care Team (Late Contact Info) Description 07/03/2025 10:00 AM PEDIATRICIAN MANAGING PARTNER Office Visit [facility] - Vascular Surgery [address] [facility] [place] [id number] Kiko Groves MD [address] [phone] documented as of this encounter Procedures Procedure Name Priority Date/Time Associated Diagnosis Comments DERMATOPATHOLOGY Routine 04/24/2023 12:0 0 AM CDT documented in this encounter Results * DERMATOPATHOLOGY (04/24/2023 12:00 AM CDT) Case Report Dermatopathology Report Case: [id number] Authorizing Provider: Luis M De La Paz MD Collected: 04/24/2023 12:00 AM Ordering Location: [facility] Received: 04/26/2023 06:15 AM Pathologist: Lea Shea MD Specimen: Skin, right bicep 10:33 AM CDT DERMATOPATHOLOGY LABORATORY Final Diagnosis Specimen A. SKIN, right bicep: BASAL CELL CARCINOMA, SUPERFICIAL MULTIFOCAL (C44.612) 10:33 AM CDT DERMATOPATHOLOGY LABORATORY at 1033 CDT Clinical History BCC vs SCC vs AK Path# [id number] 10:33 AM CDT DERMATOPATHOLOGY LABORATORY Gross Description Specimen A: Received is one formalin filled container labeled with the patient's name and designated right bicep. The specimen consists of a shave biopsy measuring 7x5x1 mm. Jar 0. 10:33 AM CDT DERMATOPATHOLOGY LABORATORY Microscopic Description Specimen A. [...] determined by the Dermatopathology Laboratory at [facility], directed by Dr. Mariluz Shea. These tests need not be, and therefore are not, approved by the [place] Food and Drug Administration. The tests are used for clinical purposes. Billing Codes Specimen Charges Stain Charges 84772 1 10:33 AM CDT DERMATOPATHOLOGY LABORATORY Embedded Images 10:33 AM CDT DERMATOPATHOLOGY LABORATORY Pathology/Cytolog y TISSUE SPECIMEN FROM SKIN / Unknown 04/24/2023 04/26/2023 6:15 AM CDT us Luis M De La Paz MD LAB - PATHOLOGY/CYTOLOGY ORDER SAMI Final Result DERMATOPATHOLOGY LABORATORY [facility] - Department of Dermatology [facility] Specialized Medicine [address] [place] [address], [address] [place] [address], [facility] [phone] documented in this encounter Visit Diagnoses Not on filedocumented in this encounter Care Teams Physical Laboratory Assistant Relationship Specialty Start Date End Date Kenneth Camara MD [address] [place] [id number] PCP - General Internal Medicine 02/13/25 documented as of this encounter
--- NOTE | 2025-05-14 09:33 | PC.NURSE ---
Per SOO Miller to remove pts C-collar at this time.
--- NOTE | 2025-05-14 10:04 | ED.GENADULT ---
HPI - General Adult General Chief complaint: Wound/Laceration Stated complaint: chin lac, neck pain Time Seen by Provider: 05/14/25 08:42 History of Present Illness HPI narrative: This is a 69-year-old female with history of cervical fusion chronic pain presenting after ground level fall. She tripped over carpet and struck striking her chin. She sustained a chin laceration. She did not lose conscious. She is not on blood thinners. No other complaints. Related Data Home Medications ?Medication ?Instructions ?Recorded ?Confirmed ?Last Taken ?Type ferrous sulfate 325 mg (65 mg 325 mg PO BID 07/01/19 03/19/25 08/20/22 17:00 History iron) tablet sqsudngfalab-tsvktvno-ftjgzln-folic 1 tablet PO DAILY 07/28/22 03/19/25 08/20/22 09:00 History acid 400 mcg-vit K1 20 mcg tablet (One-A-Day Women's 50 Plus) polyethylene glycol 3350 17 17 g PO QHS 11/09/22 03/19/25 Unknown History gram/dose oral powder (Miralax) MORPHINE/BUPIVACAINE See Rx Instructions .Route .COMPLEX 11/21/24 03/19/25 Unknown History PREVAGEN 1 cap PO HS 11/21/24 03/19/25 Unknown History aspirin 81 mg tablet,delayed 81 mg PO DAILY 11/21/24 03/19/25 Unknown History release (Adult Aspirin Regimen) gabapentin 300 mg capsule 300 mg PO HS 11/21/24 03/19/25 Unknown History magnesium 250 mg tablet 250 mg PO HS 11/21/24 03/19/25 Unknown History wzzgkohcqqra-Nj-npem-minerals 1 tablet PO DAILY 11/21/24 03/19/25 Unknown History vit A 7,160 unit-vit C 113 mg-vit 1 tablet PO BID 11/21/24 03/19/25 Unknown History E 100 uhrs-dhcz-okmwkt tablet Allergies Allergy/AdvReac Type Severity Reaction Status Date / Time prochlorperazine AdvReac Severe Hyperactive--STATES Verified 03/19/25 13:25 CAUSES RESTLESSNESS, PANICKY FEELING ropinirole AdvReac Intermediate compulsive Verified 03/19/25 13:25 shopping [facility] Past Medical History Medical History Abnormal digestive system diagnostic imaging Urge incontinence of urine Small intestine obstruction Fecal impaction Small bowel obstruction Abnormal urinalysis Electrolyte abnormality Asymptomatic bacteriuria Hx of small bowel obstruction Obstructive sleep apnea Presence of intrathecal pump Edema Diastolic dysfunction Acute UTI Vitamin D deficiency, unspecified Urinary frequency Skin lesion of left arm Right upper quadrant abdominal pain Rectal bleed Primary insomnia Past pointing Other chronic pain Microcytic anemia Major depressive disorder, single episode, unspecified Left upper quadrant pain Left lower quadrant pain Left breast lump Large breasts Jerking gait Incontinence in female Hypothyroidism (acquired) Hypotensive episode Hypotension, chronic Hypersomnia Hypercholesterolemia Hereditary and idiopathic neuropathy, unspecified Gastro-esophageal reflux disease without esophagitis Epigastric abdominal pain Dyslipidemia Cough Constipation, chronic Chronic right-sided low back pain without sciatica Chronic pain syndrome Breast calcification, left Restless leg syndrome Arthritis of right glenohumeral joint Presence of implanted infusion pump Degenerative disc disease Iron deficiency anemia Gastroesophageal reflux disease Anxiety Irritable bowel syndrome Obstructive sleep apnea on CPAP Hyperlipidemia Anemia Urinary tract infection Hypertension Candidiasis, intertrigo Dysuria Small bowel obstruction Lymphedema UTI (urinary tract infection) Failed back syndrome Depression Dysuria Surgical History Surgical History H/O toe surgery H/O ventral hernia repair History of gastric bypass History of right shoulder replacement History of exploratory laparotomy adhesiolysis for small bowel obstruction 2020 History of bilateral cataract extraction History of arthroscopy of right shoulder Eliezer - SLAP repair History of arthroscopy of both knees History of ankle surgery History of abdominoplasty History of cervical discectomy (2004) History of tubal ligation (1982) History of hysterectomy (1995) History of vein stripping History of stapedectomy History of lumbar surgery History of bladder repair surgery (06/2016) Cystoscopy with mid urethral sling. History of stress incontinence procedure using tension free vaginal tape (06/2007) History of ventral hernia repair (01/2007) Laparoscopic repair of lower abdominal wall rectus diastasis with Composix EX mesh. History of appendectomy (1995) History of gastric bypass (1999) Family History Family History Mother Family history of cardiovascular disease, Onset Age: 76 Diabetes mellitus, Onset Age: 76 Family history of malignant neoplasm, Onset Age: 76 Family history of arthritis, Onset Age: 76 Acute myocardial infarction Hypertension, Onset Age: 76 Asthma, Onset Age: 76 Father Family history of arthritis, Onset Age: 84 Cerebrovascular accident Chronic obstructive pulmonary disease Social History Social History Social History: Surrogate medical decision maker: Kamaljit Lovett, spouse. Code status: Full code. Smoking status: Never smoker Alcohol intake: never Substance use: never Substance use type: does not use Do You Feel Safe in your Home?: Yes Lack of Transportation: No Lack of Food: Never True Current Housing: I Have Housing Concerned About Future Housing: No Difficulty Paying Gas/Electric Bills: No Difficulty Paying for Meds: No Currently Unemployed: No Education: High School Diploma/GED Difficulty w/ Childcare or Family Care: No Living arrangements: with family Additional living arrangements comments: HUSB, SON, DIL Additional occupation/education comments: Disabled. Spiritual care concerns: No Exam Narrative: APPEARANCE: No apparent distress. Head: atraumatic. EYES: EOMI, NOSE: Atraumatic NECK: Trachea midline RESPIRATORY: No increased rate of breathing CTAB CARDIOVASCULAR: RRR, chronic edema ABDOMINAL: Soft nontender, palpable pain pump MUSCULOSKELETAl: No obvious deformities NEURO: Alert. Cranial nerves 2-12 grossly intact. Sensation light touch, motor function cerebellar function intact for 4 extremities. Gait exam was normal. SKIN:: Warm, dry. Normal color PSYCHIATRIC: Normal affect Course Vital Signs Vital signs: Vital Signs Temperature 97.7 F 05/14/25 08:22 Pulse Rate 89 05/14/25 08:22 Respiratory Rate 16 05/14/25 08:22 Blood Pressure 155/85 H 05/14/25 08:22 Pulse Oximetry 99 05/14/25 08:22 Oxygen Delivery Room Air 05/14/25 08:22 Temperature 97.7 F 05/14/25 08:22 Pulse Rate 89 05/14/25 08:22 Respiratory Rate 16 05/14/25 08:22 Blood Pressure 155/85 H 05/14/25 08:22 Pulse Oximetry 99 05/14/25 08:22 Oxygen Delivery Room Air 05/14/25 08:22 Procedures Laceration Laceration 1: Date: 05/14/25 Time: 10:09 Site: face Size (cm): 3 Description: irregular Depth: simple, single layer Local Anesthetic: bupivacaine 0.25% Amount of anesthesia used (mL): 5 Pre-repair: wound explored and irrigated extensively ====== Skin Level ====== Skin layer closed with: prolene Size (cm): 4-0 Number of sutures: 6 Technique: simple, interrupted ====== Subcutaneous Layer ====== ====== Muscle Layer ====== ====== Tendon Layer ====== Medical Decision Making MDM Narrative Medical decision making narrative: -Course: 69-year-old female presenting after ground level fall. Chin laceration was repaired. Neurologic exam is normal. CT brain C-spine negative for acute findings. Patient be discharged follow-up with primary care physician and pain management. -DDX includes but is not limited to: Facial laceration, cervical injury, spinal cord injury, intracranial hemorrhage -Co-morbidities complicating care: Chronic pain Vital Signs Vital Signs: Vital Signs Temperature 97.7 F 05/14/25 08:22 Pulse Rate 89 05/14/25 08:22 Respiratory Rate 16 05/14/25 08:22 Blood Pressure 155/85 H 05/14/25 08:22 Pulse Oximetry 99 05/14/25 08:22 Oxygen Delivery Room Air 05/14/25 08:22 Temperature 97.7 F 05/14/25 08:22 Pulse Rate 89 05/14/25 08:22 Respiratory Rate 16 05/14/25 08:22 Blood Pressure 155/85 H 05/14/25 08:22 Pulse Oximetry 99 05/14/25 08:22 Oxygen Delivery Room Air 05/14/25 08:22 Discharge Plan Discharge Clinical Impression: Chin laceration, Fall Patient Disposition: Home Condition: Stable Instructions: Antibiotic Form, Care For Your Stitches (ED) Additional Instructions: You were seen after a ground level fall. The sutures should be removed in 5-7 days. If you develop signs of infection such as swelling, increased redness or pain please return to the ED for re-evaluation. If you develop any new symptoms like such as weakness to any extremity you should return to the ED for re-evaluation. Patient Language: Martiniquais Prescriptions: No Action ferrous sulfate 325 mg (65 mg iron) tablet 325 mg PO BID Rx Instructions: Take 2 tablets oral route everyday, Take 1 in the morning and 1 at night ; docusate sodium 100 mg capsule 300 mg PO BID Qty: 60 3RF dicyclomine 10 mg capsule See Rx Instructions .ROUTE .COMPLEX Qty: 180 3RF Dose Instruction: TAKE 1 CAPSULE BY MOUTH TWICE A DAY FOR 90 DAYS Rx Instructions: TAKE 1 CAPSULE BY MOUTH TWICE A DAY FOR 90 DAYS omeprazole 40 mg capsule,delayed release(DR/EC) See Rx Instructions .ROUTE .COMPLEX Qty: 180 3RF Dose Instruction: TAKE 1 CAPSULE BY MOUTH TWICE A DAY Rx Instructions: TAKE 1 CAPSULE BY MOUTH TWICE A DAY ondansetron 4 mg tablet,disintegrating 4 mg PO Q8H PRN (Reason: nausea and vomiting) Qty: 21 0RF polyethylene glycol 3350 [Miralax] 17 gram/dose powder 17 g PO QHS aspirin [Adult Aspirin Regimen] 81 mg tablet,delayed release (DR/EC) 81 mg PO DAILY vnsnogihzefj-Iu-nfnc-minerals Tablet 1 tablet PO DAILY magnesium 250 mg tablet 250 mg PO HS PREVAGEN 1 cap PO HS gabapentin 300 mg capsule 300 mg PO HS vit A-vit C-vit O-hlvt-mvkqtj 7,160-113-100 qiyr-en-emgk tablet 1 tablet PO BID MORPHINE/BUPIVACAINE See Rx Instructions .ROUTE .COMPLEX Rx Instructions: SPINAL PAIN PUMP; SPINAL PAIN PUMP One-A-Day Women's 50 Plus 400-20 mcg Tablet 1 tablet PO DAILY furosemide 20 mg tablet See Rx Instructions .ROUTE .COMPLEX Qty: 90 2RF Dose Instruction: TAKE 1 TABLET BY MOUTH ONCE A DAY Patient Comments: QAM Rx Instructions: TAKE 1 TABLET BY MOUTH ONCE A DAY tolterodine 2 mg tablet See Rx Instructions .ROUTE .COMPLEX Qty: 180 2RF Dose Instruction: TAKE 1 TABLET BY MOUTH EVERY 12 HOURS Rx Instructions: TAKE 1 TABLET BY MOUTH EVERY 12 HOURS losartan 25 mg tablet See Rx Instructions .ROUTE .COMPLEX Qty: 90 2RF Dose Instruction: TAKE 1 TABLET BY MOUTH EVERY DAY Patient Comments: QAM Rx Instructions: TAKE 1 TABLET BY MOUTH EVERY DAY cholecalciferol (vitamin D3) 1,250 mcg (50,000 unit) capsule See Rx Instructions .ROUTE .COMPLEX Qty: 12 2RF Dose Instruction: TAKE 1 CAPSULE BY MOUTH ONCE PER WEEK Patient Comments: WEDNESDAYS Rx Instructions: TAKE 1 CAPSULE BY MOUTH ONCE PER WEEK baclofen 10 mg tablet See Rx Instructions .ROUTE .COMPLEX Qty: 270 2RF Dose Instruction: TAKE 1 TABLET BY MOUTH EVERY 8 HOURS NEEDED Rx Instructions: TAKE 1 TABLET BY MOUTH EVERY 8 HOURS NEEDED cyanocobalamin (vitamin B-12) 1,000 mcg/mL solution See Rx Instructions .ROUTE .COMPLEX Qty: 3 2RF Dose Instruction: INJECT 1ML INTRAMUSCULARLY ONCE A MONTH Rx Instructions: INJECT 1ML INTRAMUSCULARLY ONCE A MONTH fluticasone propionate [Flonase Allergy Relief] 50 mcg/actuation spray,suspension 1 spray intranasal BID PRN (Reason: allergy symptoms) Qty: 48 2RF Rx Instructions: administer into each nostril simvastatin 40 mg tablet See Rx Instructions .ROUTE .COMPLEX Qty: 90 2RF Dose Instruction: TAKE 1 TABLET BY MOUTH EVERY DAY Patient Comments: HS Rx Instructions: TAKE 1 TABLET BY MOUTH EVERY DAY zolpidem 5 mg tablet 5 mg PO QHS PRN (Reason: insomnia) Qty: 30 2RF Zepbound 10 mg/0.5 mL pen injector 10 mg subcut WEEKLY Qty: 2 0RF (DME) BD Luer-Marlene Syringe 3 mL 25 x 5/8 syringe See Rx Instructions .ROUTE .COMPLEX Qty: 3 3RF Dose Instruction: INJECT 1 MILLILITER OF B12 MONTHLY Rx Instructions: INJECT 1 MILLILITER OF B12 MONTHLY venlafaxine 150 mg capsule,extended release 24hr See Rx Instructions .ROUTE .COMPLEX Qty: 180 2RF Dose Instruction: TAKE 2 CAPSULES BY MOUTH DAILY Rx Instructions: TAKE 2 CAPSULES BY MOUTH DAILY Follow-up/Referrals: Kenneth Camara MD [Primary Care Provider, Internal Medicine]
--- NOTE | 2025-05-14 10:10 | PC.NURSE ---
Per Dr. Collins, pts sewn up laceration was dressed with bacitracin and a bandaid.
[2025-05-14] MEDS: TETANUS,DIPHTHERIA,AC PERTUSSIS ADULT (0.5 ML) BOOSTRIX IM (10:17)
[2025-05-14 10:20] VITALS: BP 168/78; PULSE 88; RESP 16; O2SAT 97
--- OUTSIDE RECORDS SUMMARY | 2025-05-14 12:12 | XMS_ITS | Clinical Summary ---
Author Organization [facility] Address [address] [place] [id number] Care Team Providers Care Master Merchandiser Name Role Phone Unavailable Primary Care Provider [...]
--- OUTSIDE RECORDS SUMMARY | 2025-05-14 12:13 | XMS_ITS | Clinical Summary ---
Author Organization [facility] [address] Address [address] [place] [address] Care Team Providers Care Web Marketing Assistant Name Role Phone Kenneth Camara MD Unavailable [...] (thirty) days Active cholecalcifero l (VITAMIN D-3) 05541 unit capsuleIndicat ions:Vitamin D Deficiency Take 1 [...] 07/31/2018 Overview (08/08/2023): UTI;Recorded Elsewhere: No Location: [facility] Source: EHR Chronic: N Practice ID: [id number] Billable Time: 10:30:00 AM Presence of intrathecal pump 03/08/2018 Overview (03/08/2018): Added automatically from request for surgery [id number] Microscopic hematuria 01/07/2016 Overview (08/08/2023): Other microscopic hematuria;Recorded Elsewhere: No Location: [facility] Source: EHR Chronic: N Practice ID: [id number] Billable Time: 03:00:00 PM Menopausal symptom 04/13/2011 Overview (08/08/2023): Menopausal or female climacteric states;Recorded Elsewhere: No Location: [facility] Source: EHR Chronic: N Practice ID: [id number] Billable Time: 11:15:00 AM Gastroesophageal reflux disease 02/26/2011 Overview (08/08/2023): GERD;Recorded Elsewhere: No Location: [facility] Source: EHR Chronic: Y Practice ID: [id number] Billable Time: 01:07:04 PM Varicose veins of lower extremity 02/26/2011 Overview (08/08/2023): Varicose Veins, Lower Extremity;Recorded Elsewhere: No Location: [facility] Source: EHR Chronic: Y Practice ID: [...] CDT Gender Identity Female 10/01/2020 11:28 AM FOREIGN STUDENT ADVISER Sexual Orientation Straight 10/01/2020 11 :28 AM FOREIGN STUDENT ADVISER Obstetrics History Last Filed Vital Signs Vital Sign Reading Time Taken Comments Blood Pressure 102/70 08/08/2023 2:56 PM FOREIGN STUDENT ADVISER Pulse 85 08/08/2023 2:56 PM FOREIGN STUDENT ADVISER Temperature 37 C (98.6 F) 05/17/2023 8:16 AM CDT Respiratory Rate 18 05/17/2023 8:16 AM CDT Oxygen Saturation 97% 08/08/2023 2:56 PM FOREIGN STUDENT ADVISER Inhaled Oxygen Concentration - - Weight 94.3 kg (208 lb) 08/08/2023 2:56 PM FOREIGN STUDENT ADVISER Height 162.6 cm (5' 4) 08/08/2023 2:56 PM FOREIGN STUDENT ADVISER Body Mass Index 35.7 08/08/2023 2:56 PM FOREIGN STUDENT ADVISER Plan of Treatment Health Maintenance Due Date [...] history exists Medical Devices Implanted Type Area Hand Edge Bander Device Identifier Shelf Expiration Date Model / Serial / Lot Medtronic Inc Synchromed Ii .78in [place] Filter Mesh Pouch Programmable 8637-20 - [id number] - [id number] Implanted:Qty: 1 on 10/28/2021 by Dion Cohen MD at [facility] N/A: Abdomen Medtronic Inc 11/18/2022 8637-20 / [id number] / Medtronic Inc Sutureless Connector Revision Catheter Kit Intrathecal Pump 8578 - [id number] Implanted:Qty: 1 on 10/28/2021 by Dion Cohen MD at [facility] N/A: Abdomen Medtronic Inc 12/24/2022 8578 / / [id number] Depuy Synthes [employer] Inc Glenosphere Reverse Shoulder Inhance +4x36mm [id number] - [id number] Implanted:Qty: 1 on 05/16/2023 by Pito Maya MD at [facility] Right: Shoulder Depuy [employer]ynthe[employer] Inc [id number] 05/23/2027 [id number] / / [id number] Depuy Orthopaedics Inc Stem Resurfacing Shoulder Stem Inhance 32mm Short Small [id number] - [id number] Implanted:Qty: 1 on 05/16/2023 by Pito Maya MD at [facility] Right: Shoulder Depuy Orthopaedics Inc [id number] 08/23/2027 [id number] / / [id number] Depuy [employer] Inc Shell Humeral Reverse Shoulder Small Inhance +0x32mm [id number] - [id number] Implanted:Qty: 1 on 05/16/2023 by Pito Maya MD at [facility] Right: Shoulder Depuy [employer] Inc [id number] 12/22/2027 [id number] / / [id number] Depuy [employer] Liner Shoulder Reverse Inhance +0x36mm E Poly [id number] - [id number] Implanted:Qty: 1 on 05/16/2023 by Pito Maya MD at [facility] Right: Shoulder Depuy [employer] [id number] 10/21/2026 [id number] / / [id number] Depuy [employer] Baseplate Humeral Porous Modular Small Inhance 24mm [id number] - [id number] Implanted:Qty: 1 on 05/16/2023 by Pito Maya MD at [facility] Right: Shoulder Depuy [employer] Inc [id number] 02/21/2028 [id number] / / [id number] Depuy Synthe[employer] Scrw Glenoid Central Inhance 6.0x30mm [id number] - [id number] Implanted:Qty: 1 on 05/16/2023 by Pito Maya MD at [facility] Right: Shoulder Depuy [employer] Inc [id number] 12/22/2027 [id number] / / [id number] Depuy [employer] Scrw Glenoid Locking Inhance 40mm [id number] - [id number] Implanted:Qty: 1 on 05/16/2023 by Pito Maya MD at [facility] Right: Shoulder Depuy [employer] Inc [id number] 12/21/2026 [id number] / / [id number] Depuy [employer] Scrw Glenoid Locking Inhance 20mm [id number] - [id number] Implanted:Qty: 1 on 05/16/2023 by Pito Maya MD at [facility] Right: Shoulder Depuy [employer] Inc [id number] 03/23/2027 [id number] / / [id number] Depuy [employer] Inc Scrw Glenoid Locking Inhance 20mm [id number] - [id number] Implanted:Qty: 1 on 05/16/2023 by Pito Maya MD at [facility] Right: Shoulder Depuy Synthes Eyebrid Bl[employer] Inc [id number] 05/23/2027 [id number] / / [id number] Explanted Type Area Hand Edge Bander Device Identifier Shelf Expiration Date Model / Serial / Lot Sutureless Pump Connector Revision Implanted:Qty: 1 on 04/06/2018 by Vadim Herrera MD at [facility] Explanted:Qty: 1 on 10/28/2021 by Dion Cohen MD at [facility] N/A: Abdomen Medtronic 06/02/2019 8578 / / [id number] Medtronic Inc Synchromed Ii .78in [place] Filter Mesh Pouch Programmable 8637-20 - [id number] - [id number] Explanted:Qty: 1 on 10/28/2021 by Dion Cohen MD at [facility] N/A: Abdomen Medtronic Inc 8637-20 / [id number] / Procedures Procedure Name Priority Date/Time Associated Diagnosis Comments SCREENING MAMMOGRAM Routine 06/12/2017 8 :26 PM FOREIGN STUDENT ADVISER from Last 3 Months or Most Recently Relevant to Health Maintenance Results * Screening Mammogram (06/12/2017 8:26 PM FOREIGN STUDENT ADVISER) Anatomical Region Laterality Modality Breast N/A Mammography 06/12/2017 8:26 PM FOREIGN STUDENT ADVISER Narrative 06/12/2017 8:57 PM FOREIGN STUDENT ADVISER JOSSELYN CORNELIUS M.D. YAS REIS M.D. FINAL REPORT The radiology attending physician has personally reviewed this study, and has reviewed and/or edited this written report and agrees with it. ACC# Date Time Exam [id number] Jun 12, 2017 14:26:00 [facility] [address] [facility] Mamm, inc CAD, unilat L Technologist(s): Brigid Brady; ; EXAMINATION: LEFT UNILATERAL DIGITAL DIAGNOSTIC MAMMOGRAM INCLUDING CAD HISTORY: 61-year-old woman presents for additional imaging. Unilateral left diagnostic mammogram performed at [facility] on 05/23/2017 demonstrated coarse heterogeneous calcifications, for [...] CORNELIUS M.D. on Jun 12 2017 2:55P [id number] MELVIN M.D. FINAL REPORT The radiology attending physician has personally reviewed this study, and has reviewed and/or edited this written report and agrees with it. Attending: LORETO SOTO Requesting: Loreto Soto Requesting Fax: Attending Fax: Attending ID: [id number] Requesting ID: [id number] Report To 1 ID: [id number] Report To 1 Name: , Report To 1 FAX: NextGen Order #: Procedure Note Miscellaneous, Not In File - 06/12/2017 Bandar STEIN M.D. FINAL REPORT The radiology attending physician has personally reviewed this study, and has reviewed and/or edited this written report and agrees with it. ACC# Date Time Exam [id number] Jun 12, 2017 14:26:00 [facility] [address] [facility] Mamm, inc CAD, unilat L Technologist(s): Brigid Brady; ; EXAMINATION: LEFT UNILATERAL DIGITAL DIAGNOSTIC MAMMOGRAM INCLUDING CAD HISTORY: 61-year-old woman presents for additional imaging. Unilateral left diagnostic mammogram performed at [facility] on 05/23/2017 demonstrated coarse heterogeneous calcifications, for [...] CORNELIUS M.D. on Jun 12 2017 2:55P [id number] MELVIN M.D. FINAL REPORT The radiology attending physician has personally reviewed this study, and has reviewed and/or edited this written report and agrees with it. Attending: LORETO SOTO Requesting: Loreto Soto Requesting Fax: Attending Fax: Attending ID: [id number] Requesting ID: [id number] Report To 1 ID: [id number] Report To 1 Name: , Report To 1 FAX: NextGen Order #: Loreto Soto MD PhD IMG MAMMO PROCEDURES Final Result from Last 3 Months or Most Recently Relevant to Health Maintenance Insurance Advance Directives For more information, please contact: [phone] * Full Code (Latest Code Status on File) Date Activated Date Inactivated Comments 05/16/2023 6:23 PM 05/17/2023 5:07 PM * Full Code Date Activated Date Inactivated Comments 02/10/2020 9:13 AM 02/13/2020 5:25 PM Care Teams Web Marketing Assistant Relationship Specialty Start Date End Date Kenneth Camara MD [address] [place] [address] PCP - General Emergency Medicine 02/10/25 Kenneth Camara MD [address] [place] [address] 02/10/22 Pito Maya MD [address] [address] Consulting Physician Orthopedic Surgery 05/17/23
--- OUTSIDE RECORDS SUMMARY | 2025-05-14 12:13 | XMS_ITS | Encounter Summary ---
Author Organization [facility] Address [address] [facility] [place] [address] Care Team Providers Care Nurses' Registry Director Name Role Phone Kenneth Camara MD Primary Care Provider + [phone] Encounter Details Date Type Department Care Team (Late Contact Info) Description 04/26/2021 Lab Requisition [facility] Care DermPath Lab [address] [place] [address] Luis M De La Paz MD [address] [facility] [place] [address] Social History Tobacco Use Types Packs/Day Years Used Date Smoking Tobacco: Never Assessed Comments Unknown Sex and Gender Information Value Date Recorded Sex Assigned at Not on file Legal Sex Female 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 Gender Identity Not on file Sexual Orientation Not on file documented as of this encounter Plan of Treatment Upcoming Encounters Date Type Department Care Team (Late Contact Info) Description 07/03/2025 10:00 AM MEETING/EVENT PLANNER Office Visit [facility] - Vascular Surgery [address] [place] [phone] Kiko Groves MD [address] [facility] [address] [place] [address] documented as of this encounter Procedures Procedure Name Priority Date/Time Associated Diagnosis Comments DERMATOPATHOLOGY Routine 04/22/2021 3:33 AM CDT documented in this encounter Results * DERMATOPATHOLOGY (04/22/2021 3:33 AM CDT) Case Report Dermatopathology Report Case: [id number] Authorizing Provider: Luis M De La Paz MD Collected: 04/22/2021 03:33 AM Ordering Location: [facility] DermPath Lab Received: 04/26/2021 06:28 AM Pathologist: [...] BCCA vs SCCA vs other. Path # [id number]. B: BCCA vs SCCA vs other. Path # [id number]. 12:44 PM CDT DERMATOPATHOLOGY LABORATORY Gross Description Specimen A: Received is one formalin filled container labeled with the patient's name and designated right lower leg. The specimen consists of a shave biopsy measuring [id number]. Jar 0. Specimen B: Received is one formalin filled container labeled with the patient's name and designated left helix. The specimen consists of a shave biopsy measuring [id number]. Jar 0. 12:44 PM CDT DERMATOPATHOLOGY LABORATORY [...] characteristic determined by the Dermatopathology Laboratory at [facility], directed by Dr. Mariluz Shea. These tests need not be, and therefore are not, approved by the [place] Food and Drug Administration. The tests are used for clinical purposes. Billing Codes Specimen Charges Stain Charges 23090 77714 1 1 1 12:44 PM CDT DERMATOPATHOLOGY LABORATORY Embedded Images 12:44 PM CDT DERMATOPATHOLOGY LABORATORY Pathology/Cytology TISSUE SPECIMEN FROM SKIN / Unknown 04/22/2021 3:33 AM CDT 04/26/2021 6:28 AM CDT Miscellaneous samples (specimen) TISSUE SPECIMEN FROM SKIN / Unknown 04/22/2021 3:33 AM CDT 04/26/2021 6:28 AM CDT Luis M De La Paz MD LAB - PATHOLOGY/CYTOLOGY ORDER SAMI Final Result DERMATOPATHOLOGY LABORATORY [facility] - Department of Dermatology [facility] Special[facility] [address] [place] [address], [address] [phone] documented in this encounter Visit Diagnoses Not on filedocumented in this encounter Care Teams Nurses' Registry Director Relationship Specialty Start Date End Date Kenneth Camara MD [address] [place] [address] 2 [place] [address] PCP - General Internal Medicine 02/13/25 documented as of this encounter
--- OUTSIDE RECORDS SUMMARY | 2025-05-14 12:13 | XMS_ITS | Encounter Summary ---
Author Organization [facility] Address [address] [facility] [place] [address] Care Team Providers Care Counter Waitress/Waiter Name Role Phone Kenneth Camara MD Primary Care Provider [phone] Encounter Details Date Type Department Care Team (Late Contact Info) Description 04/25/2023 Lab Requisition [facility] - DermPath Lab [address] [facility] [place] [id number] Luis M De La Paz MD [address] [place] [address] Social History Tobacco Use Types Packs/Day Years Used Date Smoking Tobacco: Never Assessed Comments Unknown Sex and Gender Information Value Date Recorded Sex Assigned at Not on file 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 Gender Identity Not on file Sexual Orientation Not on file documented as of this encounter Plan of Treatment Upcoming Encounters Date Type Department Care Team (Late Contact Info) Description 07/03/2025 10:00 AM JIG GRINDER Office Visit [facility] - Vascular Surgery [address] [facility] [place] [phone] Kiko Groves MD [address] [address] documented as of this encounter Procedures Procedure Name Priority Date/Time Associated Diagnosis Comments DERMATOPATHOLOGY Routine 04/24/2023 12:0 0 AM CDT documented in this encounter Results * DERMATOPATHOLOGY (04/24/2023 12:00 AM CDT) Case Report Dermatopathology Report Case: [id number] Authorizing Provider: Luis M De La Paz MD Collected: 04/24/2023 12:00 AM Ordering Location: [facility] DermPath Lab Received: 04/26/2023 06:15 AM Pathologist: Lea Shea MD Specimen: Skin, right bicep 10:33 AM CDT DERMATOPATHOLOGY LABORATORY Final Diagnosis Specimen A. SKIN, right bicep: BASAL CELL CARCINOMA, SUPERFICIAL MULTIFOCAL (C44.612) 10:33 AM CDT DERMATOPATHOLOGY LABORATORY at 1033 CDT Clinical History BCC vs SCC vs AK Path# [id number] 10:33 AM CDT DERMATOPATHOLOGY LABORATORY Gross Description [...] characteristic determined by the Dermatopathology Laboratory at [facility], directed by Dr. Mariluz Shea. These tests need not be, and therefore are not, approved by the [place] Food and Drug Administration. The tests are used for clinical purposes. Billing Codes Specimen Charges Stain Charges 53063 1 10:33 AM CDT DERMATOPATHOLOGY LABORATORY Embedded Images 10:33 AM CDT DERMATOPATHOLOGY LABORATORY Pathology/Cytolog y TISSUE SPECIMEN FROM SKIN / Unknown 04/24/2023 04/26/2023 6:15 AM CDT us Luis M De La Paz MD LAB - PATHOLOGY/CYTOLOGY ORDER SAMI Final Result DERMATOPATHOLOGY LABORATORY [facility] - Department of Dermatology [facility] Specialized Medicine [address] [place] [address], [address] [place] [address], [facility] [phone] documented in this encounter Visit Diagnoses Not on filedocumented in this encounter Care Teams Counter Waitress/Waiter Relationship Specialty Start Date End Date Kenneth Camara MD [address] [place] [address] PCP - General Internal Medicine 02/13/25 documented as of this encounter
--- OUTSIDE RECORDS SUMMARY | 2025-05-14 12:13 | XMS_ITS | Clinical Summary ---
Author Organization [facility] Address [address] [place] [address] Care Team Providers Care Color Maker Name Role Phone Kenneth Camara MD Primary Care Provider [phone] Source Comments [facility],non-owned Affiliates and Associated Physician Practices is amultiple site organization consisting of ambulatory clinics and hospital sitesin [place], [place], [place]. This disclosure is being madepursuant to the Care Everywhere program and may not contain all information available regarding this patient. Last updated 18.[facility] Allergies Active Allergy Reactions Criticality Noted Date [...] Active Cholecalcifero l (vitamin D3) 1.25 MG (70499 UT) capsule Take 1 (one) capsule by [...] before meals and at bedtime Active Multiple Vitamins-Information Technology Consultant als (Multivitamin Womens 50+ Adv) TABS Active [...] Follow-Up [facility] - Vascular Surgery [address] [place] [phone] Joao Sesay RN Results 03/07/2025 10:26 AM CDT - 03/07/2025 11:59 PM CDT Hospital Encounter [facility] VASCULAR [address] [place] [address] Kiko Groves MD Discharge Disposition: Home or Self Care 03/07/2025 Travel 02/13/2025 9:30 AM CDT Office Visit [facility] - V[facility] [address] [place] [phone] Kiko Groves MD Lymphedema (Primary Dx); Leg swelling 02/13/2025 Travel from Last 3 Months Social History Tobacco Use Types Packs/Day Years Used Date Smoking Tobacco: Never Assessed Tobacco Cessation:Counseling Given: No Comments No Sex and Gender Information Value Date Recorded Sex Assigned at Not on file Legal Sex Female 6:03 AM DATA WAREHOUSING ENGINEER Gender Identity Not on file Sexual Orientation [...] st Contact Info) Description 07/03/2025 10:00 AM DATA WAREHOUSING ENGINEER Office Visit [facility] - [facility] Surgery [address] [facility] [place] [address] Kiko Groves MD [address] [address] Health Maintenance Due Date Last [...] Months Insurance MEDICARE [employer] MEDICARE Care Teams Color Maker Relationship Specialty Start Date End Date Kenneth Camara MD [facility] [address] [place] [address] PCP - General Internal Medicine 02/13/25
== END 2025-05-14 10:31 | disposition home or self-care (01) ==
PROVIDERS: Emergency Provider Emergency Medicine; PCP Emergency Medicine
DX: S01.81XA Laceration without foreign body of other part of head, initial encounter (principal); W18.09XA Striking against other object with subsequent fall, initial encounter; Z23 Encounter for immunization; E55.9 Vitamin D deficiency, unspecified; G47.33 Obstructive sleep apnea (adult) (pediatric); E03.9 Hypothyroidism, unspecified; K21.9 Gastro-esophageal reflux disease without esophagitis; E78.5 Hyperlipidemia, unspecified; Z98.84 Bariatric surgery status; Z96.611 Presence of right artificial shoulder joint
CPT/HCPCS: 12013; 70450; 72125; 90471; 90715; 99284

== ENCOUNTER 2025-06-05 11:43 | Outpatient (CLI) | payer OTHER, SELFPAY ==
--- NOTE | ~2025-06-05 | XR_ITS ---
XR lumbar spine 2-3V Indication: Low Back Pain Comparison: None Findings: Dextroconvex scoliosis. Moderate loss of vertebral height. Grade 1 retrolisthesis of L2 on L3 and L3 on L4, no acute fracture. There is severe loss of disc height at L1-2, L2-3 L4-5 and L5-S1. Soft tissues unremarkable Impression: No acute abnormality. Reviewed, dictated and finalized at location P. ISTRY LABORATORY TECHNICIAN Impression: No acute abnormality.
== END 2025-06-05 11:44 | disposition home or self-care (01) ==
LOC: MICIMG 11:45
PROVIDERS: PCP Emergency Medicine; Visit Provider Nurse Practitioner Family
DX: M41.86 Other forms of scoliosis, lumbar region (principal); R29.890 Loss of height; M43.16 Spondylolisthesis, lumbar region
CPT/HCPCS: 72100

== ENCOUNTER 2025-06-07 15:09 | Emergency (ER) | payer OTHER, SELFPAY ==
--- NOTE | ~2025-06-07 | CT_ITS ---
EXAMINATION: CT abdomen pelvis wo con, 06/07/2025 15:40 [employer] HISTORY: eval pain pump, poss dislodgement vs impingement COMPARISON: No comparisons available. TECHNIQUE: CT scan of the abdomen and pelvis was performed without IV contrast. One or more of the following dose reduction techniques were used: automated exposure control, adjustment of the mA and/or kV according to patient size, use of iterative reconstruction technique. Unless otherwise stated, incidental findings do not require dedicated follow up imaging FINDINGS: CT abdomen: LUNG BASES: The lung bases are clear. The visualized portions of the heart and pericardium are unremarkable. LIVER: Mild cirrhotic changes noted of the liver with nodularity of the liver contours. SPLEEN: Unremarkable, no splenomegaly. KIDNEYS: Right Kidney: Unremarkable. No calculi. No hydronephrosis. Left Kidney: Unremarkable. No calculi. No hydronephrosis ADRENAL GLANDS: Unremarkable. PANCREAS: Mild pancreatic atrophy. GALLBLADDER/BILIARY: Mild distention of the gallbladder. STOMACH AND ESOPHAGUS: There is a large hiatal hernia with thickening of the esophagus, findings may relate to underlying esophagitis, GI or endoscopy suggested. Postsurgical changes within the stomach. BOWEL/MESENTERY: Moderate fecal content, no colitis or diverticulitis. Appendix not clearly identified, there are some prominent lymph nodes noted in the right lower quadrant, no stranding evident within the mesentery. There are some prominent small bowel loops adjacent to the previous surgery otherwise no dilated small bowel loops are identified. ADENOPATHY/RETROPERITONEUM: No lymphadenopathy. AORTA/VASCULATURE: Normal caliber aorta. FREE FLUID OR FREE AIR: Minimal free fluid in the presacral space.. CT pelvis: SOLID ORGANS/REPRODUCTIVE: Post hysterectomy. No adnexal mass. BLADDER: Within normal limits. OSSEOUS STRUCTURES: Spinal canal catheter. No sclerotic or lytic lesions. OVERLYING SOFT TISSUES: Postsurgical changes in the abdominal wall, right-sided subcutaneous implant is noted. IMPRESSION: 1. No acute intra-abdominal process. Incidental findings above. 2. Subcutaneous pain pump appears unremarkable. Reviewed, dictated and finalized at location P. [employer]
[2025-06-07 15:11] VITALS: BP 130/71; PULSE 93; TEMP 36.7; O2SAT 98
[2025-06-07 15:18] VITALS: BP 118/81; PULSE 91; RESP 13; TEMP 37.1; O2SAT 97
--- NOTE | 2025-06-07 15:47 | ED_ITS ---
HPI - General Adult General Chief complaint: Unspecified Stated complaint: fall on the 05/14/25, rash on the back, weak Time Seen by Provider: 06/07/25 15:28 Source: patient Mode of arrival: wheelchair Limitations: no limitations History of Present Illness HPI narrative: This is a 69-year-old female with history of hyperlipidemia, IBS, KAMRAN, anemia, chronic low back pain due to prior procedures who presents to the ED for low back pain. Patient states that for the past few days, she has been having worsening pain to her low back as well as a rash to that area. She does have a pain pump in place. She notes that she had a fall a few weeks ago and was concerned that her pain pump was not working appropriately. She saw her PCP for this a few days ago and had an x-ray done and was told that her PCP would follow up with her pain doctor regarding imaging findings. She states that for the past day or so, she has been having intermittent muscle spasms and sweating so she is concerned that she has not been getting morphine appropriately. Related Data Home Medications ?Medication ?Instructions ?Recorded ?Confirmed ?Last Taken ?Type ferrous sulfate 325 mg (65 mg 325 mg PO BID 07/01/19 1 07/27/24 08/20/22 17:00 History iron) tablet rnugedhaublm-kxtbbcqh-hecgepq-folic 1 tablet PO DAILY 07/28/22 05/27/25 08/20/22 09:00 History acid 400 mcg-vit K1 20 mcg tablet (One-A-Day Women's 50 Plus) polyethylene glycol 3350 17 17 g PO QHS 11/09/2205/27 Unknown History gram/dose oral powder (Miralax) MORPHINE/BUPIVACAINE See Rx Instructions .Route . COMPLEX 11/21/24 05/27/25 Unknown History PREVAGEN 1 cap PO HS 11/21/24 5 Unknown History aspirin 81 mg tablet,delayed 81 mg PO DAILY 11/21/24 1 07/27/24 Unknown History release (Adult Aspirin Regimen) gabapentin 300 mg capsule 300 mg PO HS 11/21/24 Unknown History magnesium 250 mg tablet 250 mg PO HS 11/21/24 Unknown History dpkglyvoccrz-Hj-ooqx-minerals 1 tablet PO DAILY 05/27/25 Unknown History vit A 7,160 unit-vit C 113 mg-vit 1 tablet PO BID 08/1705/27/25 Unknown History E 100 wjeq-acqe-vyjkzj tablet Allergies Allergy/AdvReac Type Severity Reaction Status Date / Time prochlorperazine AdvReac Severe Hyperactive--STATES Verified 06/07/25 15:28 CAUSES RESTLESSNESS, PANICKY FEELING ropinirole AdvReac Intermediate compulsive Verified 06/07/25 15:28 shopping Review of Systems 2 Review of Systems: Gen.: Denies fevers or chills Eyes: Denies eye pain or visual change ENT: Denies congestion Respiratory: Denies shortness of breath or cough CV: Denies chest pain or palpitations GI: Denies abdominal pain nausea, emesis or diarrhea denies burning, urgency, frequency or hematuria Musculoskeletal: Denies back pain or muscle pain Neuro: Denies numbness, tingling, weakness or focal weakness Skin: As per HPI Except as documented, all other systems reviewed and negative PMFSH Past Medical History Medical History Diastolic dysfunction Abnormal digestive system diagnostic imaging Urge incontinence of urine Small intestine obstruction Fecal impaction Small bowel obstruction Abnormal urinalysis Electrolyte abnormality Asymptomatic bacteriuria Hx of small bowel obstruction Obstructive sleep apnea Presence of intrathecal pump Edema Diastolic dysfunction Acute UTI Vitamin D deficiency, unspecified Urinary frequency Skin lesion of left arm Right upper quadrant abdominal pain Rectal bleed Primary insomnia Past pointing Other chronic pain Microcytic anemia Major depressive disorder, single episode, unspecified Left upper quadrant pain Left lower quadrant pain Left breast lump Large breasts Jerking gait Incontinence in female Hypothyroidism (acquired) Hypotensive episode Hypotension, chronic Hypersomnia Hypercholesterolemia Hereditary and idiopathic neuropathy, unspecified Gastro-esophageal reflux disease without esophagitis Epigastric abdominal pain Dyslipidemia Cough Constipation, chronic Chronic right-sided low back pain without sciatica Chronic pain syndrome Breast calcification, left Restless leg syndrome Arthritis of right glenohumeral joint Presence of implanted infusion pump Degenerative disc disease Iron deficiency anemia Gastroesophageal reflux disease Anxiety Irritable bowel syndrome Obstructive sleep apnea on CPAP Hyperlipidemia Anemia Urinary tract infection Hypertension Candidiasis, intertrigo Dysuria Small bowel obstruction Lymphedema UTI (urinary tract infection) Failed back syndrome Depression Dysuria Surgical History Surgical History H/O toe surgery H/O ventral hernia repair History of gastric bypass History of right shoulder replacement History of exploratory laparotomy adhesiolysis for small bowel obstruction 2020 History of bilateral cataract extraction History of arthroscopy of right shoulder Eliezer - SLAP repair History of arthroscopy of both knees History of ankle surgery History of abdominoplasty History of cervical discectomy (2004) History of tubal ligation (1982) History of hysterectomy (1995) History of vein stripping History of stapedectomy History of lumbar surgery History of bladder repair surgery (06/2016) Cystoscopy with mid urethral sling. History of stress incontinence procedure using tension free vaginal tape (06/2007) History of ventral hernia repair (01/2007) Laparoscopic repair of lower abdominal wall rectus diastasis with Composix EX mesh. History of appendectomy (1995) History of gastric bypass (1999) Family History Family History Mother Family history of cardiovascular disease, Onset Age: 76 Diabetes mellitus, Onset Age: 76 Family history of malignant neoplasm, Onset Age: 76 Family history of arthritis, Onset Age: 76 Acute myocardial infarction Hypertension, Onset Age: 76 Asthma, Onset Age: 76 Father Family history of arthritis, Onset Age: 84 Cerebrovascular accident Chronic obstructive pulmonary disease Social History Social History Social History: Surrogate medical decision maker: Kamaljit Lovett, spouse. Code status: Full code. Smoking status: Never smoker Alcohol intake: never Substance use: never Substance use type: does not use Do You Feel Safe in your Home?: Yes Lack of Transportation: No Lack of Food: Never True Current Housing: I Have Housing Concerned About Future Housing: No Difficulty Paying Gas/Electric Bills: No Difficulty Paying for Meds: No Currently Unemployed: No Education: High School Diploma/GED Difficulty w/ Childcare or Family Care: No Living arrangements: with family Additional living arrangements comments: HUSB, SON, DIL Additional occupation/education comments: Disabled. Spiritual care concerns: No Exam 2 Narrative: APPEARANCE: No acute distress, nontoxic, resting in bed EYES: EOMI HEENT: Normocephalic, atraumatic, OMM RESPIRATORY: No respiratory distress Clear to auscultation bilaterally with no rhonchi wheezing or rales. CARDIOVASCULAR: Regular rate and rhythm without murmurs rubs or gallops. ABDOMINAL: Soft, nontender, nondistended, no rebound or guarding. Pain pump in place to the right lower quadrant. MUSCULOSKELETAl: Moves all extremities. No clubbing, cyanosis or edema. NEURO: Awake and alert. Following commands, speech normal, no focal deficits SKIN:: Warm, dry. Ecchymotic appearing rash to the lower lumbar spine spreading to the flanks. PSYCHIATRIC: Normal affect/mood, Course Vital Signs Vital signs: Vital Signs Temperature 98.1 F 06/07/25 15:11 Pulse Rate 93 06/07/25 15:11 Blood Pressure 130/71 06/07/25 15:11 Pulse Oximetry 98 06/07/25 15:11 Oxygen Delivery Room Air 06/07/25 15:11 Temperature 98.7 F 06/07/25 15:18 Pulse Rate 75 06/07/25 18:05 Respiratory Rate 16 06/07/25 18:05 Blood Pressure 128/73 06/07/25 18:05 Pulse Oximetry 97 06/07/25 18:05 Oxygen Delivery Room Air 06/07/25 15:18 Medical Decision Making [facility] Narrative Medical decision making narrative: 69-year-old female Presenting for rash to low back, muscle spasms, and concerns for pain pump malfunction. On initial evaluation patient was in no acute distress afebrile, hemodynamic stable. Differentials include but are not limited to: Pain pump malfunction, pain pump leak, opioid withdrawal, fall, contusion Notable exam findings: Ecchymotic rash over the lower lumbar spine spreading to the flanks I personally reviewed the patient's images and interpret as follows: CT abdomen/pelvis showed appropriate placement of the intrathecal pump per radiologist, however on my evaluation, there is potentially the concerns for a fractured piece so I discussed this with the radiologist, reported that this may be represent calcified hematoma or could represent a leak but he would recommend a repeat CT in the next few days to evaluate for this. I discussed these findings with the patient and in shared decision making with the patient, she is wanting to go home at this time and will follow-up with her pain team on Monday as scheduled. Because there is concerns that her pain pump is not working, she will be given a short course of [place]. She was also given Narcan. Patient was agreeable to this plan. Given strict return precautions. Vital Signs Vital Signs: Vital Signs Temperature 98.1 F 06/07/25 15:11 Pulse Rate 93 06/07/25 15:11 Blood Pressure 130/71 06/07/25 15:11 Pulse Oximetry 98 06/07/25 15:11 Oxygen Delivery Room Air 06/07/25 15:11 Temperature 98.7 F 06/07/25 15:18 Pulse Rate 75 06/07/25 18:05 Respiratory Rate 16 06/07/25 18:05 Blood Pressure 128/73 06/07/25 18:05 Pulse Oximetry 97 06/07/25 18:05 Oxygen Delivery Room Air 06/07/25 15:18 Lab Data 06/07/25 16:49 06/07/25 16:49 Labs: Lab Results 06/07/25 Range/Units 16:49 WBC 10.2 H (4.5-10.0) K/mm3 RBC 4.37 (4.2-5.4) M/mm3 Hgb 13.1 (12.0-15.0) g/dL Hct 39.7 (37.0-47.0) % MCV 90.8 (80-100) fl MCH 30.0 (26-34) pg MCHC 33.0 (32-36) g/dl RDW 13.5 (11.5-14.5) % Plt Count 181 (150-375) k/mm3 MPV 9.6 (7.4-10.4) fl Immature Gran % (Auto) 1.1 H (0-0.5) % Neut % (Auto) 75.3 H (45.5-73.1) % Lymph % (Auto) 10.7 L (18.3-44.2) % [place] % (Auto) 11.2 H (2.6-8.5) % Eos % (Auto) 1.2 (0-4.4) % Baso % (Auto) 0.5 (0.2-1.2) % Lymph # (Auto) 1.09 (0.9-3.2) K/mm3 [place] # (Auto) 1.1 H (0.1-0.6) K/mm3 Eos # (Auto) 0.1 (0-0.3) K/mm3 Baso # (Auto) 0.1 (0.0-0.1) K/mm3 Abs Immat Gran (auto) 0.11 H (0.00-0.031) K/mm3 Absolute Neuts (auto) 7.7 H (1.3-6.7) K/mm3 Absolute Nucleated RBC 0.000 (0.0-0.012) K/mm3 Nucleated RBC % 0.0 (0.0-0.2) % Sodium 134 L (137-145) mmol/L Potassium 3.0 L (3.4-5.0) mmol/L Chloride 96 L (98-107) mmol/L Carbon Dioxide 29 (22-30) mmol/L Anion Gap 9 (4-12) mmol/L BUN 23 H D (7-17) mg/dL Creatinine 1.51 H (0.7-1.0) mg/dL Estim Creat Clear Calc 40 ml/min Estimated GFR 34 L (59 - ) Glucose 117 H (65-110) mg/dL Calcium 9.2 (8.4-10.2) mg/dL Total Bilirubin 0.5 (0.2-1.3) mg/dL AST 28 (14-36) U/L ALT 20 (6-35) U/L Alkaline Phosphatase 127 H (38-126) U/L Total Protein 7.4 (6.3-8.2) g/dL Albumin 3.9 (3.5-5.1) g/dL Discharge Plan Discharge Clinical Impression: Pain of intrathecal infusion pump pocket after insertion Patient Disposition: Home Condition: Stable Instructions: Antibiotic Form Additional Instructions: Call your pain doctor 1st thing on Monday to discuss your issues with her pain pump. Take hydrocodone as prescribed. Return to the ED for any new or worsening symptoms. Patient Language: Malay Prescriptions: New hydrocodone-acetaminophen 10-325 mg tablet 1 tablet PO Q6H PRN (Reason: pain (scale score 7-10)) Qty: 8 0RF naloxone [Narcan] 4 mg/actuation spray,non-aerosol 4 mg intranasal Q3M PRN (Reason: opioid overdose) Qty: 2 0RF Rx Instructions: spray 1 dose into ONE nostril; alternate nostrils w each dose until help arrives No Action ferrous sulfate 325 mg (65 mg iron) tablet 325 mg PO BID Rx Instructions: Take 2 tablets oral route everyday, Take 1 in the morning and 1 at night ; docusate sodium 100 mg capsule 300 mg PO BID Qty: 60 3RF dicyclomine 10 mg capsule See Rx Instructions .ROUTE .COMPLEX Qty: 180 3RF Dose Instruction: TAKE 1 CAPSULE BY MOUTH TWICE A DAY FOR 90 DAYS Rx Instructions: TAKE 1 CAPSULE BY MOUTH TWICE A DAY FOR 90 DAYS omeprazole 40 mg capsule,delayed release(DR/EC) See Rx Instructions .ROUTE .COMPLEX Qty: 180 3RF Dose Instruction: TAKE 1 CAPSULE BY MOUTH TWICE A DAY Rx Instructions: TAKE 1 CAPSULE BY MOUTH TWICE A DAY ondansetron 4 mg tablet,disintegrating 4 mg PO Q8H PRN (Reason: nausea and vomiting) Qty: 21 0RF polyethylene glycol 3350 [Miralax] 17 gram/dose powder 17 g PO QHS aspirin [Adult Aspirin Regimen] 81 mg tablet,delayed release (DR/EC) 81 mg PO DAILY ijgqctfbaapm-Ks-wqzh-minerals Tablet 1 tablet PO DAILY magnesium 250 mg tablet 250 mg PO HS PREVAGEN 1 cap PO HS gabapentin 300 mg capsule 300 mg PO HS vit A-vit C-vit L-xifr-oncivu 7,160-113-100 beqs-zk-cfmr tablet 1 tablet PO BID MORPHINE/BUPIVACAINE See Rx Instructions .ROUTE .COMPLEX Rx Instructions: SPINAL PAIN PUMP; SPINAL PAIN PUMP One-A-Day Women's 50 Plus 400-20 mcg Tablet 1 tablet PO DAILY losartan 25 mg tablet See Rx Instructions .ROUTE .COMPLEX Qty: 90 2RF Dose Instruction: TAKE 1 TABLET BY MOUTH EVERY DAY Patient Comments: QAM Rx Instructions: TAKE 1 TABLET BY MOUTH EVERY DAY cholecalciferol (vitamin D3) 1,250 mcg (50,000 unit) capsule See Rx Instructions .ROUTE .COMPLEX Qty: 12 2RF Dose Instruction: TAKE 1 CAPSULE BY MOUTH ONCE PER WEEK Patient Comments: WEDNESDAYS Rx Instructions: TAKE 1 CAPSULE BY MOUTH ONCE PER WEEK baclofen 10 mg tablet See Rx Instructions .ROUTE .COMPLEX Qty: 270 2RF Dose Instruction: TAKE 1 TABLET BY MOUTH EVERY 8 HOURS NEEDED Rx Instructions: TAKE 1 TABLET BY MOUTH EVERY 8 HOURS NEEDED cyanocobalamin (vitamin B-12) 1,000 mcg/mL solution See Rx Instructions .ROUTE .COMPLEX Qty: 3 2RF Dose Instruction: INJECT 1ML INTRAMUSCULARLY ONCE A MONTH Rx Instructions: INJECT 1ML INTRAMUSCULARLY ONCE A MONTH fluticasone propionate [Flonase Allergy Relief] 50 mcg/actuation spray,suspension 1 spray intranasal BID PRN (Reason: allergy symptoms) Qty: 48 2RF Rx Instructions: administer into each nostril simvastatin 40 mg tablet See Rx Instructions .ROUTE .COMPLEX Qty: 90 2RF Dose Instruction: TAKE 1 TABLET BY MOUTH EVERY DAY Patient Comments: HS Rx Instructions: TAKE 1 TABLET BY MOUTH EVERY DAY (DME) BD Luer-Marlene Syringe 3 mL 25 x 5/8 syringe See Rx Instructions .ROUTE .COMPLEX Qty: 3 3RF Dose Instruction: INJECT 1 MILLILITER OF B12 MONTHLY Rx Instructions: INJECT 1 MILLILITER OF B12 MONTHLY venlafaxine 150 mg capsule,extended release 24hr See Rx Instructions .ROUTE .COMPLEX Qty: 180 2RF Dose Instruction: TAKE 2 CAPSULES BY MOUTH DAILY Rx Instructions: TAKE 2 CAPSULES BY MOUTH DAILY Zepbound 12.5 mg/0.5 mL pen injector 12.5 mg subcut WEEKLY Qty: 2 0RF furosemide 20 mg tablet See Rx Instructions .ROUTE .COMPLEX Qty: 90 2RF Dose Instruction: TAKE 1 TABLET BY MOUTH ONCE A DAY Rx Instructions: TAKE 1 TABLET BY MOUTH ONCE A DAY tolterodine 2 mg tablet See Rx Instructions .ROUTE .COMPLEX Qty: 180 2RF Dose Instruction: TAKE 1 TABLET BY MOUTH EVERY 12 HOURS Rx Instructions: TAKE 1 TABLET BY MOUTH EVERY 12 HOURS zolpidem 5 mg tablet 5 mg PO QHS PRN (Reason: insomnia) Qty: 30 2RF Follow-up/Referrals: Kenneth Camara MD [Primary Care Provider, Internal Medicine]
[2025-06-07 17:32] LABS: Hematocrit 39.7 % (37.0-47.0); Hemoglobin 13.1 g/dL (12.0-15.0); Immature Granulocyte Percent A 1.1 % (0-0.5); Lymphocytes Absolute Auto 1.09 K/mm3 (0.9-3.2); Mean Corpuscular HGB Conc 33.0 g/dl (32-36); Mean Corpuscular Hemoglobin 30.0 pg (26-34); Mean Corpuscular Volume 90.8 fl (80-100); Nucleated Red Blood Cells Absolute Auto 0.000 K/mm3 (0.0-0.012); Nucleated Red Blood Cells Perc 0.0 % (0.0-0.2); Platelet Count Result 181 k/mm3 (150-375); Red Blood Count 4.37 M/mm3 (4.2-5.4); White Blood Count 10.2 K/mm3 (4.5-10.0)
[2025-06-07 17:43] LABS: Alanine Aminotransferase 20 U/L (6-35); Albumin Level 3.9 g/dL (3.5-5.1); Alkaline Phosphatase 127 U/L (38-126); Anion Gap 9 mmol/L (4-12); Aspartate Amino Transferase 28 U/L (14-36); Bilirubin,Total 0.5 mg/dL (0.2-1.3); Blood Urea Nitrogen 23 mg/dL (7-17); Calcium 9.2 mg/dL (8.4-10.2); Carbon Dioxide 29 mmol/L (22-30); Chloride 96 mmol/L (98-107); Estimated CRCL calculation 40 ml/min; Estimated Glomerular Filt Rate 34; Glucose 117 mg/dL (65-110); Potassium 3.0 mmol/L (3.4-5.0); Sodium 134 mmol/L (137-145); Total Protein 7.4 g/dL (6.3-8.2)
[2025-06-07 18:05] VITALS: BP 128/73; PULSE 75; RESP 16; O2SAT 97
== END 2025-06-07 18:07 | disposition home or self-care (01) ==
PROVIDERS: Emergency Provider Student in an Organized Health Care Education/Training Program; PCP Emergency Medicine
DX: T85.848A Pain due to other internal prosthetic devices, implants and grafts, initial encounter (principal); I11.9 Hypertensive heart disease without heart failure; E55.9 Vitamin D deficiency, unspecified; E03.9 Hypothyroidism, unspecified; E78.00 Pure hypercholesterolemia, unspecified; G89.4 Chronic pain syndrome; K21.9 Gastro-esophageal reflux disease without esophagitis; K58.9 Irritable bowel syndrome, unspecified; G60.9 Hereditary and idiopathic neuropathy, unspecified; G47.33 Obstructive sleep apnea (adult) (pediatric); F41.9 Anxiety disorder, unspecified; F32.9 Major depressive disorder, single episode, unspecified; Z98.84 Bariatric surgery status; Z96.611 Presence of right artificial shoulder joint; Z86.2 Personal history of diseases of the blood and blood-forming organs and certain disorders involving the immune mechanism; Z87.440 Personal history of urinary (tract) infections; Z98.42 Cataract extraction status, left eye; Z98.41 Cataract extraction status, right eye; Z90.710 Acquired absence of both cervix and uterus; Y75.2 Prosthetic and other implants, materials and neurological devices associated with adverse incidents; Z79.899 Other long term (current) drug therapy; Z79.891 Long term (current) use of opiate analgesic
CPT/HCPCS: 36415; 74176; 80053; 85025; 99284